=== PATIENT | female | born 1990 | race Two or more races ===

== ENCOUNTER 2024-06-27 06:50 | Emergency (ER) | payer MEDICAID, SELFPAY ==
[2024-06-27 06:52] VITALS: BMI 26.7
[2024-06-27 07:09] VITALS: BP 101/72; PULSE 99; RESP 16; TEMP 36.6; O2SAT 100
[2024-06-27] MEDS: ONDANSETRON INJ 2 MG/ML INJ 2 ML 4 MG IM (07:39)
[2024-06-27] MEDS: MORPHINE SULF INJ 10 MG/ML VIAL 5 MG IM (07:39)
--- NOTE | 2024-06-27 07:41 | EDNOTE_ITS ---
ED Dental RME/HPI General Chief complaint: Dental/Oral/Throat Stated complaint: MOUTH PAIN AFTER TOOTH EXTRACTION Time Seen by Provider: 06/27/24 07:07 Source: patient Arrival date/time: 06/27/24 06:50 33-year-old female who presented to the emergency department with complaints of dental pain after tooth extractions. Reports that 2 days ago she had 4 dental extractions done by her dentist and has been taking pain medication at home without relief. Patient reports taking her ibuprofen and [place] last night however pain is still there. There is no concerns of bleeding, no discharge at surgical site, and no fever or rigors. Mode of arrival: ambulatory Limitations: no limitations Related Data Previous Rx's ?Medication ?Instructions ?Recorded amoxicillin 875 mg-potassium 1 tab PO BID #14 tabs 06/27/24 clavulanate 125 mg tablet chlorhexidine gluconate 0.12 % 15 ml buccal BID 5 days #473 mL 06/27/24 mouthwash Allergies Allergy/AdvReac Type Severity Reaction Status Date / Time No Known Allergies Allergy Verified 05/28/23 15:25 Review of Systems Review of Systems Systems Reviewed: All systems reviewed, normal except as documented Narrative Review of Systems: Gen: No fever, no chills, no weight loss EYES: No discharge, no visual changes, no pain HEENT: No ear pain, no congestion, no sore throat, + dental pain PULM: No shortness of breath, no cough, no congestion CV: No chest pain, no dyspnea on exertion, no palpitations GI: No nausea, no vomiting, no diarrhea, no pain, no constipation : No frequency, no urgency, no dysuria Musc/skel: No joint pain, no back pain Skin: No rash Psyc: No hallucinations, no depression Heme/Lymph: No easy bleeding or bruising tendencies Neuro: No weakness, no headache Past Medical History Past Medical History NEUROLOGIC: Positive Migraine CARDIAC: Negative Cardiac Disorders or Congestive Heart Failure RESPIRATORY: Negative Chronic Obstructive Pulmonary Disease (COPD) or Asthma GASTROINTESTINAL: Positive Gastrointestinal Disorders GENITOURINARY: Positive Genitourinary Disorders (uti) and Kidney Stones; Negative Renal Disease MUSCULOSKELETAL: Positive Musculoskeletal Disorders ENDOCRINE: Negative Diabetes Mellitus Type 1 or Diabetes Mellitus Type 2 HEMATOLOGIC: Positive Anemia; Negative Sickle Cell Disease OTHER HISTORY: Negative Blood Transfusions or Cancer Family History FAMILY HISTORY: Negative Family Cancer Social History SMOKING STATUS: Never smoker SECOND HAND EXPOSURE: No ED Exam General Limitations: Present no limitations General appearance: Present alert and in no apparent distress Head Head exam: Present atraumatic Eye Eye exam: Present normal appearance, PERRL and EOMI ENT ENT exam: Present normal exam, normal oropharynx and mucous membranes moist Expanded ENT Exam External ear exam: Present normal external inspection Nose exam: Absent sinus tenderness Nasal speculum exam: Bilateral: normal Mouth exam: Present normal external inspection; Absent drooling, trismus or tongue swelling Teeth exam: Present dental caries, dental tenderness # (#4, 13, 17, 32 tooth extractions) and gingival swelling Neck Neck exam: Present normal inspection, full ROM and trachea midline Chest Chest inspection: Present normal inspection and symmetric chest wall rise Respiratory Respiratory exam: Present normal lung sounds bilaterally Cardiovascular Cardiovascular exam: Present regular rate, normal rhythm and normal heart sounds Abdominal Exam Abdominal exam: Present soft and normal bowel sounds Extremities Exam Extremities exam: Present normal inspection and full ROM Back Exam Back exam: Present normal inspection and full ROM Neurological Exam Neurological exam: Present alert, oriented X3 and CN II-XII intact Psychiatric Psychiatric exam: Present normal affect and normal mood Skin Skin exam: Present warm, dry, intact and normal color Course Quality Measures none Orders Category Date Time Status Morphine Inj Med 06/27/24 07:17 Discontinued 5 mg IM X1 ONE Ondansetron Inj [Zofran Inj] Med 06/27/24 07:17 Discontinued 4 mg IM X1 ONE Vital Signs Vital signs: Vital Signs Temperature 97.9 F 06/27/24 07:09 Pulse Rate 99 06/27/24 07:09 Respiratory Rate 16 06/27/24 07:09 Blood Pressure 101/72 06/27/24 07:09 Pulse Oximetry (%) 100 06/27/24 07:09 Oxygen Delivery Method Room Air 06/27/24 07:09 Dental / Oral 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 External records reviewed:: [facility] previous records Clinical information provided by:: patient Social determinants that could affect healthcare access:: none Patient has the following chronic illnesses:: None How is presenting disease/condition affected by chronic disease/condition?: no chronic disease Evaluation data The following diagnostics were reviewed and interpreted by me:: other (specify) Lab and/or radiology exams considered but not ordered:: None considered Interpretation Summary: Not applicable Medications / Prescriptions Medications or Prescriptions considered but not ordered:: Rx sent to pharmacy Medication administrations:: Medication Administration History Discontinued Medications Morphine Sulfate (Morphine Sulf Inj 10 Mg/Ml Vial) 5 mg IM X1 ONE Stop: 06/27/24 07:18 Last Admin: 06/27/24 07:39 Dose: 5 mg Documented By: [facility] Ondansetron HCl (Ondansetron Inj 2 Mg/Ml Inj 2 Ml) 4 mg IM X1 ONE; Protocol Stop: 06/27/24 07:18 Last Admin: 06/27/24 07:39 Dose: 4 mg Documented By: [facility] All medications administered and effective Consultations Consultation(s) initiated? (list below): No Diagnosis Dental Differential Diagnosis: gingival abscess, dental caries, toothache, dental abscess and fracture of tooth Most likely diagnosis given after review of the tests above:: Dental pain possible early infection Admission Indicated Admission indicated?: not indicated Admission Request Was there a request for admission?: No Disposition Plan Disposition Plan: Discharge Discharge Attestation Discharge Attestation: The patient and all family members were given an opportunity to ask questions and understood the discharge instructions. Discharge instructions specifically effects, indications for sooner follow up or return to the emergency department, and the expected course of current diagnosis. Patient condition: Stable Discharge Plan Plan Patient Disposition: HOME (Self Care) Patient condition on transfer: Stable Prescriptions/Referrals Prescriptions/Med Rec: New chlorhexidine gluconate 0.12 % mouthwash 15 ml buccal BID 5 Days Qty: 473 0RF Rx Instructions: 15ml swish/spit for 30 seconds and spit BID for 5 days amoxicillin-pot clavulanate 875-125 mg tablet 1 tab PO BID Qty: 14 0RF Referrals: Temporary Provider,ED [Physician] - In 1 week Problem List Clinical Impression: Pain, dental Patient/Caregiver Discharge Instructions Discharge Activity: as per physical therapy Education Materials: ED Dental Pain Additional Instructions: -Pain medication was given here in ER. -Start antibiotics and mouthwash as directed. Follow-up with your primary doctor or dentist as soon as possible. Return to the emergency department if there is any worsening symptoms or change in condition Print Language: Emirati Stand Alone Forms: Talisha Award Info., Work/School Release, Patient Portal Info Letter QUANG/MICHEL Supervising Physician QUANG/MICHEL Supervising Physician: Dr French
== END 2024-06-27 07:45 | disposition home or self-care (01) ==
LOC: SERX 07:36
PROVIDERS: Emergency Provider Emergency Medicine
DX: K08.89 Other specified disorders of teeth and supporting structures (principal)
CPT/HCPCS: 96372; 99284; J2270; J2405

== ENCOUNTER 2024-08-12 14:22 | Emergency (ER) | payer MEDICAID, SELFPAY ==
[2024-08-12 14:47] VITALS: BP 127/88; PULSE 81; RESP 16; TEMP 37.1; O2SAT 99; BMI 27.3
--- NOTE | 2024-08-12 14:59 | PD.EDDENTL ---
ED Dental RME/HPI General Chief complaint: Dental/Oral/Throat Stated complaint: left lower tooth pain Time Seen by Provider: 08/12/24 14:30 Source: patient Arrival date/time: 08/12/24 14:22 33-year-old female with no known medical history presents to the emergency room with a chief complaint of left lower molar tooth pain x 1 month. Patient states due to her health insurance issue she has been unable to take care of her dental pain. Patient states that the last 2 days she has been having an increased pain. Mode of arrival: ambulatory Limitations: no limitations Related Data Previous Rx's ?Medication ?Instructions ?Recorded amoxicillin 875 mg-potassium 1 tab PO BID #14 tabs 06/27/24 clavulanate 125 mg tablet clindamycin HCl 300 mg capsule 300 mg PO TID 7 days #21 caps 08/12/24 hydrocodone 5 mg-acetaminophen 325 1 tab PO BID PRN pain #10 tabs 08/12/24 mg tablet Allergies Allergy/AdvReac Type Severity Reaction Status Date / Time No Known Allergies Allergy Verified 08/12/24 14:25 Review of Systems Review of Systems Systems Reviewed: All systems reviewed, normal except as documented Constitutional Constitutional: Reports system reviewed and no additional complaints, except as documented, Denies fatigue, Denies fever(s), Denies headache(s) and Denies weakness Eyes Eyes: Reports system reviewed and no additional complaints, except as documented, Denies blurry vision and Denies change in vision ENT Ears, Nose, Mouth, and Throat: Reports system reviewed and no additional complaints, except as documented, Reports dental pain, Denies otalgia, Denies headache(s), Denies nasal congestion, Denies throat swelling and Denies vertigo Cardiovascular Cardiovascular: Reports system reviewed and no additional complaints, except as documented, Denies chest pain, Denies dyspnea and Denies dyspnea on exertion Respiratory Respiratory: Reports system reviewed and no additional complaints, except as documented, Denies chest congestion, Denies cough, Denies dyspnea, Denies dyspnea on exertion and Denies wheezing Gastrointestinal Gastrointestinal: Reports system reviewed and no additional complaints, except as documented, Denies abdominal pain, Denies cramping, Denies nausea and Denies vomiting Genitourinary Genitourinary: Reports system reviewed and no additional complaints, except as documented Musculoskeletal Musculoskeletal: Reports system reviewed and no additional complaints, except as documented and Denies back pain Integumentary/Breasts Skin/Breast: Reports system reviewed and no additional complaints, except as documented and Denies wounds Neurologic Neurologic: Reports system reviewed and no additional complaints, except as documented, Denies confusion, Denies headache(s), Denies lack of coordination, Denies vertigo and Denies weakness Psychiatric Psychiatric: Reports system reviewed and no additional complaints, except as documented, Denies anxiety, Denies confusion, Denies depression, Denies paranoia, Denies suicidal ideation and Denies tactile hallucinations Endocrine Endocrine: Reports system reviewed and no additional complaints, except as documented and Denies fatigue Hematologic/Lymphatic Hematologic/Lymphatic: Reports system reviewed and no additional complaints, except as documented and Denies lymphadenopathy Allergic/Immunologic Allergic/Immunologic: Reports system reviewed and no additional complaints, except as documented, Denies throat swelling, Denies urticaria and Denies wheezing Past Medical History Past Medical History NEUROLOGIC: Positive Migraine CARDIAC: Negative Cardiac Disorders or Congestive Heart Failure RESPIRATORY: Negative Chronic Obstructive Pulmonary Disease (COPD) or Asthma GASTROINTESTINAL: Positive Gastrointestinal Disorders GENITOURINARY: Positive Genitourinary Disorders (uti) and Kidney Stones; Negative Renal Disease MUSCULOSKELETAL: Positive Musculoskeletal Disorders ENDOCRINE: Negative Diabetes Mellitus Type 1 or Diabetes Mellitus Type 2 HEMATOLOGIC: Positive Anemia; Negative Sickle Cell Disease OTHER HISTORY: Negative Blood Transfusions or Cancer Family History FAMILY HISTORY: Negative Family Cancer Social History SMOKING STATUS: Never smoker SECOND HAND EXPOSURE: No ED Exam General Limitations: Present no limitations General appearance: Present alert and in no apparent distress Head Head exam: Present atraumatic Eye Eye exam: Present normal appearance, PERRL and EOMI ENT ENT exam: Present normal exam, normal oropharynx and mucous membranes moist Expanded ENT Exam Teeth exam: Present dental caries, fractured tooth #, dental tenderness # and gingival swelling Teeth numbered: 1. Fractured and Dental Tenderness Neck Neck exam: Present normal inspection, full ROM and trachea midline Chest Chest inspection: Present normal inspection and symmetric chest wall rise Respiratory Respiratory exam: Present normal lung sounds bilaterally Cardiovascular Cardiovascular exam: Present regular rate, normal rhythm and normal heart sounds Abdominal Exam Abdominal exam: Present soft and normal bowel sounds Extremities Exam Extremities exam: Present normal inspection and full ROM Back Exam Back exam: Present normal inspection and full ROM Neurological Exam Neurological exam: Present alert, oriented X3 and CN II-XII intact Psychiatric Psychiatric exam: Present normal affect and normal mood Skin Skin exam: Present warm, dry, intact and normal color Course Quality Measures none Orders Category Date Time Status Clindamycin Vial [Cleocin vial] Med 08/12/24 14:52 Discontinued 600 mg IM X1 ONE Ketorolac Inj [Toradol Inj] Med 08/12/24 14:52 Discontinued 30 mg IM X1 ONE Vital Signs Vital signs: Vital Signs Temperature 98.8 F 08/12/24 14:47 Pulse Rate 81 08/12/24 14:47 Respiratory Rate 16 08/12/24 14:47 Blood Pressure 127/88 H 08/12/24 14:47 Pulse Oximetry (%) 99 08/12/24 14:47 Oxygen Delivery Method Room Air 08/12/24 14:47 Dental / Oral MDM Narrative MDM Narrative:: 33-year-old female with no known medical history presents to the emergency room with a chief complaint of left lower molar tooth pain x 1 month. Patient states due to her health insurance issue she has been unable to take care of her dental pain. Patient states that the last 2 days she has been having an increased pain. Clinically the patient appears nontoxic and in no apparent distress. Physical examination shows tenderness to tooth #18 and 19 as well as dental caries and gingival swelling. There is fractured tooth #19. Antibiotics were given to the patient as well as pain medication. Patient was educated to follow-up with her dentist and return to the emergency room for any evidence of worsening signs or symptoms 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 External records reviewed:: [facility] previous records Clinical information provided by:: patient Social determinants that could affect healthcare access:: none Patient has the following chronic illnesses:: No chronic illness How is presenting disease/condition affected by chronic disease/condition?: no chronic disease Evaluation data The following diagnostics were reviewed and interpreted by me:: lab results and radiology exam(s) Lab and/or radiology exams considered but not ordered:: Labs and radiology exams considered and ordered Interpretation Summary: N/A Medications / Prescriptions Medications or Prescriptions considered but not ordered:: Medication given Medication administrations:: Medication Administration History Discontinued Medications Clindamycin Phosphate (Clindamycin Phos Inj 150 Mg/Ml Vial 6 Ml) 600 mg IM X1 ONE Stop: 08/12/24 14:53 Ketorolac Tromethamine (Ketorolac Inj 60 Mg/2 Ml Vial) 30 mg IM X1 ONE Stop: 08/12/24 14:53 Medication given Consultations Consultation(s) initiated? (list below): No Diagnosis Dental Differential Diagnosis: gingival abscess, dental caries, toothache and other (Dental pain) Most likely diagnosis given after review of the tests above:: Dental pain Admission Indicated Admission indicated?: not indicated Admission Request Was there a request for admission?: No Disposition Plan Disposition Plan: Discharge Discharge Attestation Discharge Attestation: The patient and all family members were given an opportunity to ask questions and understood the discharge instructions. Discharge instructions specifically effects, indications for sooner follow up or return to the emergency department, and the expected course of current diagnosis. Patient condition: Stable Discharge Plan Plan Patient Disposition: HOME (Self Care) Disposition Comment: Stable Prescriptions/Referrals Prescriptions/Med Rec: New clindamycin HCl 300 mg capsule 300 mg PO TID 7 Days Qty: 21 0RF hydrocodone-acetaminophen 5-325 mg tablet 1 tab PO BID MDD 10mg PRN (Reason: pain) Qty: 10 0RF No Action amoxicillin-pot clavulanate 875-125 mg tablet 1 tab PO BID Qty: 14 0RF Problem List Clinical Impression: Pain, dental Patient/Caregiver Discharge Instructions Education Materials: ED Dental Pain Additional Instructions: Please follow-up with your dentist in the next 24 to 48 hours. Medication was sent to your pharmacy to help you with any infection as well as with your pain. You will need to follow-up with your dentist as they are the ones that we will fix this issue. For any evidence of worsening signs or symptoms please return to the emergency room immediately Print Language: [place] Stand Alone Forms: Talisha Award Info., Patient Portal Info Letter QUANG/MICHEL Supervising Physician QUANG/MICHEL Supervising Physician: Dr. Richard
[2024-08-12] MEDS: KETOROLAC INJ 60 MG/2 ML VIAL 30 MG IM (15:08)
== END 2024-08-12 16:00 | disposition home or self-care (01) ==
LOC: SERX 15:07
PROVIDERS: Emergency Provider Emergency Medicine
DX: K08.89 Other specified disorders of teeth and supporting structures (principal)
CPT/HCPCS: 96372; 99283; J1885

== ENCOUNTER 2024-10-10 17:41 | Emergency (ER) | payer MEDICAID, SELFPAY ==
[2024-10-10 18:15] VITALS: BP 116/71; PULSE 88; RESP 18; TEMP 36.9; O2SAT 99; BMI 26.9
[2024-10-10] MEDS: HYDROcodone/APAP 5/325 TABLET 1 TAB PO (18:49)
[2024-10-10] MEDS: GABAPENTIN 300 MG CAPSULE PO (18:49)
--- NOTE | 2024-10-10 18:51 | PD.EDDENTL ---
ED Dental RME/HPI General Chief complaint: Dental/Oral/Throat Stated complaint: DENTAL PAIN, LEFT EARACHE Time Seen by Provider: 10/10/24 18:44 Arrival date/time: 10/10/24 17:41 33F with no significant PMH Presents to ED with L lower dental pain. Patient is waiting for insurance approval to get root canal. Limitations: no limitations Related Data Previous Rx's ?Medication ?Instructions ?Recorded amoxicillin 875 mg-potassium 1 tab PO BID #14 tabs 06/27/24 clavulanate 125 mg tablet hydrocodone 5 mg-acetaminophen 325 1 tab PO BID PRN pain #10 tabs 08/12/24 mg tablet Allergies Allergy/AdvReac Type Severity Reaction Status Date / Time No Known Allergies Allergy Verified 08/12/24 14:25 Review of Systems Review of Systems Systems Reviewed: All systems reviewed, normal except as documented Constitutional Constitutional: Reports system reviewed and no additional complaints, except as documented, Denies fever(s) and Denies headache(s) ENT Ears, Nose, Mouth, and Throat: Reports as per HPI, Reports dental pain, Denies disequilibrium and Denies headache(s) Cardiovascular Cardiovascular: Reports system reviewed and no additional complaints, except as documented, Denies chest pain and Denies dyspnea Respiratory Respiratory: Reports system reviewed and no additional complaints, except as documented, Denies cough and Denies dyspnea Gastrointestinal Gastrointestinal: Reports system reviewed and no additional complaints, except as documented, Denies abdominal pain, Denies nausea and Denies vomiting Neurologic Neurologic: Reports system reviewed and no additional complaints, except as documented, Denies confusion, Denies disequilibrium and Denies headache(s) Psychiatric Psychiatric: Denies confusion Past Medical History Past Medical History NEUROLOGIC: Positive Migraine CARDIAC: Negative Cardiac Disorders or Congestive Heart Failure RESPIRATORY: Negative Chronic Obstructive Pulmonary Disease (COPD) or Asthma GASTROINTESTINAL: Positive Gastrointestinal Disorders GENITOURINARY: Positive Genitourinary Disorders (uti) and Kidney Stones; Negative Renal Disease MUSCULOSKELETAL: Positive Musculoskeletal Disorders ENDOCRINE: Negative Diabetes Mellitus Type 1 or Diabetes Mellitus Type 2 HEMATOLOGIC: Positive Anemia; Negative Sickle Cell Disease OTHER HISTORY: Negative Blood Transfusions or Cancer Family History FAMILY HISTORY: Negative Family Cancer Social History SMOKING STATUS: Never smoker SECOND HAND EXPOSURE: No ED Exam General Limitations: Present no limitations General appearance: Present alert and in no apparent distress Head Head exam: Present atraumatic Eye Eye exam: Present normal appearance, PERRL and EOMI ENT ENT exam: Present normal exam, normal oropharynx and mucous membranes moist Neck Neck exam: Present normal inspection, full ROM and trachea midline Chest Chest inspection: Present normal inspection and symmetric chest wall rise Respiratory Respiratory exam: Present normal lung sounds bilaterally Cardiovascular Cardiovascular exam: Present regular rate, normal rhythm and normal heart sounds Abdominal Exam Abdominal exam: Present soft and normal bowel sounds Extremities Exam Extremities exam: Present normal inspection and full ROM Back Exam Back exam: Present normal inspection and full ROM Neurological Exam Neurological exam: Present alert, oriented X3 and CN II-XII intact Psychiatric Psychiatric exam: Present normal affect and normal mood Skin Skin exam: Present warm, dry, intact and normal color Course Quality Measures none Orders Category Date Time Status Gabapentin [Neurontin] Med 10/10/24 18:44 Discontinued 300 mg PO X1 ONE HYDROcodone*/APAP 5/325 [[place] 5/325] Med 10/10/24 18:44 Discontinued 1 tab PO X1 ONE Vital Signs Vital signs: Vital Signs Temperature 98.5 F 10/10/24 18:15 Pulse Rate 88 10/10/24 18:15 Respiratory Rate 18 10/10/24 18:15 Blood Pressure 116/71 10/10/24 18:15 Pulse Oximetry (%) 99 10/10/24 18:15 Oxygen Delivery Method Room Air 10/10/24 18:15 O2 at 99% on RA and WNLs Dental / Oral MDM Narrative MDM Narrative:: 33F with no significant PMH Presents to ED with L lower dental pain. Patient is waiting for insurance approval to get root canal. Physical exam reveals no obvious gingival/mouth tenderness. Patient is afebrile, calm, and alert. 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 External records reviewed:: [facility] previous records Clinical information provided by:: patient Social determinants that could affect healthcare access:: none Patient has the following chronic illnesses:: none How is presenting disease/condition affected by chronic disease/condition?: no chronic disease Evaluation data The following diagnostics were reviewed and interpreted by me:: other (specify) (none) Lab and/or radiology exams considered but not ordered:: not ordered Interpretation Summary: n/a Medications / Prescriptions Medications or Prescriptions considered but not ordered:: ordered Medication administrations:: Medication Administration History Discontinued Medications Hydrocodone Bitart/Acetaminophen (Hydrocodone/Apap 5/325 Tablet) 1 tab PO X1 ONE Stop: 10/10/24 18:45 Last Admin: 10/10/24 18:49 Dose: 1 tab Documented By: TISH Gabapentin (Gabapentin 300 Mg Capsule) 300 mg PO X1 ONE Stop: 10/10/24 18:45 Last Admin: 10/10/24 18:49 Dose: 300 mg Documented By: TISH above Consultations Consultation(s) initiated? (list below): No Diagnosis Dental Differential Diagnosis: gingival abscess, dental caries, toothache, dental abscess, fracture of tooth and aphthous ulcer Most likely diagnosis given after review of the tests above:: toothache Admission Indicated Admission indicated?: not indicated Admission Request Was there a request for admission?: No Disposition Plan Disposition Plan: Discharge Discharge Attestation Discharge Attestation: The patient and all family members were given an opportunity to ask questions and understood the discharge instructions. Discharge instructions specifically effects, indications for sooner follow up or return to the emergency department, and the expected course of current diagnosis. Patient condition: Stable Discharge Plan Plan Patient Disposition: HOME (Self Care) Disposition Comment: Stable Prescriptions/Referrals Prescriptions/Med Rec: No Action hydrocodone-acetaminophen 5-325 mg tablet 1 tab PO BID MDD 10mg PRN (Reason: pain) Qty: 10 0RF amoxicillin-pot clavulanate 875-125 mg tablet 1 tab PO BID Qty: 14 0RF Problem List Clinical Impression: Toothache Patient/Caregiver Discharge Instructions Education Materials: ED Dental Pain Additional Instructions: Please follow-up with PCP within 24-48 hours and return immediately if symptoms worsen. See dentist soon. Print Language: Frisian Stand Alone Forms: Patient Portal Info Letter QUANG/MICHEL Supervising Physician QUANG/MICHEL Supervising Physician: Dr. Richard
== END 2024-10-10 19:04 | disposition home or self-care (01) ==
LOC: SERX 19:00
PROVIDERS: Emergency Provider Emergency Medicine
DX: K08.89 Other specified disorders of teeth and supporting structures (principal)
CPT/HCPCS: 99283; A9270

== ENCOUNTER 2024-10-22 10:14 | Emergency (ER) | payer MEDICAID, SELFPAY ==
[2024-10-22 10:23] VITALS: BP 131/88; PULSE 90; RESP 18; TEMP 36.8; O2SAT 99; BMI 26.0
--- NOTE | 2024-10-22 10:30 | EDRME_ITS ---
Rapid Medical Screening Exam PENDING SALE TO [facility] Arrival date/time: 10/22/24 10:14 33-year-old female presents to the emergency department complaints of abdominal pain nausea vomiting. Patient reports history of kidney problems Chief Complaint: Back Pain/Injury Vital signs: Vital Signs Temperature 98.3 F 10/22/24 10:23 Pulse Rate 90 10/22/24 10:23 Respiratory Rate 18 10/22/24 10:23 Blood Pressure 131/88 H 10/22/24 10:23 Pulse Oximetry (%) 99 10/22/24 10:23 Oxygen Delivery Method Room Air 10/22/24 10:23
--- NOTE | 2024-10-22 10:30 | XR_ITS ---
Examination: CT abdomen with intravenous contrast CT pelvis with intravenous contrast 2-D coronal reconstructions 2-D sagittal reconstructions Date and time of exam:October 22, 2024 at 1223 hours Comparison November 18, 2023 INDICATIONS: Onset flank pain beginning 3 days ago. CTDI: vol (mGy) 8 DLP: (mGycm) 430 Technique: Multiple axial sections of the abdomen and pelvis have been obtained. 64 slice high-resolution scanner used. 3 mm axial sections have been obtained, post intravenous injection 60 cc [id number] 2-D sagittal, coronal reconstructions obtained. Low dose protocols were performed. One or more of the following dose reduction techniques were used; automated exposure control, adjustment of the mA and/or KV according to patient size, use of iterative reconstruction technique. Findings: No focal liver or splenic lesions Suspicious for tiny gallstones No pancreatic or adrenal mass No renal or ureteral calculi No hydronephrosis Aorta normal size No pericecal inflammatory change No bladder mass or bladder calculi Anteverted uterus with 12 mm probable cervical cyst Numerous bilateral ovarian follicular cysts including involuting 16mm left pelvic cyst with minimal surrounding free fluid Moderate disc narrowing posteriorly L5-S1 IMPRESSION: Recommend hepatobiliary sonography to exclude gallstones No renal or ureteral calculi No CT findings of appendicitis 16mm involuting left pelvic cyst with minimal surrounding free fluid, recommend pelvic sonography follow-up
[2024-10-22] MEDS: ONDANSETRON ODT 4 MG TABRAP PO (10:41)
[2024-10-22] MEDS: KETOROLAC INJ 30 MG/ML VIAL IM (10:42)
[2024-10-22] MEDS: HYDROcodone/APAP 5/325 TABLET 1 TAB PO (10:42)
[2024-10-22 10:47] LABS: Basophils # (Auto) 0.1 Thou/mm3 (0.0-0.2); Basophils % (Auto) 1 % (0-2.5); Eosinophils % (Auto) 0 % (0-10); Hematocrit 42.4 % (36.0-46.0); Hemoglobin 14.3 g/dL (12.0-16.0); Immature Granulocytes % (Auto) 0 % (0-0); Immature Granulocytes Auto 0.04 Thou/mm3 (0.00-0.00); Lymphocytes # (Auto) 2.1 Thou/mm3 (1.0-4.8); Lymphocytes % (Auto) 22 % (10-50); Mean Corpuscular HGB Conc 33.7 g/dl (31.0-37.0); Mean Corpuscular Hemoglobin 29.2 pg (25.0-35.0); Mean Corpuscular Volume 87 fL (80-100); Monocytes # (Auto) 0.3 Thou/mm3 (0.0-0.8); Monocytes % (Auto) 4 % (0-12); Neutrophils # (Auto) 7.1 Thou/mm3 (1.8-7.7); Neutrophils % (Auto) 74 % (37-80); Nucleated Red Blood Cell % 0 /100 WBC (0); Platelet Count 292 Thou/mm3 (140-440); RDW Standard Deviation 39.8 fL (36.4-46.3); White Blood Count 9.6 Thou/mm3 (3.6-11.0)
[2024-10-22 11:05] LABS: Alanine Aminotransferase 19 U/L (10-49); Albumin, Serum 4.4 gm/dL (3.5-5.0); Albumin/Globulin Ratio 1.5 (1.2-2.2); Alkaline Phosphatase 96 U/L (46-116); Anion Gap 8 (7-16); Aspartate Amino Transferase 18 U/L (0-34); BUN/Creatinine Ratio 9 Ratio (12-20); Bilirubin,Total 0.4 mg/dL (0.3-1.2); Blood Urea Nitrogen 6 mg/dL (9-23); Calcium 9.3 mg/dL (8.3-10.6); Calcium (Corrected) 9.3 mg/dL (8.5-10.1); Carbon Dioxide 22.4 mMol/L (20.0-31.0); Chloride 109 mMol/L (98-107); Creatinine (Component) 0.7 mg/dL (0.6-1.3); Estimated Creatinine Clearance 96.9 mL/min (>60); Globulin 2.9 gm/dL (2.3-3.5); Glucose 125 mg/dL (74-106); Lipase 40 U/L (12-53); Osmolality,Calculated 276 (275-295); Potassium 3.9 mMol/L (3.4-5.1); Sodium 139 mMol/L (136-145); Total Protein 7.3 gm/dL (5.7-8.2); eGFR > 60 See Note
--- NOTE | 2024-10-22 11:07 | PC.NURSE ---
PT HERE FOR BACK PAIN THAT RADIATES TO LEFT SIDE, FOR THE PAST 4 DAYS STATES PAIN COMES IN GOES, PT IS GUARDING ADB STATES PAIN IS 7/10, PAIN MEDS GIVEN IN LOBBY. PT HAS HX OF KIDNEY STONES.
--- NOTE | 2024-10-22 11:44 | EDNOTE_ITS ---
ED Back Injury Pain RME/HPI General Chief Complaint: Back Pain/Injury Stated Complaint: REALLY BAD BACK/KIDNEY PAIN X 4 DAYS, FEVER Arrival date/time: 10/22/24 10:14 Limitations: no limitations RME / HPI RME / HPI Narrative: 10/22/24 10:14 33-year-old female presents to the emergency department complaints of abdominal pain nausea vomiting. Patient reports history of kidney problems DR. SEXTON MAIN ED EVALUATION: 33 year old female with history of kidney stones, recurrent UTIs and previous hospitalization for pyelonephritis presents to the ED for evaluation of left flank pain today. The patient reports that the pain began approximately 4 days ago and has gradually worsened since its onset. The pain is described as similar to previous episodes of kidney stones and is located in the left flank, radiating to the lower abdomen. Rating as severe. The patient initially attempted to manage the pain at home, but the symptoms have not improved. Denies any fever, chills, chest pain, cough, shortness of breath, vomiting, or diarrhea. There is no history of recent trauma or injury to the area. Related Data Previous Rx's ?Medication ?Instructions ?Recorded amoxicillin 875 mg-potassium 1 tab PO BID #14 tabs clavulanate 125 mg tablet hydrocodone 5 mg-acetaminophen 325 1 tab PO BID PRN pa in #10 tabs 08/12/24 mg tablet Allergies Allergy/AdvReac Type Severity Reaction Status Date / Time No Known Allergies Allergy Verified 10/22/24 10:18 Review of Systems Review of Systems Narrative Review of Systems: GEN: No fever, no chills, no weight loss EYES: No discharge, no visual changes, no pain HEENT: No ear pain, no congestion, no sore throat PULM: No shortness of breath, no cough, no congestion CV: No chest pain, no dyspnea on exertion, no palpitations GI: + nausea, no vomiting, no diarrhea, + pain, no constipation : No frequency, no urgency, no dysuria MUSC/SKEL: No joint pain, +back pain SKIN: No rash NEURO: No weakness, no headache Past Medical History Past Medical History NEUROLOGIC: Positive Migraine GASTROINTESTINAL: Positive Gastrointestinal Disorders GENITOURINARY: Positive Genitourinary Disorders and Kidney Stones MUSCULOSKELETAL: Positive Musculoskeletal Disorders HEMATOLOGIC: Positive Anemia Family History FAMILY HISTORY: Positive Family Cardiac Disorders and Family Endocrine Disorders; Negative Family Cancer Social History SMOKING STATUS: Never smoker SECOND HAND EXPOSURE: No ED Exam General Limitations: Present no limitations General appearance: Present alert and other (appears to be in pain ) Head Head exam: Present atraumatic, normocephalic and normal inspection Eye Eye exam: Present normal appearance and EOMI ENT ENT exam: Present normal exam, normal oropharynx and mucous membranes moist Neck Neck exam: Present normal inspection, full ROM and trachea midline Chest Chest inspection: Present normal inspection and symmetric chest wall rise Respiratory Respiratory exam: Present normal lung sounds bilaterally Cardiovascular Cardiovascular exam: Present regular rate, normal rhythm and normal heart sounds Abdominal Exam Abdominal exam: Present soft, tenderness (2+ left abdominal tenderness to palpation ) and normal bowel sounds Extremities Exam Extremities exam: Present normal inspection and full ROM Back Exam Back exam: Present full ROM and other (2+ tenderness to left flank on palpation ) Neurological Exam Neurological exam: Present alert, oriented X3 and CN II-XII intact Psychiatric Psychiatric exam: Present normal affect and normal mood Skin Skin exam: Present warm, dry, intact and normal color Course Quality Measures none Orders Category Date Time Status CT Screening NOW Care 10/22/24 10:[address] abdomen pelvis w con Stat Exams 10/22/24 10:30 Completed CBC Stat Lab 10/22/24 10:39 Completed Comprehensive Metabolic Panel Stat Lab 10/22/24 10:39 Completed HCG Qualitative,Urine Stat Lab 10/22/24 11:14 Completed Lipase Stat Lab 10/22/24 10:39 Completed UA, C/S IF [Urinalysis, C/S if Indicated] Stat Lab 10/22/24 11:14 Completed Urine Culture Stat Lab 10/22/24 11:14 Received HYDROcodone*/APAP 5/325 [[place] 5/325] Med 10/22/24 10:29 Discontinued 1 tab PO X1 ONE HYDROmorphone INJ [Dilaudid Inj] Med 10/22/24 11:55 Discontinued 1 mg IVP X1 ONE Ketorolac Inj [Toradol Inj] Med 10/22/24 10:29 Discontinued 30 mg IM X1 ONE Ketorolac Inj [Toradol Inj] Med 10/22/24 11:55 Discontinued 30 mg IVP X1 ONE Ondansetron Inj [Zofran Inj] Med 10/22/24 11:55 Discontinued 4 mg IV X1 ONE Ondansetron Odt [Zofran Odt] Med 10/22/24 10:29 Discontinued 4 mg PO X1 ONE Vital Signs Vital signs: Vital Signs Temperature 98.3 F 10/22/24 10:23 Pulse Rate 90 10/22/24 10:23 Respiratory Rate 18 10/22/24 10:23 Blood Pressure 131/88 H 10/22/24 10:23 Pulse Oximetry (%) 99 10/22/24 10:23 Oxygen Delivery Method Room Air 10/22/24 10:23 Pulse ox is 99% on room air which is adequate. Back Pain / Injury MDM Narrative MDM Narrative:: Belle Munoz am scribing for and in the presence of Dr. Sexton. 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 External records reviewed:: [facility] previous records (I reviewed ED visit on 10/10/2024 for dental pain ) Clinical information provided by:: patient Social determinants that could affect healthcare access:: none Patient has the following chronic illnesses:: kidney stones, recurrent UTIs and previous hospitalization for pyelonephritis How is presenting disease/condition affected by chronic disease/condition?: exacerbated by Evaluation data The following diagnostics were reviewed and interpreted by me:: lab results and radiology exam(s) Lab and/or radiology exams considered but not ordered:: None Interpretation Summary: Ordering Physician: Lexx RAMIREZ)Ashwin NP Date of Service: 10/22/24 Procedure(s): CT abdomen pelvis w con Accession Number(s): [id number] cc: Lexx RAMIREZ)Ashwin NP; Dinesh Arevalo MD; NO PRIMARY/FAMILY,PHYSICIAN~ Examination: CT abdomen with intravenous contrast CT pelvis with intravenous contrast 2-D coronal reconstructions 2-D sagittal reconstructions Date and time of exam:October 22, 2024 at 1223 hours Comparison November 18, 2023 INDICATIONS: Onset flank pain beginning 3 days ago. CTDI: vol (mGy) 8 DLP: (mGycm) 430 Technique: Multiple axial sections of the abdomen and pelvis have been obtained. 64 slice high-resolution scanner used. 3 mm axial sections have been obtained, post intravenous injection 60 cc [id number] 2-D sagittal, coronal reconstructions obtained. Low dose protocols were performed. One or more of the following dose reduction techniques were used; automated exposure control, adjustment of the mA and/or KV according to patient size, use of iterative reconstruction technique. Findings: No focal liver or splenic lesions Suspicious for tiny gallstones No pancreatic or adrenal mass No renal or ureteral calculi No hydronephrosis Aorta normal size No pericecal inflammatory change No bladder mass or bladder calculi Anteverted uterus with 12 mm probable cervical cyst Numerous bilateral ovarian follicular cysts including involuting 16mm left pelvic cyst with minimal surrounding free fluid Moderate disc narrowing posteriorly L5-S1 IMPRESSION: Recommend hepatobiliary sonography to exclude gallstones No renal or ureteral calculi No CT findings of appendicitis 16mm involuting left pelvic cyst with minimal surrounding free fluid, recommend pelvic sonography follow-up Dictated By: Dinesh Arevalo MD Signed By: <Electronically signed by Dinesh Arevalo MD in [place]> 10/22/24 1255 Medications / Prescriptions Medications or Prescriptions considered but not ordered:: None Medication administrations:: Medication Administration History Discontinued Medications Hydrocodone Bitart/Acetaminophen (Hydrocodone/Apap 5/325 Tablet) 1 tab PO X1 ONE Stop: 10/22/24 10:30 Last Admin: 10/22/24 10:42 Dose: 1 tab Documented By: OA Hydromorphone HCl (Hydromorphone Inj 2 Mg/Ml Vial) 1 mg IVP X1 ONE Stop: 10/22/24 11:56 Last Admin: 10/22/24 12:03 Dose: 1 mg Documented By: BD Ketorolac Tromethamine (Ketorolac Inj 30 Mg/Ml Vial) 30 mg IM X1 ONE Stop: 10/22/24 10:30 Last Admin: 10/22/24 10:42 Dose: 30 mg Documented By: OA Ketorolac Tromethamine (Ketorolac Inj 30 Mg/Ml Vial) 30 mg IVP X1 ONE Stop: 10/22/24 11:56 Last Admin: 10/22/24 12:06 Dose: 30 mg Documented By: BD Ondansetron HCl (Ondansetron Odt 4 Mg Tabrap) 4 mg PO X1 ONE; Protocol Stop: 10/22/24 10:30 Last Admin: 10/22/24 10:41 Dose: 4 mg Documented By: OA Ondansetron HCl (Ondansetron Inj 2 Mg/Ml Inj 2 Ml) 4 mg IV X1 ONE; Protocol Stop: 10/22/24 11:56 Last Admin: 10/22/24 12:03 Dose: 4 mg Documented By: BD See above Consultations Consultation(s) initiated? (list below): No Diagnosis Differential diagnosis back pain/injury: strain of lumbar region, renal colic, pyelonephritis and other (ovarian cyst) Most likely diagnosis given after review of the tests above:: Ruptured ovarian cyst Admission Indicated Admission indicated?: not indicated Admission Request Was there a request for admission?: No Disposition Plan Disposition Plan: Discharge Discharge Attestation Discharge Attestation: The patient and all family members were given an opportunity to ask questions and understood the discharge instructions. Discharge instructions specifically effects, indications for sooner follow up or return to the emergency department, and the expected course of current diagnosis. Patient condition: Stable Discharge Plan Plan Patient Disposition: HOME (Self Care) Prescriptions/Referrals Prescriptions/Med Rec: No Action hydrocodone-acetaminophen 5-325 mg tablet 1 tab PO BID MDD 10mg PRN (Reason: pain) Qty: 10 0RF amoxicillin-pot clavulanate 875-125 mg tablet 1 tab PO BID Qty: 14 0RF Referrals: No Primary/Family,Physician [Primary Care Provider] - In 1 week Problem List Clinical Impression: Ruptured ovarian cyst Patient/Caregiver Discharge Instructions Education Materials: ED Ovarian Cyst Additional Instructions: Please follow up with your doctor or patient registration manager for further evaluation. You can take over the counter Tylenol or Ibuprofen for pain as needed. Print Language: Citizen Of [place] Stand Alone Forms: Talisha Award Info., Patient Portal Info Letter
[2024-10-22 11:49] LABS: Collection Type, Urine Clean Catch
[2024-10-22 11:55] LABS: Bacteria,Urine 1+; Bilirubin,Urine Negative (Negative); Blood,Urine Negative (Negative); Clarity,Urine Clear (Clear/Hazy); Color,Urine Lt-Yellow (Lt Yel-Yel); Glucose, Urine Negative (Negative); HCG Qualitative,Urine Negative; Ketones,Urine Negative (Negative); Leukocyte Esterase,Urine Negative (Negative); Nitrite,Urine Negative (Negative); PH,Urine 6.5 (5.0-7.0); Protein,Urine Negative (Neg - Trace); RBC,Urine 8 /hpf (0-3); Specific Gravity,Urine 1.014 (1.001-1.035); Squamous Epithelial Cell,Urine 6 /hpf (0-5); Urobilinogen,Urine Negative mg/dL (0.0-1.0); WBC,Urine 2 /hpf (0-5)
[2024-10-22 11:58] LABS: Culture Indicated,Urine Yes
[2024-10-22] MEDS: ONDANSETRON INJ 2 MG/ML INJ 2 ML 4 MG IV (12:03)
[2024-10-22] MEDS: HYDROmorphone INJ 2 MG/ML VIAL 1 MG IVP (12:03)
[2024-10-22] MEDS: KETOROLAC INJ 30 MG/ML VIAL IVP (12:06)
[2024-10-22 12:52] VITALS: BP 92/79; PULSE 80; RESP 18; TEMP 36.8; O2SAT 99
[2024-10-22 14:40] VITALS: BP 118/60; PULSE 95; RESP 19; TEMP 36.9; O2SAT 100
== END 2024-10-22 14:44 | disposition home or self-care (01) ==
PROVIDERS: Nurse Practitioner Primary Care; Emergency Provider Family Medicine
DX: N83.202 Unspecified ovarian cyst, left side (principal); Z87.442 Personal history of urinary calculi
CPT/HCPCS: 36415; 74177; 80053; 81001; 81025; 83690; 85025; 87077; 87086; 87186; 96372; 96374; 96375; 99285; A4649; J1885; J2405; J3490; Q0162; Q9967; A9270

== ENCOUNTER 2024-11-23 20:35 | Emergency (ER) | payer MEDICAID, SELFPAY ==
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
--- NOTE | 2024-11-23 21:22 | XR_ITS ---
Examination: Abdomen sonogram, Limited Date and time of exam: November 23, 2024 10:11 PM Indications: Right upper abdominal pain beginning this morning Technique: Grayscale sonographic images abdomen Findings: Normal gallbladder Common bile duct 0.6 cm Pancreatic head 1.7 cm Liver 16.4 cm no liver lesions Normal hepatopedal portal venous flow Patent IVC Impression: Normal gallbladder Abnormally enlarged common bile duct 0.6 cm, consider MRCP follow-up to exclude common bile duct stones
--- NOTE | 2024-11-23 21:22 | XR_ITS ---
Examination: CT abdomen and pelvis without contrast. Coronal 3-D reconstructions. Sagittal 2-D reconstructions. Date and time of exam:November 23, 2024 1034 hrs. Comparison October 22, 2024 Indications: Epigastric pain left flank pain today CTDI: vol (mGy): 7.08 DLP: (mGycm): 381 Technique: Axial images of the abdomen have been obtained, 3 mm slice thickness Intravenous contrast material has not been administered. Low dose protocols were performed. One or more of the following dose reduction techniques were used; automated exposure control, adjustment of the mA and/or KV according to patient size, use of iterative reconstruction technique. Findings: No focal liver or splenic lesions Contracted gallbladder No pancreatic or adrenal mass Small fat-containing inguinal hernia No pericecal inflammatory change, normal appendix Small lymph nodes in the right lower mesentery No bowel obstruction No diverticulitis Anteverted uterus Hypodense 5.5 cm left adnexal mass No bladder mass or bladder calculi Advanced disc narrowing L5-S1 Impression: No renal or ureteral calculi, no hydronephrosis No CT findings of appendicitis or bowel obstruction Recommend pelvic sonography to assess 5.5 cm left adnexal mass
[2024-11-23 21:27] VITALS: BP 130/76; PULSE 101; RESP 18; TEMP 36.8; O2SAT 100
[2024-11-23 21:39] VITALS: BMI 28.9
[2024-11-23] MEDS: SODIUM CHLORIDE 0.9% 1000 ML 1,000 ML 999 ML IV (21:51)
[2024-11-23] MEDS: MORPHINE SULF INJ 10 MG/ML VIAL 6 MG IVP (21:51)
[2024-11-23 21:55] LABS: Collection Type, Urine Clean Catch
[2024-11-23 21:56] LABS: WBC,Urine 0 /hpf (0-5)
[2024-11-23 22:00] LABS: Basophils # (Auto) 0.1 Thou/mm3 (0.0-0.2); Basophils % (Auto) 1 % (0-2.5); Eosinophils # (Auto) 0.1 Thou/mm3 (0.0-0.5); Eosinophils % (Auto) 1 % (0-10); Hematocrit 37.9 % (36.0-46.0); Hemoglobin 12.8 g/dL (12.0-16.0); Immature Granulocytes % (Auto) 0 % (0-0); Immature Granulocytes Auto 0.04 Thou/mm3 (0.00-0.00); Lymphocytes # (Auto) 2.3 Thou/mm3 (1.0-4.8); Lymphocytes % (Auto) 20 % (10-50); Mean Corpuscular HGB Conc 33.8 g/dl (31.0-37.0); Mean Corpuscular Hemoglobin 29.7 pg (25.0-35.0); Mean Corpuscular Volume 88 fL (80-100); Monocytes # (Auto) 0.5 Thou/mm3 (0.0-0.8); Monocytes % (Auto) 4 % (0-12); Neutrophils # (Auto) 8.6 Thou/mm3 (1.8-7.7); Neutrophils % (Auto) 74 % (37-80); Nucleated Red Blood Cell % 0 /100 WBC (0); Platelet Count 262 Thou/mm3 (140-440); RDW Standard Deviation 41.1 fL (36.4-46.3); Red Blood Count 4.31 Miln/mm3 (4.00-5.20); White Blood Count 11.6 Thou/mm3 (3.6-11.0)
[2024-11-23 22:03] LABS: Bacteria,Urine 2+; Bilirubin,Urine Negative (Negative); Blood,Urine Trace (Negative); Clarity,Urine Clear (Clear/Hazy); Color,Urine Lt-Yellow (Lt Yel-Yel); Glucose, Urine Negative (Negative); Ketones,Urine Negative (Negative); Leukocyte Esterase,Urine Negative (Negative); Nitrite,Urine Negative (Negative); PH,Urine 6.5 (5.0-7.0); Protein,Urine Trace (Neg - Trace); RBC,Urine 5 /hpf (0-3); Specific Gravity,Urine 1.027 (1.001-1.035); Squamous Epithelial Cell,Urine 3 /hpf (0-5); Urobilinogen,Urine Negative mg/dL (0.0-1.0)
[2024-11-23 22:05] LABS: HCG Qualitative,Urine Negative
[2024-11-23 22:06] LABS: Culture Indicated,Urine Yes
[2024-11-23 22:24] LABS: Alanine Aminotransferase 22 U/L (10-49); Albumin, Serum 4.2 gm/dL (3.5-5.0); Albumin/Globulin Ratio 1.4 (1.2-2.2); Alkaline Phosphatase 102 U/L (46-116); Amylase 31 U/L (30-118); Anion Gap 5 (7-16); Aspartate Amino Transferase 22 U/L (0-34); BUN/Creatinine Ratio 19 Ratio (12-20); Bilirubin,Direct < 0.1 mg/dL (0.0-0.3); Bilirubin,Total 0.3 mg/dL (0.3-1.2); Blood Urea Nitrogen 13 mg/dL (9-23); Calcium 9.2 mg/dL (8.3-10.6); Calcium (Corrected) 9.2 mg/dL (8.5-10.1); Chloride 107 mMol/L (98-107); Creatinine (Component) 0.7 mg/dL (0.6-1.3); Estimated Creatinine Clearance 96.8 mL/min (>60); Globulin 2.9 gm/dL (2.3-3.5); Glucose 109 mg/dL (74-106); Lipase 28 U/L (12-53); Magnesium 1.8 mg/dL (1.6-2.6); Osmolality,Calculated 278 (275-295); Potassium 4.1 mMol/L (3.4-5.1); Sodium 139 mMol/L (136-145); Total Protein 7.1 gm/dL (5.7-8.2); eGFR > 60 See Note
[2024-11-23] MEDS: cefTRIAXone 1,000 MG in SODIUM CHLORIDE 0.9% (Popper) 50 ML 100 MG IV (22:43)
[2024-11-23] MEDS: KETOROLAC INJ 30 MG/ML VIAL IVP (22:44)
--- NOTE | 2024-11-23 23:20 | XR_ITS ---
Examination: Transvaginal ultrasound of the pelvis, complete Technique: Transvaginal sonographic images pelvis performed using perkins scale imaging Exam date and time: November 23, 2024 11:40 PM INDICATIONS: Pelvic pain beginning 2 days ago, history gangrenous hernia FINDINGS: Uterus 9.2 cm endometrial stripe 0.8 cm No uterine mass or intrauterine gestation Right ovary 2.0 cm arterial flow Left ovary 5.7 cm arterial flow septated left ovarian cystic mass at least 5 cm IMPRESSION: Large ovarian septated cystic mass, differential would include complex cyst, cystadenoma Recommend MRI pelvis follow-up pre and postcontrast.
--- NOTE | 2024-11-24 00:57 | PRELIM_ITS ---
Pelvic ultrasound (transvaginal). November 23, 2024 at 2340 hours Clinical history: Pelvic pain. LMP 10/17/2024. HCG negative. Technique: Real-time, grayscale, transvaginal pelvic ultrasound was performed using Duplex scanning including arterial inflow, venous outflow, color and spectral Doppler. Comparison: Reference is made to the prior CT abdomen and pelvis report dated July 23, 2020. Findings: The uterus measures 9.2 x 4.2 x 5.4 cm. The endometrium measures 0.8 cm. The right ovary measures 2 x 1.4 x 1.4 cm and is unremarkable. There is a 5.7 x 5.3 x 6.1 cm complex, cystic left ovarian lesion with septations. Both ovaries demonstrate color flow and spectral waveforms on Doppler evaluation. There is no free fluid on the submitted images. Impression: Complex left ovarian lesion with septations. Suggest further evaluation with MRI, and gynecology consult. No sonographic evidence of ovarian torsion is demonstrated on the submitted images. Report Electronically Signed By: Wilmar Richter 11/24/2024 12:56:32 AM [EST]
[2024-11-24] MEDS: PANTOPRAZOLE 40 MG TABLET PO (01:39)
[2024-11-24] MEDS: FAMOTIDINE INJ 10 MG/ML VIAL 2 ML 20 MG IVP (01:39)
[2024-11-24 01:53] VITALS: BP 138/91; PULSE 81; RESP 20; TEMP 36.8; O2SAT 98
[2024-11-24 03:15] VITALS: BP 113/88; PULSE 84; RESP 20; O2SAT 100
== END 2024-11-24 03:16 | disposition home or self-care (01) ==
PROVIDERS: Emergency Provider Emergency Medicine; PCP Family Medicine
DX: N39.0 Urinary tract infection, site not specified (principal); N83.202 Unspecified ovarian cyst, left side; K25.9 Gastric ulcer, unspecified as acute or chronic, without hemorrhage or perforation
CPT/HCPCS: 36415; 74176; 76705; 76830; 80053; 81001; 81025; 82150; 82248; 83690; 83735; 85025; 87077; 87086; 87186; 96365; 96375; 99284; J0696; J1885; J2270; J3490; J7030; J7050; A9270

== ENCOUNTER 2025-02-08 21:23 | Emergency (ER) | payer SELFPAY ==
[2025-02-08 21:25] VITALS: BMI 27.7
[2025-02-08 21:45] VITALS: BP 131/70; PULSE 104; RESP 20; TEMP 36.7; O2SAT 100
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
[2025-02-08] MEDS: MethylPREDNISolone SOD SUCC 62.5 MG/ML 2ML VIAL 125 MG IVP (22:32)
[2025-02-08] MEDS: KETOROLAC INJ 30 MG/ML VIAL IVP (22:33)
[2025-02-08] MEDS: ONDANSETRON INJ 2 MG/ML INJ 2 ML 4 MG IVP (22:33)
[2025-02-08] MEDS: SODIUM CHLORIDE 0.9% 1000 ML 1,000 ML 999 ML IV (22:33)
[2025-02-08] MEDS: MORPHINE SULF INJ 10 MG/ML VIAL 6 MG IVP (22:33)
[2025-02-08 22:36] LABS: Basophils # (Auto) 0.1 Thou/mm3 (0.0-0.2); Basophils % (Auto) 1 % (0-2.5); Eosinophils # (Auto) 0.2 Thou/mm3 (0.0-0.5); Eosinophils % (Auto) 2 % (0-10); Hematocrit 37.9 % (36.0-46.0); Hemoglobin 13.1 g/dL (12.0-16.0); Immature Granulocytes Auto 0.06 Thou/mm3 (0.00-0.00); Lymphocytes # (Auto) 3.8 Thou/mm3 (1.0-4.8); Lymphocytes % (Auto) 36 % (10-50); Mean Corpuscular HGB Conc 34.6 g/dl (31.0-37.0); Mean Corpuscular Hemoglobin 29.6 pg (25.0-35.0); Mean Corpuscular Volume 86 fL (80-100); Monocytes # (Auto) 0.7 Thou/mm3 (0.0-0.8); Monocytes % (Auto) 7 % (0-12); Neutrophils # (Auto) 5.9 Thou/mm3 (1.8-7.7); Neutrophils % (Auto) 55 % (37-80); Nucleated Red Blood Cell # 0.00 Thou/mm3 (0.00-0.00); Nucleated Red Blood Cell % 0 /100 WBC (0); Platelet Count 293 Thou/mm3 (140-440); RDW Standard Deviation 38.6 fL (36.4-46.3); Red Blood Count 4.42 Miln/mm3 (4.00-5.20); White Blood Count 10.8 Thou/mm3 (3.6-11.0)
[2025-02-08 22:46] LABS: HCG,Qualitative Serum Negative
[2025-02-08 22:56] LABS: Anion Gap 9 (7-16); BUN/Creatinine Ratio 8 Ratio (12-20); Blood Urea Nitrogen 6 mg/dL (9-23); Carbon Dioxide 26.8 mMol/L (20.0-31.0); Chloride 104 mMol/L (98-107); Creatinine (Component) 0.8 mg/dL (0.6-1.3); Potassium 3.8 mMol/L (3.4-5.1); Sodium 140 mMol/L (136-145)
[2025-02-08 22:57] LABS: Alanine Aminotransferase 19 U/L (10-49); Albumin, Serum 4.3 gm/dL (3.5-5.0); Albumin/Globulin Ratio 1.5 (1.2-2.2); Alkaline Phosphatase 117 U/L (46-116); Aspartate Amino Transferase 24 U/L (0-34); Bilirubin,Total 0.2 mg/dL (0.3-1.2); Calcium 9.2 mg/dL (8.3-10.6); Calcium (Corrected) 9.2 mg/dL (8.5-10.1); Creatine Kinase 158 U/L (34-171); Estimated Creatinine Clearance 83.0 mL/min (>60); Globulin 2.9 gm/dL (2.3-3.5); Glucose 92 mg/dL (74-106); Magnesium 2.0 mg/dL (1.6-2.6); Osmolality,Calculated 277 (275-295); Total Protein 7.2 gm/dL (5.7-8.2); eGFR > 60 See Note
[2025-02-08 22:58] LABS: Alcohol, Blood Medical < 3.0 mg/dL (0-10.0); Bilirubin,Direct < 0.1 mg/dL (0.0-0.3)
[2025-02-08 23:00] LABS: INR 0.9 (0.9-1.3); Partial Thromboplastin Time 27.5 Seconds (22.0-36.0); Prothrombin Time 10.1 Seconds (9.0-12.2)
--- NOTE | 2025-02-08 23:08 | PC.NURSE ---
[facility] states will send an officer out
--- NOTE | 2025-02-08 23:35 | PC.NURSE ---
[facility] officer at bedside
[2025-02-09 00:20] VITALS: BP 120/95; PULSE 107; RESP 18; O2SAT 98
[2025-02-09] MEDS: HYDROmorphone INJ 2 MG/ML VIAL 1 MG IVP (00:22)
[2025-02-09] MEDS: SODIUM CHLORIDE 0.9% 1000 ML 1,000 ML 999 ML IV (00:56)
[2025-02-09 01:09] VITALS: BP 112/62; PULSE 105; RESP 17; TEMP 36.8; O2SAT 98
[2025-02-09 02:45] LABS: Amphetamine/Methamp Scrn,U Negative (Negative); Barbiturate Screen,Urine Negative (Negative); Benzodiazepines Screen,Urine Negative (Negative); Benzoylecgonine Screen, Ur Negative (Negative); Fentanyl Screen,Urine Negative (Negative); Opiate Screen,Urine Positive (Negative); THC Screen,Urine Negative (Negative)
--- NOTE | 2025-02-09 03:38 | PRELIM_ITS ---
CT scan of the lumbar spine without intravenous contrast (axial sections with sagittal and coronal reformats) February 09, 2025 0203 hours Clinical History: LBP radiating into right leg No prior study is available for comparison. Findings: There is no evidence of fracture or subluxation.There are chronic deformities of the bilateral transverse processes of the L1 vertebra .The vertebral body height and intervertebral disc spaces are normal. There are small disc bulges at the L3-L4, L4-L5 and L5-S1 levels causing mild spinal canal stenosis and mild bilateral neural foraminal stenosis.The soft tissues are unremarkable. Impression: No evidence of fracture or subluxation. Small disc bulges at the L3-L4 , L4-L5 and L5-S1 levels causing mild spinal canal stenosis and mild bilateral neural foraminal stenosis. Report Electronically Signed By: Marc Manriquez 02/09/2025 3:38:00 AM [EST]
[2025-02-09 04:47] VITALS: BP 121/68; PULSE 94; RESP 16; TEMP 36.8; O2SAT 97
[2025-02-09] MEDS: HYDROcodone/APAP 5/325 TABLET 2 TAB PO (05:17)
== END 2025-02-09 05:31 | disposition home or self-care (01) ==
PROVIDERS: Emergency Provider Emergency Medicine
DX: M48.061 Spinal stenosis, lumbar region without neurogenic claudication (principal); S89.91XA Unspecified injury of right lower leg, initial encounter; V29.99XA Rider (driver) (passenger) of other motorcycle injured in unspecified traffic accident, initial encounter; G95.29 Other cord compression
CPT/HCPCS: 36415; 72131; 73552; 73590; 80053; 80307; 80320; 81025; 82248; 82550; 83735; 84703; 85025; 85610; 85730; 96361; 96374; 96375; 99284; J1171; J1885; J2270; J2405; J2919; J7030; A9270; G0480

== ENCOUNTER 2025-05-07 05:37 | Emergency (ER) | payer MEDICAID, SELFPAY ==
[2025-05-07 05:37] VITALS: BMI 28.3
[2025-05-07 05:45] VITALS: BP 118/75; PULSE 120; RESP 18; TEMP 36.8; O2SAT 98
--- NOTE | 2025-05-07 05:48 | XR_ITS ---
Examination: CT abdomen and pelvis without contrast. Coronal 3-D reconstructions. Sagittal 2-D reconstructions. Date and time of exam:May 07, 2025, 0607 hrs. Indications: Left flank pain beginning 2 days ago, history kidney stones infections Comparison: November 23, 2024 CTDI: vol (mGy): 6.86 DLP: (mGycm): 364 Technique: Axial images of the abdomen have been obtained, 3 mm slice thickness Intravenous contrast material has not been administered. Low dose protocols were performed. One or more of the following dose reduction techniques were used; automated exposure control, adjustment of the mA and/or KV according to patient size, use of iterative reconstruction technique. Findings: No focal liver or splenic lesions Contracted gallbladder No pancreatic or adrenal mass. No renal or ureteral calculi, no hydronephrosis Aorta normal size. No bowel obstruction No bladder mass or bladder calculi No pelvic mass No pericecal inflammatory change Impression: No renal or ureteral calculi, no hydronephrosis No bladder mass or bladder calculi Given that this is a noncontrast study, consider renal sonography follow-up to assess for renal edema/pyelonephritis as clinically warranted
--- NOTE | 2025-05-07 05:49 | EDRME_ITS ---
Rapid Medical Screening Exam [facility] Arrival date/time: 05/07/25 05:37 34F with history of recurrent kidney infections/stones presents to ED with 2 days of L flank pain and dysuria. Chief Complaint: Abdominal Pain Vital signs: Vital Signs Temperature 98.3 F 05/07/25 05:45 Pulse Rate 120 H 05/07/25 05:45 Respiratory Rate 18 05/07/25 05:45 Blood Pressure 118/75 05/07/25 05:45 Pulse Oximetry (%) 98 05/07/25 05:45 Oxygen Delivery Method Room Air 05/07/25 05:45
[2025-05-07 06:10] LABS: Lactate (Lactic Acid) 0.8 mMol/L (0.4-2.0)
[2025-05-07 06:18] LABS: Basophils # (Auto) 0.1 Thou/mm3 (0.0-0.2); Basophils % (Auto) 1 % (0-2.5); Eosinophils # (Auto) 0.2 Thou/mm3 (0.0-0.5); Eosinophils % (Auto) 2 % (0-10); Hematocrit 23.8 % (36.0-46.0); Immature Granulocytes Auto 0.11 Thou/mm3 (0.00-0.00); Lymphocytes # (Auto) 3.3 Thou/mm3 (1.0-4.8); Lymphocytes % (Auto) 30 % (10-50); Mean Corpuscular HGB Conc 32.4 g/dl (31.0-37.0); Mean Corpuscular Hemoglobin 29.1 pg (25.0-35.0); Mean Corpuscular Volume 90 fL (80-100); Monocytes # (Auto) 0.6 Thou/mm3 (0.0-0.8); Monocytes % (Auto) 6 % (0-12); Neutrophils # (Auto) 6.9 Thou/mm3 (1.8-7.7); Neutrophils % (Auto) 61 % (37-80); Nucleated Red Blood Cell # 0.00 Thou/mm3 (0.00-0.00); Nucleated Red Blood Cell % 0 /100 WBC (0); Platelet Count 352 Thou/mm3 (140-440); RDW Standard Deviation 40.5 fL (36.4-46.3); Red Blood Count 2.65 Miln/mm3 (4.00-5.20); White Blood Count 11.2 Thou/mm3 (3.6-11.0)
[2025-05-07] MEDS: KETOROLAC INJ 30 MG/ML VIAL IVP (06:19)
[2025-05-07 06:20] LABS: Hemoglobin 7.7 g/dL (12.0-16.0)
[2025-05-07 06:30] VITALS: BP 126/72; PULSE 102; RESP 19; TEMP 36.8; O2SAT 100
[2025-05-07 06:46] LABS: Alanine Aminotransferase 57 U/L (10-49); Albumin, Serum 4.0 gm/dL (3.5-5.0); Albumin/Globulin Ratio 1.7 (1.2-2.2); Alkaline Phosphatase 121 U/L (46-116); Anion Gap 8 (7-16); Aspartate Amino Transferase 29 U/L (0-34); BUN/Creatinine Ratio 13 Ratio (12-20); Bilirubin,Total 0.2 mg/dL (0.3-1.2); Blood Urea Nitrogen 9 mg/dL (9-23); Calcium 8.9 mg/dL (8.3-10.6); Calcium (Corrected) 8.9 mg/dL (8.5-10.1); Carbon Dioxide 29.4 mMol/L (20.0-31.0); Chloride 104 mMol/L (98-107); Creatinine (Component) 0.7 mg/dL (0.6-1.3); Estimated Creatinine Clearance 95.8 mL/min (>60); Globulin 2.4 gm/dL (2.3-3.5); Glucose 89 mg/dL (74-106); Lipase 24 U/L (12-53); Osmolality,Calculated 278 (275-295); Potassium 3.9 mMol/L (3.4-5.1); Procalcitonin 0.04 ng/ml (0.0-0.49); Sodium 141 mMol/L (136-145); Total Protein 6.4 gm/dL (5.7-8.2); eGFR > 60 See Note
[2025-05-07] MEDS: FAMOTIDINE 20 MG TABLET 40 MG PO (07:08)
[2025-05-07] MEDS: ONDANSETRON INJ 2 MG/ML INJ 2 ML 4 MG IVP (07:08)
[2025-05-07] MEDS: SODIUM CHLORIDE 0.9% 1000 ML 1,000 ML 999 ML IV (07:09)
[2025-05-07] MEDS: MG HYD/AL HYD/SIME (Maalox Reg) SUSP 30 ML UDC PO (07:09)
[2025-05-07 07:16] VITALS: BP 102/59; RESP 18
[2025-05-07] MEDS: cefTRIAXone/D5w 1gm IV premix 1 GM/50 ML BAG IV (07:22)
[2025-05-07 07:36] LABS: Collection Type, Urine Clean Catch
[2025-05-07 07:56] LABS: Bacteria,Urine 4+; Bilirubin,Urine Negative (Negative); Blood,Urine Negative (Negative); Clarity,Urine Clear (Clear/Hazy); Color,Urine Lt-Yellow (Lt Yel-Yel); Glucose, Urine Negative (Negative); Ketones,Urine Negative (Negative); Leukocyte Esterase,Urine Positive (Negative); Nitrite,Urine Positive (Negative); PH,Urine 6.5 (5.0-7.0); Protein,Urine Negative (Neg - Trace); RBC,Urine 2 /hpf (0-3); Specific Gravity,Urine 1.013 (1.001-1.035); Squamous Epithelial Cell,Urine 8 /hpf (0-5); Urobilinogen,Urine Negative mg/dL (0.0-1.0); WBC,Urine 10 /hpf (0-5)
[2025-05-07] MEDS: ACETAMINOPHEN IVPB 1,000 MG/100 ML VIAL 250 MG IV (08:02)
[2025-05-07 08:03] LABS: HCG Qualitative,Urine Negative
[2025-05-07 08:11] LABS: Culture Indicated,Urine Yes
--- NOTE | 2025-05-07 08:28 | PC.NURSE ---
walked into room due to iv beeping and noticed ivl and blood on floor. pt is not in room. gown on bed and pt's belongings are not in room. ivl intact. primary nurse and md made aware
--- NOTE | 2025-05-07 08:58 | EDNOTE_ITS ---
ED Abdominal Pain RME/HPI General Chief Complaint: Abdominal Pain Stated complaint: LEFT FLANK PAIN Time seen by provider: 05/07/25 06:30 Arrival date/time: 05/07/25 05:37 RME / HPI RME / HPI narrative: 34-year-old female here for evaluation of left flank pain that onset in the past 3 days accompanied by nausea, vomiting, fever up to 101, burning epigastric pain, and burning with urination. Has been taking ibuprofen for symptoms. De nies any past medical history, medications, allergies. Notes that she has history of stones in the past. Related Data Previous Rx's ?Medication ?Instructions ?Recorded amoxicillin 875 mg-potassium 1 tab PO BID #14 tabs clavulanate 125 mg tablet hydrocodone 5 mg-acetaminophen 325 1 tab PO BID PRN pa in #10 tabs 08/12/24 mg tablet cefdinir 300 mg capsule 300 mg PO BID #14 caps 11/24 famotidine 40 mg tablet 40 mg PO .bedtime #30 tabs 0 11/24/24 hydrocodone 5 mg-acetaminophen 325 2 tab PO Q8H PRN pa in #20 tabs 11/24/24 mg tablet omeprazole 40 mg capsule,delayed 40 mg PO QDAY #30 cap s 11/24/24 release cyclobenzaprine 10 mg tablet 10 mg PO Q8H PRN muscle s pasm #30 02/09/25 tabs hydrocodone 5 mg-acetaminophen 325 2 tab PO Q8H PRN pa in #20 tabs 02/09/25 mg tablet ibuprofen 600 mg tablet 600 mg PO TID PRN fever or p ain 02/09/25 #30 tabs lidocaine 5 % topical patch 2 patch topical QDAY PRN p ain #30 02/09/25 (Lidoderm) ea levofloxacin 750 mg tablet 750 mg PO Q24H 5 days #5 ta bs 05/07/25 Allergies Allergy/AdvReac Type Severity Reaction Status Date / Time No Known Allergies Allergy Verified 02/08/25 21:29 Review of Systems Review of Systems Systems Reviewed: All systems reviewed, normal except as documented Past Medical History Past Medical History Comments PMH COMMENT: Negative ED Exam Narrative Physical exam: Constitutional: Awake, alert, uncomfortable. HEENT: Normocephalic, atraumatic, extraocular movements intact. Neck: Supple CV: Mild tachycardic rate and regular rhythm, no murmurs/rubs/gallops Lungs: Clear to auscultation BL, no respiratory distress. Abd: Soft, tender to palpation of left flank and epigastrium ND, no HSM noted to palpation no rebound or guarding noted., Skin: Warm, dry, intact Course Course Course Narrative: 34-year-old female who come in for left flank pain with dysuria, nausea, vomiting, fevers recently. Urinalysis concerning for likely UTI. Given initial dose of antibiotics here. Prior to being able to discharge patient, she eloped from the emergency department. Quality Measures none Orders Category Date Time Status Insert IV NOW Care 05/07/25 05:[address] abdomen pelvis wo con Stat Exams 05/07/25 05:48 Completed CBC Stat Lab 05/07/25 05:59 Completed CMP [Comprehensive Metabolic Panel] Stat Lab 05/07/25 05:59 Completed HCG Qualitative,Urine Stat Lab 05/07/25 07:25 Completed Lactate (Lactic Acid) Stat Lab 05/07/25 05:59 Completed Lipase Stat Lab 05/07/25 05:59 Completed Procalcitonin Stat Lab 05/07/25 05:59 Completed Urinalysis, C/S if Indicated Stat Lab 05/07/25 07:25 Completed Urine Culture Stat Lab 05/07/25 07:25 Received Acetaminophen Ivpb [Ofirmev Inj] Med 05/07/25 07:36 Discontinued 1,000 mg in 100 ml IV NOW Famotidine [Pepcid] Med 05/07/25 06:53 Discontinued 40 mg PO X1 ONE Ketorolac Inj [Toradol Inj] Med 05/07/25 05:49 Discontinued 30 mg IVP X1 ONE Ondansetron Inj [Zofran Inj] Med 05/07/25 06:53 Discontinued 4 mg IVP X1 ONE Sodium Chloride 0.9% 1000 ml [Ns] 1,000 ml Med 05/07/25 06:53 Discontinued IV 999 mls/hr cefTRIAXone/D5w 1gm IV premix [Rocephin/D5w 1gm IV Med 05/07/25 06:54 Discontinued premix] 1 gm in 50 ml IV X1 mg Hyd/Al Hyd/Chang Susp [Maalox Susp] Med 05/07/25 06:53 Discontinued 30 ml PO X1 ONE Vital Signs Vital signs: Vital Signs Temperature 98.3 F 05/07/25 05:45 Pulse Rate 120 H 05/07/25 05:45 Respiratory Rate 18 05/07/25 05:45 Blood Pressure 118/75 05/07/25 05:45 Pulse Oximetry (%) 98 05/07/25 05:45 Oxygen Delivery Method Room Air 05/07/25 05:45 Abdominal Pain MDM 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 External records reviewed:: [facility] previous records Clinical information provided by:: patient Social determinants that could affect healthcare access:: none Patient has the following chronic illnesses:: none How is presenting disease/condition affected by chronic disease/condition?: no chronic disease Evaluation data The following diagnostics were reviewed and interpreted by me:: lab results and radiology exam(s) Lab and/or radiology exams considered but not ordered:: none Interpretation Summary: Laboratory Results WBC 11.2 Thou/mm3 (3.6-11.0) H 05/07/25 05:59 RBC 2.65 Miln/mm3 (4.00-5.20) L 05/07/25 05:59 Hgb 7.7 g/dL (12.0-16.0) L 05/07/25 05:59 Hct 23.8 % (36.0-46.0) L 05/07/25 05:59 MCV 90 fL (80-100) 05/07/25 05:59 MCH 29.1 pg (25.0-35.0) 05/07/25 05:59 MCHC 32.4 g/dl (31.0-37.0) 05/07/25 05:59 RDW Std Deviation 40.5 fL (36.4-46.3) 05/07/25 05:59 Plt Count 352 Thou/mm3 (140-440) 05/07/25 05:59 Neut % (Auto) 61 % (37-80) 05/07/25 05:59 Lymph % (Auto) 30 % (10-50) 05/07/25 05:59 [place] % (Auto) 6 % (0-12) 05/07/25 05:59 Eos % (Auto) 2 % (0-10) 05/07/25 05:59 Baso % (Auto) 1 % (0-2.5) 05/07/25 05:59 Neut # (Auto) 6.9 Thou/mm3 (1.8-7.7) 05/07/25 05:59 Lymph # (Auto) 3.3 Thou/mm3 (1.0-4.8) 05/07/25 05:59 [place] # (Auto) 0.6 Thou/mm3 (0.0-0.8) 05/07/25 05:59 Eos # (Auto) 0.2 Thou/mm3 (0.0-0.5) 05/07/25 05:59 Baso # (Auto) 0.1 Thou/mm3 (0.0-0.2) 05/07/25 05:59 Immature Gran # (Auto) 0.11 Thou/mm3 (0.00-0.00) H 05/07/25 05:59 Absolute Nucleated RBC 0.00 Thou/mm3 (0.00-0.00) 05/07/25 05:59 Immature Gran % 1 % (0-0) H 05/07/25 05:59 Nucleated RBC % 0 /100 WBC (0) 05/07/25 05:59 Sodium 141 mMol/L (136-145) 05/07/25 05:59 Potassium 3.9 mMol/L (3.4-5.1) 05/07/25 05:59 Chloride 104 mMol/L (98-107) 05/07/25 05:59 Carbon Dioxide 29.4 mMol/L (20.0-31.0) 05/07/25 05:59 Anion Gap 8 (7-16) 05/07/25 05:59 BUN 9 mg/dL (9-23) 05/07/25 05:59 Creatinine 0.7 mg/dL (0.6-1.3) 05/07/25 05:59 Estim Creat Clear Calc 95.8 mL/min (>60) 05/07/25 05:59 eGFR > 60 See Note (60-) 05/07/25 05:59 BUN/Creatinine Ratio 13 Ratio (12-20) 05/07/25 05:59 Glucose 89 mg/dL (74-106) 05/07/25 05:59 Calculated Osmolality 278 (275-295) 05/07/25 05:59 Lactic Acid 0.8 mMol/L (0.4-2.0) 05/07/25 05:59 Calcium 8.9 mg/dL (8.3-10.6) 05/07/25 05:59 Corrected Calcium 8.9 mg/dL (8.5-10.1) 05/07/25 05:59 Total Bilirubin 0.2 mg/dL (0.3-1.2) L 05/07/25 05:59 AST 29 U/L (0-34) 05/07/25 05:59 ALT 57 U/L (10-49) H 05/07/25 05:59 Alkaline Phosphatase 121 U/L (46-116) H 05/07/25 05:59 Total Protein 6.4 gm/dL (5.7-8.2) 05/07/25 05:59 Albumin 4.0 gm/dL (3.5-5.0) 05/07/25 05:59 Globulin 2.4 gm/dL (2.3-3.5) 05/07/25 05:59 Albumin/Globulin Ratio 1.7 (1.2-2.2) 05/07/25 05:59 Lipase 24 U/L (12-53) 05/07/25 05:59 Procalcitonin 0.04 ng/ml (0.0-0.49) 05/07/25 05:59 Ur Collection Type Clean Catch 05/07/25 07:25 Urine Color Lt-Yellow (Lt Yel-Yel) 05/07/25 07:25 Urine Clarity Clear (Clear/Hazy) 05/07/25 07:25 Urine pH 6.5 (5.0-7.0) 05/07/25 07:25 Ur Specific [place] 1.013 (1.001-1.035) 05/07/25 07:25 Urine Protein Negative (Neg - Trace) 05/07/25 07:25 Urine Glucose (UA) Negative (Negative) 05/07/25 07:25 Urine Ketones Negative (Negative) 05/07/25 07:25 Urine Blood Negative (Negative) 05/07/25 07:25 Urine Nitrite Positive (Negative) 05/07/25 07:25 Urine Bilirubin Negative (Negative) 05/07/25 07:25 Urine Urobilinogen (Auto) Negative mg/dL (0.0-1.0) 05/07/25 07:25 Ur Leukocyte Esterase Positive (Negative) 05/07/25 07:25 Urine RBC 2 /hpf (0-3) 05/07/25 07:25 Urine WBC 10 /hpf (0-5) H 05/07/25 07:25 Ur Squamous Epith Cells 8 /hpf (0-5) H 05/07/25 07:25 Urine Bacteria 4+ (None) A 05/07/25 07:25 Ur Culture Indicated? Yes 05/07/25 07:25 Urine HCG, Qual Negative 05/07/25 07:25 CT abdomen pelvis negative for ureterolithiasis. Medications / Prescriptions Medications or Prescriptions considered but not ordered:: None Medication administrations:: Medication Administration History Discontinued Medications Al Hydrox/Mg Hydrox/Simethicone (Mg Hyd/Al Hyd/Chang (Maalox Reg) Susp 30 Ml Udc) 30 ml PO X1 ONE Stop: 05/07/25 06:54 Last Admin: 05/07/25 07:09 Dose: 30 ml Documented By: BY Famotidine (Famotidine 20 Mg Tablet) 40 mg PO X1 ONE Stop: 05/07/25 06:54 Last Admin: 05/07/25 07:08 Dose: 40 mg Documented By: BY Sodium Chloride (Ns) 1,000 mls @ 999 mls/hr IV .Q1H1M ONE Stop: 05/07/25 07:53 Last Admin: 05/07/25 07:09 Dose: 999 mls/hr Documented By: BY Ceftriaxone Sodium/Dextrose (Rocephin/D5w 1gm Iv Premix) 1 gm in 50 mls @ 100 mls/hr IV X1 ONE Stop: 05/07/25 07:23 Last Infusion: 05/07/25 08:01 Dose: Infused Documented By: Admin: 05/07/25 07:22 Dose: 100 mls/hr Documented By: BY Acetaminophen (Ofirmev Inj) 1,000 mg in 100 mls @ 250 mls/hr IV NOW ONE Stop: 05/07/25 07:59 Last Admin: 05/07/25 08:02 Dose: 250 mls/hr Documented By: BY Ketorolac Tromethamine (Ketorolac Inj 30 Mg/Ml Vial) 30 mg IVP X1 ONE Stop: 05/07/25 05:50 Last Admin: 05/07/25 06:19 Dose: 30 mg Documented By: JE Ondansetron HCl (Ondansetron Inj 2 Mg/Ml Inj 2 Ml) 4 mg IVP X1 ONE; Protocol Stop: 05/07/25 06:54 Last Admin: 05/07/25 07:08 Dose: 4 mg Documented By: BY As above Consultations Consultation(s) initiated? (list below): No Diagnosis Differential diagnosis abdominal pain: abdominal pain, calculus of kidney, diverticulitis, gastroenteritis, pancreatitis and other Most likely diagnosis given after review of the tests above:: Urinary tract infection Admission Indicated Admission indicated?: not indicated Admission Request Was there a request for admission?: No Disposition Plan Disposition Plan: other (specify) (Eloped from emergency department) Discharge Plan Plan Patient Disposition: Elopement Prescriptions/Referrals Prescriptions/Med Rec: New levofloxacin 750 mg tablet 750 mg PO Q24H 5 Days Qty: 5 0RF No Action hydrocodone-acetaminophen 5-325 mg tablet 1 tab PO BID MDD 10mg PRN (Reason: pain) Qty: 10 0RF famotidine 40 mg tablet 40 mg PO .bedtime Qty: 30 0RF omeprazole 40 mg capsule,delayed release(DR/EC) 40 mg PO QDAY Qty: 30 0RF cefdinir 300 mg capsule 300 mg PO BID Qty: 14 0RF hydrocodone-acetaminophen 5-325 mg tablet 2 tab PO Q8H MDD 6 PRN (Reason: pain) Qty: 20 0RF amoxicillin-pot clavulanate 875-125 mg tablet 1 tab PO BID Qty: 14 0RF cyclobenzaprine 10 mg tablet 10 mg PO Q8H PRN (Reason: muscle spasm) Qty: 30 0RF lidocaine [Lidoderm] 5 % adhesive patch,medicated 2 patch topical QDAY PRN (Reason: pain) Qty: 30 0RF Rx Instructions: leave on most painful area for up to 12 hrs ibuprofen 600 mg tablet 600 mg PO TID PRN (Reason: fever or pain) Qty: 30 0RF hydrocodone-acetaminophen 5-325 mg tablet 2 tab PO Q8H MDD 6 PRN (Reason: pain) Qty: 20 0RF Referrals: No Primary/Family,Physician [Primary Care Provider] - In 1 week Problem List Clinical Impression: UTI (urinary tract infection) Patient/Caregiver Discharge Instructions Print Language: Polish
--- NOTE | 2025-05-07 09:07 | PC.NURSE ---
ATTEMPTED TO CONTACT PT TO INFORM HER THAT THE ER DOCTOR PRESCRIBED ABX FOR UTI. NO ANSWER
--- NOTE | 2025-05-07 09:11 | PC.NURSE ---
called by lead nurse , patient was not in room , iv was on the floor, and there was blood on the bed, patient had walked out of room and removed iv,
== END 2025-05-07 08:40 | disposition left against medical advice (07) ==
PROVIDERS: Physician Assistant; Emergency Provider Family Medicine
DX: N39.0 Urinary tract infection, site not specified (principal)
CPT/HCPCS: 36415; 74176; 80053; 81001; 81025; 83605; 83690; 84145; 85025; 87077; 87086; 87186; 96365; 96375; 99284; J0131; J0696; J1885; J2405; J7030; A9270

== ENCOUNTER 2025-05-22 03:26 | Emergency (ER) | payer MEDICAID, SELFPAY ==
[2025-05-22 03:27] VITALS: BMI 27.5
[2025-05-22 03:33] VITALS: BP 122/65; PULSE 138; RESP 24; TEMP 36.9; O2SAT 100
--- NOTE | 2025-05-22 03:34 | EKG_ITS ---
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
--- NOTE | 2025-05-22 03:45 | PD.EDABDPN ---
ED Abdominal Pain RME/HPI General Chief Complaint: Abdominal Pain Stated complaint: upper abd pain and sob Time seen by provider: 05/22/25 03:45 Arrival date/time: 05/22/25 03:26 RME / HPI RME / HPI narrative: Dr. Lozada?s Main ED Evaluation: 34yo female with a history of kidney stones presents to the ED for complaints of epigastric pain and left-sided chest pain x 1 day. Patient states her pain has progressively gotten worse, reporting it significantly worsened just MANAGER QA. Pain does worsen when she takes a deep breath. Patient reports associated intermittent N/V. Denies any fever, chills, cough, or any other associated symptoms. Denies any alcohol or illicit drug use. NKA. Patient was seen and evaluated here in the emergency room 15 days ago but eloped before being officially discharged and treated. At that time it appears as if the patient had a possible urinary tract infection left untreated. Related Data Previous Rx's ?Medication ?Instructions ?Recorded amoxicillin 875 mg-potassium 1 tab PO BID #14 tabs 06/27/24 clavulanate 125 mg tablet hydrocodone 5 mg-acetaminophen 325 1 tab PO BID PRN pain #10 tabs 08/12/24 mg tablet cefdinir 300 mg capsule 300 mg PO BID #14 caps 11/24/24 famotidine 40 mg tablet 40 mg PO .bedtime #30 tabs 11/24/24 hydrocodone 5 mg-acetaminophen 325 2 tab PO Q8H PRN pain #20 tabs 11/24/24 mg tablet omeprazole 40 mg capsule,delayed 40 mg PO QDAY #30 caps 11/24/24 release cyclobenzaprine 10 mg tablet 10 mg PO Q8H PRN muscle spasm #30 02/09/25 tabs hydrocodone 5 mg-acetaminophen 325 2 tab PO Q8H PRN pain #20 tabs 02/09/25 mg tablet ibuprofen 600 mg tablet 600 mg PO TID PRN fever or pain 02/09/25 #30 tabs lidocaine 5 % topical patch 2 patch topical QDAY PRN pain #30 02/09/25 (Lidoderm) ea famotidine 40 mg tablet (Pepcid) 40 mg PO BID #10 tabs 05/07/25 Allergies Allergy/AdvReac Type Severity Reaction Status Date / Time No Known Allergies Allergy Verified 05/22/25 03:33 Review of Systems Review of Systems Systems Reviewed: All systems reviewed, normal except as documented Past Medical History Past Medical History NEUROLOGIC: Positive Migraine CARDIAC: Negative Cardiac Disorders or Congestive Heart Failure RESPIRATORY: Negative Chronic Obstructive Pulmonary Disease (COPD) or Asthma GASTROINTESTINAL: Positive Gastrointestinal Disorders GENITOURINARY: Positive Genitourinary Disorders and Kidney Stones; Negative Renal Disease MUSCULOSKELETAL: Positive Musculoskeletal Disorders ENDOCRINE: Negative Diabetes Mellitus Type 1 or Diabetes Mellitus Type 2 HEMATOLOGIC: Positive Anemia; Negative Sickle Cell Disease OTHER HISTORY: Negative Blood Transfusions or Cancer Family History FAMILY HISTORY: Positive Family Cardiac Disorders; Negative Family Cancer Social History SMOKING STATUS: Never smoker SECOND HAND EXPOSURE: No ED Exam Narrative Physical exam: Generally patient is alert in moderate distress secondary to pain heart tachycardic rate with regular rhythm lungs clear to auscultation equal bilaterally chest shows no wounds no crepitance no subcu air nontender to palpation no overlying rash abdomen soft bowel sounds present nondistended left upper quadrant and epigastric abdominal tenderness without rebound. Musculoskeletal exam shows mild left-sided costovertebral angle tenderness. Skin is warm and dry, neurologic exam shows [place] Coma Scale of 15 without focal motor deficit. Course Course Course Narrative: CXR is ordered for determining the etiology of chest pain. 0432: Sepsis alert initiated. Orders made at this time are congruent with ED Adult Sepsis Order List. Re-evaluation is to be completed. NS IVF was started at 0411. Quality Measures none Orders Category Date Time Status CT Screening NOW Care 05/22/25 03:[address] Screening NOW Care 05/22/25 05:28 Active EKG (ED ONLY) *Do not use* NOW Care 05/22/25 03:34 Completed Insert IV NOW Care 05/22/25 03:[address] chest abdomen pelvis w Stat Exams 05/22/25 05:28 Ordered EKG (ED Only) Stat Exams 05/22/25 03:34 Draft EKG (ED Only) Stat Exams 05/22/25 03:52 Stop Req XR chest 1V portable Stat Exams 05/22/25 03:52 Taken Beta HCG,Quantitative Stat Lab 05/22/25 03:55 Results Blood Culture (Lab) Stat Lab 05/22/25 04:50 Received CBC Stat Lab 05/22/25 03:55 Completed CMP [Comprehensive Metabolic Panel] Stat Lab 05/22/25 03:55 Results D-Dimer Stat Lab 05/22/25 03:55 Completed Drug Screen,Urine Stat Lab 05/22/25 03:52 Ordered Lactic Acid [Lactate (Lactic Acid)] Stat Lab 05/22/25 05:00 Completed Lipase Stat Lab 05/22/25 03:55 Results Troponin I Stat Lab 05/22/25 03:55 Results UA [Urinalysis] Stat Lab 05/22/25 03:52 Ordered Morphine* Inj Med 05/22/25 03:53 Discontinued 4 mg IVP X1 ONE Morphine* Inj Med 05/22/25 04:43 Discontinued 4 mg IVP X1 ONE Sodium Chloride 0.9% 1000 ml [Ns] 1,000 ml Med 05/22/25 03:53 Discontinued IV 999 mls/hr cefTRIAXone/D5w 1gm IV premix [Rocephin/D5w 1gm IV Med 05/22/25 04:26 Discontinued premix] 1 gm in 50 ml IV X1 Vital Signs Vital signs: Vital Signs Temperature 98.5 F 05/22/25 03:33 Pulse Rate 138 H 05/22/25 03:33 Respiratory Rate 24 H 05/22/25 03:33 Blood Pressure 122/65 05/22/25 03:33 Pulse Oximetry (%) 100 05/22/25 03:33 Oxygen Delivery Method Room Air 05/22/25 03:33 Abdominal Pain MDM MDM Narrative MDM Narrative:: Scribe Attestation: 05/22/25 Dasia Coleman am scribing for and in the presence of Dr. Lozada. Not all lab work is back at this time. D-dimer is elevated. Chest x-ray is negative. White blood cell count is 17,800. Urinalysis is pending. CT scan of the chest abdomen and pelvis with IV contrast is pending. Patient received morphine 4 mg IV x 2 and was hydrated with a liter normal saline with pain control. Case will be signed out to Dr. Morel awaiting workup and for further disposition. 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 External records reviewed:: [facility] previous records (Per chart review, patient was seen here on 05/07/25 for UTI.) Clinical information provided by:: patient Social determinants that could affect healthcare access:: none Patient has the following chronic illnesses:: none How is presenting disease/condition affected by chronic disease/condition?: no chronic disease Evaluation data The following diagnostics were reviewed and interpreted by me:: lab results, radiology exam(s) and EKG tracing(s) Lab and/or radiology exams considered but not ordered:: none Interpretation Summary: See MDM Medications / Prescriptions Medications or Prescriptions considered but not ordered:: none Medication administrations:: Medication Administration History Discontinued Medications Sodium Chloride (Ns) 1,000 mls @ 999 mls/hr IV .Q1H1M ONE Stop: 05/22/25 04:53 Last Admin: 05/22/25 04:11 Dose: 999 mls/hr Documented By: NOELLE Ceftriaxone Sodium/Dextrose (Rocephin/D5w 1gm Iv Premix) 1 gm in 50 mls @ 100 mls/hr IV X1 ONE Stop: 05/22/25 04:55 Last Admin: 05/22/25 04:59 Dose: 100 mls/hr Documented By: NOELLE Morphine Sulfate (Morphine Sulf Inj 4 Mg/Ml Vial) 4 mg IVP X1 ONE Stop: 05/22/25 03:54 Last Admin: 05/22/25 04:11 Dose: 4 mg Documented By: NOELLE Morphine Sulfate (Morphine Sulf Inj 4 Mg/Ml Vial) 4 mg IVP X1 ONE Stop: 05/22/25 04:44 Last Admin: 05/22/25 04:58 Dose: 4 mg Documented By: NOELLE see above Consultations Consultation(s) initiated? (list below): No Diagnosis Differential diagnosis abdominal pain: other (See MDM) Most likely diagnosis given after review of the tests above:: see clinical impression below Admission Indicated Admission indicated?: not indicated Admission Request Was there a request for admission?: No Disposition Plan Disposition Plan: other (specify) (Signed out to the next oncoming physician pending final disposition.) Discharge Plan Prescriptions/Referrals Prescriptions/Med Rec: No Action hydrocodone-acetaminophen 5-325 mg tablet 1 tab PO BID MDD 10mg PRN (Reason: pain) Qty: 10 0RF famotidine 40 mg tablet 40 mg PO .bedtime Qty: 30 0RF omeprazole 40 mg capsule,delayed release(DR/EC) 40 mg PO QDAY Qty: 30 0RF cefdinir 300 mg capsule 300 mg PO BID Qty: 14 0RF hydrocodone-acetaminophen 5-325 mg tablet 2 tab PO Q8H MDD 6 PRN (Reason: pain) Qty: 20 0RF famotidine [Pepcid] 40 mg tablet 40 mg PO BID Qty: 10 0RF amoxicillin-pot clavulanate 875-125 mg tablet 1 tab PO BID Qty: 14 0RF cyclobenzaprine 10 mg tablet 10 mg PO Q8H PRN (Reason: muscle spasm) Qty: 30 0RF lidocaine [Lidoderm] 5 % adhesive patch,medicated 2 patch topical QDAY PRN (Reason: pain) Qty: 30 0RF Rx Instructions: leave on most painful area for up to 12 hrs ibuprofen 600 mg tablet 600 mg PO TID PRN (Reason: fever or pain) Qty: 30 0RF hydrocodone-acetaminophen 5-325 mg tablet 2 tab PO Q8H MDD 6 PRN (Reason: pain) Qty: 20 0RF Referrals: No Primary/Family,Physician [Primary Care Provider] - In 1 week Problem List Clinical Impression: Abdominal pain, Chest pain Patient/Caregiver Discharge Instructions Print Language: Angolan
--- NOTE | 2025-05-22 03:52 | XR_ITS ---
EXAMINATION: AP chest single view TECHNIQUE: AP portable upright chest single view Date and time: May 22, 2025, 0402 hours INDICATIONS: Shortness of breath upper chest pain today. FINDINGS: Normal heart size. Lungs are clear. The osseous structures are intact. IMPRESSION: No active disease
[2025-05-22 04:02] VITALS: BP 113/77; PULSE 123; RESP 18; O2SAT 100
[2025-05-22 04:04] LABS: Basophils # (Auto) 0.1 Thou/mm3 (0.0-0.2); Basophils % (Auto) 0 % (0-2.5); Eosinophils # (Auto) 0.1 Thou/mm3 (0.0-0.5); Eosinophils % (Auto) 1 % (0-10); Hematocrit 29.4 % (36.0-46.0); Hemoglobin 9.0 g/dL (12.0-16.0); Immature Granulocytes Auto 0.13 Thou/mm3 (0.00-0.00); Lymphocytes # (Auto) 3.1 Thou/mm3 (1.0-4.8); Lymphocytes % (Auto) 17 % (10-50); Mean Corpuscular HGB Conc 30.6 g/dl (31.0-37.0); Mean Corpuscular Hemoglobin 26.3 pg (25.0-35.0); Mean Corpuscular Volume 86 fL (80-100); Monocytes # (Auto) 1.1 Thou/mm3 (0.0-0.8); Monocytes % (Auto) 6 % (0-12); Neutrophils # (Auto) 13.3 Thou/mm3 (1.8-7.7); Neutrophils % (Auto) 75 % (37-80); Nucleated Red Blood Cell # 0.00 Thou/mm3 (0.00-0.00); Nucleated Red Blood Cell % 0 /100 WBC (0); Platelet Count 634 Thou/mm3 (140-440); RDW Standard Deviation 42.8 fL (36.4-46.3); Red Blood Count 3.42 Miln/mm3 (4.00-5.20); White Blood Count 17.8 Thou/mm3 (3.6-11.0)
[2025-05-22] MEDS: SODIUM CHLORIDE 0.9% 1000 ML 1,000 ML 999 ML IV (04:11)
[2025-05-22] MEDS: MORPHINE SULF INJ 4 MG/ML VIAL IVP ×3 (04:11→06:51)
[2025-05-22] MEDS: cefTRIAXone/D5w 1gm IV premix 1 GM/50 ML BAG IV (04:59)
[2025-05-22 05:08] LABS: Lactate (Lactic Acid) 1.1 mMol/L (0.4-2.0)
[2025-05-22 05:11] LABS: D-Dimer 3150 ng/mL (<600)
--- NOTE | 2025-05-22 05:28 | XR_ITS ---
Examination: CT chest with intravenous contrast CT abdomen with intravenous contrast CT pelvis with intravenous contrast 2-D coronal and sagittal reconstructions Time of exam: May 22, 2025, 0554 hours INDICATIONS: Epigastric pain chest pain abdominal pain beginning 2 days ago CTDI: vol (mGy) : 12.33 DLP: (mGycm): 630 Technique: Multiple axial images of the chest, abdomen and pelvis with intravenous contrast, 3.0 mm slice thickness. Images obtained post intravenous injection Isovue 370 100 cc. 2-D sagittal and coronal reconstructions. Low dose protocols were performed. One or more of the following dose reduction techniques were used; automated exposure control, adjustment of the mA and/or KV according to patient size, use of iterative reconstruction technique. Findings: No thoracic aortic aneurysmal dilatation or dissection Pulmonary artery segments are not enlarged. No pulmonary artery filling defects. No paratracheal tracheobronchial or bronchopulmonary adenopathy 3 mm pulmonary nodule right upper lobe image 150 Minor atelectasis in the lingular segment No lobar pneumonia or pulmonary edema Mild pericardial effusion No liver or splenic lesion Prominent mucosal thickening, axial image 163, in the stomach pylorus and duodenal bulb No gallstones noted Common bile duct Common hepatic duct not enlarged No pancreatic mass No renal or ureteral calculi, no hydronephrosis Aorta normal size There is trace free fluid in the abdomen 9 mm fat-containing umbilical hernia The appendix is not diagnostically visualized Anteverted uterus with free fluid in the pelvis and prominent left adnexal region Moderate to advanced degenerative disc disease L5-S1 IMPRESSION: No thoracic aortic aneurysm dilatation, negative for pulmonary artery emboli 3 mm pulmonary nodule right upper lobe, recommend plain chest film follow-up No pneumonia or pulmonary edema. Prominent gastritis active peptic disease duodenal pattern No renal or ureteral calculi Minimal free fluid in the abdomen, clinical correlation advised No diagnostic visualization of the appendix, no definite pericecal inflammatory change Free fluid in the pelvis with prominent left adnexal region, recommend pelvic sonography follow-up
[2025-05-22 05:29] LABS: Alanine Aminotransferase 15 U/L (10-49); Albumin, Serum 4.1 gm/dL (3.5-5.0); Albumin/Globulin Ratio 1.6 (1.2-2.2); Alkaline Phosphatase 105 U/L (46-116); Anion Gap 12 (7-16); Aspartate Amino Transferase 18 U/L (0-34); BUN/Creatinine Ratio 14 Ratio (12-20); Beta HCG,Quantitative < 1 mIU/mL (<5.0); Bilirubin,Total 0.3 mg/dL (0.3-1.2); Blood Urea Nitrogen 11 mg/dL (9-23); Calcium 8.9 mg/dL (8.3-10.6); Calcium (Corrected) 8.9 mg/dL (8.5-10.1); Carbon Dioxide 24.4 mMol/L (20.0-31.0); Chloride 104 mMol/L (98-107); Creatinine (Component) 0.8 mg/dL (0.6-1.3); Estimated Creatinine Clearance 82.7 mL/min (>60); Globulin 2.6 gm/dL (2.3-3.5); Glucose 110 mg/dL (74-106); Lipase 25 U/L (12-53); Osmolality,Calculated 279 (275-295); Potassium 3.3 mMol/L (3.4-5.1); Sodium 140 mMol/L (136-145); Total Protein 6.7 gm/dL (5.7-8.2); eGFR > 60 See Note
[2025-05-22 05:42] LABS: Troponin I < 0.002 ng/mL (0.0-0.045)
[2025-05-22 06:20] LABS: Collection Type, Urine Voided
[2025-05-22 06:24] VITALS: BP 122/72; PULSE 105; RESP 16; TEMP 36.6; O2SAT 99
[2025-05-22 06:33] LABS: Amphetamine/Methamp Scrn,U Negative (Negative); Barbiturate Screen,Urine Negative (Negative); Benzodiazepines Screen,Urine Negative (Negative); Benzoylecgonine Screen, Ur Negative (Negative); Bilirubin,Urine Negative (Negative); Blood,Urine Trace (Negative); Clarity,Urine Clear (Clear/Hazy); Color,Urine Yellow (Lt Yel-Yel); Fentanyl Screen,Urine Negative (Negative); Glucose, Urine Negative (Negative); Ketones,Urine Negative (Negative); Leukocyte Esterase,Urine Negative (Negative); Nitrite,Urine Negative (Negative); Opiate Screen,Urine Positive (Negative); PH,Urine 6.0 (5.0-7.0); Protein,Urine 1+ (Neg - Trace); RBC,Urine 3 /hpf (0-3); Squamous Epithelial Cell,Urine 6 /hpf (0-5); THC Screen,Urine Negative (Negative); Urobilinogen,Urine Negative mg/dL (0.0-1.0); WBC,Urine 2 /hpf (0-5)
[2025-05-22 06:37] LABS: Specific Gravity,Urine > 1.030 (1.001-1.035)
[2025-05-22] MEDS: KETOROLAC INJ 30 MG/ML VIAL IVP (06:49)
[2025-05-22] MEDS: ONDANSETRON INJ 2 MG/ML INJ 2 ML 4 MG IVP ×2 (06:53→11:01)
--- NOTE | 2025-05-22 08:12 | XR_ITS ---
Examination: Pelvic ultrasound, transabdominal, complete Technique: Transabdominal ultrasound of the pelvis performed using grayscale imaging Date and time of exam: May 22, 2025, 0846 hours INDICATIONS: Free fluid in the pelvis with prominent left adnexal region on CT pelvis study this morning FINDINGS: Uterus 8.8 cm endometrial stripe 0.3 cm No uterine mass or intrauterine gestation Endometrial stripe 0.3 cm Right ovary obscured by bowel gas There is significant free fluid in the right adnexal region Left ovary 4.7 cm arterial flow, 26 x 20 x 22 mm cyst with irregular margins Significant free fluid in the left adnexal region Significant fluid in the cul-de-sac IMPRESSION: No uterine mass or intrauterine gestation Involuting appearing left adnexal cyst 26 x 20 x 22 mm Free fluid in both adnexal regions and in the cul-de-sac, differential would include partial rupture of the left ovarian cyst as well as pelvic inflammatory disease, clinical correlation advised
[2025-05-22 08:14] VITALS: BP 109/67; PULSE 104; RESP 17; TEMP 36.8; O2SAT 98
[2025-05-22 10:18] VITALS: BP 120/64; PULSE 98; RESP 18; TEMP 36.9; O2SAT 99
--- NOTE | 2025-05-22 10:54 | EDNOTE_ITS ---
Emergency Room Addendum Addendum Narrative: 0600: Care assumed from Dr. Lozada, the previous shift emergency physician. Past medical, surgical, social and family history reviewed. Vitals and home medications reviewed. I will assume the care of the patient at this time, pending imaging and final disposition. Please refer to the emergency department record for history and examination from initial visit.?The following addendum documentation note is intended to reflect any pending information, findings, or radiology results not included in the patient?s initial chart. We reviewed all the results, analysis, and treatment plans. Patient is amenable to discharge. Strict return precautions were outlined. RADIOLOGY Ordering Physician: Aldo Lozada DO Date of Service: 05/22/25 Procedure(s): XR chest 1V portable Accession Number(s): [id number] cc: Dinesh Arevalo MD; NO PRIMARY/FAMILY,PHYSICIAN; Aldo Lozada DO~ EXAMINATION: AP chest single view TECHNIQUE: AP portable upright chest single view Date and time: May 22, 2025, 0402 hours INDICATIONS: Shortness of breath upper chest pain today. FINDINGS: Normal heart size. Lungs are clear. The osseous structures are intact. IMPRESSION: No active disease Dictated By: Dinesh Arevalo MD Signed By: <Electronically signed by Dinesh Arevalo MD in [place]>05/22/25 0731 Ordering Physician: Aldo Lozada DO Date of Service: 05/22/25 Procedure(s): CT chest abdomen pelvis w Accession Number(s): [id number] cc: Dinesh Arevalo MD; NO PRIMARY/FAMILY,PHYSICIAN; Aldo Lozada DO~ Examination: CT chest with intravenous contrast CT abdomen with intravenous contrast CT pelvis with intravenous contrast 2-D coronal and sagittal reconstructions Time of exam: May 22, 2025, 0554 hours INDICATIONS: Epigastric pain chest pain abdominal pain beginning 2 days ago CTDI: vol (mGy) : 12.33 DLP: (mGycm): 630 Technique: Multiple axial images of the chest, abdomen and pelvis with intravenous contrast, 3.0 mm slice thickness. Images obtained post intravenous injection Isovue 370 100 cc. 2-D sagittal and coronal reconstructions. Low dose protocols were performed. One or more of the following dose reduction techniques were used; automated exposure control, adjustment of the mA and/or KV according to patient size, use of iterative reconstruction technique. Findings: No thoracic aortic aneurysmal dilatation or dissection Pulmonary artery segments are not enlarged. No pulmonary artery filling defects. No paratracheal tracheobronchial or bronchopulmonary adenopathy 3 mm pulmonary nodule right upper lobe image 150 Minor atelectasis in the lingular segment No lobar pneumonia or pulmonary edema Mild pericardial effusion No liver or splenic lesion Prominent mucosal thickening, axial image 163, in the stomach pylorus and duodenal bulb No gallstones noted Common bile duct Common hepatic duct not enlarged No pancreatic mass No renal or ureteral calculi, no hydronephrosis Aorta normal size There is trace free fluid in the abdomen 9 mm fat-containing umbilical hernia The appendix is not diagnostically visualized Anteverted uterus with free fluid in the pelvis and prominent left adnexal region Moderate to advanced degenerative disc disease L5-S1 IMPRESSION: No thoracic aortic aneurysm dilatation, negative for pulmonary artery emboli 3 mm pulmonary nodule right upper lobe, recommend plain chest film follow-up No pneumonia or pulmonary edema. Prominent gastritis active peptic disease duodenal pattern No renal or ureteral calculi Minimal free fluid in the abdomen, clinical correlation advised No diagnostic visualization of the appendix, no definite pericecal inflammatory change Free fluid in the pelvis with prominent left adnexal region, recommend pelvic sonography follow-up Dictated By: Dinesh Arevalo MD Signed By: <Electronically signed by Dinesh Arevalo MD in [place]>05/22/25 0728 = Ordering Physician: Mat Morel MD Date of Service: 05/22/25 Procedure(s): US pelvic complete Accession Number(s): [id number] cc: Mat Morel MD; Dinesh Arevalo MD; NO PRIMARY/FAMILY,PHYSICIAN~ Examination: Pelvic ultrasound, transabdominal, complete Technique: Transabdominal ultrasound of the pelvis performed using grayscale imaging Date and time of exam: May 22, 2025, 0846 hours INDICATIONS: Free fluid in the pelvis with prominent left adnexal region on CT pelvis study this morning FINDINGS: Uterus 8.8 cm endometrial stripe 0.3 cm No uterine mass or intrauterine gestation Endometrial stripe 0.3 cm Right ovary obscured by bowel gas There is significant free fluid in the right adnexal region Left ovary 4.7 cm arterial flow, 26 x 20 x 22 mm cyst with irregular margins Significant free fluid in the left adnexal region Significant fluid in the cul-de-sac IMPRESSION: No uterine mass or intrauterine gestation Involuting appearing left adnexal cyst 26 x 20 x 22 mm Free fluid in both adnexal regions and in the cul-de-sac, differential would include partial rupture of the left ovarian cyst as well as pelvic inflammatory disease, clinical correlation advised Dictated By: Dinesh Arevalo MD Signed By: <Electronically signed by Dinesh Arevalo MD in [place]>05/22/25 0921
[2025-05-22] MEDS: HYDROmorphone INJ 2 MG/ML VIAL 0.5 MG IVP (11:02)
== END 2025-05-22 11:47 | disposition home or self-care (01) ==
PROVIDERS: Emergency Medicine; Emergency Provider Family Medicine
DX: K29.70 Gastritis, unspecified, without bleeding (principal); N83.202 Unspecified ovarian cyst, left side; R18.8 Other ascites; Z87.442 Personal history of urinary calculi
CPT/HCPCS: 36415; 71045; 71260; 74177; 76856; 80053; 80307; 81001; 83605; 83690; 84484; 84702; 85025; 85379; 87040; 93005; 99285; A4649; J0696; J1171; J1885; J2270; J2405; J7030; Q9967

== ENCOUNTER 2025-05-28 16:29 | Inpatient (IN) | payer MEDICAID, SELFPAY ==
[2025-05-28 16:30] VITALS: BMI 27.9
[2025-05-28 17:07] VITALS: BP 115/73; BP 118/75; PULSE 117; RESP 16; TEMP 37.2; O2SAT 96
--- NOTE | 2025-05-28 17:10 | XR_ITS ---
Examination: Pelvic ultrasound, transabdominal, complete Technique: Transabdominal ultrasound of the pelvis performed using grayscale imaging Date and time of exam: May 28, 2025, 1902 hours INDICATIONS: Right lower pelvic pain onset today FINDINGS: Uterus 8.5 cm endometrial stripe 0.6 cm No uterine mass or intrauterine gestation Right ovary 4.3 cm arterial flow Left ovary 4.3 cm arterial flow 23 x 11 x 13 mm simple cyst IMPRESSION: No uterine mass or intrauterine gestation Mild fluid in the cul-de-sac Left ovarian simple cyst 23 x 11 x 13 mm
--- NOTE | 2025-05-28 17:10 | PD.EDRME ---
Rapid Medical Screening Exam RME Arrival date/time: 05/28/25 16:29 34-year-old female presents to the emergency department today stating that she was recently seen in the ER and diagnosed with ovarian cyst with rupture. Patient reports that she has persistent pain Chief Complaint: Abdominal Pain Vital signs: Vital Signs Temperature 98.9 F 05/28/25 17:07 Pulse Rate 117 H 05/28/25 17:07 Respiratory Rate 16 05/28/25 17:07 Blood Pressure 115/73 05/28/25 17:07 Pulse Oximetry (%) 96 05/28/25 17:07 Oxygen Delivery Method Room Air 05/28/25 17:07 Vital signs reviewed by provider: Yes Exam: On exam patient appears to be in pain Lungs are clear auscultation heart sounds are normal patient does have tenderness in the abdomen Clinical Impression: Initial lab work and imaging ordered
[2025-05-28] MEDS: KETOROLAC INJ 30 MG/ML VIAL IM (17:33)
[2025-05-28 19:53] LABS: Basophils # (Auto) 0.1 Thou/mm3 (0.0-0.2); Basophils % (Auto) 0 % (0-2.5); Eosinophils # (Auto) 0.0 Thou/mm3 (0.0-0.5); Eosinophils % (Auto) 0 % (0-10); Immature Granulocytes Auto 0.44 Thou/mm3 (0.00-0.00); Lymphocytes # (Auto) 1.8 Thou/mm3 (1.0-4.8); Lymphocytes % (Auto) 9 % (10-50); Mean Corpuscular HGB Conc 31.6 g/dl (31.0-37.0); Mean Corpuscular Hemoglobin 25.7 pg (25.0-35.0); Mean Corpuscular Volume 81 fL (80-100); Monocytes # (Auto) 1.0 Thou/mm3 (0.0-0.8); Monocytes % (Auto) 5 % (0-12); Neutrophils # (Auto) 18.0 Thou/mm3 (1.8-7.7); Neutrophils % (Auto) 84 % (37-80); Nucleated Red Blood Cell # 0.02 Thou/mm3 (0.00-0.00); Nucleated Red Blood Cell % 0 /100 WBC (0); Platelet Count 561 Thou/mm3 (140-440); RDW Standard Deviation 50.8 fL (36.4-46.3); Red Blood Count 2.53 Miln/mm3 (4.00-5.20); White Blood Count 21.3 Thou/mm3 (3.6-11.0)
[2025-05-28 20:08] LABS: Hematocrit 20.6 % (36.0-46.0); Hemoglobin 6.5 g/dL (12.0-16.0)
[2025-05-28 20:12] LABS: Alanine Aminotransferase 127 U/L (10-49); Albumin, Serum 3.5 gm/dL (3.5-5.0); Albumin/Globulin Ratio 1.3 (1.2-2.2); Alkaline Phosphatase 338 U/L (46-116); Anion Gap 12 (7-16); Aspartate Amino Transferase 61 U/L (0-34); BUN/Creatinine Ratio 18 Ratio (12-20); Bilirubin,Total 0.4 mg/dL (0.3-1.2); Blood Urea Nitrogen 11 mg/dL (9-23); Calcium 8.4 mg/dL (8.3-10.6); Calcium (Corrected) 8.8 mg/dL (8.5-10.1); Carbon Dioxide 26.4 mMol/L (20.0-31.0); Chloride 101 mMol/L (98-107); Creatinine (Component) 0.6 mg/dL (0.6-1.3); Estimated Creatinine Clearance 111.1 mL/min (>60); Globulin 2.6 gm/dL (2.3-3.5); Glucose 123 mg/dL (74-106); Lipase 29 U/L (12-53); Osmolality,Calculated 277 (275-295); Potassium 3.4 mMol/L (3.4-5.1); Sodium 139 mMol/L (136-145); Total Protein 6.1 gm/dL (5.7-8.2); eGFR > 60 See Note
[2025-05-28 20:19] LABS: Collection Type, Urine Clean Catch
[2025-05-28 20:27] LABS: HCG Qualitative,Urine Negative
[2025-05-28 20:30] LABS: Amorphous Crystals,Urine Present (Absent); Bacteria,Urine Rare; Bilirubin,Urine Negative (Negative); Blood,Urine 2+ (Negative); Clarity,Urine Turbid (Clear/Hazy); Color,Urine Yellow (Lt Yel-Yel); Culture Indicated,Urine Not Indicated; Glucose, Urine Negative (Negative); Ketones,Urine Negative (Negative); Leukocyte Esterase,Urine Negative (Negative); Nitrite,Urine Negative (Negative); PH,Urine 6.5 (5.0-7.0); Protein,Urine Negative (Neg - Trace); RBC,Urine 3 /hpf (0-3); Specific Gravity,Urine 1.009 (1.001-1.035); Squamous Epithelial Cell,Urine 10 /hpf (0-5); Urobilinogen,Urine Negative mg/dL (0.0-1.0); WBC,Urine 4 /hpf (0-5)
[2025-05-28 20:31] LABS: Lactate (Lactic Acid) 0.9 mMol/L (0.4-2.0)
[2025-05-28 20:45] LABS: Procalcitonin 1.92 ng/ml (0.0-0.49)
--- NOTE | 2025-05-28 21:16 | PD.EDABDPN ---
ED Abdominal Pain RME/HPI General Chief Complaint: Abdominal Pain Stated complaint: ruptured cyst was told return for worsening pain Time seen by provider: 05/28/25 17:59 Arrival date/time: 05/28/25 16:29 RME / HPI RME / HPI narrative: 05/28/25 16:29 34-year-old female presents to the emergency department today stating that she was recently seen in the ER and diagnosed with ovarian cyst with rupture. Patient reports that she has persistent pain Exam: On exam patient appears to be in pain Lungs are clear auscultation heart sounds are normal patient does have tenderness in the abdomen Related Data Previous Rx's ?Medication ?Instructions ?Recorded amoxicillin 875 mg-potassium 1 tab PO BID #14 tabs 06/27/24 clavulanate 125 mg tablet hydrocodone 5 mg-acetaminophen 325 1 tab PO BID PRN pain #10 tabs 08/12/24 mg tablet cefdinir 300 mg capsule 300 mg PO BID #14 caps 11/24/24 famotidine 40 mg tablet 40 mg PO .bedtime #30 tabs 11/24/24 hydrocodone 5 mg-acetaminophen 325 2 tab PO Q8H PRN pain #20 tabs 11/24/24 mg tablet omeprazole 40 mg capsule,delayed 40 mg PO QDAY #30 caps 11/24/24 release cyclobenzaprine 10 mg tablet 10 mg PO Q8H PRN muscle spasm #30 02/09/25 tabs hydrocodone 5 mg-acetaminophen 325 2 tab PO Q8H PRN pain #20 tabs 02/09/25 mg tablet ibuprofen 600 mg tablet 600 mg PO TID PRN fever or pain 02/09/25 #30 tabs lidocaine 5 % topical patch 2 patch topical QDAY PRN pain #30 02/09/25 (Lidoderm) ea famotidine 40 mg tablet (Pepcid) 40 mg PO BID #10 tabs 05/07/25 doxycycline monohydrate 100 mg 100 mg PO BID INFECTION #20 caps 05/22/25 capsule hydrocodone 5 mg-acetaminophen 325 1 tab PO Q6H PRN pain #20 tabs 05/22/25 mg tablet omeprazole 20 mg capsule,delayed 20 mg PO QDAY GASTRITIS #20 caps 05/22/25 release Allergies Allergy/AdvReac Type Severity Reaction Status Date / Time No Known Allergies Allergy Verified 05/22/25 03:33 Course Orders Category Date Time Status Insert IV NOW Care 05/28/25 20:12 Active US pelvic complete Stat Exams 05/28/25 17:10 Completed Blood Culture (Lab) Stat Lab 05/28/25 20:19 Received CBC Stat Lab 05/28/25 19:32 Completed Comprehensive Metabolic Panel Stat Lab 05/28/25 19:32 Completed HCG Qualitative,Urine Stat Lab 05/28/25 20:10 Completed Lactate (Lactic Acid) Stat Lab 05/28/25 20:19 Completed Lipase Stat Lab 05/28/25 19:32 Completed Procalcitonin Stat Lab 05/28/25 19:32 Completed Type and Screen Stat Lab 05/28/25 20:19 Results UA, C/S IF [Urinalysis, C/S if Indicated] Stat Lab 05/28/25 20:10 Completed prbc [Red Blood Cells] Stat Lab 05/28/25 20:19 Results Ketorolac Inj [Toradol Inj] Med 05/28/25 17:10 Discontinued 30 mg IM X1 ONE Vital Signs Vital signs: Vital Signs Temperature 98.9 F 05/28/25 17:07 Pulse Rate 117 H 05/28/25 17:07 Respiratory Rate 16 05/28/25 17:07 Blood Pressure 115/73 05/28/25 17:07 Pulse Oximetry (%) 96 05/28/25 17:07 Oxygen Delivery Method Room Air 05/28/25 17:07 Abdominal Pain MDM Medications / Prescriptions Medication administrations:: Medication Administration History Discontinued Medications Ketorolac Tromethamine (Ketorolac Inj 30 Mg/Ml Vial) 30 mg IM X1 ONE Stop: 05/28/25 17:11 Last Admin: 05/28/25 17:33 Dose: 30 mg Documented By: Discharge Plan Prescriptions/Referrals Prescriptions/Med Rec: No Action hydrocodone-acetaminophen 5-325 mg tablet 1 tab PO BID MDD 10mg PRN (Reason: pain) Qty: 10 0RF famotidine 40 mg tablet 40 mg PO .bedtime Qty: 30 0RF omeprazole 40 mg capsule,delayed release(DR/EC) 40 mg PO QDAY Qty: 30 0RF cefdinir 300 mg capsule 300 mg PO BID Qty: 14 0RF hydrocodone-acetaminophen 5-325 mg tablet 2 tab PO Q8H MDD 6 PRN (Reason: pain) Qty: 20 0RF famotidine [Pepcid] 40 mg tablet 40 mg PO BID Qty: 10 0RF omeprazole 20 mg capsule,delayed release(DR/EC) 20 mg PO QDAY MDD 1 Qty: 20 0RF hydrocodone-acetaminophen 5-325 mg tablet 1 tab PO Q6H MDD 4 PRN (Reason: pain) Qty: 20 0RF doxycycline monohydrate 100 mg capsule 100 mg PO BID MDD 2 Qty: 20 0RF amoxicillin-pot clavulanate 875-125 mg tablet 1 tab PO BID Qty: 14 0RF cyclobenzaprine 10 mg tablet 10 mg PO Q8H PRN (Reason: muscle spasm) Qty: 30 0RF lidocaine [Lidoderm] 5 % adhesive patch,medicated 2 patch topical QDAY PRN (Reason: pain) Qty: 30 0RF Rx Instructions: leave on most painful area for up to 12 hrs ibuprofen 600 mg tablet 600 mg PO TID PRN (Reason: fever or pain) Qty: 30 0RF hydrocodone-acetaminophen 5-325 mg tablet 2 tab PO Q8H MDD 6 PRN (Reason: pain) Qty: 20 0RF Referrals: No Primary/Family,Physician [Primary Care Provider] - In 1 week Patient/Caregiver Discharge Instructions Print Language: Macedonian
[2025-05-28] MEDS: HYDROcodone/APAP 5/325 TABLET 1 TAB PO (22:26)
[2025-05-28 23:18] LABS: Path Review Blood Smear Sent to Pathologist
--- NOTE | 2025-05-28 23:34 | EDNOTE_ITS ---
ED Abdominal Pain RME/HPI General Chief Complaint: Abdominal Pain Stated complaint: ruptured cyst was told return for worsening pain Time seen by provider: 05/28/25 17:59 Arrival date/time: 05/28/25 16:29 RME / HPI RME / HPI narrative: 05/28/25 16:29 34-year-old female presents to the emergency department today stating that she was recently seen in the ER and diagnosed with ovarian cyst with rupture. Patient reports that she has persistent pain Dr. Lozada?s Main ED Evaluation: 34yo female with a history of anemia (no previous blood transfusions) presents to the ED for a chief complaint of diffuse upper and lower abdominal pain that radiates to the left side of her back. Patient was seen here in the ED last week for similar pain, but reports it's progressively gotten worse. Patient reports associated constipation, reporting she is not passing gas and has not had a bowel movement in 8 days. Denies any vaginal bleeding, hematemesis, coffee-ground emesis, or any other associated symptoms. NKA. Related Data Previous Rx's ?Medication ?Instructions ?Recorded amoxicillin 875 mg-potassium 1 tab PO BID #14 tabs clavulanate 125 mg tablet hydrocodone 5 mg-acetaminophen 325 1 tab PO BID PRN pa in #10 tabs 08/12/24 mg tablet cefdinir 300 mg capsule 300 mg PO BID #14 caps 11/24 famotidine 40 mg tablet 40 mg PO .bedtime #30 tabs 0 11/24/24 hydrocodone 5 mg-acetaminophen 325 2 tab PO Q8H PRN pa in #20 tabs 11/24/24 mg tablet omeprazole 40 mg capsule,delayed 40 mg PO QDAY #30 cap s 11/24/24 release cyclobenzaprine 10 mg tablet 10 mg PO Q8H PRN muscle s pasm #30 02/09/25 tabs hydrocodone 5 mg-acetaminophen 325 2 tab PO Q8H PRN pa in #20 tabs 02/09/25 mg tablet ibuprofen 600 mg tablet 600 mg PO TID PRN fever or p ain 02/09/25 #30 tabs lidocaine 5 % topical patch 2 patch topical QDAY PRN p ain #30 02/09/25 (Lidoderm) ea famotidine 40 mg tablet (Pepcid) 40 mg PO BID #10 tabs 05/07/25 doxycycline monohydrate 100 mg 100 mg PO BID INFECTION #20 caps 05/22/25 capsule hydrocodone 5 mg-acetaminophen 325 1 tab PO Q6H PRN pa in #20 tabs 05/22/25 mg tablet omeprazole 20 mg capsule,delayed 20 mg PO QDAY GASTRIT IS #20 caps 05/22/25 release Allergies Allergy/AdvReac Type Severity Reaction Status Date / Time No Known Allergies Allergy Verified 05/22/25 03:33 Review of Systems Review of Systems Systems Reviewed: All systems reviewed, normal except as documented Past Medical History Past Medical History NEUROLOGIC: Positive Migraine CARDIAC: Negative Cardiac Disorders or Congestive Heart Failure RESPIRATORY: Negative Chronic Obstructive Pulmonary Disease (COPD) or Asthma GASTROINTESTINAL: Positive Gastrointestinal Disorders GENITOURINARY: Positive Genitourinary Disorders and Kidney Stones; Negative Renal Disease MUSCULOSKELETAL: Positive Musculoskeletal Disorders ENDOCRINE: Negative Diabetes Mellitus Type 1 or Diabetes Mellitus Type 2 HEMATOLOGIC: Positive Anemia; Negative Sickle Cell Disease OTHER HISTORY: Negative Blood Transfusions or Cancer Family History FAMILY HISTORY: Positive Family Cardiac Disorders; Negative Family Cancer Social History SMOKING STATUS: Never smoker SECOND HAND EXPOSURE: No ED Exam Narrative Physical exam: Generally patient is alert and ill-appearing, heart tachycardic rate with regular rhythm, lungs clear to auscultation equal laterally, abdomen is soft however diffusely tender with rebound to the epigastric region. Skin is cool pale and dry. Neurologic exam no focal motor or sensory deficits cranial nerves II through gross intact [place] Coma Scale 15 Course Quality Measures none Orders Category Date Time Status CT Screening NOW Care 05/28/25 23:48 Active Insert IV NOW Care 05/28/25 20:[address] abdomen pelvis w con Stat Exams 05/28/25 23:48 Taken US gall bladder Stat Exams 05/29/25 00:05 Taken US pelvic complete Stat Exams 05/28/25 17:10 Completed Blood Culture (Lab) Stat Lab 05/28/25 20:19 Received CBC Stat Lab 05/28/25 19:32 Completed Comprehensive Metabolic Panel Stat Lab 05/28/25 19:32 Completed HCG Qualitative,Urine Stat Lab 05/28/25 20:10 Completed Lactate (Lactic Acid) Stat Lab 05/28/25 20:19 Completed Lipase Stat Lab 05/28/25 19:32 Completed Path Review Blood Smear Stat Lab 05/28/25 19:32 Completed Procalcitonin Stat Lab 05/28/25 19:32 Completed Type and Screen Stat Lab 05/28/25 20:19 Results UA, C/S IF [Urinalysis, C/S if Indicated] Stat Lab 05/28/25 20:10 Completed prbc [Red Blood Cells] Stat Lab 05/28/25 20:19 Results HYDROcodone*/APAP 5/325 [[place] 5/325] Med 05/28/25 21:50 Discontinued 1 tab PO X1 ONE HYDROmorphone INJ [Dilaudid Inj] Med 05/29/25 01:18 Discontinued 1 mg IVP X1 ONE Ketorolac Inj [Toradol Inj] Med 05/28/25 17:10 Discontinued 30 mg IM X1 ONE Morphine* Inj Med 05/29/25 00:06 Discontinued 4 mg IVP X1 ONE Ondansetron Inj [Zofran Inj] Med 05/29/25 00:07 Discontinued 4 mg IVP X1 ONE Piper/Tazo 3.375 gm Premix [Zosyn] Med 05/29/25 01:31 Active 3.375 gm in 50 ml IV X1 Vital Signs Vital signs: Vital Signs Temperature 98.9 F 05/28/25 17:07 Pulse Rate 117 H 05/28/25 17:07 Respiratory Rate 16 05/28/25 17:07 Blood Pressure 115/73 05/28/25 17:07 Pulse Oximetry (%) 96 05/28/25 17:07 Oxygen Delivery Method Room Air 05/28/25 17:07 Abdominal Pain MDM MDM Narrative MDM Narrative:: Scribe Attestation: 05/28/25 - Dasia Munoz am scribing for and in the presence of Dr. Lozada. I interpreted all labs. There is leukocytosis. Hemoglobin is 6.5. 3 weeks ago hemoglobin was 7.7. Patient was typed and crossed and will be transfused with 2 units of packed RBCs. White count is 21,000 when 1 week ago was 17,000. CT scan done of the chest abdomen and pelvis was essentially unremarkable for acute disease process [address] scan of the abdomen and pelvis with IV contrast shows pneumoperitoneum most likely secondary to perforated gastric ulcer. Patient is receiving blood transfusion at this time. She will receive Zosyn 3.375 g IV. She has received Dilaudid 1 mg IV for pain. I did discuss this case with general surgeon on-call, Dr. Hargrove he will come in to evaluate the patient. I spoke with the hospitalist for the patient to be admitted to the hospital for further treatment and evaluation. The patient has not been hypotensive here in the emergency room but she has been tachycardic. Patient denies melena or hematochezia or hematemesis. Patient denies heavy vaginal bleeding. 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 External records reviewed:: [facility] previous records (Per chart review, patient was seen here on 05/22/25 for abdominal pain.) Clinical information provided by:: patient Social determinants that could affect healthcare access:: none Patient has the following chronic illnesses:: anemia How is presenting disease/condition affected by chronic disease/condition?: uneffected by Evaluation data The following diagnostics were reviewed and interpreted by me:: lab results and radiology exam(s) Lab and/or radiology exams considered but not ordered:: none Interpretation Summary: [facility] Report Signed Patient: JESSICA MONTES [facility]. Record#: [id number] Birthdate: 1990 Age/Sex: 34 / F Location: [facility] Attending Dr: Ordering Physician: Lexx (DEBORAH)Ashwin NP Date of Service: 05/28/25 Procedure(s): US pelvic complete Accession Number(s): [id number] cc: Lexx (DEBORAH),Ashwin CABRERA; Dinesh Arevalo MD; NO PRIMARY/FAMILY,PHYSICIAN~ Examination: Pelvic ultrasound, transabdominal, complete Technique: Transabdominal ultrasound of the pelvis performed using grayscale imaging Date and time of exam: May 28, 2025, 1902 hours INDICATIONS: Right lower pelvic pain onset today FINDINGS: Uterus 8.5 cm endometrial stripe 0.6 cm No uterine mass or intrauterine gestation Right ovary 4.3 cm arterial flow Left ovary 4.3 cm arterial flow 23 x 11 x 13 mm simple cyst IMPRESSION: No uterine mass or intrauterine gestation Mild fluid in the cul-de-sac Left ovarian simple cyst 23 x 11 x 13 mm Dictated By: Dinesh Arevalo MD Signed By: <Electronically signed by Dinesh Arevalo MD in OV> 05/28/[address] scan of the abdomen and pelvis with intravenous contrast (axial sections with sagittal and coronal reformats) May 29, 2025 0004 hours Clinical History: Abdominal pain Comparison: No prior study is available for comparison. Findings: Bibasilar streaky atelectasis is present. A calcified nodule is seen in the right middle lobe, suggestive of a granuloma. There is trace pericardiac effusion. The gallbladder is contracted with nonspecific pericholecystic fluid. The liver, pancreas, spleen, kidneys and adrenals are unremarkable. There is irregular wall thickening of the distal stomach / proximal duodenum with adjacent fat stranding small extraluminal air loculi, indicating peptic ulcer disease with perforation. A small amount of free air is noted adjacent to the falciform ligament of the liver and adjacent to the gallbladder fossa. There is a large subdiaphragmatic perigastric air fluid collection, measuring approximately 13 x 8.1 x 9.7 cm, abutting anterior and inferior aspects of the liver and lesser curvature of the stomach. A smaller loculated air-fluid collection is seen beneath the ventral abdominal wall. No evidence of bowel obstruction. The appendix is not definitively visualized; however, there is no evidence of inflammatory process in the right lower quadrant to suggest appendicitis. A moderate amount of fecal material is noted within the colon and rectum. The urinary bladder is incompletely distended and appears mildly thick walled. The uterus is unremarkable. There is mild bilateral adnexal enlargement with multiple small follicles. The osseous structures are unremarkable. Impression: 1. Peptic ulcer disease with gastric perforation at the level of the pylorus with pneumoperitoneum, regional peritonitis and a large loculated perigastric and perihepatic air fluid collection. 2. Constipation. No evidence of bowel obstruction. 3. Other findings as described above. This report has been electronically signed by: Lindsay Hernandez MD. Medications / Prescriptions Medications or Prescriptions considered but not ordered:: none Medication administrations:: Medication Administration History Piperacillin/Tazobactam/Dextrose (Zosyn) 3.375 gm in 50 mls @ 100 mls/hr IV X1 ONE; Protocol Stop: 05/29/25 02:00 Discontinued Medications Hydrocodone Bitart/Acetaminophen (Hydrocodone/Apap 5/325 Tablet) 1 tab PO X1 ONE Stop: 05/28/25 21:51 Last Admin: 05/28/25 22:26 Dose: 1 tab Documented By: CECILIO Hydromorphone HCl (Hydromorphone Inj 2 Mg/Ml Vial) 1 mg IVP X1 ONE Stop: 05/29/25 01:19 Last Admin: 05/29/25 01:25 Dose: 1 mg Documented By: DT Ketorolac Tromethamine (Ketorolac Inj 30 Mg/Ml Vial) 30 mg IM X1 ONE Stop: 05/28/25 17:11 Last Admin: 05/28/25 17:33 Dose: 30 mg Documented By: Morphine Sulfate (Morphine Sulf Inj 4 Mg/Ml Vial) 4 mg IVP X1 ONE Stop: 05/29/25 00:07 Last Admin: 05/29/25 00:18 Dose: 4 mg Documented By: DT Ondansetron HCl (Ondansetron Inj 2 Mg/Ml Inj 2 Ml) 4 mg IVP X1 ONE; Protocol Stop: 05/29/25 00:08 Last Admin: 05/29/25 00:22 Dose: 4 mg Documented By: DT see above Consultations Consultation(s) initiated? (list below): Yes Diagnosis Differential diagnosis abdominal pain: other (See MDM) Most likely diagnosis given after review of the tests above:: see clinical impression below Admission Indicated Admission indicated?: indicated Admission Request Was there a request for admission?: Yes Admission Attestation Admission request attestation: Discussed case with [] from Hospitalist service regarding admission. Discussed patients ED course, exam findings, labs, and radiology results. The Hospitalist [agrees,declines] to accept the patient for admission. Disposition Plan Disposition Plan: Admit Critical Care Time Critical Care Time Critical Care Time: Yes Total Critical Care Time (min.): 35 Attestation: None Discharge Plan Plan Patient Disposition: Admit Acute Care w/in Hospital Prescriptions/Referrals Prescriptions/Med Rec: No Action hydrocodone-acetaminophen 5-325 mg tablet 1 tab PO BID MDD 10mg PRN (Reason: pain) Qty: 10 0RF famotidine 40 mg tablet 40 mg PO .bedtime Qty: 30 0RF omeprazole 40 mg capsule,delayed release(DR/EC) 40 mg PO QDAY Qty: 30 0RF cefdinir 300 mg capsule 300 mg PO BID Qty: 14 0RF hydrocodone-acetaminophen 5-325 mg tablet 2 tab PO Q8H MDD 6 PRN (Reason: pain) Qty: 20 0RF famotidine [Pepcid] 40 mg tablet 40 mg PO BID Qty: 10 0RF omeprazole 20 mg capsule,delayed release(DR/EC) 20 mg PO QDAY MDD 1 Qty: 20 0RF hydrocodone-acetaminophen 5-325 mg tablet 1 tab PO Q6H MDD 4 PRN (Reason: pain) Qty: 20 0RF doxycycline monohydrate 100 mg capsule 100 mg PO BID MDD 2 Qty: 20 0RF amoxicillin-pot clavulanate 875-125 mg tablet 1 tab PO BID Qty: 14 0RF cyclobenzaprine 10 mg tablet 10 mg PO Q8H PRN (Reason: muscle spasm) Qty: 30 0RF lidocaine [Lidoderm] 5 % adhesive patch,medicated 2 patch topical QDAY PRN (Reason: pain) Qty: 30 0RF Rx Instructions: leave on most painful area for up to 12 hrs ibuprofen 600 mg tablet 600 mg PO TID PRN (Reason: fever or pain) Qty: 30 0RF hydrocodone-acetaminophen 5-325 mg tablet 2 tab PO Q8H MDD 6 PRN (Reason: pain) Qty: 20 0RF Referrals: No Primary/Family,Physician [Primary Care Provider] - In 1 week Problem List Clinical Impression: Pneumoperitoneum, Perforated gastric ulcer, Anemia, Leukocytosis Patient/Caregiver Discharge Instructions Print Language: Vietnamese Stand Alone Forms: Talisha Award Info., Patient Portal Info Letter
--- NOTE | 2025-05-28 23:48 | XR_ITS ---
Examination: CT abdomen with intravenous contrast CT pelvis with intravenous contrast 2-D coronal reconstructions 2-D sagittal reconstructions Date and time of exam: May 29, 2025, 0006 hours INDICATIONS: Lower abdominal pain beginning 1 week ago COMPARISON: May 22, 2025. CTDI: vol (mGy) 7.93 DLP: (mGycm) 458 Technique: Multiple axial sections of the abdomen and pelvis have been obtained. 64 slice high-resolution scanner used. 3 mm axial sections have been obtained, post intravenous injection 60 cc [id number] 2-D sagittal, coronal reconstructions obtained. Low dose protocols were performed. One or more of the following dose reduction techniques were used; automated exposure control, adjustment of the mA and/or KV according to patient size, use of iterative reconstruction technique. Findings: Atelectasis in the right lower lung zone Marked mucosal thickening in the body and gastric antrum extending into the duodenum There are tiny air droplets adjacent to the stomach and falciform ligament with air density in the antral pyloric region axial image 84 which may represent gastric perforation There is perigastric fluid, coronal image 49 adjacent to the stomach below the liver measuring up to 11 cm in length and 8 cm in thickness Contracted gallbladder No focal liver or splenic lesions No pancreatitis No hydronephrosis Fat-containing umbilical hernia No bowel obstruction Contracted urinary bladder Small ovarian follicles Abundant stool in the colon Moderate disc narrowing L5-S1 IMPRESSION: Findings most consistent with gastric ulcer perforation at the level of the antrum pylorus with perigastric fluid collection and pneumoperitoneum
[2025-05-29] VITALS (27 sets, daily range): BP systolic 110–139; BP diastolic 59–87; PULSE 81–115; RESP 12–20; TEMP 36.1–37.5; O2SAT 96–100; BMI 28.0
--- NOTE | 2025-05-29 00:05 | XR_ITS ---
Examination: Abdomen sonogram, Limited Date and time of exam: May 29, 2025, 0040 hours INDICATIONS: Onset right upper abdominal pain today Technique: Real-time perkins scale transabdominal sonographic images of the upper abdomen obtained. Findings: Negative for gallstones Gallbladder wall is thickened 0.58 cm with fluid Common bile duct 0.47 cm Pancreas obscured by bowel gas Liver 16.76 cm no liver lesions Normal hepatopetal portal venous flow Patent IVC IMPRESSION: Abnormal thickening of the gallbladder wall with fluid adjacent to the gallbladder wall, recommend HIDA scan or MRCP follow-up to exclude acute cholecystitis
[2025-05-29] MEDS: MORPHINE SULF INJ 4 MG/ML VIAL IVP ×2 (00:18→12:13)
[2025-05-29] MEDS: ONDANSETRON INJ 2 MG/ML INJ 2 ML 4 MG IVP (00:22)
[2025-05-29] MEDS: HYDROmorphone INJ 2 MG/ML VIAL 1 MG IVP ×4 (01:25→15:39)
--- NOTE | 2025-05-29 01:36 | PRELIM_ITS ---
CT scan of the abdomen and pelvis with intravenous contrast (axial sections with sagittal and coronal reformats) May 29, 2025 0004 hours Clinical History: Abdominal pain Comparison: No prior study is available for comparison. Findings: Bibasilar streaky atelectasis is present. A calcified nodule is seen in the right middle lobe, suggestive of a granuloma. There is trace pericardiac effusion. The gallbladder is contracted with nonspecific pericholecystic fluid. The liver, pancreas, spleen, kidneys and adrenals are unremarkable. There is irregular wall thickening of the distal stomach / proximal duodenum with adjacent fat stranding small extraluminal air loculi, indicating peptic ulcer disease with perforation. A small amount of free air is noted adjacent to the falciform ligament of the liver and adjacent to the gallbladder fossa. There is a large subdiaphragmatic perigastric air fluid collection, measuring approximately 13 x 8.1 x 9.7 cm, abutting anterior and inferior aspects of the liver and lesser curvature of the stomach. A smaller loculated air-fluid collection is seen beneath the ventral abdominal wall. No evidence of bowel obstruction. The appendix is not definitively visualized; however, there is no evidence of inflammatory process in the right lower quadrant to suggest appendicitis. A moderate amount of fecal material is noted within the colon and rectum. The urinary bladder is incompletely distended and appears mildly thick walled. The uterus is unremarkable. There is mild bilateral adnexal enlargement with multiple small follicles. The osseous structures are unremarkable. Impression: 1. Peptic ulcer disease with gastric perforation at the level of the pylorus with pneumoperitoneum, regional peritonitis and a large loculated perigastric and perihepatic air fluid collection. 2. Constipation. No evidence of bowel obstruction. 3. Other findings as described above. Discussion Details: Results Discussed With : Dr. Lozada at 01:26 AM 05/29/2025 Report Electronically Signed By: Lindsay Hernandez 05/29/2025 1:35:08 AM [EST]
--- NOTE | 2025-05-29 02:10 | PRELIM_ITS ---
Gallbladder ultrasound. May 29, 2025 at 0046 hours Clinical history: Right upper quadrant abdominal pain Correlated with the prior CT abdomen and pelvis study performed earlier today at 0004 hours. Findings: The visualized liver is normal in echogenicity. There is no intrahepatic biliary duct dilatation. The main portal vein is patent and demonstrates hepatopetal flow. The gallbladder wall is thickened, measuring 5.8 mm with pericholecystic fluid. No evidence of gallstones. Sonographic Michael sign is not reported by the technologist. The common duct is normal in caliber at 4.7 mm. The pancreas is obscured by bowel gas. The inferior vena cava is patent. Impression: Gallbladder wall thickening with pericholecystic fluid. No gallstones. Recommend clinical correlation and followup. Correlation with CT Abdomen and Pelvis performed earlier is recommended. Report Electronically Signed By: Florencio Gordillo 05/29/2025 2:09:54 AM [EST]
--- NOTE | 2025-05-29 02:57 | PD.EDADDENDU ---
Emergency Room Addendum Addendum Narrative: I did speak with Dr. Hargrove who stated that he will come in and evaluate the patient for surgery. He fully understands the need to take this patient to surgery and he requests admission at this time
--- NOTE | 2025-05-29 03:17 | EKG_ITS ---
[facility] Test Date: 2025-05-29 Pat Name: JESSICA MONTES Department: Room: - Gender: Female Rn Transplant: : 1990 Requested By: Mine Lewis Order Number: [id number] Reading MD: Mine Lewis Measurements Intervals [place] Rate: 106 P: 40 NM: 138 QRS: 72 QRSD: 82 T: 49 QT: 342 QTc: 456 Interpretive Statements SINUS TACHYCARDIA NONSPECIFIC T-WAVE ABNORMALITY ABNORMAL RHYTHM ECG Compared to ECG 05/22/2025 03:37:31 No significant changes /store/S0/[id number]/ecg/[id number].pdf
[2025-05-29] MEDS: PIPER/TAZO 3.375 GM PREMIX 3.375 GM/50 ML BAG IV ×3 (03:31→21:39)
[2025-05-29] MEDS: RINGERS LACTATED 1000 ML 1,000 ML 75 ML IV (03:34)
--- NOTE | 2025-05-29 03:47 | PD.EDADDENDU ---
Emergency Room Addendum Addendum Narrative: Dr Hargrove called at 3:45 AM to ask about the patient's stability. I stated that the patient is still somewhat tachycardic with heart rate of 110 but with a normal blood pressure. He stated that he will take the patient to surgery early today.
--- NOTE | 2025-05-29 04:33 | ESHP_ITS ---
Documentation for date of: 05/29/25 HPI History of Present Illness Chief complaint: Abdominal pain History of present illness: This is a 34-year-old female with past medical history of recurrent UTIs, kidney disease(stones) presented to the ED with complaints of worsening abdominal pain. She has been experiencing worsening epigastric and left upper quadrant abdominal pain since 1 week.She endorses epigastric abdominal pain is worsening throughout the week and associated with nausea. At first it was initially pain was initially epigastric region but got worsened and now she complains of severe abdominal pain throughout her abdomen which she had for last couple of days. she last had her bowel movement 5 days ago. She endorses black tarry stools couple of times before she had constipation and endorses 1 episode of vomiting. She denies chest pain, chest palpitations but endorses shortness of breath and heartburn. She came to the ED for the similar complaints but CT scan at that time shows prominent active gastritis which duodenal pattern and pelvic ultrasound shown partial left ovarian cyst rupture. So she was discharged back at that time. She admits she takes ibuprofen 600 mg 4 to 5 tablets for 5 days in a month to manage her menses pain. She drinks like 8 cans of soda every day Today's ED visit vitals BP 115/73, pulse 117, respiratory 16, temperature 98.9, saturating 96% on room air Pertinent lab findings are hemoglobin 6.5, hematocrit 20.6, WBC 21.3, platelets 561 with neutrophils 84%. AST/ALT/ALP?61/127/338, Pro-Ronald?1.92 Imaging findings shows gallbladder ultrasound showing gallbladder wall thickening with pericholecystic fluid. CT abdomen showing perforation in the distal pylorus most likely from peptic ulcer and pneumoperitoneum in perigastric and perihepatic region. Treatment given in ED 2 units of PRBC and given a dose of Zosyn. Past medical history: As stated above. Past surgical history: History of appendectomy and perforation . Allergic History:NKDA Family History: Non Contributory Review of Systems Review of Systems Systems Reviewed: All systems reviewed, normal except as documented Exam Vital Signs Temp Pulse Resp BP Pulse Ox O2 Del Method 98.6 F 110 H 14 115/85 H 99 Room Air 05/29/25 03:10 05/29/25 03:10 05/29/25 03:10 05/29/25 03:10 05/29/25 03:10 05/29/25 02:14 Narrative Exam GENERAL: NAD, AAOx3 HEENT: Moist mucosa. Eyes open, symmetrical, & clear CARDIO: Rapid regular rhythm Noted. No Murmurs. PULM: No noted coughing/dyspnea CTA B/L, no R/W/R GI: Abdomen hard,tender,rigid with gaurding all over the abdomen SKIN/MSK/EXT: No wounds/rashes/amputations, no pain on palpation.No Edema. Pedal pulses present B/L NEURO: AAOx3, no focal neuro deficits, able to move all 4 extremities Results: Labs 05/29/25 13:02 05/29/25 05:35 Labs: Short CBC 05/28/25 Range/Units 19:32 WBC 21.3 H (3.6-11.0) Thou/mm3 Hgb 6.5 L* D (12.0-16.0) g/dL Hct 20.6 L* (36.0-46.0) % Plt Count 561 H D (140-440) Thou/mm3 BMP 05/28/25 19:32 Sodium 139 Potassium 3.4 Chloride 101 Carbon Dioxide 26.4 BUN 11 Creatinine 0.6 Glucose 123 H Calcium 8.4 Liver Function 05/28/25 Range/Units 19:32 Total Bilirubin 0.4 (0.3-1.2) mg/dL AST 61 H (0-34) U/L ALT 127 H (10-49) U/L Alkaline Phosphatase 338 H (46-116) U/L Albumin 3.5 (3.5-5.0) gm/dL Urine 05/28/25 Range/Units 20:10 Urine Color Yellow (Lt Yel-Yel) Urine Clarity Turbid A (Clear/Hazy) Urine pH 6.5 (5.0-7.0) Ur Specific [place] 1.009 (1.001-1.035) Urine Protein Negative (Neg - Trace) Urine Glucose (UA) Negative (Negative) Quality Measures Quality Measures none Medications Home Medications and Allergies Allergies Allergy/AdvReac Type Severity Reaction Status Date / Time No Known Allergies Allergy Verified 05/22/25 03:33 Visit Medications Acetaminophen (Acetaminophen 325 Mg Tablet) 650 mg PO Q6H PRN PRN Reason: Fever >100.4 Stop: 06/28/25 02:40 Acetaminophen (Acetaminophen 325 Mg Tablet) 650 mg PO Q6H PRN PRN Reason: PAIN SCALE 1-3 (mild Stop: 06/28/25 03:11 Hydromorphone HCl (Hydromorphone Inj 2 Mg/Ml Vial) 1 mg IVP Q4H PRN PRN Reason: PAIN SCALE 4-10(Mod-Sev Stop: 06/03/25 03:11 Lactated Ringer's (Lactated Ringers) 1,000 mls @ 75 mls/hr IV .[id number] [facility] Stop: 06/28/25 03:14 Last Admin: 05/29/25 03:34 Dose: 75 mls/hr Piperacillin/Tazobactam/Dextrose (Zosyn) 50 mls @ 100 mls/hr IV Q6HR [facility]; Protocol Stop: 06/05/25 03:36 Morphine Sulfate (Morphine Sulf Inj 4 Mg/Ml Vial) 2 mg IVP Q4HR PRN PRN Reason: BREAKTHROUGH PAIN (MODERATE) Stop: 06/03/25 03:34 Ondansetron HCl (Ondansetron Inj 2 Mg/Ml Inj 2 Ml) 4 mg IVP Q6H PRN; Protocol PRN Reason: NAUSEA OR VOMITING Stop: 06/28/25 02:40 Pantoprazole Sodium (Pantoprazole Inj 40 Mg Vial) 40 mg IVP BID [facility] Stop: 06/28/25 03:29 Last Admin: 05/29/25 03:33 Dose: 40 mg Discontinued Medications Hydrocodone Bitart/Acetaminophen (Hydrocodone/Apap 5/325 Tablet) 1 tab PO X1 ONE Stop: 05/28/25 21:51 Last Admin: 05/28/25 22:26 Dose: 1 tab Hydromorphone HCl (Hydromorphone Inj 2 Mg/Ml Vial) 1 mg IVP X1 ONE Stop: 05/29/25 01:19 Last Admin: 05/29/25 01:25 Dose: 1 mg Hydromorphone HCl (Hydromorphone Inj 2 Mg/Ml Vial) 1 mg IVP X1 ONE Stop: 05/29/25 02:45 Last Admin: 05/29/25 02:49 Dose: 1 mg Hydromorphone HCl (Hydromorphone Inj 2 Mg/Ml Vial) 1 mg IVP Q2H PRN PRN Reason: PAIN SCALE 4-10(Mod-Sev Stop: 06/03/25 03:11 Piperacillin/Tazobactam/Dextrose (Zosyn) 3.375 gm in 50 mls @ 100 mls/hr IV X1 ONE; Protocol Stop: 05/29/25 02:00 Last Infusion: 05/29/25 04:01 Dose: Infused Ketorolac Tromethamine (Ketorolac Inj 30 Mg/Ml Vial) 30 mg IM X1 ONE Stop: 05/28/25 17:11 Last Admin: 05/28/25 17:33 Dose: 30 mg Morphine Sulfate (Morphine Sulf Inj 4 Mg/Ml Vial) 4 mg IVP X1 ONE Stop: 05/29/25 00:07 Last Admin: 05/29/25 00:18 Dose: 4 mg Ondansetron HCl (Ondansetron Inj 2 Mg/Ml Inj 2 Ml) 4 mg IVP X1 ONE; Protocol Stop: 05/29/25 00:08 Last Admin: 05/29/25 00:22 Dose: 4 mg Assessment & Plan Plan This is a 34-year-old female with past medical history of recurrent UTIs, kidney disease(stones) presented to the ED with complaints of worsening abdominal pain associated with nausea. She was admitted for Perforated Gastric Ulcer. # Perforated Gastric ulcer. # Pneumoperitoneoum. # Acute Symptomatic anemia. # Severe intractable epigastric pain Worsening abdominal pain throughout the abdomen, shortness of breath. History of ibuprofen usage. pulse rate 117, BP 115/75. Guarding, rigid tender abdomen on examination. CT abdomen scan showing perforated gastric ulcer with pneumoperitoneum. Hemoglobin 6.5, hematocrit 20.6. Transfusing 2 units of PRBC in ED. General surgery was consulted by ED Doctor And was told they are going to take her to the surgery. ?Starting on Zosyn to cover gram-negative and anaerobic infection ?Starting on IV pantoprazole to suppress acid secretion ?Follow-up on posttransfusion H&H. ?Ordered PT/INR, EKG,lactate and 2 units of PRBC in case she needs during surgery. ?Starting on n.p.o. right now. ?Starting on IV Dilaudid 1 mg every 4 hours for severe pain and IV morphine 2 mg for breakthrough pain # Transaminitis ?AST/ALT/ALP?61/127/338 Ultrasound gallbladder showing gallbladder wall thickening with pericholecystic fluid. ?Continue to monitor. # Leukocytosis. WBC 21.3, neutrophil 84% - Starting on IV Zosyn to protect from abdominal infection. ?Trend WBC and look for any signs of infection. Code status: Full DVT prophylaxis: SCD Diet: NPO Camarena: None Lines: PIV Supplemental O2: none Disposition: Tele I discussed this case with my senior Dr. Chamberlain and my attending Dr.Alhalaibeh Mine Lewis MD PGY1 Attending Provider Attestation/Addendum After examination of the patient and review of the clinical data I feel that this patient needs admission to the hospital for further treatment/evaluation. TOTAL CC TIME: 45 MIN TOTAL TIME: 45 Minutes of direct medical management and planning of care. I Viri Malik MD, attest that I was physically present for nassar portions of evaluation, and examined patient, labs and imagings and plan of care were discussed with IM residents team, and I agree with the findings and plans documented above.
[2025-05-29 04:51] LABS: INR 1.1 (0.9-1.3); Partial Thromboplastin Time 29.7 Seconds (22.0-36.0); Prothrombin Time 12.0 Seconds (9.0-12.2)
[2025-05-29 05:37] LABS: Lactate (Lactic Acid) 0.7 mMol/L (0.4-2.0)
[2025-05-29 05:43] LABS: Hematocrit 23.8 % (36.0-46.0)
[2025-05-29 05:44] LABS: Hemoglobin 7.8 g/dL (12.0-16.0)
--- NOTE | 2025-05-29 05:45 | ESCONSULT_ITS ---
HPI Consult details Consult date: 05/29/25 Reason for consultation narrative: The patient was seen in consultation because of free air and free fluid under the diaphragm with the possible diagnosis of perforated peptic ulcer History of present illness: History of present was revealed that the patient has been having pain for a couple of weeks and she came to the emergency room 1 week ago and was worked up and discharged she was told that she had a cyst in the ovary. But the pain persisted the past week. Patient was not eating and is not having a bowel movement. She denies any history of fever or chills. The pain became worse yes terday and she came to the emergency room and was found to have a perforated viscus on the CT scan. Patient's past medical history revealed that she had a history of ovarian cyst and endometriosis. She also was found to be anemic with a hemoglobin around 6 g. She does not know that she is anemic. She is not complaining of any rectal bleeding or increased vaginal bleeding. The past medical history revealed that she had ruptured appendicitis for which she was treated here about 20 years ago and then discharged to [facility] where she stayed for 9 months the details of which are not available Past Medical History Past Medical History NEUROLOGIC: Positive Migraine; Negative Seizures CARDIAC: Negative Cardiac Disorders or Congestive Heart Failure RESPIRATORY: Negative Chronic Obstructive Pulmonary Disease (COPD) or Asthma GASTROINTESTINAL: Positive Gastrointestinal Disorders GENITOURINARY: Positive Genitourinary Disorders and Kidney Stones; Negative Renal Disease MUSCULOSKELETAL: Positive Musculoskeletal Disorders ENDOCRINE: Negative Diabetes Mellitus Type 1 or Diabetes Mellitus Type 2 HEMATOLOGIC: Positive Anemia; Negative Sickle Cell Disease OTHER HISTORY: Positive Blood Transfusions (today); Negative Blood Transfusion Reaction, Anesthesia Reactions or Cancer Family History FAMILY HISTORY: Positive Family Cardiac Disorders; Negative Family Cancer Social History SMOKING STATUS: Never smoker SECOND HAND EXPOSURE: No Meds Home Medications and Allergies Allergies Allergy/AdvReac Type Severity Reaction Status Date / Time No Known Allergies Allergy Verified 05/22/25 03:33 Exam Vital Signs Temp Pulse Resp BP Pulse Ox O2 Del Method 98.9 F 107 H 14 115/75 99 Room Air 05/29/25 04:55 05/29/25 04:55 05/29/25 04:55 05/29/25 04:55 05/29/25 04:55 05/29/25 04:55 Narrative Exam Physical examination revealed a 34-year-old female who appeared to be in her stated age. She is 5 feet tall weighing 143 pounds with BMI of 27.9 vital signs are normal other than the tachycardia of 107 Constitutional Constitutional: severe distress Routine Cardiovascular Exam Comments: Sinus tachycardia Routine Abdominal Exam Comments: Examination of the abdomen showed diffuse tenderness in the patient would not let me palpate her abdomen. There is midline surgical scar from the previous multiple surgeries in the [facility] as well as here Routine Rectal Exam Comments: Deferred due to pain Routine Exam Comments: Not done Routine Extremities Exam Comments: Within normal limits Results Results: Laboratory Laboratory Narrative: Laboratory results show WBC around 21,000 Results: Imaging Imaging narrative: CT scan of the abdomen showed free air under the diaphragm with localized effusions in the upper abdomen. This was suggestive of perforated peptic ulcer Assessment & Plan Additional Assessment Additional comments: Impression: Perforated viscus possibly due to peptic ulcer Peritonitis Severe anemia Plan Plan: Patient will require surgery for closure of the perforation. It seems to be that this perforation is occurred couple of days ago because the fluid collections suggest there is a delayed perforation. But whenever it occurred patient required surgery. Because of the anemia we will transfuse 2 units of blood and then proceed with surgery. I told her that the patient will undergo a exploration and indicated surgery. Most probably closure of perforation will be done if something else is perforated like a small bowel that she may require resection. Her past medical history of saying 9 months in [facility] raises concern about intra-abdominal organs. She said there was extensive gangrene and underwent multiple surgery. Will proceed with surgery tonight
[2025-05-29 06:07] LABS: Alanine Aminotransferase 94 U/L (10-49); Albumin, Serum 3.2 gm/dL (3.5-5.0); Albumin/Globulin Ratio 1.5 (1.2-2.2); Alkaline Phosphatase 278 U/L (46-116); Anion Gap 11 (7-16); Aspartate Amino Transferase 37 U/L (0-34); BUN/Creatinine Ratio 22 Ratio (12-20); Bilirubin,Total 1.0 mg/dL (0.3-1.2); Blood Urea Nitrogen 11 mg/dL (9-23); Calcium 8.0 mg/dL (8.3-10.6); Calcium (Corrected) 8.6 mg/dL (8.5-10.1); Carbon Dioxide 26.6 mMol/L (20.0-31.0); Cardiac Risk Estimate 9.0 RATIO (3.7-5.6); Chloride 104 mMol/L (98-107); Cholesterol 98 mg/dL (132-200); Creatinine (Component) 0.5 mg/dL (0.6-1.3); Estimated Creatinine Clearance 133.3 mL/min (>60); Globulin 2.2 gm/dL (2.3-3.5); Glucose 98 mg/dL (74-106); HDL Cholesterol < 10 mg/dL (40-60); LDL Cholesterol,Calculated 63 mg/dL (0-130); Magnesium 2.3 mg/dL (1.6-2.6); Osmolality,Calculated 282 (275-295); Potassium 3.2 mMol/L (3.4-5.1); Sodium 142 mMol/L (136-145); Thyroid Stimulating Hormone 0.83 uIU/mL (0.55-4.78); Total Protein 5.4 gm/dL (5.7-8.2); Triglycerides 125 mg/dL (30-150); eGFR > 60 See Note
--- NOTE | 2025-05-29 07:20 | CHAP ---
Prayed with the mother of patient during the patient's procedure. I then returned and said a prayer with the patient. when she was in an assigned room, (#542).
--- NOTE | 2025-05-29 08:24 | SUR.PHASEI ---
0824: Pt. AAOx4, vitals stable, breathing unlabored, complaint of pain, no complaint of nausea, NG tube in right nare placed on LIS, dressing to ABD CDI, RICK drain in place draining serosanguinous fluid, 16F christina catheter in place draining clear yellow urine, report received from MD Cueto and Patty LOPEZ.
[2025-05-29] MEDS: HYDROmorphone INJ 2 MG/ML VIAL 0.4 MG IVP ×5 (08:36→09:45)
[2025-05-29] MEDS: MIDAZOLAM INJ 1 MG/ML VIAL 2 ML IVP ×2 (08:57→09:17)
--- NOTE | 2025-05-29 08:58 | PD.SUROPNT ---
Date of Procedure 05/29/25 Pre Op Diagnosis Perforated peptic ulcer with collection of fluid Post Op Diagnosis Perforated pyloric ulcer with an abscess intra-abdominal he anterior to the stomach Procedure Exploratory laparotomy and drainage of the abscess from the abdominal cavity and Mcgrady Eliecer patch of the ulcer Findings Patient was found to have an ulcer which was so firmly indurated that no suture approximation was possible. Therefore nearby omentum was used to attach it over the ulcer bed to prevent any leakage Procedure Description The patient was brought to the operating room and general anesthesia was given. Abdomen was prepped and draped after Camarena catheter was inserted. Timeout was performed. Upper midline incision was made and I found it difficult to enter the abdomen because of the previous adhesions and extensive surgery done while she was in. With the difficulty entering to the abdominal cavity and immediately ran into collection of purulent material which was aspirated. This is fairly large amount into at least 4 to 500 cc. Then I irrigated the wound and looked for perforation of the stomach. The stomach was firmly adherent to the liver and it was difficult to . Because of the extensive adhesions I could not explore the stomach freely nor I could from the undersurface of the liver. Patient also had a fair amount of bleeding from these adhesions while dissection. Patient was given 2 units of packed cells during the surgery because her hemoglobin was low to start with. I tried to suture the ulcer with 2-0 silk but kept tearing through. There was a considerable induration around the ulcer margin and it was extremely difficult to close. The opening was no more than 1 to 1.5 cm in diameter. The surrounding area on the stomach also was so friable that I could not place any sutures. I mobilized the omentum nearby and attached it with 2-0 silk and 3-0 silk to the area of the stomach where the perforation was. I used a methylene blue stained saline which leaked at the site of perforation. Therefore I placed some more omental patch into the surrounding tissues of the pyloric region. I was still not very sure this would heal but I had no other choice because any further surgery like resection of the stomach would result in extensive blood loss and it was not possible especially in the presence of large abscess I drained. This was almost like a damage control surgery to treat her peritonitis. I felt that she if she had a leak at the site of perforation she could electively undergo resection at a later date when the local inflammatory process would have improved. NG tube was left in place and I inserted a #15 round Emanuel-Lovell in the right gutter and brought it out through the flank and anchored to the skin with 2-0 silk. Then the wound was extensively irrigated and checked for the bleeding points and closed the wound with 3-0 PDS in 1 layer. Subcutaneous tissue was not closed because of the massive contamination and the skin was closed with patricia after injecting half percent Marcaine for analgesia. Patient tolerated the procedure well and left operating room in stable condition. Anesthesia GETA Drains 15 round Emanuel-Lovell Pathology / specimen None IVF Infused 1,500 Estimated Blood Loss 300 Condition Stable Disposition PACU Surgeon Edson Hargrove MD Surgical Staff Operation Date: 05/29/25 05:45 Case Staff Anesthesiologist: Markie Cueto RN First Assistant: Mary Abreu RNhatchery employee: Huyen Rees
[2025-05-29] MEDS: MORPHINE SULF INJ 4 MG/ML VIAL 3 MG IV ×2 (09:05→10:01)
--- NOTE | 2025-05-29 10:30 | SUR.PHASEI ---
1030: Pt. AAOx4, vitals stable, breathing unlabored, complaint of pain, no complaint of nausea, dressing to midline ABD CDI, no active bleed noted, RICK drain in place, christina catheter in place, NG tube in place right nare, gave report to Maye LOPEZ prior to transfer to room 277. Family made aware of transfer.
--- NOTE | 2025-05-29 10:32 | SUR.PHASEI ---
Pt. family has belongings.
[2025-05-29] MEDS: POTASSIUM CHL 10 mEq IVPB 10 MEQ/100 ML BAG 100 MEQ IV (11:20)
[2025-05-29] MEDS: SODIUM CHLORIDE 0.9% 1000 ML 1,000 ML 100 ML IV ×2 (12:13→21:47)
--- NOTE | 2025-05-29 12:40 | PD.RESPRO ---
Documentation for date of: 05/29/25 Senior resident attestation: Patient evaluated and examined at the bedside, plan of care discussed with rest of the team including my attending physician, except as noted. The patient is a 34-year-old female past medical history pertinent for ruptured appendicitis during her childhood requiring prolonged hospital stay and abdominal surgery at [facility] for over 6 months as reported by mother, past medical history of kidney stones and recurrent UTIs, medical history also pertinent for daily ibuprofen use for kidney stones. For the past 1 week patient has been feeling sick to her stomach, complaining of severe abdominal pain, fever and chills. Presented to the ER 05/22/2025, CT scan at that time showed free fluid in pelvis, possibility of adnexal cyst rupture, versus pelvic inflammatory disease, CT scan also showed prominent active peptic ulcer disease. The patient was discharged from emergency room with diagnosis of ruptured adnexal cyst, now presented to the ER on 05/28 with severe abdominal pain, findings concerning for surgical abdomen, CT abdomen showed perforation in distal pylorus more likely from peptic ulcer pneumoperitoneum with perigastric and perihepatic region, general surgeon Dr. Pond was consulted who took the patient to the OR, and for exploratory laparotomy, postop diagnosis perforated pyloric ulcer with an abscess intra-abdominal anterior to the stomach, Eliecer patch of the ulcer with omentum was done and the RICK drain was left in the abscess cavity. Postop patient is seen in telemetry, complaining of severe abdominal pain, is uncomfortable via NG tube, patient has a high opiate tolerance, receiving IV Dilaudid 1 mg every 4 hours, and requiring IV morphine for breakthrough pain, decision was made to transition the patient to [employer] hydromorphone pump. Patient is visibly anxious, patient's mother also stated that patient is very anxious given the diagnosis and surgery which is understandable, the patient is very uncomfortable due to the NG tube, stated that it needs to be replaced, spoke to general surgeon Dr. Pond evaluated who said he would recommend keeping the NG tube in place for suction. Continue [employer], will consider medication for anxiety on as-needed basis. #Sepsis secondary to peritonitis?IV Zosyn Initiated 05/29/2025, IV Protonix 40 mg twice daily, pending blood culture and peritoneal fluid culture results. Keep patient n.p.o. for now, NG tube attached to suction. #Peritonitis secondary to perforated gastric ulcer status post ex lap and repair #Multimodal analgesia?on [employer] pain pump #Anxiety Quresh PGY3 Subjective Subjective Interval history: Patient was seen and examined at bedside today after surgery. Patient was taken by Dr. Hargrove to or this a.m. with preoperative diagnosis of potential perforated peptic ulcer; he found 400 to 500 cc purulent fluid, and used an omental patch to cover the ulcer. Patient was seen postoperatively, and appeared to be in significant pain; she wanted to remove her NG tube, we were able to explain that the NG tube is necessary secondary to her surgery and she agreed to keep it and then gave her more pain medication. Exam Vital Signs Temp Pulse Resp BP Pulse Ox O2 Del Method O2 Flow Rate 98.0 F 107 H 20 139/85 H 99 Room Air 2 05/29/25 10:20 05/29/25 10:20 05/29/25 10:20 05/29/25 10:20 05/29/25 10:20 05/29/25 04:55 05/29/25 10:20 Narrative Exam General: A/O x3, no acute distress, well-nourished, well-developed, surgical incision and NG tube are present Eyes: PERRL, EOMI. Anicteric, vision grossly intact. Ears: No ear pain, no ear discharge, Hearing grossly intact. Nose: No nasal discharge. Mouth/Throat: Moist mucous membranes, no redness, no lesions. Neck: Neck supple, non-tender, no cervical lymphadenopathy. Lungs: Clear OLESYA to auscultation and percussion, No accessory muscle use. Cardio: Normal S1/S2, regular rhythm, no murmurs, no JVD or carotid bruits. Abdomen: unable to assess as patient refused abdominal exam Extremities: Symmetrical, no significant deformities, no peripheral edema , non-tender, peripheral pulses present. Skin: No rashes, no lesions, warm to touch. Neuro: No focal neurological deficits. Significant post-operative pain Psych: Cooperative, appropriate mood and effect. Objective Labs 05/30/25 05:27 05/30/25 05:27 Labs: Laboratory Results - last 24 hr 05/28/25 05/28/25 05/28/25 19:32 20:10 20:19 WBC 21.3 H RBC 2.53 L Hgb 6.5 L* D Hct 20.6 L* MCV 81 MCH 25.7 MCHC 31.6 RDW Std Deviation 50.8 H Plt Count 561 H D Neut % (Auto) 84 H Lymph % (Auto) 9 L [place] % (Auto) 5 Eos % (Auto) 0 Baso % (Auto) 0 Neut # (Auto) 18.0 H Lymph # (Auto) 1.8 [place] # (Auto) 1.0 H Eos # (Auto) 0.0 Baso # (Auto) 0.1 Immature Gran # (Auto) 0.44 H Absolute Nucleated RBC 0.02 H Immature Gran % 2 H Nucleated RBC % 0 Smear Path Review Sent to Pathologist PT INR APTT Sodium 139 Potassium 3.4 Chloride 101 Carbon Dioxide 26.4 Anion Gap 12 BUN 11 Creatinine 0.6 Estim Creat Clear Calc 111.1 eGFR > 60 BUN/Creatinine Ratio 18 Glucose 123 H Calculated Osmolality 277 Lactic Acid 0.9 Calcium 8.4 Corrected Calcium 8.8 Magnesium Total Bilirubin 0.4 AST 61 H ALT 127 H Alkaline Phosphatase 338 H Total Protein 6.1 Albumin 3.5 Globulin 2.6 Albumin/Globulin Ratio 1.3 Triglycerides Cholesterol LDL Cholesterol, Calc HDL Cholesterol Cholesterol/HDL Ratio Lipase 29 Procalcitonin 1.92 H TSH Ur Collection Type Clean Catch Urine Color Yellow Urine Clarity Turbid A Urine pH 6.5 Ur Specific [place] 1.009 Urine Protein Negative Urine Glucose (UA) Negative Urine Ketones Negative Urine Blood 2+ A Urine Nitrite Negative Urine Bilirubin Negative Urine Urobilinogen (Auto) Negative Ur Leukocyte Esterase Negative Urine RBC 3 Urine WBC 4 Ur Squamous Epith Cells 10 H Amorphous Crystals Present A Urine Bacteria Rare Ur Culture Indicated? Not Indicated Urine HCG, Qual Negative Blood Type O Positive Antibody Screen NEGATIVE Crossmatch See Detail Blood Bank Wristband ID Yes 05/29/25 05/29/25 05/29/25 04:20 05:07 05:35 WBC RBC Hgb 7.8 L Hct 23.8 L MCV MCH MCHC RDW Std Deviation Plt Count Neut % (Auto) Lymph % (Auto) [place] % (Auto) Eos % (Auto) Baso % (Auto) Neut # (Auto) Lymph # (Auto) [place] # (Auto) Eos # (Auto) Baso # (Auto) Immature Gran # (Auto) Absolute Nucleated RBC Immature Gran % Nucleated RBC % Smear Path Review PT 12.0 INR 1.1 APTT 29.7 Sodium 142 Potassium 3.2 L Chloride 104 Carbon Dioxide 26.6 Anion Gap 11 BUN 11 Creatinine 0.5 L Estim Creat Clear Calc 133.3 eGFR > 60 BUN/Creatinine Ratio 22 H Glucose 98 Calculated Osmolality 282 Lactic Acid 0.7 Calcium 8.0 L Corrected Calcium 8.6 Magnesium 2.3 Total Bilirubin 1.0 D AST 37 H ALT 94 H Alkaline Phosphatase 278 H D Total Protein 5.4 L Albumin 3.2 L Globulin 2.2 L Albumin/Globulin Ratio 1.5 Triglycerides 125 Cholesterol 98 L LDL Cholesterol, Calc 63 HDL Cholesterol < 10 L Cholesterol/HDL Ratio 9.0 H Lipase Procalcitonin TSH 0.83 Ur Collection Type Urine Color Urine Clarity Urine pH Ur Specific [place] Urine Protein Urine Glucose (UA) Urine Ketones Urine Blood Urine Nitrite Urine Bilirubin Urine Urobilinogen (Auto) Ur Leukocyte Esterase Urine RBC Urine WBC Ur Squamous Epith Cells Amorphous Crystals Urine Bacteria Ur Culture Indicated? Urine HCG, Qual Blood Type Antibody Screen Crossmatch Blood Bank Wristband ID Quality Measures Quality Measures none Assessment & Plan Assessment Current Active Medications: Generic Name Dose Route Start Last Admin Trade Name Freq PRN Reason Stop Dose Admin Acetaminophen 650 mg 05/29/25 02:41 Acetaminophen 325 Mg Tablet PO 06/28/25 02:40 Q6H PRN Fever >100.4 Acetaminophen 650 mg 05/29/25 03:12 Acetaminophen 325 Mg Tablet PO 06/28/25 03:11 Q6H PRN PAIN SCALE 1-3 (mild Hydromorphone HCl 1 mg 05/29/25 03:38 05/29/25 11:14 Hydromorphone Inj 2 Mg/Ml Vial IVP 06/03/25 03:11 1 mg Q4H PRN Administration PAIN SCALE 4-10(Mod-Sev Piperacillin/Tazobactam/Dextrose 3.375 gm in 50 mls @ 12.5 mls/hr 05/29/25 07:00 05/29/25 11:17 Zosyn IV 06/05/25 06:59 Not Given Q8HR SALUD Protocol Sodium Chloride 1,000 mls @ 100 mls/hr 05/29/25 11:34 05/29/25 12:13 Ns IV 06/28/25 11:33 100 mls/hr .Q10H SALUD Administration Morphine Sulfate 4 mg 05/29/25 11:34 05/29/25 12:13 Morphine Sulf Inj 4 Mg/Ml Vial IVP 06/03/25 11:33 4 mg Q4HR PRN Administration BREAKTHROUGH PAIN Ondansetron HCl 4 mg 05/29/25 02:41 Ondansetron Inj 2 Mg/Ml Inj 2 Ml IVP 06/28/25 02:40 Q6H PRN NAUSEA OR VOMITING Protocol Pantoprazole Sodium 40 mg 05/29/25 03:30 05/29/25 03:33 Pantoprazole Inj 40 Mg Vial IVP 06/28/25 03:29 40 mg BID SALUD Administration Plan Patient is a 34-year-old f with PMH of recurrent UTIs, kidney stones presented to the ED with complaints of worsening abdominal pain associated with nausea. She was admitted for Perforated Gastric Ulcer. # Surgical abdomen secondary to # Perforated Gastric ulcer. # Symptomatic anemia. # Transaminitis # Leukocytosis. On admission- worsening abdominal pain throughout the abdomen, shortness of breath. Tachycardia to 117. Guarding, rigid tender abdomen on examination. CT abdomen showing perforated gastric ulcer with pneumoperitoneum. Hemoglobin 6.5, hematocrit 20.6 on admission; 2 units transfused, post transfusion hgb 7.8 . AST/ALT/ALP?61/127/338, WBC 21.3. General surgery was consulted by ED Doctor And was told they are going to take her to the surgery. INR 1.1, lactate 0.7, EKG shows sinus tachycardia. Ultrasound gallbladder showing gallbladder wall thickening with pericholecystic fluid. Patient had ulcer repair performed 05/29/25. Plan: ?Zosyn to cover gram-negative and anaerobic infection ?IV pantoprazole to suppress acid secretion ?Patient on [employer] pump for pain ?Trend WBC and wait for cultures of peritoneal fluid - General surgery following the case - NG tube with suction Disposition: med-Tele DVT prophylaxis: SCDs GI prophylaxis: Pantoprazole Diet: NPO Lines: PIV CODE STATUS: Full This case was discussed with my attending physician, Dr. Rios, and senior resident, Dr. Wylie. Reji Taylor MD-PhD, PGY1 Attending Provider Attestation/Addendum I, Ana Laura Rios, DO, attest that I was physically present for the nassar portions of the service and evaluated the patient with the resident and I reviewed and discussed the case with the resident and agree with the resident's findings and plans of care as documented above Patient is a 34-year-old female past medical history of gastritis, CKD stage 1 (per family at bedside), recurrent UTI and nephrolithiasis who presented to the ED with worsening abdominal pain that began about 1 week ago. Patient was recently seen in the ED CT abdomen and pelvis had shown prominent gastritis active peptic disease, duodenal pattern, and free fluid in the pelvis with prominent left adnexal region. Patient returns during which abdominal pelvis CT shows gastric ulcer perforation at the level of antrum pylorus with perigastric fluid collection and pneumoperitoneum. Patient was emergently taken to the OR during which patient was found to have an abscess at anterior to the stomach and a perforated pyloric ulcer. Patient underwent ex lap and drainage of the abscess and placement of a Eliecer patch over the ulcer. Case was discussed with surgeon who states that case was quite complicated due to scar tissue. Patient has a RICK drain currently draining serosanguineous fluid. Sister at bedside states that the patient often takes ibuprofen 800mg at home. Patient transferred from PACU recently to room at time of evaluation. She received 1mg of dialudid, but continues to complain of pain and would like NG tube to be removed. Dressing over midline incision is clean, dry and intact. Case was discussed over the phone with surgeon. Will continue with post op care at this time. Will order [employer] pump due to uncontrolled pain. Advised patient not to remove NG tube at this time and she is to be strict NPO, until further recommendations given by surgeon.
[2025-05-29 13:40] LABS: Hematocrit 32.5 % (36.0-46.0); Hemoglobin 10.7 g/dL (12.0-16.0)
[2025-05-29] MEDS: HYDROmorphone INJ 2 MG/ML VIAL 0.5 MG IVP (14:12)
[2025-05-29] MEDS: HYDROmorphone 1 MG/ML PCA SYRINGE 30ML PCA (17:26)
[2025-05-29] MEDS: hydrOXYzine INJ 25 MG/ML VIAL 50 MG IM (18:38)
[2025-05-30] VITALS (8 sets, daily range): BP systolic 108–125; BP diastolic 64–74; PULSE 95–113; RESP 17–94; TEMP 36.2–37.8; O2SAT 94–99; BMI 28.0
[2025-05-30] MEDS: PIPER/TAZO 3.375 GM PREMIX 3.375 GM/50 ML BAG IV ×3 (06:00→21:05)
[2025-05-30 06:02] LABS: Basophils # (Auto) 0.1 Thou/mm3 (0.0-0.2); Basophils % (Auto) 0 % (0-2.5); Eosinophils # (Auto) 0.0 Thou/mm3 (0.0-0.5); Eosinophils % (Auto) 0 % (0-10); Hematocrit 31.4 % (36.0-46.0); Hemoglobin 10.2 g/dL (12.0-16.0); Immature Granulocytes Auto 0.57 Thou/mm3 (0.00-0.00); Lymphocytes # (Auto) 2.6 Thou/mm3 (1.0-4.8); Lymphocytes % (Auto) 11 % (10-50); Mean Corpuscular HGB Conc 32.5 g/dl (31.0-37.0); Mean Corpuscular Hemoglobin 27.3 pg (25.0-35.0); Mean Corpuscular Volume 84 fL (80-100); Monocytes # (Auto) 1.3 Thou/mm3 (0.0-0.8); Monocytes % (Auto) 6 % (0-12); Neutrophils # (Auto) 18.1 Thou/mm3 (1.8-7.7); Neutrophils % (Auto) 80 % (37-80); Nucleated Red Blood Cell # 0.00 Thou/mm3 (0.00-0.00); Nucleated Red Blood Cell % 0 /100 WBC (0); Platelet Count 568 Thou/mm3 (140-440); RDW Standard Deviation 49.1 fL (36.4-46.3); Red Blood Count 3.73 Miln/mm3 (4.00-5.20); White Blood Count 22.5 Thou/mm3 (3.6-11.0)
[2025-05-30 06:11] LABS: INR 1.1 (0.9-1.3); Prothrombin Time 11.6 Seconds (9.0-12.2)
[2025-05-30 06:29] LABS: Alanine Aminotransferase 68 U/L (10-49); Albumin, Serum 2.9 gm/dL (3.5-5.0); Albumin/Globulin Ratio 1.3 (1.2-2.2); Alkaline Phosphatase 209 U/L (46-116); Anion Gap 13 (7-16); Aspartate Amino Transferase 35 U/L (0-34); BUN/Creatinine Ratio 36 Ratio (12-20); Bilirubin,Total 0.7 mg/dL (0.3-1.2); Blood Urea Nitrogen 18 mg/dL (9-23); Calcium 8.1 mg/dL (8.3-10.6); Calcium (Corrected) 9.0 mg/dL (8.5-10.1); Carbon Dioxide 23.0 mMol/L (20.0-31.0); Chloride 109 mMol/L (98-107); Creatinine (Component) 0.5 mg/dL (0.6-1.3); Estimated Creatinine Clearance 129.8 mL/min (>60); Globulin 2.2 gm/dL (2.3-3.5); Glucose 102 mg/dL (74-106); Magnesium 2.2 mg/dL (1.6-2.6); Osmolality,Calculated 290 (275-295); Phosphorous 4.3 mg/dL (2.4-5.1); Potassium 3.4 mMol/L (3.4-5.1); Sodium 145 mMol/L (136-145); Total Protein 5.1 gm/dL (5.7-8.2); eGFR > 60 See Note
[2025-05-30] MEDS: SODIUM CHLORIDE 0.9% 1000 ML 1,000 ML 100 ML IV ×2 (08:09→18:28)
--- NOTE | 2025-05-30 09:27 | PD.RESPRO ---
Documentation for date of: 05/30/25 Subjective Subjective Interval history: Patient seen and examined at bedside; no acute events overnight. Per family, patient slept reasonably well overnight. NG tube output is approximately 100 mL of greenish material. Patient states that her abdominal pain is relatively well-controlled, especially compared to yesterday. Patient advised to use incentive spirometer to prevent pneumonia and improve breathing. Exam Vital Signs Temp Pulse Resp BP Pulse Ox O2 Del Method O2 Flow Rate 99.1 F 111 H 22 H 110/65 94 L Room Air 1 05/30/25 08:00 05/30/25 08:00 05/30/25 08:00 05/30/25 08:00 05/30/25 08:00 05/30/25 08:00 05/30/25 07:12 Narrative Exam General: A/O x3, no acute distress, well-nourished, well-developed, covered surgical incision and NG tube are present Eyes: PERRL, EOMI. Anicteric, vision grossly intact. Ears: No ear pain, no ear discharge, Hearing grossly intact. Nose: No nasal discharge. Mouth/Throat: Moist mucous membranes, no redness, no lesions. Neck: Neck supple, non-tender, no cervical lymphadenopathy. Lungs: Clear OLESYA to auscultation and percussion, No accessory muscle use. Cardio: Normal S1/S2, regular rhythm, no murmurs, no JVD or carotid bruits. Abdomen: No pain to light palpation; dressings covering surgical incision. Extremities: Symmetrical, no significant deformities, no peripheral edema , non-tender, peripheral pulses present. Skin: No rashes, no lesions, warm to touch. Neuro: No focal neurological deficits. post-operative pain improved. Psych: Cooperative, appropriate mood and effect. Objective Labs 05/31/25 05:17 05/31/25 05:17 Labs: Laboratory Results - last 24 hr 05/29/25 05/30/25 13:02 05:27 WBC 22.5 H RBC 3.73 L Hgb 10.7 L D 10.2 L Hct 32.5 L 31.4 L MCV 84 MCH 27.3 MCHC 32.5 RDW Std Deviation 49.1 H Plt Count 568 H Neut % (Auto) 80 Lymph % (Auto) 11 [place] % (Auto) 6 Eos % (Auto) 0 Baso % (Auto) 0 Neut # (Auto) 18.1 H Lymph # (Auto) 2.6 [place] # (Auto) 1.3 H Eos # (Auto) 0.0 Baso # (Auto) 0.1 Immature Gran # (Auto) 0.57 H Absolute Nucleated RBC 0.00 Immature Gran % 3 H Nucleated RBC % 0 PT 11.6 INR 1.1 Sodium 145 Potassium 3.4 Chloride 109 H Carbon Dioxide 23.0 Anion Gap 13 BUN 18 Creatinine 0.5 L Estim Creat Clear Calc 129.8 eGFR > 60 BUN/Creatinine Ratio 36 H Glucose 102 Calculated Osmolality 290 Calcium 8.1 L Corrected Calcium 9.0 Phosphorus 4.3 Magnesium 2.2 Total Bilirubin 0.7 AST 35 H ALT 68 H Alkaline Phosphatase 209 H D Total Protein 5.1 L Albumin 2.9 L Globulin 2.2 L Albumin/Globulin Ratio 1.3 Quality Measures Quality Measures none Assessment & Plan Assessment Current Active Medications: Generic Name Dose Route Start Last Admin Trade Name Freq PRN Reason Stop Dose Admin Acetaminophen 650 mg 05/29/25 02:41 Acetaminophen 325 Mg Tablet PO 06/28/25 02:40 Q6H PRN Fever >100.4 Acetaminophen 650 mg 05/29/25 03:12 Acetaminophen 325 Mg Tablet PO 06/28/25 03:11 Q6H PRN PAIN SCALE 1-3 (mild Hydromorphone HCl 1 mg 05/29/25 16:03 Hydromorphone Inj 2 Mg/Ml Vial IVP 06/03/25 03:37 On Hold: 05/29/25 16:14 Q2H PRN Comment: DILAUDID [employer]LO[employer] CONSUMER SECTOR VICE PRESIDENT STARTED PAIN SCALE 4-10(Mod-Sev Hydromorphone HCl 0 mg 05/29/25 16:15 05/29/25 17:26 Hydromorphone 1 Mg/Ml Director Of Student Financial Aid Syringe 30ml [employer]LO[employer] CON[employer]ER SE[employer] VICE PRESIDENT 06/03/25 16:14 30 mg UD SALUD Administration Protocol Piperacillin/Tazobactam/Dextrose 3.375 gm in 50 mls @ 12.5 mls/hr 05/29/25 07:00 05/30/25 06:00 Zosyn IV 06/05/25 06:59 12.5 mls/hr Q8HR SALUD Administration Protocol Sodium Chloride 1,000 mls @ 100 mls/hr 05/29/25 11:34 05/30/25 08:09 Ns IV 06/28/25 11:33 100 mls/hr .Q10H SALUD Administration Morphine Sulfate 4 mg 05/29/25 11:34 05/29/25 12:13 Morphine Sulf Inj 4 Mg/Ml Vial IVP 06/03/25 11:33 4 mg On Hold: 05/29/25 16:14 Q4HR PRN Administration Comment: DILAUDID [employer] CONSUMER SECTOR VICE PRESIDENT STARTED BREAKTHROUGH PAIN Ondansetron HCl 4 mg 05/29/25 02:41 Ondansetron Inj 2 Mg/Ml Inj 2 Ml IVP 06/28/25 02:40 Q6H PRN NAUSEA OR VOMITING Protocol Pantoprazole Sodium 40 mg 05/29/25 03:30 05/30/25 08:10 Pantoprazole Inj 40 Mg Vial IVP 06/28/25 03:29 40 mg BID SALUD Administration Plan Patient is a 34-year-old f with PMH of recurrent UTIs, kidney stones presented to the ED with complaints of worsening abdominal pain associated with nausea. She was admitted for Perforated Gastric Ulcer. # Peritonitis treated with repair of # Perforated Gastric ulcer # Symptomatic anemia. # Transaminitis # Leukocytosis. On admission- worsening abdominal pain throughout the abdomen, shortness of breath. Tachycardia to 117. Guarding, rigid tender abdomen on examination. CT abdomen showing perforated gastric ulcer with pneumoperitoneum. Hemoglobin 6.5, hematocrit 20.6 on admission; 2 units transfused, post transfusion hgb 7.8 . AST/ALT/ALP?61/127/338, WBC 21.3. General surgery was consulted by ED Doctor And was told they are going to take her to the surgery. INR 1.1, lactate 0.7, EKG shows sinus tachycardia. Ultrasound gallbladder showing gallbladder wall thickening with pericholecystic fluid. Patient had ulcer repair performed 05/29/25. Peritoneal Gram stain negative Plan: ?Zosyn to cover gram-negative and anaerobic infection ?IV pantoprazole to suppress acid secretion ?Patient on [employer]LO[employer]ER [employer] VICE PRESIDENT pump for pain ?Trend WBC and wait for cultures of peritoneal fluid - General surgery following the case - NG tube with suction ? Hydroxyzine given for anxiety postsurgery ? Acetaminophen 1 g IV Disposition: med-Tele DVT prophylaxis: SCDs GI prophylaxis: Pantoprazole Diet: NPO Lines: PIV CODE STATUS: Full This case was discussed with my attending physician, Dr. Rios, and senior resident, Dr. Wylie. Reji Taylor MD-PhD, PGY1 Attending Provider Attestation/Addendum I, Ana Laura Rios, DO, attest that I was physically present for the nassar portions of the service and evaluated the patient with the resident and I reviewed and discussed the case with the resident and agree with the resident's findings and plans of care as documented above Patient seen and evaluated this AM. Girlfriend at bedside. Patient states she is very anxious, but pain appears to be controlled. She is much more alert today and states she would take ibuprofen 800mg PO 4-5 times a day, mainly due to teeth pain. Patient has significant decay noted in her bottom teeth. She states she has been unable to see a dentist due to lack of insurance. mild tenderness to palpation in her left lower jaw. Dressing over abdomen is clean, dry and intact. Abdomen is soft, nondistended. Mild tenderness to palpation. NG tube remains in place. 15mL serosanguinous fluid removed from RICK drain this AM. She remains on dilaudid GLO[employer] CONSUMER SECTOR VICE PRESIDENT. Will place hydroxyzine as needed for PM. Patient requesting for NG tube to be removed. However, explained the need and use of both NG and RICK drains/ tubes. Continue with postop care. F/u with surgeon's recommendations.
--- NOTE | 2025-05-30 10:51 | PC.SS ---
Dross Skimmer (KRISTINA) Beatriz met with the patient at the bedside to complete the initial assessment and discuss the discharge plan. Per chart review, the patient presented to the emergency department stating that she was recently seen in the ER and diagnosed with an ovarian cyst with rupture. Patient reports that she has persistent pain. KRISTINA introduced self, role, and reason for the consult. Patient asked KRISTINA to call her surrogate medical decision maker, her mother, Radha Kwan, , to complete the initial assessment. KRISTINA called Radha and completed the initial assessment. Per Radha, the patient is 34 y/o Sydnie Kwan, who resides with her minor son, but is not sure of her physical address, other than it is on [facility] here in [place]. The patient's minor son is under the care of the family right now while the patient is hospitalized. Per Radha, the patient's baseline is independent with no DME. Radha was unaware of the patient's PCP. Patient is not medically clear yet, but family is able to provide 24/7 care at home, and is also open to PT recommendations. Surrogate medical decision maker: Mother, Radha Kwan, D/C plan: Open to PT recs vs. Home with 24/7 care Patient not medically cleared; currently has a surgical drain, NG tube/with the possibility of PPN, and on IV abx.
--- NOTE | 2025-05-30 12:35 | PD.SURPROG ---
Documentation for date of: 05/30/25 Subjective Subjective Narrative: Pt reporting upper abdominal pain is intermittent, improved with STREET PHOTOGRAPHER, no nausea, not yet passing gas or having BM, RICK had 25cc serosanguinous emptied this am. TMax 99.1 Exam Vital Signs Temp Pulse Resp BP Pulse Ox O2 Del Method O2 Flow Rate 99.1 F 111 H 22 H 110/65 94 L Room Air 1 05/30/25 08:00 05/30/25 08:00 05/30/25 08:00 05/30/25 08:00 05/30/25 08:00 05/30/25 08:00 05/30/25 07:12 Constitutional Constitutional: no acute distress Routine Respiratory Exam Respiratory: Present no resp distress Routine Abdominal Exam Abdominal: Present soft, wound (dressing c/d/i) and drain (RICK with serosanguinous output); Absent distended Results Results: Laboratory Laboratory results: results reviewed Assessment & Plan Plan 34F s/p emergent ex lap for perforated gastric ulcer with benigno patch and drainage of abscess 05/29, gradually recovering IV tylenol, lidocaine patch added for pain control Abd binder PRN Continue NG to LIS and monitor RICK output PROCEDURES: Procedures Exploratory laparotomy and drainage of the abscess from the abdominal cavity and [place] Benigno patch of the ulcer
[2025-05-30] MEDS: ACETAMINOPHEN IVPB 1,000 MG/100 ML VIAL 250 MG IV ×3 (13:29→23:22)
[2025-05-30] MEDS: LORazepam 2 MG/ML VIAL 1 MG IVP (17:26)
--- NOTE | 2025-05-30 18:35 | PC.NURSE ---
AIR BAG CURER Documentation at 18:31 is from the hours of [id number].
[2025-05-31] VITALS (12 sets, daily range): BP systolic 113–123; BP diastolic 64–75; PULSE 76–106; RESP 16–27; TEMP 36.2–37.1; O2SAT 94–99; BMI 27.9
[2025-05-31] MEDS: SODIUM CHLORIDE 0.9% 1000 ML 1,000 ML 100 ML IV ×2 (05:09→23:00)
[2025-05-31] MEDS: ACETAMINOPHEN IVPB 1,000 MG/100 ML VIAL 250 MG IV ×3 (05:11→22:32)
[2025-05-31] MEDS: PIPER/TAZO 3.375 GM PREMIX 3.375 GM/50 ML BAG IV ×3 (05:11→22:32)
[2025-05-31] MEDS: HYDROmorphone 1 MG/ML PCA SYRINGE 30ML PCA (05:16)
[2025-05-31 06:30] LABS: Basophils # (Auto) 0.1 Thou/mm3 (0.0-0.2); Basophils % (Auto) 0 % (0-2.5); Eosinophils # (Auto) 0.0 Thou/mm3 (0.0-0.5); Eosinophils % (Auto) 0 % (0-10); Hematocrit 29.1 % (36.0-46.0); Hemoglobin 9.4 g/dL (12.0-16.0); Immature Granulocytes Auto 0.51 Thou/mm3 (0.00-0.00); Lymphocytes # (Auto) 2.5 Thou/mm3 (1.0-4.8); Lymphocytes % (Auto) 13 % (10-50); Mean Corpuscular HGB Conc 32.3 g/dl (31.0-37.0); Mean Corpuscular Hemoglobin 27.7 pg (25.0-35.0); Mean Corpuscular Volume 86 fL (80-100); Monocytes # (Auto) 1.0 Thou/mm3 (0.0-0.8); Monocytes % (Auto) 5 % (0-12); Neutrophils # (Auto) 15.6 Thou/mm3 (1.8-7.7); Neutrophils % (Auto) 79 % (37-80); Nucleated Red Blood Cell # 0.00 Thou/mm3 (0.00-0.00); Nucleated Red Blood Cell % 0 /100 WBC (0); Platelet Count 542 Thou/mm3 (140-440); RDW Standard Deviation 50.2 fL (36.4-46.3); Red Blood Count 3.39 Miln/mm3 (4.00-5.20); White Blood Count 19.7 Thou/mm3 (3.6-11.0)
[2025-05-31 06:57] LABS: Alanine Aminotransferase 45 U/L (10-49); Albumin, Serum 2.8 gm/dL (3.5-5.0); Albumin/Globulin Ratio 1.3 (1.2-2.2); Alkaline Phosphatase 190 U/L (46-116); Anion Gap 14 (7-16); Aspartate Amino Transferase 28 U/L (0-34); BUN/Creatinine Ratio 32 Ratio (12-20); Bilirubin,Total 0.7 mg/dL (0.3-1.2); Blood Urea Nitrogen 16 mg/dL (9-23); Calcium 8.1 mg/dL (8.3-10.6); Calcium (Corrected) 9.1 mg/dL (8.5-10.1); Carbon Dioxide 21.0 mMol/L (20.0-31.0); Chloride 110 mMol/L (98-107); Creatinine (Component) 0.5 mg/dL (0.6-1.3); Estimated Creatinine Clearance 133.3 mL/min (>60); Globulin 2.1 gm/dL (2.3-3.5); Glucose 75 mg/dL (74-106); Magnesium 2.2 mg/dL (1.6-2.6); Osmolality,Calculated 288 (275-295); Phosphorous 4.6 mg/dL (2.4-5.1); Potassium 3.4 mMol/L (3.4-5.1); Sodium 145 mMol/L (136-145); Total Protein 4.9 gm/dL (5.7-8.2); eGFR > 60 See Note
[2025-05-31] MEDS: hydrOXYzine INJ 25 MG/ML VIAL 50 MG IM ×3 (08:36→22:33)
--- NOTE | 2025-05-31 10:48 | ESPR_ITS ---
Documentation for date of: 05/31/25 Subjective Subjective Narrative: Pt reporting ongoing pain today but prefers not to make any changes to her medications. Denies nausea, had 180cc from NG in past 24 hours and reports that she passed gas. Tmax 100 yesterday at noon, she was able to get out of bed with assistance yesterday and has urinated after christina removal. RICK 40cc serosanguinous since yesterday, WBC 19.7 from 22 Exam Vital Signs Temp Pulse Resp BP Pulse Ox O2 Del Method O2 Flow Rate 98.5 F 88 16 115/71 96 Room Air 1 05/31/25 04:00 05/31/25 09:29 05/31/25 09:29 05/31/25 04:00 05/31/25 09:29 05/31/25 04:00 05/31/25 09:29 Constitutional Constitutional: no acute distress Routine Respiratory Exam Respiratory: Present no resp distress Routine Abdominal Exam Abdominal: Present soft and wound (dressing c/d/i); Absent tenderness or distended Results Results: Laboratory Laboratory results: results reviewed Assessment & Plan Plan 34F s/p emergent ex lap for perforated gastric ulcer with benigno patch and drainage of abscess 05/29, gradually recovering Continue NG to LIS and monitor RICK output Encourage OOB/ambulation PROCEDURES: Procedures Exploratory laparotomy and drainage of the abscess from the abdominal cavity and [place] Benigno patch of the ulcer
--- NOTE | 2025-05-31 14:24 | ESPR_ITS ---
<Statement entered by Luis Ladd MD - 05/31/25 14:39> I have reviewed the note and agree with the resident's assessment & plan with exceptions as below. I have personally reviewed labs, imaging, home meds/prior records, examined the patient, formulated and discussed management plan with my attending Patient was seen and examined at bedside this morning. No acute overnight events. Abdomen soft and bowel sounds present. Patient had a bowel movement yesterday. Complaining of swollen hands and feet, likely 2/2 IVF. No other complaints at this time, pain being managed by MICROWAVE REMOTE SENSING SCIENTIST pump. Luis Ladd PGY2 Disclaimer: Even though this this note was dictated by speech recognition and even though it was carefully revised there may still be minor errors in squaring machine operator due to voice recognition software. Documentation for date of: 05/31/25 Subjective Subjective Interval history: Patient seen and examined at bedside; no acute events overnight. Patient was anxious this a.m., received one-time dose of a.m. hydroxyzine. Around 15 and came out of Emanuel-Lovell drain, and around 100 cc came out of NG. Patient complained of swollen upper extremities, this is most likely due to IV nutrition; patient also had a bowel movement yesterday. Exam Vital Signs Temp Pulse Resp BP Pulse Ox O2 Del Method O2 Flow Rate 97.2 F 88 16 123/75 96 Room Air 1 05/31/25 08:00 05/31/25 09:29 05/31/25 09:29 05/31/25 08:00 05/31/25 09:29 05/31/25 08:00 05/31/25 09:29 Narrative Exam General: A/O x3, no acute distress, well-nourished, well-developed, covered surgical incision, Emanuel-Lovell drain, and NG tube are present Eyes: PERRL, EOMI. Anicteric, vision grossly intact. Ears: No ear pain, no ear discharge, Hearing grossly intact. Nose: No nasal discharge. Mouth/Throat: Moist mucous membranes, no redness, no lesions. Neck: Neck supple, non-tender, no cervical lymphadenopathy. Lungs: Clear OLESYA to auscultation and percussion, No accessory muscle use. Cardio: Normal S1/S2, regular rhythm, no murmurs, no JVD or carotid bruits. Abdomen: No pain to light palpation; dressings covering surgical incision. Extremities: Symmetrical, no significant deformities, significant upper extremity edema , non-tender, peripheral pulses present. Skin: No rashes, no lesions, warm to touch. Neuro: No focal neurological deficits. post-operative pain improved. Psych: Cooperative, appropriate mood and effect. Objective Labs 06/01/25 05:50 06/01/25 05:50 Labs: Laboratory Results - last 24 hr 05/31/25 05:17 WBC 19.7 H RBC 3.39 L Hgb 9.4 L Hct 29.1 L MCV 86 MCH 27.7 MCHC 32.3 RDW Std Deviation 50.2 H Plt Count 542 H Neut % (Auto) 79 Lymph % (Auto) 13 [place] % (Auto) 5 Eos % (Auto) 0 Baso % (Auto) 0 Neut # (Auto) 15.6 H Lymph # (Auto) 2.5 [place] # (Auto) 1.0 H Eos # (Auto) 0.0 Baso # (Auto) 0.1 Immature Gran # (Auto) 0.51 H Absolute Nucleated RBC 0.00 Immature Gran % 3 H Nucleated RBC % 0 Sodium 145 Potassium 3.4 Chloride 110 H Carbon Dioxide 21.0 Anion Gap 14 BUN 16 Creatinine 0.5 L Estim Creat Clear Calc 133.3 eGFR > 60 BUN/Creatinine Ratio 32 H Glucose 75 Calculated Osmolality 288 Calcium 8.1 L Corrected Calcium 9.1 Phosphorus 4.6 Magnesium 2.2 Total Bilirubin 0.7 AST 28 ALT 45 Alkaline Phosphatase 190 H Total Protein 4.9 L Albumin 2.8 L Globulin 2.1 L Albumin/Globulin Ratio 1.3 Quality Measures Quality Measures none Assessment & Plan Assessment Current Active Medications: Generic Name Dose Route Start Last Admin Trade Name Freq PRN Reason Stop Dose Admin Hydromorphone HCl 1 mg 05/29/25 16:03 Hydromorphone Inj 2 Mg/Ml Vial IVP 06/03/25 03:37 On Hold: 05/29/25 16:14 Q2H PRN Comment: DILAUDID MICROWAVE REMOTE SENSING SCIENTIST STARTED PAIN SCALE 4-10(Mod-Sev Hydromorphone HCl 0 mg 05/29/25 16:15 05/31/25 05:16 Hydromorphone 1 Mg/Ml Paid Search Marketing Analyst Syringe 30ml MICROWAVE REMOTE SENSING SCIENTIST 06/03/25 16:14 30 mg UD SALUD Administration Protocol Hydroxyzine HCl 50 mg 05/30/25 21:00 05/31/25 00:00 Hydroxyzine Inj 25 Mg/Ml Vial IM 06/29/25 20:59 50 mg HS SALUD Administration Piperacillin/Tazobactam/Dextrose 3.375 gm in 50 mls @ 12.5 mls/hr 05/29/25 07:00 05/31/25 13:27 Zosyn IV 06/05/25 06:59 12.5 mls/hr Q8HR SALUD Administration Protocol Sodium Chloride 1,000 mls @ 100 mls/hr 05/29/25 11:34 05/31/25 05:09 Ns IV 06/28/25 11:33 100 mls/hr .Q10H SALUD Administration Acetaminophen 1,000 mg in 100 mls @ 250 mls/hr 05/30/25 12:34 05/31/25 05:11 Ofirmev Inj IV 06/02/25 06:23 250 mls/hr Q6HR SALUD Administration Lidocaine 1 patch 05/30/25 12:34 Lidocaine 5% 1 Patch TOP 06/29/25 12:33 UD PRN TOPICAL PAIN Morphine Sulfate 4 mg 05/29/25 11:34 05/29/25 12:13 Morphine Sulf Inj 4 Mg/Ml Vial IVP 06/03/25 11:33 4 mg On Hold: 05/29/25 16:14 Q4HR PRN Administration Comment: DILAUDID MICROWAVE REMOTE SENSING SCIENTIST STARTED BREAKTHROUGH PAIN Ondansetron HCl 4 mg 05/29/25 02:41 Ondansetron Inj 2 Mg/Ml Inj 2 Ml IVP 06/28/25 02:40 Q6H PRN NAUSEA OR VOMITING Protocol Pantoprazole Sodium 40 mg 05/29/25 03:30 05/31/25 08:37 Pantoprazole Inj 40 Mg Vial IVP 06/28/25 03:29 40 mg BID SALUD Administration Plan Patient is a 34-year-old F with PMH of recurrent UTIs, kidney stones presented to the ED with complaints of worsening abdominal pain associated with nausea. She was admitted for Perforated Gastric Ulcer. # Peritonitis 2/2 # Perforated Gastric ulcer s/p exlap and abscess drainage and ulcer repair with Eliecer patch # Symptomatic anemia. # Transaminitis # Leukocytosis. On admission- worsening abdominal pain throughout the abdomen, shortness of breath. Tachycardia to 117. Guarding, rigid tender abdomen on examination. CT abdomen showing perforated gastric ulcer with pneumoperitoneum. Hemoglobin 6.5, hematocrit 20.6 on admission; 2 units transfused, post transfusion hgb 7.8 . AST/ALT/ALP?61/127/338, WBC 21.3. General surgery was consulted by ED Doctor And was told they are going to take her to the surgery. INR 1.1, lactate 0.7, EKG shows sinus tachycardia. Ultrasound gallbladder showing gallbladder wall thickening with pericholecystic fluid. Patient had ulcer repair performed 05/29/25. Peritoneal Gram stain negative Plan: ?Zosyn to cover gram-negative and anaerobic infection ?IV pantoprazole to suppress acid secretion ?Patient on MICROWAVE REMOTE SENSING SCIENTIST pump for pain ?Trend WBC and wait for cultures of peritoneal fluid - General surgery following the case - NG tube with suction ? Hydroxyzine given for anxiety postsurgery ? Acetaminophen 1 g IV ? Lidocaine 5% patch as needed Disposition: med-Tele DVT prophylaxis: SCDs GI prophylaxis: Pantoprazole Diet: NPO Lines: PIV CODE STATUS: Full This case was discussed with my attending physician, Dr. Rios, and senior resident, Dr. Wylie. Reji Taylor MD-PhD, PGY1 Attending Provider Attestation/Addendum I, Ana Laura Rios, DO, attest that I was physically present for the nassar portions of the service and evaluated the patient with the resident and I reviewed and discussed the case with the resident and agree with the resident's findings and plans of care as documented above Patient seen and evaluated this AM. She remains on MICROWAVE REMOTE SENSING SCIENTIST pump, using about 9.6mg IV dilaudid in the past 24hrs. Patient remains very anxious. She reports having a bm yesterday and states she is hungry, hoping for NG tube to be removed. She continues to have about 300mL of biliary fluid output from NG. Continue with IV abx at this time. Dressing appear clean, dry and intact. RICK drain with minimal serosanguinous fluid. Abdomen is soft and nondistended. Reassurance provided to patient and mother at bedside. Encouraged use of incentive spirometer and D5 recommended by surgeon. Will f/u with surgical recs and diet to be advanced by surgeon.
[2025-05-31] MEDS: DEXTROSE 5%-NS 1,000 ML 75 ML IV (14:57)
[2025-06-01] VITALS (14 sets, daily range): BP systolic 113–122; BP diastolic 65–72; PULSE 78–106; RESP 17–25; TEMP 36.2–37.3; O2SAT 95–97; BMI 30.2
[2025-06-01] MEDS: PIPER/TAZO 3.375 GM PREMIX 3.375 GM/50 ML BAG IV ×3 (05:59→20:55)
[2025-06-01] MEDS: ACETAMINOPHEN IVPB 1,000 MG/100 ML VIAL 250 MG IV ×2 (05:59→13:48)
[2025-06-01 07:04] LABS: Phosphorous 3.7 mg/dL (2.4-5.1)
[2025-06-01 07:51] LABS: Basophils # (Auto) 0.1 Thou/mm3 (0.0-0.2); Basophils % (Auto) 0 % (0-2.5); Eosinophils # (Auto) 0.0 Thou/mm3 (0.0-0.5); Eosinophils % (Auto) 0 % (0-10); Hematocrit 30.0 % (36.0-46.0); Hemoglobin 9.4 g/dL (12.0-16.0); Immature Granulocytes Auto 0.44 Thou/mm3 (0.00-0.00); Lymphocytes # (Auto) 2.2 Thou/mm3 (1.0-4.8); Lymphocytes % (Auto) 13 % (10-50); Mean Corpuscular HGB Conc 31.3 g/dl (31.0-37.0); Mean Corpuscular Hemoglobin 26.7 pg (25.0-35.0); Mean Corpuscular Volume 85 fL (80-100); Monocytes # (Auto) 0.9 Thou/mm3 (0.0-0.8); Monocytes % (Auto) 5 % (0-12); Neutrophils # (Auto) 13.6 Thou/mm3 (1.8-7.7); Neutrophils % (Auto) 79 % (37-80); Nucleated Red Blood Cell # 0.00 Thou/mm3 (0.00-0.00); Nucleated Red Blood Cell % 0 /100 WBC (0); Platelet Count 617 Thou/mm3 (140-440); RDW Standard Deviation 50.5 fL (36.4-46.3); Red Blood Count 3.52 Miln/mm3 (4.00-5.20); White Blood Count 17.3 Thou/mm3 (3.6-11.0)
[2025-06-01 08:00] LABS: Alanine Aminotransferase 32 U/L (10-49); Albumin, Serum 2.9 gm/dL (3.5-5.0); Albumin/Globulin Ratio 1.3 (1.2-2.2); Alkaline Phosphatase 179 U/L (46-116); Anion Gap 16 (7-16); Aspartate Amino Transferase 29 U/L (0-34); BUN/Creatinine Ratio 20 Ratio (12-20); Bilirubin,Total 0.5 mg/dL (0.3-1.2); Blood Urea Nitrogen 10 mg/dL (9-23); Calcium 7.8 mg/dL (8.3-10.6); Calcium (Corrected) 8.7 mg/dL (8.5-10.1); Carbon Dioxide 17.4 mMol/L (20.0-31.0); Chloride 113 mMol/L (98-107); Creatinine (Component) 0.5 mg/dL (0.6-1.3); Estimated Creatinine Clearance 138.7 mL/min (>60); Globulin 2.3 gm/dL (2.3-3.5); Glucose 95 mg/dL (74-106); Osmolality,Calculated 289 (275-295); Potassium 3.3 mMol/L (3.4-5.1); Sodium 146 mMol/L (136-145); Total Protein 5.2 gm/dL (5.7-8.2); eGFR > 60 See Note
[2025-06-01] MEDS: KCL 20 mEq/L in D5-1/2NS 20 MEQ/1,000 ML BAG 80 MEQ IV (11:12)
[2025-06-01] MEDS: ALBUMIN HUMAN-KJDA 25% IVPB 25 GM/100 ML BTL IV ×2 (11:12→12:26)
--- NOTE | 2025-06-01 11:32 | ESPR_ITS ---
<Statement entered by Luis Ladd MD - 06/01/25 18:07> I have reviewed the note and agree with the resident's assessment & plan with exceptions as below. I have personally reviewed labs, imaging, home meds/prior records, examined the patient, formulated and discussed management plan with my attending Patient was seen and at bedside this morning. No acute overnight events. No acute overnight events. Today patient was more comfortable pain tomas, but still having multiple questions concerning when she was to be able to start diet. Was stated to the patient that she was not able to start diet as at this time plan was to have bowel rest given the complexity of her surgery. She was understanding. Otherwise no other complaints at this time. Start PPN given that patient is not getting be able to be on p.o. diet. Luis Ladd PGY2 Disclaimer: Even though this this note was dictated by speech recognition and even though it was carefully revised there may still be minor errors in lang path therapist due to voice recognition software. Documentation for date of: 06/01/25 Subjective Subjective Interval history: Patient was seen and examined at bedside today; no acute events overnight. Patient reports pain is much better than Sunday, but still in significant pain. Drain put out less than 15 mL, while NG tube output over 24 hours is 100mL, with material appearing much blankmaker in color. Dr. Pond was in the room as well, he uncovered the dressing over the wound, which showed no signs of infection. Anaerobic gram stain of peritoneal fluid negative. Will start PPN due to npo status for extended period. Exam Vital Signs Temp Pulse Resp BP Pulse Ox O2 Del Method O2 Flow Rate 98 F 94 24 H 113/65 96 Nasal Cannula 1 06/01/25 08:00 06/01/25 08:00 06/01/25 08:00 06/01/25 08:00 06/01/25 08:00 06/01/25 08:00 06/01/25 08:00 Narrative Exam General: A/O x3, no acute distress, well-nourished, well-developed, covered surgical incision, Emanuel-Lovell drain, and NG tube are present Eyes: PERRL, EOMI. Anicteric, vision grossly intact. Ears: No ear pain, no ear discharge, Hearing grossly intact. Nose: No nasal discharge. Mouth/Throat: Moist mucous membranes, no redness, no lesions. Neck: Neck supple, non-tender, no cervical lymphadenopathy. Lungs: Clear OLESYA to auscultation and percussion, No accessory muscle use. Cardio: Normal S1/S2, regular rhythm, no murmurs, no JVD or carotid bruits. Abdomen: No pain to light palpation; dressings covering surgical incision; surgical incision shows no signs of infection Extremities: Symmetrical, no significant deformities, significant upper extremity edema , non-tender, peripheral pulses present. Skin: No rashes, no lesions, warm to touch. Neuro: No focal neurological deficits. post-operative pain improved but still significant Psych: Cooperative, appropriate mood and effect. Objective Labs 06/02/25 04:40 06/02/25 04:40 Labs: Laboratory Results - last 24 hr 05/28/25 06/01/25 20:19 05:50 WBC 17.3 H RBC 3.52 L Hgb 9.4 L Hct 30.0 L MCV 85 MCH 26.7 MCHC 31.3 RDW Std Deviation 50.5 H Plt Count 617 H D Neut % (Auto) 79 Lymph % (Auto) 13 [place] % (Auto) 5 Eos % (Auto) 0 Baso % (Auto) 0 Neut # (Auto) 13.6 H Lymph # (Auto) 2.2 [place] # (Auto) 0.9 H Eos # (Auto) 0.0 Baso # (Auto) 0.1 Immature Gran # (Auto) 0.44 H Absolute Nucleated RBC 0.00 Immature Gran % 3 H Nucleated RBC % 0 Sodium 146 H Potassium 3.3 L Chloride 113 H Carbon Dioxide 17.4 L Anion Gap 16 BUN 10 Creatinine 0.5 L Estim Creat Clear Calc 138.7 eGFR > 60 BUN/Creatinine Ratio 20 Glucose 95 Calculated Osmolality 289 Calcium 7.8 L Corrected Calcium 8.7 Phosphorus 3.7 Total Bilirubin 0.5 AST 29 ALT 32 Alkaline Phosphatase 179 H Total Protein 5.2 L Albumin 2.9 L Globulin 2.3 Albumin/Globulin Ratio 1.3 Blood Type O Positive Antibody Screen NEGATIVE Crossmatch See Detail Blood Bank Wristband ID Yes Quality Measures Quality Measures none Assessment & Plan Assessment Current Active Medications: Generic Name Dose Route Start Last Admin Trade Name Freq PRN Reason Stop Dose Admin Hydromorphone HCl 0 mg 05/29/25 16:15 05/31/25 05:16 Hydromorphone 1 Mg/Ml Ecdis N Navigation Operator Syringe 30ml BILLBOARD ERECTOR HELPER 06/03/25 16:14 30 mg UD SALUD Administration Protocol Hydroxyzine HCl 50 mg 05/30/25 21:00 05/31/25 22:33 Hydroxyzine Inj 25 Mg/Ml Vial IM 06/29/25 20:59 50 mg HS SALUD Administration Piperacillin/Tazobactam/Dextrose 3.375 gm in 50 mls @ 12.5 mls/hr 05/29/25 07:00 06/01/25 05:59 Zosyn IV 06/05/25 06:59 12.5 mls/hr Q8HR SALUD Administration Protocol Acetaminophen 1,000 mg in 100 mls @ 250 mls/hr 05/30/25 12:34 06/01/25 05:59 Ofirmev Inj IV 06/02/25 06:23 250 mls/hr Q6HR SALUD Administration Potassium Chloride/Dextrose/Sod Cl 20 meq in 1,000 mls @ 80 mls/hr 06/01/25 10:30 06/01/25 11:12 Kcl 20 Meq/L In D5-1/2ns IV 06/01/25 22:59 80 mls/hr .[id number] SALUD Administration Lidocaine 1 patch 05/30/25 12:34 Lidocaine 5% 1 Patch TOP 06/29/25 12:33 UD PRN TOPICAL PAIN Protocol Ondansetron HCl 4 mg 05/29/25 02:41 Ondansetron Inj 2 Mg/Ml Inj 2 Ml IVP 06/28/25 02:40 Q6H PRN NAUSEA OR VOMITING Protocol Pantoprazole Sodium 40 mg 05/29/25 03:30 06/01/25 09:22 Pantoprazole Inj 40 Mg Vial IVP 06/28/25 03:29 40 mg BID SALUD Administration Pharmacy Consult 1 each 06/01/25 10:34 Pha To Consult Parenteral Nutr 1 Each Each XX 07/01/25 10:33 PRN PRN CONSULT Plan Patient is a 34-year-old F with PMH of recurrent UTIs, kidney stones presented to the ED with complaints of worsening abdominal pain associated with nausea. She was admitted for Perforated Gastric Ulcer. # Peritonitis 2/2 # Perforated Gastric ulcer s/p exlap and abscess drainage and ulcer repair with Elieecr patch # Symptomatic anemia. # Transaminitis # Leukocytosis. On admission- worsening abdominal pain throughout the abdomen, shortness of breath. Tachycardia to 117. Guarding, rigid tender abdomen on examination. CT abdomen showing perforated gastric ulcer with pneumoperitoneum. Hemoglobin 6.5, hematocrit 20.6 on admission; 2 units transfused, post transfusion hgb 7.8 . AST/ALT/ALP?61/127/338, WBC 21.3. General surgery was consulted by ED Doctor And was told they are going to take her to the surgery. INR 1.1, lactate 0.7, EKG shows sinus tachycardia. Ultrasound gallbladder showing gallbladder wall thickening with pericholecystic fluid. Patient had ulcer repair performed 05/29/25. Peritoneal Gram stain and anaerobic culture negative Plan: ?Zosyn to cover gram-negative and anaerobic infection ?IV pantoprazole to suppress acid secretion ?Patient on BILLBOARD ERECTOR HELPER pump for pain ?Trend WBC and wait for cultures of peritoneal fluid - General surgery following the case - NG tube with suction ? Hydroxyzine given for anxiety postsurgery ? Acetaminophen 1 g IV ? Lidocaine 5% patch as needed Disposition: med-Tele DVT prophylaxis: SCDs GI prophylaxis: Pantoprazole Diet: NPO with PPN Lines: PIV CODE STATUS: Full This case was discussed with my attending physician, Dr. Rios, and senior resident, Dr. Wylie. Reji Taylor MD-PhD, PGY1 Attending Provider Attestation/Addendum I, Ana Laura Rios, , attest that I was physically present for the nassar portions of the service and evaluated the patient with the resident and I reviewed and discussed the case with the resident and agree with the resident's findings and plans of care as documented above Patient seen and evaluated this AM. She remains very anxious and complains of pain. She states that she is very bloated, but able to have bowel movements. Explained that the discomfort is likely due to bowels moving. Abdomen does not appear distended and is soft. Abdominal binder has also been helping with her pain. Incision was evaluated by surgeon this morning and dressing was removed. NG tube remains in place. Provided reassurance to patient that she is improving with increased bowel movements and improvement of leukocytosis. Patient has been getting up to the commode, but otherwise does not move much. Encouraged use of incentive spirometer at least 10x hourly. Will start on PPN as patient remains NPO with NG tube in place.
[2025-06-01 12:15] LABS: Magnesium 2.0 mg/dL (1.6-2.6); Triglycerides 167 mg/dL (30-150)
[2025-06-01] MEDS: THIAMINE INJ 100 MG/ML VIAL 2 ML IV (13:48)
--- NOTE | 2025-06-01 15:54 | ESPR_ITS ---
Documentation for date of: 06/01/25 Subjective Subjective Brief History: History of present was revealed that the patient has been having pain for a couple of weeks and she came to the emergency room 1 week ago and was worked up and discharged she was told that she had a cyst in the ovary. But the pain persisted the past week. Patient was not eating and is not having a bowel movement. She denies any history of fever or chills. The pain became worse yesterday and she came to the emergency room and was found to have a perforated viscus on the CT scan. Patient's past medical history revealed that she had a history of ovarian cyst and endometriosis. She also was found to be anemic with a hemoglobin around 6 g. She does not know that she is anemic. She is not complaining of any rectal bleeding or increased vaginal bleeding. The past medical history revealed that she had ruptured appendicitis for which she was treated here about 20 years ago and then discharged to [facility] where she stayed for 9 months the details of which are not available Narrative: The patient is still complaining of significant pain over the abdomen and is using WELDING PRODUCTION SUPERVISOR Exam Vital Signs Temp Pulse Resp BP Pulse Ox O2 Del Method O2 Flow Rate 98 F 94 24 H 113/65 96 Nasal Cannula 1 06/01/25 08:00 06/01/25 08:00 06/01/25 08:00 06/01/25 08:00 06/01/25 08:00 06/01/25 08:00 06/01/25 08:00 Her vital signs are normal other than tachycardia Routine Abdominal Exam Comments: Abdominal examination is unremarkable. Patient has very minimal drainage in the Emanuel-Lovell. NG tube still draining greenish fluid Results Results: Laboratory Laboratory Narrative: Laboratory results that show WBC trending down Assessment & Plan Assessment Additional comments: Impression: Perforated stomach treated with [place] Eliecer patch Plan Plan: Because the closure is nebulous we will be careful about feeding her at the present time. We will go slow in removing the NG tube PROCEDURES: Procedures Exploratory laparotomy and drainage of the abscess from the abdominal cavity and [place] Eliecer patch of the ulcer
[2025-06-01] MEDS: FAT EMULSIONS 20% IV 500 ML 32 ML IV (18:00)
[2025-06-01] MEDS: hydrOXYzine INJ 25 MG/ML VIAL 50 MG IM (20:54)
[2025-06-02] VITALS (12 sets, daily range): BP systolic 116–148; BP diastolic 68–93; PULSE 84–105; RESP 16–28; TEMP 36.4–37.8; O2SAT 91–104; BMI 30.2
[2025-06-02] MEDS: ACETAMINOPHEN IVPB 1,000 MG/100 ML VIAL 250 MG IV ×3 (00:54→19:53)
[2025-06-02] MEDS: HYDROmorphone 1 MG/ML PCA SYRINGE 30ML PCA (04:50)
[2025-06-02] MEDS: PIPER/TAZO 3.375 GM PREMIX 3.375 GM/50 ML BAG IV ×3 (05:21→21:17)
[2025-06-02 05:49] LABS: Basophils # (Auto) 0.1 Thou/mm3 (0.0-0.2); Basophils % (Auto) 1 % (0-2.5); Eosinophils # (Auto) 0.1 Thou/mm3 (0.0-0.5); Eosinophils % (Auto) 0 % (0-10); Hematocrit 27.4 % (36.0-46.0); Hemoglobin 8.9 g/dL (12.0-16.0); Immature Granulocytes Auto 0.47 Thou/mm3 (0.00-0.00); Lymphocytes # (Auto) 2.6 Thou/mm3 (1.0-4.8); Lymphocytes % (Auto) 17 % (10-50); Mean Corpuscular HGB Conc 32.5 g/dl (31.0-37.0); Mean Corpuscular Hemoglobin 27.5 pg (25.0-35.0); Mean Corpuscular Volume 85 fL (80-100); Monocytes # (Auto) 0.7 Thou/mm3 (0.0-0.8); Monocytes % (Auto) 5 % (0-12); Neutrophils # (Auto) 11.4 Thou/mm3 (1.8-7.7); Neutrophils % (Auto) 75 % (37-80); Nucleated Red Blood Cell # 0.00 Thou/mm3 (0.00-0.00); Nucleated Red Blood Cell % 0 /100 WBC (0); Platelet Count 530 Thou/mm3 (140-440); RDW Standard Deviation 49.2 fL (36.4-46.3); Red Blood Count 3.24 Miln/mm3 (4.00-5.20); White Blood Count 15.2 Thou/mm3 (3.6-11.0)
[2025-06-02 06:17] LABS: Alanine Aminotransferase 26 U/L (10-49); Albumin, Serum 3.4 gm/dL (3.5-5.0); Albumin/Globulin Ratio 1.6 (1.2-2.2); Alkaline Phosphatase 169 U/L (46-116); Anion Gap 13 (7-16); Aspartate Amino Transferase 26 U/L (0-34); BUN/Creatinine Ratio 16 Ratio (12-20); Bilirubin,Total 0.4 mg/dL (0.3-1.2); Blood Urea Nitrogen 8 mg/dL (9-23); Calcium 8.2 mg/dL (8.3-10.6); Calcium (Corrected) 8.7 mg/dL (8.5-10.1); Carbon Dioxide 21.8 mMol/L (20.0-31.0); Chloride 109 mMol/L (98-107); Creatinine (Component) 0.5 mg/dL (0.6-1.3); Estimated Creatinine Clearance 138.7 mL/min (>60); Globulin 2.1 gm/dL (2.3-3.5); Glucose 130 mg/dL (74-106); Magnesium 2.0 mg/dL (1.6-2.6); Osmolality,Calculated 287 (275-295); Phosphorous 2.7 mg/dL (2.4-5.1); Potassium 3.3 mMol/L (3.4-5.1); Sodium 144 mMol/L (136-145); Total Protein 5.5 gm/dL (5.7-8.2); eGFR > 60 See Note
[2025-06-02] MEDS: POTASSIUM CHL 10 mEq IVPB 10 MEQ/100 ML BAG 100 MEQ IV ×2 (09:45→12:13)
--- NOTE | 2025-06-02 12:16 | ESPR_ITS ---
Documentation for date of: 06/02/25 Subjective Subjective Brief History: History of present was revealed that the patient has been having pain for a couple of weeks and she came to the emergency room 1 week ago and was worked up and discharged she was told that she had a cyst in the ovary. But the pain persisted the past week. Patient was not eating and is not having a bowel movement. She denies any history of fever or chills. The pain became worse yesterday and she came to the emergency room and was found to have a perforated viscus on the CT scan. Patient's past medical history revealed that she had a history of ovarian cyst and endometriosis. She also was found to be anemic with a hemoglobin around 6 g. She does not know that she is anemic. She is not complaining of any rectal bleeding or increased vaginal bleeding. The past medical history revealed that she had ruptured appendicitis for which she was treated here about 20 years ago and then discharged to [facility] where she stayed for 9 months the details of which are not available Narrative: The patient is still complaining of significant amount of pain even though it is 5 days after surgery. This may be because of the large abscess she had as well as a big midline incision. Exam Vital Signs Temp Pulse Resp BP Pulse Ox O2 Del Method O2 Flow Rate 97.6 F 91 28 H 116/69 91 L Nasal Cannula 0.5 06/02/25 08:00 06/02/25 08:00 06/02/25 11:42 06/02/25 08:00 06/02/25 08:00 06/02/25 08:00 06/02/25 08:00 Vital signs are normal Routine Abdominal Exam Comments: Abdominal examination shows good bowel sounds. Patient has had bowel movements. NG tube drainage is minimal Results Results: Laboratory Laboratory Narrative: Laboratory results show decreasing WBC Assessment & Plan Assessment Additional comments: Impression: Stable postoperative course following Gastrografin Plan Plan: Patient continue NG tube suction because of the ulcer that had [place] Eliecer patch done might not have healed. We should get a Gastrografin upper GI tomorrow before feeding her PROCEDURES: Procedures Exploratory laparotomy and drainage of the abscess from the abdominal cavity and [place] Eliecer patch of the ulcer
[2025-06-02] MEDS: LORazepam 2 MG/ML VIAL 1 MG IVP ×2 (12:31→23:31)
[2025-06-02] MEDS: HYDROmorphone INJ 2 MG/ML VIAL 1 MG IVP ×4 (12:32→23:14)
--- NOTE | 2025-06-02 13:36 | ESPR_ITS ---
Documentation for date of: 06/02/25 Subjective Subjective Interval history: Patient was seen and examined at bedside's morning. No acute overnight events. Patient states that she is very anxious overnight and throughout the whole day and that hydroxyzine has not been working for her. Will switch hydroxyzine to Ativan 1 mg twice daily as needed for anxiety. WBCs are downtrending. Patient's hemoglobin is 8.9 from 9.4 yesterday, this could be likely secondary to patient getting a lot of IV fluids with PPN on board. Otherwise gave potassium as patient potassium was 3.3. Patient's peritoneal fluid grew Klebsiella pneumonia which was sensitive to Zosyn. It was calculated that patient received 8 via [employer]IST pump, therefore we will transition to IV Dilaudid 1 mg mg Dilaudid every 3 hours as needed for pain. Patient will get Gastrografin tomorrow. Exam Vital Signs Temp Pulse Resp BP Pulse Ox O2 Del Method O2 Flow Rate 99.0 F 93 21 H 129/79 94 L Nasal Cannula 0.5 06/02/25 12:00 06/02/25 12:00 06/02/25 12:00 06/02/25 12:00 06/02/25 12:00 06/02/25 12:00 06/02/25 12:00 Narrative Exam General: A/O x3, no acute distress, well-nourished, well-developed, clean surgical incision, Emanuel-Lovell drain, and NG tube are present Eyes: PERRL, EOMI. Anicteric, vision grossly intact. Ears: No ear pain, no ear discharge, Hearing grossly intact. Nose: No nasal discharge. Mouth/Throat: Moist mucous membranes, no redness, no lesions. Neck: Neck supple, non-tender, no cervical lymphadenopathy. Lungs: Clear OLESYA to auscultation and percussion, No accessory muscle use. Cardio: Normal S1/S2, regular rhythm, no murmurs, no JVD or carotid bruits. Abdomen: No pain to light palpation, but tender with deeper palpation; clean surgical incision; surgical incision shows no signs of infection, drain in place. Extremities: Symmetrical, no significant deformities, significant upper extremity edema , non-tender, peripheral pulses present. Skin: No rashes, no lesions, warm to touch. Neuro: No focal neurological deficits. post-operative pain improved but still significant Psych: Cooperative, appropriate mood and effect, Anxious . Objective Labs 06/02/25 04:40 06/02/25 04:40 Labs: Laboratory Results - last 24 hr 06/02/25 04:40 WBC 15.2 H RBC 3.24 L Hgb 8.9 L Hct 27.4 L MCV 85 MCH 27.5 MCHC 32.5 RDW Std Deviation 49.2 H Plt Count 530 H D Neut % (Auto) 75 Lymph % (Auto) 17 [place] % (Auto) 5 Eos % (Auto) 0 Baso % (Auto) 1 Neut # (Auto) 11.4 H Lymph # (Auto) 2.6 [place] # (Auto) 0.7 Eos # (Auto) 0.1 Baso # (Auto) 0.1 Immature Gran # (Auto) 0.47 H Absolute Nucleated RBC 0.00 Immature Gran % 3 H Nucleated RBC % 0 Sodium 144 Potassium 3.3 L Chloride 109 H Carbon Dioxide 21.8 Anion Gap 13 BUN 8 L Creatinine 0.5 L Estim Creat Clear Calc 138.7 eGFR > 60 BUN/Creatinine Ratio 16 Glucose 130 H Calculated Osmolality 287 Calcium 8.2 L Corrected Calcium 8.7 Phosphorus 2.7 Magnesium 2.0 Total Bilirubin 0.4 AST 26 ALT 26 Alkaline Phosphatase 169 H Total Protein 5.5 L Albumin 3.4 L D Globulin 2.1 L Albumin/Globulin Ratio 1.6 Quality Measures Quality Measures none Assessment & Plan Assessment Current Active Medications: Generic Name Dose Route Start Last Admin Trade Name Freq PRN Reason Stop Dose Admin Hydromorphone HCl 1 mg 06/02/25 10:02 06/02/25 12:32 Hydromorphone Inj 2 Mg/Ml Vial IVP 06/07/25 10:01 1 mg Q3HR PRN Administration PAIN Piperacillin/Tazobactam/Dextrose 3.375 gm in 50 mls @ 12.5 mls/hr 05/29/25 07:00 06/02/25 05:21 Zosyn IV 06/05/25 06:59 12.5 mls/hr Q8HR SALUD Administration Protocol Fat Emulsion Intravenous 500 mls @ 32 mls/hr 06/01/25 18:00 06/01/25 18:00 Intralipid 20% Iv IV 07/01/25 17:59 32 mls/hr [email or web address] SALUD Administration Potassium Acetate 80 meq/ 2,060 mls @ 80 mls/hr 06/01/25 18:00 06/01/25 17:59 Calcium Gluconate 2 gm/ Amino IV 06/02/25 17:59 80 mls/hr Acids [id number]@1800 SALUD Administration Potassium Acetate 90 meq/ 2,079 mls @ 80 mls/hr 06/02/25 18:00 Calcium Gluconate 2 gm/ IV 06/03/25 17:59 Potassium Phosphate 30 mmol/ QDAY@1800 SALUD Magnesium Sulfate 2 gm/ Amino Acids Lidocaine 1 patch 05/30/25 12:34 Lidocaine 5% 1 Patch TOP 06/29/25 12:33 UD PRN TOPICAL PAIN Protocol Lorazepam 1 mg 06/02/25 11:40 06/02/25 12:31 Lorazepam 2 Mg/Ml Vial IVP 06/07/25 11:44 1 mg BID PRN Administration ANXIETY Ondansetron HCl 4 mg 05/29/25 02:41 Ondansetron Inj 2 Mg/Ml Inj 2 Ml IVP 06/28/25 02:40 Q6H PRN NAUSEA OR VOMITING Protocol Pantoprazole Sodium 40 mg 05/29/25 03:30 06/02/25 09:45 Pantoprazole Inj 40 Mg Vial IVP 06/28/25 03:29 40 mg BID SALUD Administration Pharmacy Consult 1 each 06/01/25 10:34 Pha To Consult Parenteral Nutr 1 Each Each XX 07/01/25 10:33 PRN PRN CONSULT Phenol/Menthol 0 ml 06/02/25 13:31 Phenol/Na Phenolate (Chloraseptic) [place] 180 Ml Btl PO 07/02/25 13:30 Q6HR PRN SORE THROAT Plan 34-year-old F with PMH of recurrent UTIs, kidney stones presented to the ED with complaints of worsening abdominal pain associated with nausea. She was admitted for Perforated Gastric Ulcer. # klebsiella Peritonitis 2/2 # Perforated Gastric ulcer s/p exlap and abscess drainage and ulcer repair with Eliecer patch # Symptomatic anemia. # Transaminitis # Leukocytosis. On admission- worsening abdominal pain throughout the abdomen, shortness of breath. Tachycardia to 117. Guarding, rigid tender abdomen on examination. CT abdomen showing perforated gastric ulcer with pneumoperitoneum. Hemoglobin 6.5, hematocrit 20.6 on admission; 2 units transfused, post transfusion hgb 7.8 . AST/ALT/ALP?61/127/338, WBC 21.3. General surgery was consulted by ED Doctor And was told they are going to take her to the surgery. INR 1.1, lactate 0.7, EKG shows sinus tachycardia. Ultrasound gallbladder showing gallbladder wall thickening with pericholecystic fluid. Patient had ulcer repair performed 05/29/25. Peritoneal culture grew Klebsiella, sensitive to Zosyn and anaerobic culture negative Plan: ?Zosyn to cover gram-negative and anaerobic infection ?IV pantoprazole to suppress acid secretion ?Switched [employer] pump to Iv dilaudid 1mg q3hrs ?Trend WBC and wait for cultures of peritoneal fluid - General surgery following the case - NG tube with suction ? Ativan 1mg BID prn for anxiety ? Acetaminophen 1 g IV ? Lidocaine 5% patch as needed Disposition: med-Tele DVT prophylaxis: SCDs GI prophylaxis: Pantoprazole Diet: NPO with PPN Lines: PIV CODE STATUS: Full Case disclosed with Attending Dr. Blanca Ladd PGY2 Disclaimer: Even though this this note was dictated by speech recognition and even though it was carefully revised there may still be minor errors in solar consultant due to voice recognition software. Attending Provider Attestation/Addendum I, Ana Laura Rios, DO, attest that I was physically present for the nassar portions of the service and evaluated the patient with the resident and I reviewed and discussed the case with the resident and agree with the resident's findings and plans of care as documented above Patient seen and evaluated this AM. Patient is in much better spirits today. She states she has been having some hot flashes, Tmax 100.1. She remains on IV zosyn. Peritoneal fluid cultures positive for klebsiella pneumoniae. Patient has used about 8mg of dilaudid in the past 24h. Will switch from [employer] to 1mg q3h IV push. Patient states that hydroxyzine has not been helping with her anxiety. Will order IV ativan as needed. She also reports pain in her throat. Will order chloraseptic spray. Case discussed with surgeon, plan for gastrograffin in AM to assess for possible leak. If no leak is noted, NG tube can be removed and diet can be advanced. Rolf remains on PPN at this time. Swelling in b/l extremities appears improved.
[2025-06-02] MEDS: PHENOL/NA PHENOLATE (Chloraseptic) SPRY 180 ML BTL PO ×2 (16:04→23:39)
[2025-06-02] MEDS: MORPHINE SULF INJ 4 MG/ML VIAL 1 MG IVP (18:31)
[2025-06-02] MEDS: LIDOCAINE 5% 1 PATCH TOP (21:17)
[2025-06-02] MEDS: MORPHINE SULF INJ 4 MG/ML VIAL 2 MG IVP (21:46)
[2025-06-03] VITALS (7 sets, daily range): BP systolic 108–127; BP diastolic 62–77; PULSE 75–104; RESP 16–94; TEMP 36.2–36.6; O2SAT 93–94; BMI 30.2
[2025-06-03] MEDS: HYDROmorphone INJ 2 MG/ML VIAL 1 MG IVP ×5 (03:42→21:13)
[2025-06-03] MEDS: MORPHINE SULF INJ 4 MG/ML VIAL 1 MG IVP ×4 (05:04→23:09)
[2025-06-03] MEDS: PIPER/TAZO 3.375 GM PREMIX 3.375 GM/50 ML BAG IV ×3 (05:04→21:36)
[2025-06-03 08:39] LABS: Basophils # (Auto) 0.1 Thou/mm3 (0.0-0.2); Basophils % (Auto) 0 % (0-2.5); Eosinophils # (Auto) 0.1 Thou/mm3 (0.0-0.5); Eosinophils % (Auto) 1 % (0-10); Hematocrit 29.6 % (36.0-46.0); Hemoglobin 9.5 g/dL (12.0-16.0); Immature Granulocytes Auto 0.43 Thou/mm3 (0.00-0.00); Lymphocytes # (Auto) 2.3 Thou/mm3 (1.0-4.8); Lymphocytes % (Auto) 20 % (10-50); Mean Corpuscular HGB Conc 32.1 g/dl (31.0-37.0); Mean Corpuscular Hemoglobin 27.0 pg (25.0-35.0); Mean Corpuscular Volume 84 fL (80-100); Monocytes # (Auto) 0.6 Thou/mm3 (0.0-0.8); Monocytes % (Auto) 5 % (0-12); Neutrophils # (Auto) 8.2 Thou/mm3 (1.8-7.7); Neutrophils % (Auto) 70 % (37-80); Nucleated Red Blood Cell # 0.00 Thou/mm3 (0.00-0.00); Nucleated Red Blood Cell % 0 /100 WBC (0); Platelet Count 664 Thou/mm3 (140-440); RDW Standard Deviation 48.6 fL (36.4-46.3); Red Blood Count 3.52 Miln/mm3 (4.00-5.20); White Blood Count 11.8 Thou/mm3 (3.6-11.0)
[2025-06-03 09:04] LABS: Alanine Aminotransferase 47 U/L (10-49); Albumin, Serum 3.6 gm/dL (3.5-5.0); Albumin/Globulin Ratio 1.2 (1.2-2.2); Alkaline Phosphatase 211 U/L (46-116); Anion Gap 19 (7-16); Aspartate Amino Transferase 51 U/L (0-34); BUN/Creatinine Ratio 18 Ratio (12-20); Bilirubin,Total 0.6 mg/dL (0.3-1.2); Blood Urea Nitrogen 9 mg/dL (9-23); Calcium 8.0 mg/dL (8.3-10.6); Calcium (Corrected) 8.3 mg/dL (8.5-10.1); Carbon Dioxide 21.2 mMol/L (20.0-31.0); Chloride 104 mMol/L (98-107); Creatinine (Component) 0.5 mg/dL (0.6-1.3); Estimated Creatinine Clearance 138.7 mL/min (>60); Globulin 2.9 gm/dL (2.3-3.5); Glucose 134 mg/dL (74-106); Magnesium 2.2 mg/dL (1.6-2.6); Osmolality,Calculated 287 (275-295); Phosphorous 3.3 mg/dL (2.4-5.1); Potassium 3.9 mMol/L (3.4-5.1); Sodium 144 mMol/L (136-145); Total Protein 6.5 gm/dL (5.7-8.2); eGFR > 60 See Note
[2025-06-03] MEDS: PHENOL/NA PHENOLATE (Chloraseptic) SPRY 180 ML BTL PO ×2 (09:07→16:23)
--- NOTE | 2025-06-03 09:43 | ESPR_ITS ---
<Statement entered by Luis Ladd MD - 06/03/25 13:52> I have reviewed the note and agree with the resident's assessment & plan with exceptions as below. I have personally reviewed labs, imaging, home meds/prior records, examined the patient, formulated and discussed management plan with my attending Patient was seen and examined at bedside this morning. No acute overnight events. Patient only required an extra dose of morphine 2 mg overnight, but states that her pain is well-controlled and her anxiety is a lot better. This morning patient with little bit more concern because she had some discharge from the incision. Took a look at the incision with JOHN Sheehan at bedside and looks her was, pain is not out of proportion patient is still passing gas. Upper GI series that shows some extravasation from the ulcer site. Will make general surgery aware to see if patient will need to be transition to TPN. Luis Ladd PGY2 Disclaimer: Even though this this note was dictated by speech recognition and even though it was carefully revised there may still be minor errors in improvement nurse due to voice recognition software. Documentation for date of: 06/03/25 Subjective Subjective Interval history: Patient was seen and examined at bedside today; no acute events overnight. Serous fluid leaking from incision site. Getting gastrografin today. Emanuel- Lovell drainage less than 10 cc; no NG tube drainage. Exam Vital Signs Temp Pulse Resp BP Pulse Ox O2 Del Method O2 Flow Rate 97.3 F 90 17 127/76 94 L Nasal Cannula 0.5 06/03/25 08:00 06/03/25 08:00 06/03/25 08:00 06/03/25 08:00 06/03/25 08:00 06/03/25 08:00 06/03/25 04:00 Narrative Exam General: A/O x3, no acute distress, well-nourished, well-developed, clean surgical incision, Emanuel-Lovell drain, and NG tube are present Eyes: PERRL, EOMI. Anicteric, vision grossly intact. Ears: No ear pain, no ear discharge, Hearing grossly intact. Nose: No nasal discharge. Mouth/Throat: Moist mucous membranes, no redness, no lesions. Neck: Neck supple, non-tender, no cervical lymphadenopathy. Lungs: Clear OLESYA to auscultation and percussion, No accessory muscle use. Cardio: Normal S1/S2, regular rhythm, no murmurs, no JVD or carotid bruits. Abdomen: No pain to light palpation, but tender with deeper palpation; clean surgical incision; surgical incision shows no signs of infection, drain in place. Extremities: Symmetrical, no significant deformities, significant upper extremity edema , non-tender, peripheral pulses present. Skin: No rashes, no lesions, warm to touch. Neuro: No focal neurological deficits. post-operative pain improved but still significant Psych: Cooperative, appropriate mood and effect, anxious. Objective Labs 06/03/25 08:10 06/03/25 08:10 Labs: Laboratory Results - last 24 hr 06/03/25 08:10 WBC 11.8 H RBC 3.52 L Hgb 9.5 L Hct 29.6 L MCV 84 MCH 27.0 MCHC 32.1 RDW Std Deviation 48.6 H Plt Count 664 H D Neut % (Auto) 70 Lymph % (Auto) 20 [place] % (Auto) 5 Eos % (Auto) 1 Baso % (Auto) 0 Neut # (Auto) 8.2 H Lymph # (Auto) 2.3 [place] # (Auto) 0.6 Eos # (Auto) 0.1 Baso # (Auto) 0.1 Immature Gran # (Auto) 0.43 H Absolute Nucleated RBC 0.00 Immature Gran % 4 H Nucleated RBC % 0 Sodium 144 Potassium 3.9 D Chloride 104 Carbon Dioxide 21.2 Anion Gap 19 H BUN 9 Creatinine 0.5 L Estim Creat Clear Calc 138.7 eGFR > 60 BUN/Creatinine Ratio 18 Glucose 134 H Calculated Osmolality 287 Calcium 8.0 L Corrected Calcium 8.3 L Phosphorus 3.3 Magnesium 2.2 Total Bilirubin 0.6 AST 51 H ALT 47 Alkaline Phosphatase 211 H D Total Protein 6.5 Albumin 3.6 Globulin 2.9 Albumin/Globulin Ratio 1.2 Quality Measures Quality Measures none Assessment & Plan Assessment Current Active Medications: Generic Name Dose Route Start Last Admin Trade Name Freq PRN Reason Stop Dose Admin Hydromorphone HCl 1 mg 06/02/25 10:02 06/03/25 08:23 Hydromorphone Inj 2 Mg/Ml Vial IVP 06/07/25 10:01 1 mg Q3HR PRN Administration PAIN Piperacillin/Tazobactam/Dextrose 3.375 gm in 50 mls @ 12.5 mls/hr 05/29/25 07:00 06/03/25 05:04 Zosyn IV 06/05/25 06:59 12.5 mls/hr Q8HR SALUD Administration Protocol Fat Emulsion Intravenous 500 mls @ 32 mls/hr 06/01/25 18:00 06/01/25 18:00 Intralipid 20% Iv IV 07/01/25 17:59 32 mls/hr [email or web address] SALUD Administration Potassium Acetate 90 meq/ 2,079 mls @ 80 mls/hr 06/02/25 18:00 06/02/25 18:18 Calcium Gluconate 2 gm/ IV 06/03/25 17:59 80 mls/hr Potassium Phosphate 30 mmol/ QDAY@1800 SALUD Administration Magnesium Sulfate 2 gm/ Amino Acids Calcium Chloride 10 ml/ 110 mls @ 110 mls/hr 06/03/25 09:39 Dextrose IV 06/03/25 10:38 X1 ONE Lidocaine 1 patch 05/30/25 12:34 06/02/25 21:17 Lidocaine 5% 1 Patch TOP 06/29/25 12:33 1 patch UD PRN Administration TOPICAL PAIN Protocol Lorazepam 1 mg 06/02/25 11:40 06/02/25 23:31 Lorazepam 2 Mg/Ml Vial IVP 06/07/25 11:44 1 mg BID PRN Administration ANXIETY Morphine Sulfate 1 mg 06/02/25 17:43 06/03/25 05:04 Morphine Sulf Inj 4 Mg/Ml Vial IVP 06/07/25 17:42 1 mg Q4HR PRN Administration BREAKTHROUGH PAIN Ondansetron HCl 4 mg 05/29/25 02:41 Ondansetron Inj 2 Mg/Ml Inj 2 Ml IVP 06/28/25 02:40 Q6H PRN NAUSEA OR VOMITING Protocol Pantoprazole Sodium 40 mg 05/29/25 03:30 06/03/25 08:24 Pantoprazole Inj 40 Mg Vial IVP 06/28/25 03:29 40 mg BID SALUD Administration Pharmacy Consult 1 each 06/01/25 10:34 Pha To Consult Parenteral Nutr 1 Each Each XX 07/01/25 10:33 PRN PRN CONSULT Phenol/Menthol 0 ml 06/02/25 13:31 06/03/25 09:07 Phenol/Na Phenolate (Chloraseptic) [place] 180 Ml Btl PO 07/02/25 13:30 1 spray Q6HR PRN Administration SORE THROAT Plan 34-year-old F with PMH of recurrent UTIs, kidney stones presented to the ED with complaints of worsening abdominal pain associated with nausea. She was admitted for Perforated Gastric Ulcer. # klebsiella Peritonitis 2/ # Perforated Gastric ulcer s/p exlap and abscess drainage and ulcer repair with Eliecer patch POD 4 # Symptomatic anemia. # Transaminitis # Leukocytosis. On admission- worsening abdominal pain throughout the abdomen, shortness of breath. Tachycardia to 117. Guarding, rigid tender abdomen on examination. CT abdomen showing perforated gastric ulcer with pneumoperitoneum. Hemoglobin 6.5, hematocrit 20.6 on admission; 2 units transfused, post transfusion hgb 7.8 . AST/ALT/ALP?61/127/338, WBC 21.3. General surgery was consulted by ED Doctor And was told they are going to take her to the surgery. INR 1.1, lactate 0.7, EKG shows sinus tachycardia. Ultrasound gallbladder showing gallbladder wall thickening with pericholecystic fluid. Patient had ulcer repair performed 05/29/25. Peritoneal culture grew Klebsiella, sensitive to Zosyn and anaerobic culture negative Plan: ?Zosyn to cover gram-negative and anaerobic yeah infection ?IV pantoprazole to suppress acid secretion ?Switched [facility] pump to Iv dilaudid 1mg q3hrs ?Trend WBC - General surgery following the case - NG tube with suction ? Ativan 1mg BID prn for anxiety ? Acetaminophen 1 g IV ? Lidocaine 5% patch as needed Disposition: med-Tele DVT prophylaxis: SCDs GI prophylaxis: Pantoprazole Diet: NPO with PPN Lines: PIV CODE STATUS: Full This case was discussed with my attending physician, Dr. Rios, and senior resident, Dr. Rodriguez. Reji Taylor MD-PhD, PGY1 Attending Provider Attestation/Addendum I, Ana Laura Rios, DO, attest that I was physically present for the nassar portions of the service and evaluated the patient with the resident and I reviewed and discussed the case with the resident and agree with the resident's findings and plans of care as documented above Patient seen and eval this afternoon as patient underwent Gastrografin study this morning. It is noted that patient has a delayed extravasation of contrast from penetrating ulcer in the. She is also noted to have severe mucosal edema involving the entire stomach. Patient states that the pain has been somewhat controlled with Dilaudid and morphine pushes. She continues to have bowel movements. Leukocytosis has been downtrending no acute events overnight. Case discussed with surgeon who has reviewed upper GI series with radiologist and has since discontinued NG tube. Will slowly advance diet in a.m. as tolerated. Will order clear liquid diet. Continue with pain control at this time. Patient remains on PPN at this time.No fevers overnight. Mild serous output noted from wound.
[2025-06-03] MEDS: CALCIUM GLUC/NS 1000MG IVPB 1,000 MG/50 ML BAG 50 MG IV (11:07)
--- NOTE | 2025-06-03 15:20 | PD.SURPROG ---
Documentation for date of: 06/03/25 Subjective Subjective Brief History: History of present was revealed that the patient has been having pain for a couple of weeks and she came to the emergency room 1 week ago and was worked up and discharged she was told that she had a cyst in the ovary. But the pain persisted the past week. Patient was not eating and is not having a bowel movement. She denies any history of fever or chills. The pain became worse yesterday and she came to the emergency room and was found to have a perforated viscus on the CT scan. Patient's past medical history revealed that she had a history of ovarian cyst and endometriosis. She also was found to be anemic with a hemoglobin around 6 g. She does not know that she is anemic. She is not complaining of any rectal bleeding or increased vaginal bleeding. The past medical history revealed that she had ruptured appendicitis for which she was treated here about 20 years ago and then discharged to [facility] where she stayed for 9 months the details of which are not available Narrative: Patient had an upper GI with Gastrografin today and this showed no major leak. However there is a streak of extraluminal contrast with a large ulcer in the pyloric region. Patient continues to have severe pain requiring [id number] narcotics Exam Vital Signs Temp Pulse Resp BP Pulse Ox O2 Del Method O2 Flow Rate 97.3 F 90 17 127/76 94 L Nasal Cannula 0.5 06/03/25 08:00 06/03/25 08:00 06/03/25 08:00 06/03/25 08:00 06/03/25 08:00 06/03/25 08:00 06/03/25 04:00 Her vital signs are normal Routine Abdominal Exam Comments: Abdominal exam shows satisfactory healing but I expect wound infection because of the purulent material we saw in the abdomen Results Results: Laboratory Laboratory Narrative: Patient's laboratory workup is improving Assessment & Plan Assessment Additional comments: Impression: Small extraluminal contrast in the upper GI study. No major leak. Plan Plan: We shall keep the patient on PPN and DC the NG tube today and maybe feed her tomorrow. Continue aggressive treatment of the ulcer PROCEDURES: Procedures Exploratory laparotomy and drainage of the abscess from the abdominal cavity and [place] Eliecer patch of the ulcer
[2025-06-03] MEDS: FAT EMULSIONS 20% IV 500 ML 32 ML IV (17:27)
[2025-06-03] MEDS: LORazepam 2 MG/ML VIAL 1 MG IVP (21:13)
--- NOTE | 2025-06-03 22:42 | XR_ITS ---
EXAMINATION: Upper GI series with KUB Fluoroscopy 16 spot fluoroscopic films of the stomach duodenum and bowel small bowel Date and time: June 03, 2025, 1146 hours INDICATIONS: History surgery for gastric ulcer disease, clinical diagnosis possible leak TECHNIQUE AND FINDINGS: Patient received 120 cc Gastrografin through the orogastric tube 16 spot fluoroscopic films of the stomach radiation dose 73.90 mGy Primary peristaltic esophageal waves noted Severe mucosal edema involving the entire stomach especially gastric antrum Penetrating ulcer in the pyloric channel image 6 with delayed extravasation of contrast from this ulcer niche Duodenal bulb expands symmetrically IMPRESSION: Severe mucosal edema involving the entire stomach Penetrating ulcer in the pyloric channel region with delayed mild extravasation of contrast from this also niche
[2025-06-03] MEDS: LORazepam 2 MG/ML VIAL 1 MG IV (23:20)
[2025-06-04] VITALS (8 sets, daily range): BP systolic 101–116; BP diastolic 64–77; PULSE 88–112; RESP 18–29; TEMP 36.1–36.9; O2SAT 90–96; BMI 30.4
[2025-06-04] MEDS: HYDROmorphone INJ 2 MG/ML VIAL 1 MG IVP ×8 (00:10→23:42)
[2025-06-04] MEDS: MORPHINE SULF INJ 4 MG/ML VIAL 1 MG IVP ×3 (06:12→18:52)
[2025-06-04] MEDS: PIPER/TAZO 3.375 GM PREMIX 3.375 GM/50 ML BAG IV ×3 (06:14→21:55)
[2025-06-04] MEDS: LORazepam 2 MG/ML VIAL 1 MG IVP ×2 (09:32→23:54)
[2025-06-04 09:44] LABS: Basophils # (Auto) 0.1 Thou/mm3 (0.0-0.2); Basophils % (Auto) 1 % (0-2.5); Eosinophils # (Auto) 0.1 Thou/mm3 (0.0-0.5); Eosinophils % (Auto) 1 % (0-10); Hematocrit 31.8 % (36.0-46.0); Hemoglobin 10.3 g/dL (12.0-16.0); Immature Granulocytes Auto 0.61 Thou/mm3 (0.00-0.00); Lymphocytes # (Auto) 2.0 Thou/mm3 (1.0-4.8); Lymphocytes % (Auto) 15 % (10-50); Mean Corpuscular HGB Conc 32.4 g/dl (31.0-37.0); Mean Corpuscular Hemoglobin 27.5 pg (25.0-35.0); Mean Corpuscular Volume 85 fL (80-100); Monocytes # (Auto) 0.6 Thou/mm3 (0.0-0.8); Monocytes % (Auto) 5 % (0-12); Neutrophils # (Auto) 10.5 Thou/mm3 (1.8-7.7); Neutrophils % (Auto) 75 % (37-80); Nucleated Red Blood Cell # 0.02 Thou/mm3 (0.00-0.00); Nucleated Red Blood Cell % 0 /100 WBC (0); Platelet Count 758 Thou/mm3 (140-440); RDW Standard Deviation 48.9 fL (36.4-46.3); Red Blood Count 3.75 Miln/mm3 (4.00-5.20); White Blood Count 14.0 Thou/mm3 (3.6-11.0)
[2025-06-04 10:18] LABS: Alanine Aminotransferase 63 U/L (10-49); Albumin, Serum 3.7 gm/dL (3.5-5.0); Albumin/Globulin Ratio 1.2 (1.2-2.2); Alkaline Phosphatase 240 U/L (46-116); Anion Gap 12 (7-16); Aspartate Amino Transferase 44 U/L (0-34); BUN/Creatinine Ratio 16 Ratio (12-20); Bilirubin,Total 0.4 mg/dL (0.3-1.2); Blood Urea Nitrogen 8 mg/dL (9-23); Calcium 9.0 mg/dL (8.3-10.6); Calcium (Corrected) 9.2 mg/dL (8.5-10.1); Carbon Dioxide 21.2 mMol/L (20.0-31.0); Chloride 107 mMol/L (98-107); Creatinine (Component) 0.5 mg/dL (0.6-1.3); Estimated Creatinine Clearance 176.0 mL/min (>60); Globulin 3.0 gm/dL (2.3-3.5); Glucose 126 mg/dL (74-106); Magnesium 2.1 mg/dL (1.6-2.6); Osmolality,Calculated 279 (275-295); Phosphorous 4.1 mg/dL (2.4-5.1); Potassium 4.4 mMol/L (3.4-5.1); Sodium 140 mMol/L (136-145); Total Protein 6.7 gm/dL (5.7-8.2); eGFR > 60 See Note
--- NOTE | 2025-06-04 12:40 | PC.NURSE ---
Dr Pond at bedside assessing pt
--- NOTE | 2025-06-04 12:57 | ESPR_ITS ---
Documentation for date of: 06/04/25 Subjective Subjective Brief History: History of present was revealed that the patient has been having pain for a couple of weeks and she came to the emergency room 1 week ago and was worked up and discharged she was told that she had a cyst in the ovary. But the pain persisted the past week. Patient was not eating and is not having a bowel movement. She denies any history of fever or chills. The pain became worse yesterday and she came to the emergency room and was found to have a perforated viscus on the CT scan. Patient's past medical history revealed that she had a history of ovarian cyst and endometriosis. She also was found to be anemic with a hemoglobin around 6 g. She does not know that she is anemic. She is not complaining of any rectal bleeding or increased vaginal bleeding. The past medical history revealed that she had ruptured appendicitis for which she was treated here about 20 years ago and then discharged to [facility] where she stayed for 9 months the details of which are not available Narrative: Patient is still complaining of significant incisional pain. She is very depressed due to this ongoing abdominal pain and problem Exam Vital Signs Temp Pulse Resp BP Pulse Ox O2 Del Method O2 Flow Rate 98.2 F 112 H 19 116/74 90 L Nasal Cannula 0.5 06/04/25 08:00 06/04/25 11:57 06/04/25 08:00 06/04/25 08:00 06/04/25 08:00 06/04/25 08:00 06/04/25 08:00 Her vital signs are normal but she is tachycardic. Routine Abdominal Exam Comments: I explored the wound and she does seem to have some drainage but no purulent material from the incision. She may require drainage of the incision if there is signs of inflammation Results Results: Laboratory Laboratory Narrative: Patient's WBC is going up Assessment & Plan Assessment Additional comments: Slow recovery following perforation of the gastric ulcer Plan Plan: We shall start her on clear liquids to see if she could tolerate that since there is no major leak on the Gastrografin upper GI PROCEDURES: Procedures Exploratory laparotomy and drainage of the abscess from the abdominal cavity and [place] Eliecer patch of the ulcer
--- NOTE | 2025-06-04 15:20 | ESPR_ITS ---
<Statement entered by Luis Ladd MD - 06/04/25 15:38> I have reviewed the note and agree with the resident's assessment & plan with exceptions as below. I have personally reviewed labs, imaging, home meds/prior records, examined the patient, formulated and discussed management plan with my attending Patient was seen and examined at bedside morning. No acute overnight events. Patient states she does not feel ready to start eating as she is having a little bit more pain today after the Gastrografin yesterday and she has been having more diarrhea. Otherwise abdomen does not look distended and on palpation is distillation operator helper on the left lower quadrant. Patient is moving around more and wound looks clean. Will continue to monitor patient's WBC and slightly up trended to 14 from 11.8. Luis Ladd PGY2 Disclaimer: Even though this this note was dictated by speech recognition and even though it was carefully revised there may still be minor errors in msws due to voice recognition software. Documentation for date of: 06/04/25 Subjective Subjective Interval history: Patient seen and examined at bedside today; no acute events overnight. NG tube has been removed, patient has begun taking small sips of water. Patient has some increased pain compared to yesterday; patient was also ambulating in the afternoon. Gastrografin showed mild extravasation of contrast. Exam Vital Signs Temp Pulse Resp BP Pulse Ox O2 Del Method O2 Flow Rate 97.0 F 93 18 115/77 96 Room Air 0.5 06/04/25 12:00 06/04/25 12:00 06/04/25 12:00 06/04/25 12:00 06/04/25 12:00 06/04/25 12:00 06/04/25 08:00 Narrative Exam General: A/O x3, no acute distress, well-nourished, well-developed, clean surgical incision, Emanuel-Lovell drain present Eyes: PERRL, EOMI. Anicteric, vision grossly intact. Ears: No ear pain, no ear discharge, Hearing grossly intact. Nose: No nasal discharge. Mouth/Throat: Moist mucous membranes, no redness, no lesions. Neck: Neck supple, non-tender, no cervical lymphadenopathy. Lungs: Clear OLESYA to auscultation and percussion, No accessory muscle use. Cardio: Normal S1/S2, regular rhythm, no murmurs, no JVD or carotid bruits. Abdomen: No pain to light palpation, but tender with deeper palpation; clean surgical incision; surgical incision shows no signs of infection, drain in place. Extremities: Symmetrical, no significant deformities, some upper extremity edema , non-tender, peripheral pulses present. Skin: No rashes, no lesions, warm to touch. Neuro: No focal neurological deficits. post-operative pain improved but still significant Psych: Cooperative, appropriate mood and effect, anxious. Objective Labs 06/05/25 10:39 06/05/25 10:39 Labs: Laboratory Results - last 24 hr 06/04/25 09:27 WBC 14.0 H RBC 3.75 L Hgb 10.3 L Hct 31.8 L MCV 85 MCH 27.5 MCHC 32.4 RDW Std Deviation 48.9 H Plt Count 758 H D Neut % (Auto) 75 Lymph % (Auto) 15 [place] % (Auto) 5 Eos % (Auto) 1 Baso % (Auto) 1 Neut # (Auto) 10.5 H Lymph # (Auto) 2.0 [place] # (Auto) 0.6 Eos # (Auto) 0.1 Baso # (Auto) 0.1 Immature Gran # (Auto) 0.61 H Absolute Nucleated RBC 0.02 H Immature Gran % 4 H Nucleated RBC % 0 Sodium 140 Potassium 4.4 D Chloride 107 Carbon Dioxide 21.2 Anion Gap 12 BUN 8 L Creatinine 0.5 L Estim Creat Clear Calc 176.0 eGFR > 60 BUN/Creatinine Ratio 16 Glucose 126 H Calculated Osmolality 279 Calcium 9.0 Corrected Calcium 9.2 Phosphorus 4.1 Magnesium 2.1 Total Bilirubin 0.4 AST 44 H ALT 63 H Alkaline Phosphatase 240 H D Total Protein 6.7 Albumin 3.7 Globulin 3.0 Albumin/Globulin Ratio 1.2 Quality Measures Quality Measures none Assessment & Plan Assessment Current Active Medications: Generic Name Dose Route Start Last Admin Trade Name Freq PRN Reason Stop Dose Admin Heparin Sodium (Porcine) 5,000 unit 06/03/25 21:00 06/04/25 09:24 Heparin Sod Inj 5000 Unit/Ml Vial SC 06/17/25 20:59 Not Given BID SALUD Hydromorphone HCl 1 mg 06/02/25 10:02 06/04/25 13:34 Hydromorphone Inj 2 Mg/Ml Vial IVP 06/07/25 10:01 1 mg Q3HR PRN Administration PAIN Piperacillin/Tazobactam/Dextrose 3.375 gm in 50 mls @ 12.5 mls/hr 05/29/25 07:00 06/04/25 13:35 Zosyn IV 06/12/25 06:59 12.5 mls/hr Q8HR SALUD Administration Protocol Fat Emulsion Intravenous 500 mls @ 32 mls/hr 06/01/25 18:00 06/03/25 17:27 Intralipid 20% Iv IV 07/01/25 17:59 32 mls/hr [id number] SALUD Administration Potassium Acetate 60 meq/ 2,057 mls @ 80 mls/hr 06/03/25 18:00 06/03/25 17:27 Calcium Gluconate 2 gm/ IV 06/04/25 17:59 80 mls/hr Potassium Phosphate 21 mmol/ QDAY@1800 SALUD Administration Amino Acids Potassium Acetate 40 meq/ 2,032 mls @ 80 mls/hr 06/04/25 18:00 Calcium Gluconate 1 gm/ IV 06/05/25 17:59 Magnesium Sulfate 1 gm/ Amino [id number]@1800 SALUD Acids Lidocaine 1 patch 05/30/25 12:34 06/02/25 21:17 Lidocaine 5% 1 Patch TOP 06/29/25 12:33 1 patch UD PRN Administration TOPICAL PAIN Protocol Lorazepam 1 mg 06/02/25 11:40 06/04/25 09:32 Lorazepam 2 Mg/Ml Vial IVP 06/07/25 11:44 1 mg BID PRN Administration ANXIETY Morphine Sulfate 1 mg 06/03/25 15:32 06/04/25 12:33 Morphine Sulf Inj 4 Mg/Ml Vial IVP 06/08/25 15:31 1 mg Q4HR PRN Administration BREAKTHROUGH PAIN Ondansetron HCl 4 mg 05/29/25 02:41 Ondansetron Inj 2 Mg/Ml Inj 2 Ml IVP 06/28/25 02:40 Q6H PRN NAUSEA OR VOMITING Protocol Pantoprazole Sodium 40 mg 05/29/25 03:30 06/04/25 09:24 Pantoprazole Inj 40 Mg Vial IVP 06/28/25 03:29 40 mg BID SALUD Administration Pharmacy Consult 1 each 06/01/25 10:34 Pha To Consult Parenteral Nutr 1 Each Each XX 07/01/25 10:33 PRN PRN CONSULT Phenol/Menthol 0 ml 06/02/25 13:31 06/03/25 16:23 Phenol/Na Phenolate (Chloraseptic) [place] 180 Ml Btl PO 07/02/25 13:30 1 spray Q6HR PRN Administration SORE THROAT Plan 34-year-old F with PMH of recurrent UTIs, kidney stones presented to the ED with complaints of worsening abdominal pain associated with nausea. She was admitted for Perforated Gastric Ulcer. # klebsiella Peritonitis 2/ # Perforated Gastric ulcer s/p exlap and abscess drainage and ulcer repair with Eliecer patch POD 4 # Symptomatic anemia. # Transaminitis # Leukocytosis. On admission- worsening abdominal pain throughout the abdomen, shortness of breath. Tachycardia to 117. Guarding, rigid tender abdomen on examination. CT abdomen showing perforated gastric ulcer with pneumoperitoneum. Hemoglobin 6.5, hematocrit 20.6 on admission; 2 units transfused, post transfusion hgb 7.8 . AST/ALT/ALP?61/127/338, WBC 21.3. General surgery was consulted by ED Doctor And was told they are going to take her to the surgery. INR 1.1, lactate 0.7, EKG shows sinus tachycardia. Ultrasound gallbladder showing gallbladder wall thickening with pericholecystic fluid. Patient had ulcer repair performed 05/29/25. Peritoneal culture grew Klebsiella, sensitive to Zosyn and anaerobic culture negative Plan: ?Zosyn to cover gram-negative and anaerobic infection ?IV pantoprazole 40 to suppress acid secretion ?IV dilaudid 1mg q3hrs with IV morphine 1 mg every 4 hours for breakthrough pain ?Trend WBCs (14.0 today from 11.8 yesterday) - General surgery following the case - Patient has been advanced to clear liquid diet; NG tube has been removed ? Ativan 1mg BID prn for anxiety ? Lidocaine 5% patch as needed Disposition: med-Tele DVT prophylaxis: SCDs GI prophylaxis: Pantoprazole Diet: Clear liquid with ice chips Lines: PIV CODE STATUS: Full This case was discussed with my attending physician, Dr. Rios, and senior resident, Dr. Rodriguez. Reji Taylor MD-PhD, PGY1 Attending Provider Attestation/Addendum Ana Laura Munoz, DO, attest that I was physically present for the nassar portions of the service and evaluated the patient with the resident and I reviewed and discussed the case with the resident and agree with the resident's findings and plans of care as documented above Patient seen and eval this a.m. NG tube was removed yesterday night and patient has been very anxious. She states that she feels more fullness and pain in her epigastric region. She is afraid to try clear liquid diet, but lips are stained with the blue lollipop that she ate this morning. Encourage patient to start clear liquid diet and try some juice. Patient is agreeable to slowly advance diet. Encouraged her to ambulate in the hallway she remains on PPN at this time and can be weaned off if patient advances her diet. Case was discussed with surgeon as well.
[2025-06-05] VITALS (9 sets, daily range): BP systolic 100–126; BP diastolic 51–82; PULSE 91–111; RESP 16–96; TEMP 35.8–36.8; O2SAT 94–98
[2025-06-05] MEDS: HYDROmorphone INJ 2 MG/ML VIAL 1 MG IVP ×6 (04:00→20:15)
[2025-06-05] MEDS: MORPHINE SULF INJ 4 MG/ML VIAL 1 MG IVP ×2 (05:14→09:24)
[2025-06-05] MEDS: PIPER/TAZO 3.375 GM PREMIX 3.375 GM/50 ML BAG IV ×3 (05:16→21:42)
[2025-06-05] MEDS: HEPARIN SOD INJ 5000 UNIT/ML VIAL SC (09:01)
--- NOTE | 2025-06-05 09:31 | PD.RESPRO ---
Documentation for date of: 06/05/25 Senior resident attestation: Patient evaluated and examined at the bedside, plan of care discussed with rest of the team including my attending physician, except as noted. The patient is a 34-year-old female past medical history pertinent for ruptured appendicitis during her childhood requiring prolonged hospital stay and abdominal surgery at [facility] for over 6 months as reported by mother, past medical history of kidney stones and recurrent UTIs, medical history also pertinent for daily ibuprofen use for kidney stones. Presented to the ER 05/22/2025, CT scan at that time showed free fluid in pelvis, possibility of adnexal cyst rupture, versus pelvic inflammatory disease, CT scan also showed prominent active peptic ulcer disease. The patient was discharged from emergency room with diagnosis of ruptured adnexal cyst, now presented to the ER on 05/28 with severe abdominal pain, findings concerning for surgical abdomen, CT abdomen showed perforation in distal pylorus more likely from peptic ulcer pneumoperitoneum with perigastric and perihepatic region, general surgeon Dr. Pond was consulted who took the patient to the OR, and for exploratory laparotomy, postop diagnosis perforated pyloric ulcer with an abscess intra-abdominal anterior to the stomach, Eliecer patch of the ulcer with omentum was done . #Sepsis secondary to peritonitis?IV Zosyn Initiated 05/29/2025, IV Protonix 40 mg twice daily, wound culture grew Klebsiella, sensitive to Zosyn, Gastrografin upper GI series was done prior to initiating enteral feeds, which showed small leak per general surgery it is reasonable to start clear liquid diet if patient tolerates, per general surgery patient is at risk of developing complications including abscesses at a later date due to complicated anatomy given extensive surgical history in childhood. #Peritonitis secondary to perforated gastric ulcer status post ex lap and repair. #Multimodal analgesia?was previously on LEAD SOFTWARE ARCHITECT pain pump, later transition to IV and oral pain meds. #Anxiety?IM hydroxyzine worked initially, later on lorazepam for anxiety related symptoms. Quresh PGY3 Subjective Subjective Interval history: Patient was seen and examined at bedside; no acute overnight events. Dr. Pond came and removed some of the tia, leaving some of the wound open to relieve any potential pressure. Patient's pain occurs less often, but is same intensity when it occurs. Exam Vital Signs Temp Pulse Resp BP Pulse Ox O2 Del Method O2 Flow Rate 97.0 F 104 H 16 126/51 L 95 Room Air 0.5 06/05/25 08:00 06/05/25 08:00 06/05/25 08:00 06/05/25 08:00 06/05/25 08:00 06/05/25 08:00 06/04/25 20:00 Narrative Exam General: A/O x3, no acute distress, well-nourished, well-developed, clean surgical incision with some tia removed, Emanuel-Lovell drain present Eyes: PERRL, EOMI. Anicteric, vision grossly intact. Ears: No ear pain, no ear discharge, Hearing grossly intact. Nose: No nasal discharge. Mouth/Throat: Moist mucous membranes, no redness, no lesions. Neck: Neck supple, non-tender, no cervical lymphadenopathy. Lungs: Clear OLESYA to auscultation and percussion, No accessory muscle use. Cardio: Normal S1/S2, regular rhythm, no murmurs, no JVD or carotid bruits. Abdomen: No pain to light palpation, but tender with deeper palpation; surgical incision shows no signs of infection, drain in place. Extremities: Symmetrical, no significant deformities, non-tender, peripheral pulses present. Skin: No rashes, no lesions, warm to touch. Neuro: No focal neurological deficits. post-operative pain occuring less often but same intensity. Psych: Cooperative, appropriate mood and effect, anxious. Objective Labs 06/06/25 11:28 06/06/25 11:28 Labs: Laboratory Results - last 24 hr 06/04/25 09:27 WBC 14.0 H RBC 3.75 L Hgb 10.3 L Hct 31.8 L MCV 85 MCH 27.5 MCHC 32.4 RDW Std Deviation 48.9 H Plt Count 758 H D Neut % (Auto) 75 Lymph % (Auto) 15 [place] % (Auto) 5 Eos % (Auto) 1 Baso % (Auto) 1 Neut # (Auto) 10.5 H Lymph # (Auto) 2.0 [place] # (Auto) 0.6 Eos # (Auto) 0.1 Baso # (Auto) 0.1 Immature Gran # (Auto) 0.61 H Absolute Nucleated RBC 0.02 H Immature Gran % 4 H Nucleated RBC % 0 Sodium 140 Potassium 4.4 D Chloride 107 Carbon Dioxide 21.2 Anion Gap 12 BUN 8 L Creatinine 0.5 L Estim Creat Clear Calc 176.0 eGFR > 60 BUN/Creatinine Ratio 16 Glucose 126 H Calculated Osmolality 279 Calcium 9.0 Corrected Calcium 9.2 Phosphorus 4.1 Magnesium 2.1 Total Bilirubin 0.4 AST 44 H ALT 63 H Alkaline Phosphatase 240 H D Total Protein 6.7 Albumin 3.7 Globulin 3.0 Albumin/Globulin Ratio 1.2 Quality Measures Quality Measures none Assessment & Plan Assessment Current Active Medications: Generic Name Dose Route Start Last Admin Trade Name Freq PRN Reason Stop Dose Admin Heparin Sodium (Porcine) 5,000 unit 06/03/25 21:00 06/05/25 09:01 Heparin Sod Inj 5000 Unit/Ml Vial SC 06/17/25 20:59 5,000 unit BID SALUD Administration Hydromorphone HCl 1 mg 06/02/25 10:02 06/05/25 07:28 Hydromorphone Inj 2 Mg/Ml Vial IVP 06/07/25 10:01 1 mg Q3HR PRN Administration PAIN Piperacillin/Tazobactam/Dextrose 3.375 gm in 50 mls @ 12.5 mls/hr 05/29/25 07:00 06/05/25 05:16 Zosyn IV 06/12/25 06:59 12.5 mls/hr Q8HR SALUD Administration Protocol Fat Emulsion Intravenous 500 mls @ 32 mls/hr 06/01/25 18:00 06/03/25 17:27 Intralipid 20% Iv IV 07/01/25 17:59 32 mls/hr [id number] SALUD Administration Potassium Acetate 40 meq/ 2,032 mls @ 80 mls/hr 06/04/25 18:00 06/04/25 18:29 Calcium Gluconate 1 gm/ IV 06/05/25 17:59 80 mls/hr Magnesium Sulfate 1 gm/ Amino [id number]@1800 SALUD Administration Acids Lidocaine 1 patch 05/30/25 12:34 06/02/25 21:17 Lidocaine 5% 1 Patch TOP 06/29/25 12:33 1 patch UD PRN Administration TOPICAL PAIN Protocol Lorazepam 1 mg 06/02/25 11:40 06/04/25 23:54 Lorazepam 2 Mg/Ml Vial IVP 06/07/25 11:44 1 mg BID PRN Administration ANXIETY Morphine Sulfate 1 mg 06/03/25 15:32 06/05/25 09:24 Morphine Sulf Inj 4 Mg/Ml Vial IVP 06/08/25 15:31 1 mg Q4HR PRN Administration BREAKTHROUGH PAIN Ondansetron HCl 4 mg 05/29/25 02:41 Ondansetron Inj 2 Mg/Ml Inj 2 Ml IVP 06/28/25 02:40 Q6H PRN NAUSEA OR VOMITING Protocol Pantoprazole Sodium 40 mg 05/29/25 03:30 06/05/25 09:01 Pantoprazole Inj 40 Mg Vial IVP 06/28/25 03:29 40 mg BID SALUD Administration Pharmacy Consult 1 each 06/01/25 10:34 Pha To Consult Parenteral Nutr 1 Each Each XX 07/01/25 10:33 PRN PRN CONSULT Phenol/Menthol 0 ml 06/02/25 13:31 06/03/25 16:23 Phenol/Na Phenolate (Chloraseptic) [place] 180 Ml Btl PO 07/02/25 13:30 1 spray Q6HR PRN Administration SORE THROAT Plan 34-year-old F with PMH of recurrent UTIs, kidney stones presented to the ED with complaints of worsening abdominal pain associated with nausea. She was admitted for Perforated Gastric Ulcer. # klebsiella Peritonitis 2/2 # Perforated Gastric ulcer s/p exlap and abscess drainage and ulcer repair with Eliecer patch # Symptomatic anemia. # Transaminitis # Leukocytosis. On admission- worsening abdominal pain throughout the abdomen, shortness of breath. Tachycardia to 117. Guarding, rigid tender abdomen on examination. CT abdomen showing perforated gastric ulcer with pneumoperitoneum. Hemoglobin 6.5, hematocrit 20.6 on admission; 2 units transfused, post transfusion hgb 7.8 . AST/ALT/ALP?61/127/338, WBC 21.3. General surgery was consulted by ED Doctor And was told they are going to take her to the surgery. INR 1.1, lactate 0.7, EKG shows sinus tachycardia. Ultrasound gallbladder showing gallbladder wall thickening with pericholecystic fluid. Patient had ulcer repair performed 05/29/25. Peritoneal culture grew Klebsiella, sensitive to Zosyn and anaerobic culture negative Plan: ?Zosyn to cover gram-negative and anaerobic infection ?IV pantoprazole 40 to suppress acid secretion ?IV dilaudid 1mg q3hrs with IV morphine 1 mg every 4 hours for breakthrough pain ?Trend WBCs (14.6 today from 14.0yesterday) - General surgery following the case - Patient has been advanced to clear liquid diet; NG tube has been removed ? Ativan 1mg BID prn for anxiety ? Lidocaine 5% patch as needed Disposition: med-Tele DVT prophylaxis: SCDs GI prophylaxis: Pantoprazole Diet: Clear liquid with ice chips Lines: PIV CODE STATUS: Full This case was discussed with my attending physician, Dr. Rios, and senior resident, Dr. Wylie. Reji Taylor MD-PhD, PGY1 Attending Provider Attestation/Addendum I, Ana Laura Rios, DO, attest that I was physically present for the nassar portions of the service and evaluated the patient with the resident and I reviewed and discussed the case with the resident and agree with the resident's findings and plans of care as documented above Patient seen and eval this a.m. She states that she is doing slightly better. She continues to have a lot of pain in her epigastric region and reports some fullness in the right lower quadrant. Patient has tenderness to palpation. Tia were removed from distal aspect of the incisions by surgeon due to mild drainage. Patient still hesitant with clear liquid diet. Patient states that she would develop hallway, but limited due to pain. She states IV hours pain does not last long. Case was discussed with surgeon.Okay to start oral [place] per surgery. continue to encourage patient to ambulate and use incentive spirometer. Leukocytosis remains unchanged. Wound care consulted.
--- NOTE | 2025-06-05 10:20 | ESPR_ITS ---
Documentation for date of: 06/05/25 Subjective Subjective Brief History: History of present was revealed that the patient has been having pain for a couple of weeks and she came to the emergency room 1 week ago and was worked up and discharged she was told that she had a cyst in the ovary. But the pain persisted the past week. Patient was not eating and is not having a bowel movement. She denies any history of fever or chills. The pain became worse yesterday and she came to the emergency room and was found to have a perforated viscus on the CT scan. Patient's past medical history revealed that she had a history of ovarian cyst and endometriosis. She also was found to be anemic with a hemoglobin around 6 g. She does not know that she is anemic. She is not complaining of any rectal bleeding or increased vaginal bleeding. The past medical history revealed that she had ruptured appendicitis for which she was treated here about 20 years ago and then discharged to [facility] where she stayed for 9 months the details of which are not available Narrative: The patient developed some drainage in the lower portion of the incision and I removed a few patricia and drained some serous fluid. There is no ron pus but it could be infected because of abscess that was drained in the abdomen. Patient has a very poor pain tolerance and is on [id number] morphine. She is not taking enough p.o. fluids. Exam Vital Signs Temp Pulse Resp BP Pulse Ox O2 Del Method O2 Flow Rate 97.0 F 100 18 126/51 L 95 Room Air 0.5 06/05/25 08:00 06/05/25 09:42 06/05/25 09:42 06/05/25 08:00 06/05/25 08:00 06/05/25 08:00 06/04/25 20:00 Vital signs are normal other than tachycardia Routine Abdominal Exam Comments: Abdominal examination showed the lower portion of the incision is being packed with gauze after draining the collection. Results Results: Laboratory Laboratory Narrative: Laboratory results show persistent leukocytosis Assessment & Plan Assessment Additional comments: Impression: Slow recovery following perforated peptic ulcer Plan Plan: Possible superficial wound infection which was drained at the bedside and packed. We shall wait for the patient to tolerate diet and then DC the PPN. I will be out of town till Sunday and Dr Campuzano will cover me PROCEDURES: Procedures Exploratory laparotomy and drainage of the abscess from the abdominal cavity and [place] Eliecer patch of the ulcer
[2025-06-05 10:50] LABS: Basophils # (Auto) 0.1 Thou/mm3 (0.0-0.2); Basophils % (Auto) 1 % (0-2.5); Eosinophils # (Auto) 0.2 Thou/mm3 (0.0-0.5); Eosinophils % (Auto) 1 % (0-10); Hematocrit 34.3 % (36.0-46.0); Hemoglobin 10.7 g/dL (12.0-16.0); Immature Granulocytes Auto 0.48 Thou/mm3 (0.00-0.00); Lymphocytes # (Auto) 2.4 Thou/mm3 (1.0-4.8); Lymphocytes % (Auto) 17 % (10-50); Mean Corpuscular HGB Conc 31.2 g/dl (31.0-37.0); Mean Corpuscular Hemoglobin 26.8 pg (25.0-35.0); Mean Corpuscular Volume 86 fL (80-100); Monocytes # (Auto) 0.9 Thou/mm3 (0.0-0.8); Monocytes % (Auto) 6 % (0-12); Neutrophils # (Auto) 10.5 Thou/mm3 (1.8-7.7); Neutrophils % (Auto) 72 % (37-80); Nucleated Red Blood Cell # 0.00 Thou/mm3 (0.00-0.00); Nucleated Red Blood Cell % 0 /100 WBC (0); Platelet Count 930 Thou/mm3 (140-440); RDW Standard Deviation 49.8 fL (36.4-46.3); Red Blood Count 3.99 Miln/mm3 (4.00-5.20); White Blood Count 14.6 Thou/mm3 (3.6-11.0)
[2025-06-05 11:18] LABS: Alanine Aminotransferase 79 U/L (10-49); Albumin, Serum 4.5 gm/dL (3.5-5.0); Albumin/Globulin Ratio 1.5 (1.2-2.2); Alkaline Phosphatase 269 U/L (46-116); Anion Gap 12 (7-16); Aspartate Amino Transferase 46 U/L (0-34); BUN/Creatinine Ratio 19 Ratio (12-20); Bilirubin,Total 0.5 mg/dL (0.3-1.2); Blood Urea Nitrogen 13 mg/dL (9-23); Calcium 9.9 mg/dL (8.3-10.6); Calcium (Corrected) 9.9 mg/dL (8.5-10.1); Carbon Dioxide 23.5 mMol/L (20.0-31.0); Chloride 104 mMol/L (98-107); Creatinine (Component) 0.7 mg/dL (0.6-1.3); Estimated Creatinine Clearance 96.6 mL/min (>60); Globulin 3.1 gm/dL (2.3-3.5); Glucose 99 mg/dL (74-106); Magnesium 2.4 mg/dL (1.6-2.6); Osmolality,Calculated 277 (275-295); Phosphorous 4.3 mg/dL (2.4-5.1); Potassium 4.5 mMol/L (3.4-5.1); Sodium 139 mMol/L (136-145); Total Protein 7.6 gm/dL (5.7-8.2); eGFR > 60 See Note
[2025-06-05] MEDS: MULTIVITAMIN INJ 10 ML in AMINO ACID 4.25%/D5W E 2,000 ML 80 ML IV (17:37)
[2025-06-05] MEDS: FAT EMULSIONS 20% IV 500 ML 32 ML IV (17:37)
[2025-06-05] MEDS: LORazepam 2 MG/ML VIAL 1 MG IVP (20:41)
[2025-06-06] VITALS (12 sets, daily range): BP systolic 98–113; BP diastolic 62–81; PULSE 93–106; RESP 16–98; TEMP 36.2–36.7; O2SAT 95–98; BMI 30.4
[2025-06-06] MEDS: HYDROmorphone INJ 2 MG/ML VIAL 1 MG IVP ×4 (00:03→11:50)
[2025-06-06] MEDS: PIPER/TAZO 3.375 GM PREMIX 3.375 GM/50 ML BAG IV ×3 (06:18→22:49)
[2025-06-06] MEDS: HYDROcodone/APAP 5/325 TABLET 1 TAB PO (07:09)
--- NOTE | 2025-06-06 07:57 | PD.RESPRO ---
Documentation for date of: 06/06/25 Subjective Subjective Interval history: Patient seen and examined at bedside. She is tachycardic, but afebrile. wbc is downtrending. Abdominal pain is poorly controlled on current pain reg, on inspection of abdominal wound, packing noted to be saturated with pus. will discuss patient case with Dr. Campuzano tomorrow, to decide if repeat imaging is warrented. Changed pain reg today to be more multimodal with apap scheduled and tramadol scheduled and dilaudid for break through pain. will continue to monitor lfts with slight elevation of ast and alt given scheduled apap. Exam Vital Signs Temp Pulse Resp BP Pulse Ox O2 Del Method O2 Flow Rate 97.3 F 106 H 18 102/62 96 Room Air 0.5 06/06/25 04:00 06/06/25 04:48 06/06/25 04:00 06/06/25 04:00 06/06/25 04:00 06/06/25 04:00 06/04/25 20:00 Narrative Exam General: A/O x3, no acute distress, however tachycardic and c/o severe pain , well-nourished, well-developed, clean surgical incision with some patricia removed and packing in wound Eyes: PERRL, EOMI. Anicteric, vision grossly intact. Ears: No ear pain, no ear discharge, Hearing grossly intact. Nose: No nasal discharge. Mouth/Throat: Moist mucous membranes, no redness, no lesions. Neck: Neck supple, non-tender, no cervical lymphadenopathy. Lungs: Clear OLESYA to auscultation and percussion, No accessory muscle use. Cardio: Normal S1/S2, regular rhythm, tachycardic to 100s no murmurs, no JVD or carotid bruits. Abdomen: pain to light palpation, and tender with deeper palpation; surgical incision shows significant pus drainage. Extremities: Symmetrical, no significant deformities, non-tender, peripheral pulses present. Skin: No rashes, no lesions, warm to touch. Neuro: No focal neurological deficits. post-operative pain is severe Psych: Cooperative, appropriate mood and effect, anxious. Objective Labs 06/06/25 11:28 06/06/25 11:28 Labs: Laboratory Results - last 24 hr 06/05/25 10:39 WBC 14.6 H RBC 3.99 L Hgb 10.7 L Hct 34.3 L MCV 86 MCH 26.8 MCHC 31.2 RDW Std Deviation 49.8 H Plt Count 930 H D Neut % (Auto) 72 Lymph % (Auto) 17 [place] % (Auto) 6 Eos % (Auto) 1 Baso % (Auto) 1 Neut # (Auto) 10.5 H Lymph # (Auto) 2.4 [place] # (Auto) 0.9 H Eos # (Auto) 0.2 Baso # (Auto) 0.1 Immature Gran # (Auto) 0.48 H Absolute Nucleated RBC 0.00 Immature Gran % 3 H Nucleated RBC % 0 Sodium 139 Potassium 4.5 Chloride 104 Carbon Dioxide 23.5 Anion Gap 12 BUN 13 Creatinine 0.7 Estim Creat Clear Calc 96.6 eGFR > 60 BUN/Creatinine Ratio 19 Glucose 99 Calculated Osmolality 277 Calcium 9.9 Corrected Calcium 9.9 Phosphorus 4.3 Magnesium 2.4 Total Bilirubin 0.5 AST 46 H ALT 79 H Alkaline Phosphatase 269 H D Total Protein 7.6 Albumin 4.5 D Globulin 3.1 Albumin/Globulin Ratio 1.5 Quality Measures Quality Measures VTE prophylaxis Assessment & Plan Assessment Current Active Medications: Generic Name Dose Route Start Last Admin Trade Name Freq PRN Reason Stop Dose Admin Hydrocodone Bitart/Acetaminophen 1 tab 06/05/25 17:34 06/06/25 07:09 Hydrocodone/Apap 5/325 Tablet PO 06/10/25 17:33 1 tab Q6HR PRN Administration PAIN Heparin Sodium (Porcine) 5,000 unit 06/03/25 21:00 06/05/25 20:30 Heparin Sod Inj 5000 Unit/Ml Vial SC 06/17/25 20:59 Not Given BID SALUD Hydromorphone HCl 1 mg 06/05/25 17:36 06/06/25 04:30 Hydromorphone Inj 2 Mg/Ml Vial IVP 06/07/25 10:01 1 mg Q3HR PRN Administration PAIN Piperacillin/Tazobactam/Dextrose 3.375 gm in 50 mls @ 12.5 mls/hr 05/29/25 07:00 06/06/25 06:18 Zosyn IV 06/12/25 06:59 12.5 mls/hr Q8HR SALUD Administration Protocol Fat Emulsion Intravenous 500 mls @ 32 mls/hr 06/01/25 18:00 06/05/25 17:37 Intralipid 20% Iv IV 07/01/25 17:59 32 mls/hr [id number] SALUD Administration Multivitamins/Minerals 10 ml/ 2,010 mls @ 80 mls/hr 06/05/25 18:00 06/05/25 17:37 Amino Acids/Electrolytes/ IV 06/06/25 17:59 80 mls/hr Dextrose .Q24H SALUD Administration Lidocaine 1 patch 05/30/25 12:34 06/02/25 21:17 Lidocaine 5% 1 Patch TOP 06/29/25 12:33 1 patch UD PRN Administration TOPICAL PAIN Protocol Lorazepam 1 mg 06/02/25 11:40 06/05/25 20:41 Lorazepam 2 Mg/Ml Vial IVP 06/07/25 11:44 1 mg BID PRN Administration ANXIETY Ondansetron HCl 4 mg 05/29/25 02:41 Ondansetron Inj 2 Mg/Ml Inj 2 Ml IVP 06/28/25 02:40 Q6H PRN NAUSEA OR VOMITING Protocol Pantoprazole Sodium 40 mg 05/29/25 03:30 06/05/25 21:39 Pantoprazole Inj 40 Mg Vial IVP 06/28/25 03:29 40 mg BID SALUD Administration Pharmacy Consult 1 each 06/01/25 10:34 Pha To Consult Parenteral Nutr 1 Each Each XX 07/01/25 10:33 PRN PRN CONSULT Phenol/Menthol 0 ml 06/02/25 13:31 06/03/25 16:23 Phenol/Na Phenolate (Chloraseptic) [place] 180 Ml Btl PO 07/02/25 13:30 1 spray Q6HR PRN Administration SORE THROAT Plan Ms. Kwan is a 34-year-old F with PMH of recurrent UTIs, kidney stones presented to the ED with complaints of worsening abdominal pain associated with nausea. She was admitted for Perforated Gastric Ulcer, s/p repair of perforation and drainage of intraabdominal abscess. # klebsiella Peritonitis / # Perforated Gastric ulcer s/p exlap and abscess drainage and ulcer repair with Eliecer patch 05/29 # Symptomatic anemia Stable # Transaminitis # Leukocytosis (downtrending) On admission- worsening abdominal pain throughout the abdomen, shortness of breath. Tachycardia to 117. Guarding, rigid tender abdomen on examination. CT abdomen showing perforated gastric ulcer with pneumoperitoneum. Hemoglobin 6.5, hematocrit 20.6 on admission; 2 units transfused, post transfusion hgb 7.8 . AST/ALT/ALP?61/127/338, WBC 21.3. General surgery was consulted by ED Doctor And was told they are going to take her to the surgery. INR 1.1, lactate 0.7, EKG shows sinus tachycardia. Ultrasound gallbladder showing gallbladder wall thickening with pericholecystic fluid. Patient had ulcer repair performed 05/29/25. Peritoneal culture grew Klebsiella, sensitive to Zosyn and anaerobic culture negative continues to be tachycardic, likely 2/2 poor pain control and c/f wound infection given increased pus drainage Plan: - consider repeat imaging, given increased pus drainage from wound noted on 06/06, Discussed with Dr. Pond who will evaluate, continue BID dressing changes. ?Zosyn to cover gram-negative and anaerobic infection - Flagyl 500 mg q8hr for c/f h pylori given gastric ulceration - Sucralafate 1 gm tid ?IV pantoprazole 40 to suppress acid secretion ?IV dilaudid 1.5mg q3hrs PRN with PO apap 650 q6hr scheduled, Tramadol 50 mg q4hr scheduled. (ADJUSTED PAIN reg) avoid NSAIDS ?Trend WBCs, downtrending - General surgery following the case - Patient tolerating clears with supplementation with ensure clears (nursing to ensure that patient does not have outside food or drink), continues on PPN 1082 total calories - check triglycerides weekly 11/3 AM draw ? Ativan 1mg BID prn for anxiety ? Lidocaine 5% patch as needed - incentive spiromitor. - monitor LFTs Disposition: med-Tele, IV abx, and bid dressing changes. and pain management DVT prophylaxis: SCDs GI prophylaxis: Pantoprazole, and sucralofate Diet: Clear liquid with ice chips, and ensure clear suplements, and PPN Lines: PIV CODE STATUS: Full Plan discussed with my attending Dr. Cash and my senior resident Dr. Martínez Holloway MD PGY1 Attending Provider Attestation/Addendum I Austin Cash MD reviewed the note and agree with the resident's assessment & plan with modifications/additions/exceptions as below. I have personally reviewed labs, imaging, home meds/prior records, examined the patient, formulated and discussed management plan with the IM team. 34-year-old female admitted for gastric perforation s/p exploratory laparotomy with partial primary intention closure with open wound inferiorly packed with dressing noted to have purulent discharge, general surgery is on board, patient has mild leukocytosis however has significant abdominal pain and discomfort, wound cultures growing Klebsiella continue Zosyn, agree with adding Flagyl, continue TPN, continue clear liquid diet as per general surgery recommendations. Will optimize pain control with Tylenol and opioids, do not use NSAIDs.
--- NOTE | 2025-06-06 08:33 | ESPR_ITS ---
Documentation for date of: 06/06/25 Subjective Subjective Narrative: Patient is seen and examined. She is complaining of some incisional pain. She is tolerating liquid without nausea or vomiting and is having bowel movements. Exam Vital Signs Temp Pulse Resp BP Pulse Ox O2 Del Method O2 Flow Rate 97.8 F 101 H 17 112/72 96 Room Air 0.5 06/06/25 07:59 06/06/25 07:59 06/06/25 07:59 06/06/25 07:59 06/06/25 07:59 06/06/25 07:59 06/04/25 20:00 Constitutional Constitutional: no acute distress Comments: Patient has some anxiety Routine Abdominal Exam Comments: Abdomen is soft and mildly distended. The upper part of the incision is clean, dry and intact, lower quadrant has some opening with packings in place and clear drainage, no evidence of infection Assessment & Plan Assessment Additional comments: Status post repair of perforated gastric ulcer with Eliecer's patch Plan Keep patient on clear liquids and continue PPN. Continue Protonix and antibiotics, will add Flagyl for possible H. pylori. Also started patient on Carafate PROCEDURES: Procedures Exploratory laparotomy and drainage of the abscess from the abdominal cavity and [place] Eliecer patch of the ulcer
[2025-06-06] MEDS: SUCRALFATE SUSP 1 GM/10 ML UDC PO ×3 (10:18→21:31)
[2025-06-06] MEDS: metroNIDAZOLE/NS 500 MG IVPB 500 MG/100 ML BAG 200 MG IV ×3 (10:19→21:30)
[2025-06-06 11:52] LABS: Basophils # (Auto) 0.1 Thou/mm3 (0.0-0.2); Basophils % (Auto) 1 % (0-2.5); Eosinophils # (Auto) 0.2 Thou/mm3 (0.0-0.5); Eosinophils % (Auto) 1 % (0-10); Hematocrit 35.4 % (36.0-46.0); Hemoglobin 11.0 g/dL (12.0-16.0); Immature Granulocytes Auto 0.35 Thou/mm3 (0.00-0.00); Lymphocytes # (Auto) 1.8 Thou/mm3 (1.0-4.8); Lymphocytes % (Auto) 14 % (10-50); Mean Corpuscular HGB Conc 31.1 g/dl (31.0-37.0); Mean Corpuscular Hemoglobin 26.8 pg (25.0-35.0); Mean Corpuscular Volume 86 fL (80-100); Monocytes # (Auto) 0.7 Thou/mm3 (0.0-0.8); Monocytes % (Auto) 5 % (0-12); Neutrophils # (Auto) 10.3 Thou/mm3 (1.8-7.7); Neutrophils % (Auto) 77 % (37-80); Nucleated Red Blood Cell # 0.00 Thou/mm3 (0.00-0.00); Nucleated Red Blood Cell % 0 /100 WBC (0); Platelet Count 926 Thou/mm3 (140-440); RDW Standard Deviation 49.1 fL (36.4-46.3); Red Blood Count 4.11 Miln/mm3 (4.00-5.20); White Blood Count 13.5 Thou/mm3 (3.6-11.0)
[2025-06-06 12:09] LABS: Alanine Aminotransferase 86 U/L (10-49); Albumin, Serum 4.7 gm/dL (3.5-5.0); Albumin/Globulin Ratio 1.4 (1.2-2.2); Alkaline Phosphatase 274 U/L (46-116); Anion Gap 12 (7-16); Aspartate Amino Transferase 46 U/L (0-34); BUN/Creatinine Ratio 14 Ratio (12-20); Bilirubin,Total 0.4 mg/dL (0.3-1.2); Blood Urea Nitrogen 10 mg/dL (9-23); Calcium 9.8 mg/dL (8.3-10.6); Calcium (Corrected) 9.8 mg/dL (8.5-10.1); Carbon Dioxide 24.1 mMol/L (20.0-31.0); Chloride 102 mMol/L (98-107); Creatinine (Component) 0.7 mg/dL (0.6-1.3); Estimated Creatinine Clearance 96.6 mL/min (>60); Globulin 3.3 gm/dL (2.3-3.5); Glucose 106 mg/dL (74-106); Magnesium 2.5 mg/dL (1.6-2.6); Osmolality,Calculated 274 (275-295); Phosphorous 5.1 mg/dL (2.4-5.1); Potassium 4.5 mMol/L (3.4-5.1); Sodium 138 mMol/L (136-145); Total Protein 8.0 gm/dL (5.7-8.2); eGFR > 60 See Note
[2025-06-06] MEDS: ACETAMINOPHEN 325 MG TABLET 650 MG PO ×2 (14:03→18:00)
[2025-06-06] MEDS: HYDROmorphone INJ 2 MG/ML VIAL 1.5 MG IVP ×2 (15:51→19:50)
[2025-06-06] MEDS: MULTIVITAMIN INJ 10 ML in AMINO ACIDS 4.25 %/D5W 2,000 ML 80 ML IV (18:00)
[2025-06-06] MEDS: LORazepam 2 MG/ML VIAL 1 MG IVP (22:58)
[2025-06-07] VITALS: BP 101/60; PULSE 88; PULSE 90; RESP 16; TEMP 35.6; O2SAT 96
[2025-06-07] MEDS: HYDROmorphone INJ 2 MG/ML VIAL 1.5 MG IVP ×7 (00:06→22:58)
[2025-06-07] MEDS: HYDROmorphone INJ 2 MG/ML VIAL IVP (01:21)
[2025-06-07 04:00] VITALS: BP 119/72; PULSE 92; RESP 12; TEMP 36; O2SAT 96
[2025-06-07] MEDS: SUCRALFATE SUSP 1 GM/10 ML UDC PO ×3 (05:20→21:12)
[2025-06-07] MEDS: metroNIDAZOLE/NS 500 MG IVPB 500 MG/100 ML BAG 200 MG IV ×3 (05:21→21:14)
[2025-06-07] MEDS: ACETAMINOPHEN 325 MG TABLET 650 MG PO (05:21)
[2025-06-07] MEDS: PIPER/TAZO 3.375 GM PREMIX 3.375 GM/50 ML BAG IV ×3 (05:59→22:13)
--- NOTE | 2025-06-07 07:18 | ESPR_ITS ---
<Statement entered by Katherine Cash MD - 06/08/25 16:54> Patient was seen and examined by me personally. I have directly supervised and reviewed documentation by the team resident and agree with its findings. ------- Plan of care was discussed with the attending, Dr. Shailesh Cash, PGY-2 Documentation for date of: 06/07/25 Subjective Subjective Interval history: Ms vázquez is a 34 year old woman s/p gastric ulcer perforation repair with Dr. Pond. Patients pain has been poorly controlled overnight, with additional 2mg diludid ivp given. Modified pain reg: [place] 10/325 scheduled, dilaudid 1.5 mg q3hr prn, pt reports intense itching and strong desire to take shower. given hydroxazine. NPO per surgery recs, will discuss next steps with Dr. Pond tomorrow. Exam Vital Signs Temp Pulse Resp BP Pulse Ox O2 Del Method O2 Flow Rate 96.8 F 92 12 119/72 96 Room Air 0.5 06/07/25 04:00 06/07/25 04:00 06/07/25 04:00 06/07/25 04:00 06/07/25 04:00 06/07/25 04:00 06/04/25 20:00 Narrative Exam General: A/O x3, no acute distress, however tachycardic and c/o severe pain , well-nourished, well-developed, clean surgical incision with some patricia removed and packing in wound Eyes: PERRL, EOMI. Anicteric, vision grossly intact. Ears: No ear pain, no ear discharge, Hearing grossly intact. Nose: No nasal discharge. Mouth/Throat: Moist mucous membranes, no redness, no lesions. Neck: Neck supple, non-tender, no cervical lymphadenopathy. Lungs: Clear OLESYA to auscultation and percussion, No accessory muscle use. Cardio: Normal S1/S2, regular rhythm, tachycardic to 100s no murmurs, no JVD or carotid bruits. Abdomen: pain to light palpation, and tender with deeper palpation; surgical incision with middle aspect with packing in place with some pus draining, RICK drain with wilder colored drainage, no pus, and scant output. abd pad in place over incision with paper tape. Extremities: Symmetrical, no significant deformities, non-tender, peripheral pulses present. Skin: No rashes, no lesions, warm to touch. Neuro: No focal neurological deficits. post-operative pain is severe Psych: Cooperative, appropriate mood and effect, anxious. Objective Labs 06/07/25 11:08 06/07/25 11:08 Labs: Laboratory Results - last 24 hr 06/06/25 11:28 WBC 13.5 H RBC 4.11 Hgb 11.0 L Hct 35.4 L MCV 86 MCH 26.8 MCHC 31.1 RDW Std Deviation 49.1 H Plt Count 926 H Neut % (Auto) 77 Lymph % (Auto) 14 [place] % (Auto) 5 Eos % (Auto) 1 Baso % (Auto) 1 Neut # (Auto) 10.3 H Lymph # (Auto) 1.8 [place] # (Auto) 0.7 Eos # (Auto) 0.2 Baso # (Auto) 0.1 Immature Gran # (Auto) 0.35 H Absolute Nucleated RBC 0.00 Immature Gran % 3 H Nucleated RBC % 0 Sodium 138 Potassium 4.5 Chloride 102 Carbon Dioxide 24.1 Anion Gap 12 BUN 10 Creatinine 0.7 Estim Creat Clear Calc 96.6 eGFR > 60 BUN/Creatinine Ratio 14 Glucose 106 Calculated Osmolality 274 L Calcium 9.8 Corrected Calcium 9.8 Phosphorus 5.1 Magnesium 2.5 Total Bilirubin 0.4 AST 46 H ALT 86 H Alkaline Phosphatase 274 H Total Protein 8.0 Albumin 4.7 Globulin 3.3 Albumin/Globulin Ratio 1.4 Quality Measures Quality Measures VTE prophylaxis Assessment & Plan Assessment Current Active Medications: Generic Name Dose Route Start Last Admin Trade Name Freq PRN Reason Stop Dose Admin Acetaminophen 650 mg 06/06/25 12:45 06/07/25 05:21 Acetaminophen 325 Mg Tablet PO 07/06/25 12:44 650 mg Q6HR SALUD Administration Heparin Sodium (Porcine) 5,000 unit 06/03/25 21:00 06/06/25 21:30 Heparin Sod Inj 5000 Unit/Ml Vial SC 06/17/25 20:59 Not Given BID SALUD Hydromorphone HCl 1.5 mg 06/06/25 12:45 06/07/25 04:30 Hydromorphone Inj 2 Mg/Ml Vial IVP 06/07/25 10:01 1.5 mg Q3HR PRN Administration for severe pain 7-10. Piperacillin/Tazobactam/Dextrose 3.375 gm in 50 mls @ 12.5 mls/hr 05/29/25 07:00 06/07/25 05:59 Zosyn IV 06/12/25 06:59 12.5 mls/hr Q8HR SALUD Administration Protocol Fat Emulsion Intravenous 500 mls @ 32 mls/hr 06/01/25 18:00 06/05/25 17:37 Intralipid 20% Iv IV 07/01/25 17:59 32 mls/hr [id number] SALUD Administration Metronidazole 500 mg in 100 mls @ 200 mls/hr 06/06/25 08:36 06/07/25 05:21 Flagyl 500 Mg Iv IV 06/13/25 08:35 200 mls/hr Q8HR SALUD Administration Multivitamins/Minerals 10 ml/ 2,010 mls @ 80 mls/hr 06/06/25 18:00 06/06/25 18:00 Amino Acids IV 06/07/25 17:59 80 mls/hr .Q24H SALUD Administration Lidocaine 1 patch 05/30/25 12:34 06/02/25 21:17 Lidocaine 5% 1 Patch TOP 06/29/25 12:33 1 patch UD PRN Administration TOPICAL PAIN Protocol Lorazepam 1 mg 06/02/25 11:40 06/06/25 22:58 Lorazepam 2 Mg/Ml Vial IVP 06/07/25 11:44 1 mg BID PRN Administration ANXIETY Ondansetron HCl 4 mg 05/29/25 02:41 Ondansetron Inj 2 Mg/Ml Inj 2 Ml IVP 06/28/25 02:40 Q6H PRN NAUSEA OR VOMITING Protocol Pantoprazole Sodium 40 mg 05/29/25 03:30 06/06/25 21:31 Pantoprazole Inj 40 Mg Vial IVP 06/28/25 03:29 40 mg BID SALUD Administration Pharmacy Consult 1 each 06/01/25 10:34 Pha To Consult Parenteral Nutr 1 Each Each XX 07/01/25 10:33 PRN PRN CONSULT Phenol/Menthol 0 ml 06/02/25 13:31 06/03/25 16:23 Phenol/Na Phenolate (Chloraseptic) [place] 180 Ml Btl PO 07/02/25 13:30 1 spray Q6HR PRN Administration SORE THROAT Sucralfate 1 gm 06/06/25 08:30 06/07/25 05:20 Sucralfate Susp 1 Gm/10 Ml Udc PO 07/06/25 08:29 1 gm TID SALUD Administration Tramadol HCl 50 mg 06/06/25 12:45 06/07/25 05:21 Tramadol Hcl 50 Mg Tablet PO 06/11/25 12:44 50 mg Q4HR SALUD Administration Plan Ms. Vázquez is a 34-year-old F with PMH of recurrent UTIs, kidney stones presented to the ED with complaints of worsening abdominal pain associated with nausea. She was admitted for Perforated Gastric Ulcer, s/p repair of perforation and drainage of intraabdominal abscess. # klebsiella Peritonitis 09/07 # Perforated Gastric ulcer s/p exlap and abscess drainage and ulcer repair with Eliecer patch 05/29 # Symptomatic anemia Stable # Transaminitis # Leukocytosis (downtrending) On admission- worsening abdominal pain throughout the abdomen, shortness of breath. Tachycardia to 117. Guarding, rigid tender abdomen on examination. CT abdomen showing perforated gastric ulcer with pneumoperitoneum. Hemoglobin 6.5, hematocrit 20.6 on admission; 2 units transfused, post transfusion hgb 7.8 . AST/ALT/ALP?61/127/338, WBC 21.3. General surgery was consulted by ED Doctor And was told they are going to take her to the surgery. INR 1.1, lactate 0.7, EKG shows sinus tachycardia. Ultrasound gallbladder showing gallbladder wall thickening with pericholecystic fluid. Patient had ulcer repair performed 05/29/25. Peritoneal culture grew Klebsiella, sensitive to Zosyn and anaerobic culture negative continues to be tachycardic, likely 2/2 poor pain control, NPO for additional bowel rest. Wound cx with klebsiella Plan: ?Zosyn to cover gram-negative and anaerobic infection - Flagyl 500 mg q8hr for c/f h pylori given gastric ulceration - Sucralafate 1 gm tid ?IV pantoprazole 40 to suppress acid secretion ?IV dilaudid 1.5mg q3hrs PRN with PO [place] 10/325 scheduled, (ADJUSTED PAIN reg) avoid NSAIDS ?Trend WBCs, downtrending - General surgery following the case - NPO, ok for sips of water, continues on PPN 1082 total calories - check triglycerides weekly 06/08 AM draw ? Ativan 1mg BID prn for anxiety ? Lidocaine 5% patch as needed - incentive spiromitor. - monitor LFTs Disposition: med-Tele, IV abx, and bid dressing changes. and pain management DVT prophylaxis: SCDs GI prophylaxis: Pantoprazole, and sucralofate Diet: NPO , and PPN Lines: PIV CODE STATUS: Full Plan discussed with my attending Dr. Cash and my senior resident Dr. Martínez Holloway MD PGY1 Attending Provider Attestation/Addendum I Austin Cash MD reviewed the note and agree with the resident's assessment & plan with modifications/additions/exceptions as below. I have personally reviewed labs, imaging, home meds/prior records, examined the patient, formulated and discussed management plan with the IM team. 34-year-old female admitted for gastric perforation s/p exploratory laparotomy with partial primary intention closure with open wound inferiorly packed with dressing noted to have purulent discharge, general surgery is on board, leukocytosis has improved however has significant abdominal pain and discomfort, wound cultures growing Klebsiella continue Zosyn, continue Flagyl, continue TPN, keep n.p.o. as per general surgery recommendations. Will optimize pain control with Tylenol and opioids, do not use NSAIDs.
[2025-06-07 07:56] VITALS: BP 104/70; PULSE 72; RESP 12; TEMP 36.2; O2SAT 96
--- NOTE | 2025-06-07 09:44 | ESPR_ITS ---
Documentation for date of: 06/07/25 Subjective Subjective Narrative: Patient is seen and examined. She is still complaining of incisional pain. She is tolerating liquid diet without nausea or vomiting and continues to have bowel movement. She was reported to have increased drainage from her incision Exam Vital Signs Temp Pulse Resp BP Pulse Ox O2 Del Method O2 Flow Rate 97.2 F 72 12 104/70 96 Room Air 0.5 06/07/25 07:56 06/07/25 07:56 06/07/25 07:56 06/07/25 07:56 06/07/25 07:56 06/07/25 07:56 06/04/25 20:00 Constitutional Constitutional: no acute distress Routine Abdominal Exam Comments: Abdomen is soft and mildly distended. There is small opening at the inferior aspect of the incision with granulation tissue and drainage, remainder of the incision appears intact without drainage or erythema. There is no evidence of infection at this time Assessment & Plan Assessment Additional comments: Status post exploratory laparotomy and repair of perforated gastric ulcer Plan Continue IV antibiotics. Recommended keeping patient n.p.o., and continue TPN. May consider repeating the upper GI series tomorrow. PROCEDURES: Procedures Exploratory laparotomy and drainage of the abscess from the abdominal cavity and [place] Eliecer patch of the ulcer
[2025-06-07] MEDS: HYDROCORTISONE 0.5% TOP ×2 (11:06→22:59)
[2025-06-07 11:19] LABS: Basophils # (Auto) 0.1 Thou/mm3 (0.0-0.2); Basophils % (Auto) 1 % (0-2.5); Eosinophils # (Auto) 0.2 Thou/mm3 (0.0-0.5); Eosinophils % (Auto) 2 % (0-10); Hematocrit 32.2 % (36.0-46.0); Hemoglobin 10.0 g/dL (12.0-16.0); Immature Granulocytes Auto 0.21 Thou/mm3 (0.00-0.00); Lymphocytes # (Auto) 1.8 Thou/mm3 (1.0-4.8); Lymphocytes % (Auto) 18 % (10-50); Mean Corpuscular HGB Conc 31.1 g/dl (31.0-37.0); Mean Corpuscular Hemoglobin 27.0 pg (25.0-35.0); Mean Corpuscular Volume 87 fL (80-100); Monocytes # (Auto) 0.8 Thou/mm3 (0.0-0.8); Monocytes % (Auto) 8 % (0-12); Neutrophils # (Auto) 7.0 Thou/mm3 (1.8-7.7); Neutrophils % (Auto) 69 % (37-80); Nucleated Red Blood Cell # 0.00 Thou/mm3 (0.00-0.00); Nucleated Red Blood Cell % 0 /100 WBC (0); Platelet Count 757 Thou/mm3 (140-440); RDW Standard Deviation 49.1 fL (36.4-46.3); Red Blood Count 3.70 Miln/mm3 (4.00-5.20); White Blood Count 10.1 Thou/mm3 (3.6-11.0)
[2025-06-07 11:43] LABS: Alanine Aminotransferase 57 U/L (10-49); Albumin, Serum 4.2 gm/dL (3.5-5.0); Albumin/Globulin Ratio 1.2 (1.2-2.2); Alkaline Phosphatase 213 U/L (46-116); Anion Gap 9 (7-16); Aspartate Amino Transferase 22 U/L (0-34); BUN/Creatinine Ratio 16 Ratio (12-20); Bilirubin,Total 0.3 mg/dL (0.3-1.2); Blood Urea Nitrogen 13 mg/dL (9-23); Calcium 9.6 mg/dL (8.3-10.6); Calcium (Corrected) 9.6 mg/dL (8.5-10.1); Carbon Dioxide 25.5 mMol/L (20.0-31.0); Chloride 102 mMol/L (98-107); Creatinine (Component) 0.8 mg/dL (0.6-1.3); Estimated Creatinine Clearance 84.5 mL/min (>60); Globulin 3.4 gm/dL (2.3-3.5); Glucose 89 mg/dL (74-106); Magnesium 2.3 mg/dL (1.6-2.6); Osmolality,Calculated 271 (275-295); Phosphorous 5.1 mg/dL (2.4-5.1); Potassium 4.7 mMol/L (3.4-5.1); Sodium 136 mMol/L (136-145); Total Protein 7.6 gm/dL (5.7-8.2); eGFR > 60 See Note
[2025-06-07 11:47] VITALS: BP 108/68; PULSE 76; RESP 12; TEMP 36.2; O2SAT 96
--- NOTE | 2025-06-07 11:54 | PC.NURSE ---
spoke with Dr. Holloway re: order to remove Tele box, does pt need to be med/surg status, she said she will look at whether to downgrade pt
[2025-06-07 16:00] VITALS: BP 114/63; PULSE 80; RESP 12; TEMP 36.2; O2SAT 96
[2025-06-07] MEDS: MULTIVITAMIN INJ 10 ML in AMINO ACIDS 4.25 %/D5W 2,000 ML 80 ML IV (17:58)
[2025-06-07 20:00] VITALS: BP 98/62; PULSE 101; RESP 16; TEMP 36.7; O2SAT 96
[2025-06-08] VITALS: BP 106/68; PULSE 94; RESP 16; TEMP 36.2; O2SAT 96
[2025-06-08 04:00] VITALS: BP 94/52; PULSE 81; RESP 16; TEMP 37.3; O2SAT 97
[2025-06-08] MEDS: SUCRALFATE SUSP 1 GM/10 ML UDC PO ×3 (05:49→21:21)
[2025-06-08] MEDS: metroNIDAZOLE/NS 500 MG IVPB 500 MG/100 ML BAG 200 MG IV ×3 (05:49→21:22)
[2025-06-08 06:00] VITALS: BMI 28.7
[2025-06-08] MEDS: HYDROmorphone INJ 2 MG/ML VIAL 1.5 MG IVP ×4 (06:03→22:48)
[2025-06-08] MEDS: PIPER/TAZO 3.375 GM PREMIX 3.375 GM/50 ML BAG IV ×3 (06:30→21:21)
[2025-06-08 08:00] VITALS: BP 103/65; PULSE 88; RESP 17; TEMP 36.2; O2SAT 98
--- NOTE | 2025-06-08 08:13 | ESPR_ITS ---
<Statement entered by Katherine Cash MD - 06/09/25 16:39> Patient is seen at bedside currently appears to feel much better. Pain and well-controlled with current regimen. Patient continues to have significant anxiety around her hospitalization. Patient is reassured that her wound is looking better and is healing and she is on the right path. Patient had broth which she ate too fast causing her to vomit however later in the afternoon patient reattempted and was able to tolerate full liquid diet without difficulty. Patient is moving around, having regular bowel movements no new complaints. The wound has minimal drainage and no erythema is noted on surrounding tissue. Patient was seen and examined by me personally. I have directly supervised and reviewed documentation by the team resident and agree with its findings. ------- Plan of care was discussed with the attending, Dr. Blanca Cash, PGY-2 Documentation for date of: 06/08/25 Subjective Subjective Interval history: NAEON pt refusing norco because diludid helps to relieve her pain faster, patient counseled on howlong acting pain meds will help manage her pain in addition to the break through meds. visualized abdominal wound during dressing change with wound care, looks good, granulation tissue, minimal drainage. leukocytosis resolved. tolerated clears, and will advance to full for dinner. Exam Vital Signs Temp Pulse Resp BP Pulse Ox O2 Del Method O2 Flow Rate 99.1 F 81 16 94/52 L 97 Room Air 0.5 06/08/25 04:00 06/08/25 04:00 06/08/25 04:00 06/08/25 04:00 06/08/25 04:00 06/08/25 04:00 06/04/25 20:00 Narrative Exam General: A/O x3, moderate distress,c/o severe pain , well-nourished, well- developed, clean surgical incision with some patricia removed and packing in wound Eyes: PERRL, EOMI. Anicteric, vision grossly intact. Ears: No ear pain, no ear discharge, Hearing grossly intact. Nose: No nasal discharge. Mouth/Throat: Moist mucous membranes, no redness, no lesions. Neck: Neck supple, non-tender, no cervical lymphadenopathy. Lungs: Clear OLESYA to auscultation and percussion, No accessory muscle use. Cardio: Normal S1/S2, regular rhythm, tachycardic to 100s no murmurs, no JVD or carotid bruits. Abdomen: pain to light palpation, and tender with deeper palpation; surgical incision with patricia, middle portion without patricia, with red granulation tissue in place, wound visualized during dressing change. RICK drain with wilder colored drainage, no pus, and scant output. abd pad in place over incision with paper tape. Extremities: Symmetrical, no significant deformities, non-tender, peripheral pulses present. Skin: No rashes, no lesions, warm to touch. Neuro: No focal neurological deficits. post-operative pain is severe Psych: Cooperative, appropriate mood and effect, anxious. Objective Labs 06/09/25 05:23 06/09/25 05:23 Labs: Laboratory Results - last 24 hr 06/07/25 11:08 WBC 10.1 RBC 3.70 L Hgb 10.0 L Hct 32.2 L MCV 87 MCH 27.0 MCHC 31.1 RDW Std Deviation 49.1 H Plt Count 757 H D Neut % (Auto) 69 Lymph % (Auto) 18 [place] % (Auto) 8 Eos % (Auto) 2 Baso % (Auto) 1 Neut # (Auto) 7.0 Lymph # (Auto) 1.8 [place] # (Auto) 0.8 Eos # (Auto) 0.2 Baso # (Auto) 0.1 Immature Gran # (Auto) 0.21 H Absolute Nucleated RBC 0.00 Immature Gran % 2 H Nucleated RBC % 0 Sodium 136 Potassium 4.7 Chloride 102 Carbon Dioxide 25.5 Anion Gap 9 BUN 13 Creatinine 0.8 Estim Creat Clear Calc 84.5 eGFR > 60 BUN/Creatinine Ratio 16 Glucose 89 Calculated Osmolality 271 L Calcium 9.6 Corrected Calcium 9.6 Phosphorus 5.1 Magnesium 2.3 Total Bilirubin 0.3 AST 22 ALT 57 H Alkaline Phosphatase 213 H D Total Protein 7.6 Albumin 4.2 D Globulin 3.4 Albumin/Globulin Ratio 1.2 Quality Measures Quality Measures VTE prophylaxis Assessment & Plan Assessment Current Active Medications: Generic Name Dose Route Start Last Admin Trade Name Freq PRN Reason Stop Dose Admin Hydrocodone Bitart/Acetaminophen 1 tab 06/07/25 12:00 06/08/25 06:21 Hydrocodone/Apap 10/325 Tab PO 06/12/25 11:59 Not Given Q6HR SALUD Diphenhydramine HCl 25 mg 06/07/25 21:00 06/07/25 21:12 Diphenhydramine 25 Mg Capsule PO 07/07/25 20:59 25 mg HS SALUD Administration Heparin Sodium (Porcine) 5,000 unit 06/03/25 21:00 06/07/25 21:15 Heparin Sod Inj 5000 Unit/Ml Vial SC 06/17/25 20:59 Not Given BID SALUD Hydrocortisone 0 gm 06/07/25 09:45 06/07/25 22:59 Hydrocortisone Cr 0.5% 30 Gm Tube TOP 07/07/25 09:44 1 applicatio BID SALDU Administration Hydromorphone HCl 1.5 mg 06/07/25 10:51 06/08/25 06:03 Hydromorphone Inj 2 Mg/Ml Vial IVP 06/12/25 10:50 1.5 mg Q3HR PRN Administration Pain 7-10 Piperacillin/Tazobactam/Dextrose 3.375 gm in 50 mls @ 12.5 mls/hr 05/29/25 07:00 06/08/25 06:30 Zosyn IV 06/12/25 06:59 12.5 mls/hr Q8HR SALUD Administration Protocol Fat Emulsion Intravenous 500 mls @ 32 mls/hr 06/01/25 18:00 06/05/25 17:37 Intralipid 20% Iv IV 07/01/25 17:59 32 mls/hr [id number] SALUD Administration Metronidazole 500 mg in 100 mls @ 200 mls/hr 06/06/25 08:36 06/08/25 05:49 Flagyl 500 Mg Iv IV 06/13/25 08:35 200 mls/hr Q8HR SALUD Administration Multivitamins/Minerals 10 ml/ 2,010 mls @ 80 mls/hr 06/07/25 18:00 06/07/25 17:58 Amino Acids IV 06/08/25 17:59 80 mls/hr .Q24H SALUD Administration Lidocaine 1 patch 05/30/25 12:34 06/02/25 21:17 Lidocaine 5% 1 Patch TOP 06/29/25 12:33 1 patch UD PRN Administration TOPICAL PAIN Protocol Ondansetron HCl 4 mg 05/29/25 02:41 Ondansetron Inj 2 Mg/Ml Inj 2 Ml IVP 06/28/25 02:40 Q6H PRN NAUSEA OR VOMITING Protocol Pantoprazole Sodium 40 mg 05/29/25 03:30 06/07/25 21:12 Pantoprazole Inj 40 Mg Vial IVP 06/28/25 03:29 40 mg BID SALUD Administration Pharmacy Consult 1 each 06/01/25 10:34 Pha To Consult Parenteral Nutr 1 Each Each XX 07/01/25 10:33 PRN PRN CONSULT Phenol/Menthol 0 ml 06/02/25 13:31 06/03/25 16:23 Phenol/Na Phenolate (Chloraseptic) [place] 180 Ml Btl PO 07/02/25 13:30 1 spray Q6HR PRN Administration SORE THROAT Sucralfate 1 gm 06/06/25 08:30 06/08/25 05:49 Sucralfate Susp 1 Gm/10 Ml Udc PO 07/06/25 08:29 1 gm TID SALUD Administration Plan Ms. Kwan is a 34-year-old F with PMH of recurrent UTIs, kidney stones presented to the ED with complaints of worsening abdominal pain associated with nausea. She was admitted for Perforated Gastric Ulcer, s/p repair of perforation and drainage of intraabdominal abscess. # klebsiella Peritonitis / # Perforated Gastric ulcer s/p exlap and abscess drainage and ulcer repair with Eliecer patch 05/29 # Symptomatic anemia Stable # Transaminitis # Leukocytosis (downtrending) On admission- worsening abdominal pain throughout the abdomen, shortness of breath. Tachycardia to 117. Guarding, rigid tender abdomen on examination. CT abdomen showing perforated gastric ulcer with pneumoperitoneum. Hemoglobin 6.5, hematocrit 20.6 on admission; 2 units transfused, post transfusion hgb 7.8 . AST/ALT/ALP?61/127/338, WBC 21.3. General surgery was consulted by ED Doctor And was told they are going to take her to the surgery. INR 1.1, lactate 0.7, EKG shows sinus tachycardia. Ultrasound gallbladder showing gallbladder wall thickening with pericholecystic fluid. Patient had ulcer repair performed 05/29/25. Peritoneal culture grew Klebsiella, sensitive to Zosyn and anaerobic culture negative poor pain control 2/2 pt refusing long acting meds, counseled on how to manage pain better and importance of taking scheduled meds, leukocytosis resolved Plan: ?Zosyn to cover gram-negative and anaerobic infection - Flagyl 500 mg q8hr for c/f h pylori given gastric ulceration - Sucralafate 1 gm tid ?IV pantoprazole 40 to suppress acid secretion ?IV dilaudid 1.5mg q3hrs PRN with PO NOROC 10/325 scheduled, (ADJUSTED PAIN reg) avoid NSAIDS - General surgery following the case - will discuss advancing diet with surgery, continues on PPN 1082 total calories - check triglycerides weekly 11/3 AM draw , elevated 193 ? Ativan 1mg BID prn for anxiety ? Lidocaine 5% patch as needed - incentive spiromitor. - monitor LFTs Disposition: med-Tele, IV abx, and bid dressing changes. and pain management DVT prophylaxis: SCDs GI prophylaxis: Pantoprazole, and sucralofate Diet: NPO , and PPN Lines: PIV CODE STATUS: Full Plan discussed with my attending Dr. Rios and my senior resident Dr. Martínez Holloway MD PGY1 Attending Provider Attestation/Addendum I, Ana Laura Rios, DO, attest that I was physically present for the nassar portions of the service and evaluated the patient with the resident and I reviewed and discussed the case with the resident and agree with the resident's findings and plans of care as documented above Patient seen and evaluated this AM. Patient and mother state that she has been very stressed out and in a lot of pain at night. She is upset since she did not receive her pain medication prior to dressing change today. Discussed with bedside nurse. She continues to have a lot of anxiety, particularly at night. Will add xanax 0.25mg PO BID PRN. [place] has been scheduled since patient is afraid to ask for pain medication and to have better pain control. IV dilaudid will be placed for breakthrough pain. She remains on PPN. She is tolerating CLD.
[2025-06-08 09:31] LABS: Basophils # (Auto) 0.1 Thou/mm3 (0.0-0.2); Basophils % (Auto) 1 % (0-2.5); Eosinophils # (Auto) 0.2 Thou/mm3 (0.0-0.5); Eosinophils % (Auto) 2 % (0-10); Hematocrit 32.9 % (36.0-46.0); Hemoglobin 10.3 g/dL (12.0-16.0); Immature Granulocytes Auto 0.16 Thou/mm3 (0.00-0.00); Lymphocytes # (Auto) 1.4 Thou/mm3 (1.0-4.8); Lymphocytes % (Auto) 14 % (10-50); Mean Corpuscular HGB Conc 31.3 g/dl (31.0-37.0); Mean Corpuscular Hemoglobin 27.1 pg (25.0-35.0); Mean Corpuscular Volume 87 fL (80-100); Monocytes # (Auto) 0.5 Thou/mm3 (0.0-0.8); Monocytes % (Auto) 5 % (0-12); Neutrophils # (Auto) 8.2 Thou/mm3 (1.8-7.7); Neutrophils % (Auto) 77 % (37-80); Nucleated Red Blood Cell # 0.00 Thou/mm3 (0.00-0.00); Nucleated Red Blood Cell % 0 /100 WBC (0); Platelet Count 783 Thou/mm3 (140-440); RDW Standard Deviation 49.8 fL (36.4-46.3); Red Blood Count 3.80 Miln/mm3 (4.00-5.20); White Blood Count 10.6 Thou/mm3 (3.6-11.0)
[2025-06-08] MEDS: HYDROCORTISONE 0.5% TOP ×2 (09:51→21:23)
[2025-06-08 09:52] LABS: Alanine Aminotransferase 40 U/L (10-49); Albumin, Serum 4.2 gm/dL (3.5-5.0); Albumin/Globulin Ratio 1.4 (1.2-2.2); Alkaline Phosphatase 195 U/L (46-116); Anion Gap 8 (7-16); Aspartate Amino Transferase 17 U/L (0-34); BUN/Creatinine Ratio 19 Ratio (12-20); Bilirubin,Total 0.3 mg/dL (0.3-1.2); Blood Urea Nitrogen 15 mg/dL (9-23); Calcium 9.5 mg/dL (8.3-10.6); Calcium (Corrected) 9.5 mg/dL (8.5-10.1); Carbon Dioxide 24.9 mMol/L (20.0-31.0); Chloride 103 mMol/L (98-107); Creatinine (Component) 0.8 mg/dL (0.6-1.3); Estimated Creatinine Clearance 82.1 mL/min (>60); Globulin 3.1 gm/dL (2.3-3.5); Glucose 113 mg/dL (74-106); Magnesium 2.1 mg/dL (1.6-2.6); Osmolality,Calculated 273 (275-295); Phosphorous 4.1 mg/dL (2.4-5.1); Potassium 4.2 mMol/L (3.4-5.1); Sodium 136 mMol/L (136-145); Total Protein 7.3 gm/dL (5.7-8.2); Triglycerides 193 mg/dL (30-150); eGFR > 60 See Note
[2025-06-08 12:00] VITALS: BP 113/67; PULSE 108; RESP 17; TEMP 36.3; O2SAT 97
[2025-06-08 12:25] VITALS: BMI 28.7
--- NOTE | 2025-06-08 14:12 | ESPR_ITS ---
Documentation for date of: 06/08/25 Subjective Subjective Brief History: History of present was revealed that the patient has been having pain for a couple of weeks and she came to the emergency room 1 week ago and was worked up and discharged she was told that she had a cyst in the ovary. But the pain persisted the past week. Patient was not eating and is not having a bowel movement. She denies any history of fever or chills. The pain became worse yesterday and she came to the emergency room and was found to have a perforated viscus on the CT scan. Patient's past medical history revealed that she had a history of ovarian cyst and endometriosis. She also was found to be anemic with a hemoglobin around 6 g. She does not know that she is anemic. She is not complaining of any rectal bleeding or increased vaginal bleeding. The past medical history revealed that she had ruptured appendicitis for which she was treated here about 20 years ago and then discharged to [facility] where she stayed for 9 months the details of which are not available Exam Vital Signs Temp Pulse Resp BP Pulse Ox O2 Del Method O2 Flow Rate 97.4 F 108 H 17 113/67 97 Room Air 0.5 06/08/25 12:00 06/08/25 12:00 06/08/25 12:00 06/08/25 12:00 06/08/25 12:00 06/08/25 12:00 06/04/25 20:00 Assessment & Plan Assessment Additional comments: Patient's wound was explored and it was found to contain some purulent material with exudate. The lateral portion of the incision has opened up but there is not much drainage. So there is basically a wound dehiscence. Her oral intake is better. Plan Plan: We shall continue oral feedings in addition to TPN. Patient has a long wait to recover PROCEDURES: Procedures Exploratory laparotomy and drainage of the abscess from the abdominal cavity and [place] Eliecer patch of the ulcer
--- NOTE | 2025-06-08 14:48 | PC.SS ---
Rounding: IV ABX, following, wound open and oozing. DC plan pending more stabilization
[2025-06-08 16:00] VITALS: BP 102/69; PULSE 99; RESP 18; TEMP 36.5; O2SAT 98
[2025-06-08] MEDS: FAT EMULSIONS 20% IV 500 ML 32 ML IV (18:05)
[2025-06-08 20:00] VITALS: BP 106/65; PULSE 90; RESP 17; TEMP 36.1; O2SAT 98
[2025-06-09] VITALS: BP 99/64; PULSE 83; RESP 18; TEMP 36.2; O2SAT 98
[2025-06-09] MEDS: HYDROmorphone INJ 2 MG/ML VIAL 1.5 MG IVP ×6 (01:57→22:53)
[2025-06-09 04:00] VITALS: BP 99/62; PULSE 89; RESP 20; TEMP 36.6; O2SAT 95
[2025-06-09] MEDS: metroNIDAZOLE/NS 500 MG IVPB 500 MG/100 ML BAG 200 MG IV ×3 (05:36→21:10)
[2025-06-09] MEDS: PIPER/TAZO 3.375 GM PREMIX 3.375 GM/50 ML BAG IV (05:36)
[2025-06-09] MEDS: SUCRALFATE SUSP 1 GM/10 ML UDC PO ×3 (05:37→21:09)
[2025-06-09 05:43] LABS: Basophils # (Auto) 0.1 Thou/mm3 (0.0-0.2); Basophils % (Auto) 1 % (0-2.5); Eosinophils # (Auto) 0.2 Thou/mm3 (0.0-0.5); Eosinophils % (Auto) 2 % (0-10); Hematocrit 32.5 % (36.0-46.0); Hemoglobin 10.1 g/dL (12.0-16.0); Immature Granulocytes Auto 0.09 Thou/mm3 (0.00-0.00); Lymphocytes # (Auto) 2.2 Thou/mm3 (1.0-4.8); Lymphocytes % (Auto) 22 % (10-50); Mean Corpuscular HGB Conc 31.1 g/dl (31.0-37.0); Mean Corpuscular Hemoglobin 26.7 pg (25.0-35.0); Mean Corpuscular Volume 86 fL (80-100); Monocytes # (Auto) 0.7 Thou/mm3 (0.0-0.8); Monocytes % (Auto) 7 % (0-12); Neutrophils # (Auto) 6.7 Thou/mm3 (1.8-7.7); Neutrophils % (Auto) 67 % (37-80); Nucleated Red Blood Cell # 0.00 Thou/mm3 (0.00-0.00); Nucleated Red Blood Cell % 0 /100 WBC (0); Platelet Count 748 Thou/mm3 (140-440); RDW Standard Deviation 48.1 fL (36.4-46.3); Red Blood Count 3.78 Miln/mm3 (4.00-5.20); White Blood Count 10.0 Thou/mm3 (3.6-11.0)
[2025-06-09 06:05] LABS: Alanine Aminotransferase 31 U/L (10-49); Albumin, Serum 4.0 gm/dL (3.5-5.0); Albumin/Globulin Ratio 1.3 (1.2-2.2); Alkaline Phosphatase 175 U/L (46-116); Anion Gap 12 (7-16); Aspartate Amino Transferase 15 U/L (0-34); BUN/Creatinine Ratio 19 Ratio (12-20); Bilirubin,Total 0.2 mg/dL (0.3-1.2); Blood Urea Nitrogen 13 mg/dL (9-23); Calcium 9.2 mg/dL (8.3-10.6); Calcium (Corrected) 9.2 mg/dL (8.5-10.1); Carbon Dioxide 22.4 mMol/L (20.0-31.0); Chloride 104 mMol/L (98-107); Creatinine (Component) 0.7 mg/dL (0.6-1.3); Estimated Creatinine Clearance 93.8 mL/min (>60); Globulin 3.0 gm/dL (2.3-3.5); Glucose 126 mg/dL (74-106); Magnesium 1.9 mg/dL (1.6-2.6); Osmolality,Calculated 277 (275-295); Phosphorous 3.4 mg/dL (2.4-5.1); Potassium 3.8 mMol/L (3.4-5.1); Sodium 138 mMol/L (136-145); Total Protein 7.0 gm/dL (5.7-8.2); eGFR > 60 See Note
[2025-06-09 08:00] VITALS: BP 109/67; PULSE 84; PULSE 89; RESP 16; TEMP 36.3; O2SAT 96
--- NOTE | 2025-06-09 08:16 | ESPR_ITS ---
<Statement entered by Katherine Cash MD - 06/09/25 16:42> Patient is seen at bedside currently appears to feel much better. Pain and well-controlled with current regimen. Patient did not tolerate Xanax therefore we will discontinue Xanax and switch patient to oral Ativan. Patient has received Zosyn from May 29 to jun 09 therefore will DC the Zosyn and will continue metronidazole. Patient is tolerating advance diet currently eating mashed potatoes and mac & cheese. Surgical wound appears to be healing well no drainage or erythema is noted. Patient is mobilizing and is able to walk down the hallway and is having regular bowel movements no new complaints. Patient was seen and examined by me personally. I have directly supervised and reviewed documentation by the team resident and agree with its findings. ------- Plan of care was discussed with the attending, Dr. Blanca Cash, PGY-2 Documentation for date of: 06/09/25 Subjective Subjective Interval history: pt reports having a difficult night. and that she did not like the feeling she had after taking the xanex will give low dose ativan instead for anxiety pt will stay on norco and dilaudid for breakthrough pain. pt counseled on plan to wean of iv pain medications. pt refusing heparin but ambulating multiple laps around the floor. Activity as tolerated. pt tolerating diet with soft foods. remains on ppn, will consider d/c tomorrow. Exam Vital Signs Temp Pulse Resp BP Pulse Ox O2 Del Method O2 Flow Rate 98 F 89 20 99/62 95 Room Air 0.5 06/09/25 04:00 06/09/25 04:00 06/09/25 04:00 06/09/25 04:00 06/09/25 04:00 06/09/25 04:00 06/04/25 20:00 Narrative Exam General: A/O x3, appears more comfortable , well-nourished, well-developed, clean surgical incision with some patricia removed and packing in wound Eyes: PERRL, EOMI. Anicteric, vision grossly intact. Ears: No ear pain, no ear discharge, Hearing grossly intact. Nose: No nasal discharge. Mouth/Throat: Moist mucous membranes, no redness, no lesions. Neck: Neck supple, non-tender, no cervical lymphadenopathy. Lungs: Clear OLESYA to auscultation and percussion, No accessory muscle use. Cardio: Normal S1/S2, regular rhythm, tachycardic to 100s no murmurs, no JVD or carotid bruits. Abdomen: tender with deeper palpation; surgical incision with patricia (clean), middle portion without patricia, RICK drain with wilder colored drainage, no pus, and scant output. abd pad in place over incision with paper tape. Extremities: Symmetrical, no significant deformities, non-tender, peripheral pulses present. Skin: No rashes, no lesions, warm to touch. Neuro: No focal neurological deficits. post-operative pain is severe Psych: Cooperative, appropriate mood and effect, anxious. Objective Labs 06/09/25 05:23 06/09/25 05:23 Labs: Laboratory Results - last 24 hr 06/08/25 06/09/25 09:07 05:23 WBC 10.6 10.0 RBC 3.80 L 3.78 L Hgb 10.3 L 10.1 L Hct 32.9 L 32.5 L MCV 87 86 MCH 27.1 26.7 MCHC 31.3 31.1 RDW Std Deviation 49.8 H 48.1 H Plt Count 783 H 748 H D Neut % (Auto) 77 67 Lymph % (Auto) 14 22 [place] % (Auto) 5 7 Eos % (Auto) 2 2 Baso % (Auto) 1 1 Neut # (Auto) 8.2 H 6.7 Lymph # (Auto) 1.4 2.2 [place] # (Auto) 0.5 0.7 Eos # (Auto) 0.2 0.2 Baso # (Auto) 0.1 0.1 Immature Gran # (Auto) 0.16 H 0.09 H Absolute Nucleated RBC 0.00 0.00 Immature Gran % 2 H 1 H Nucleated RBC % 0 0 Sodium 136 138 Potassium 4.2 D 3.8 Chloride 103 104 Carbon Dioxide 24.9 22.4 Anion Gap 8 12 BUN 15 13 Creatinine 0.8 0.7 Estim Creat Clear Calc 82.1 93.8 eGFR > 60 > 60 BUN/Creatinine Ratio 19 19 Glucose 113 H 126 H Calculated Osmolality 273 L 277 Calcium 9.5 9.2 Corrected Calcium 9.5 9.2 Phosphorus 4.1 3.4 Magnesium 2.1 1.9 Total Bilirubin 0.3 0.2 L AST 17 15 ALT 40 31 Alkaline Phosphatase 195 H 175 H D Total Protein 7.3 7.0 Albumin 4.2 4.0 Globulin 3.1 3.0 Albumin/Globulin Ratio 1.4 1.3 Triglycerides 193 H Quality Measures Quality Measures VTE prophylaxis Assessment & Plan Assessment Current Active Medications: Generic Name Dose Route Start Last Admin Trade Name Freq PRN Reason Stop Dose Admin Hydrocodone Bitart/Acetaminophen 1 tab 06/08/25 16:00 06/09/25 03:11 Hydrocodone/Apap 10/325 Tab PO 06/13/25 15:59 1 tab Q6H SALUD Administration Alprazolam 0.25 mg 06/08/25 14:04 06/09/25 03:11 Alprazolam 0.25 Mg Tablet PO 06/13/25 14:03 0.25 mg BID PRN Administration ANXIETY Diphenhydramine HCl 25 mg 06/08/25 16:21 Diphenhydramine 25 Mg Capsule PO 07/08/25 16:19 Q12HR PRN itching Heparin Sodium (Porcine) 5,000 unit 06/03/25 21:00 06/08/25 21:23 Heparin Sod Inj 5000 Unit/Ml Vial SC 06/17/25 20:59 Not Given BID SALUD Hydrocortisone 0 gm 06/07/25 09:45 06/08/25 21:23 Hydrocortisone Cr 0.5% 30 Gm Tube TOP 07/07/25 09:44 1 applicatio BID SALUD Administration Hydromorphone HCl 1.5 mg 06/07/25 10:51 06/09/25 05:44 Hydromorphone Inj 2 Mg/Ml Vial IVP 06/12/25 10:50 1.5 mg Q3HR PRN Administration Pain 7-10 Piperacillin/Tazobactam/Dextrose 3.375 gm in 50 mls @ 12.5 mls/hr 05/29/25 07:00 06/09/25 05:36 Zosyn IV 06/12/25 06:59 12.5 mls/hr Q8HR SALUD Administration Protocol Fat Emulsion Intravenous 500 mls @ 32 mls/hr 06/01/25 18:00 06/08/25 18:05 Intralipid 20% Iv IV 07/01/25 17:59 32 mls/hr [id number] SALUD Administration Metronidazole 500 mg in 100 mls @ 200 mls/hr 06/06/25 08:36 06/09/25 05:36 Flagyl 500 Mg Iv IV 06/13/25 08:35 200 mls/hr Q8HR SALUD Administration Potassium Chloride 40 meq/ 2,020 mls @ 80 mls/hr 06/08/25 18:00 06/08/25 18:05 Amino Acids IV 06/09/25 17:59 80 mls/hr QDAY@1800 SALUD Administration Magnesium Sulfate 2 gm in 50 mls @ 25 mls/hr 06/09/25 07:50 Magnesium Sulfate Ivpb IV 06/09/25 09:49 X1 ONE Lidocaine 1 patch 05/30/25 12:34 06/02/25 21:17 Lidocaine 5% 1 Patch TOP 06/29/25 12:33 1 patch UD PRN Administration TOPICAL PAIN Protocol Ondansetron HCl 4 mg 05/29/25 02:41 Ondansetron Inj 2 Mg/Ml Inj 2 Ml IVP 06/28/25 02:40 Q6H PRN NAUSEA OR VOMITING Protocol Pantoprazole Sodium 40 mg 05/29/25 03:30 06/08/25 21:21 Pantoprazole Inj 40 Mg Vial IVP 06/28/25 03:29 40 mg BID SALUD Administration Pharmacy Consult 1 each 06/01/25 10:34 Pha To Consult Parenteral Nutr 1 Each Each XX 07/01/25 10:33 PRN PRN CONSULT Phenol/Menthol 0 ml 06/02/25 13:31 06/03/25 16:23 Phenol/Na Phenolate (Chloraseptic) [place] 180 Ml Btl PO 07/02/25 13:30 1 spray Q6HR PRN Administration SORE THROAT Sucralfate 1 gm 06/06/25 08:30 06/09/25 05:37 Sucralfate Susp 1 Gm/10 Ml Udc PO 07/06/25 08:29 1 gm TID SALUD Administration Plan Ms. Kwan is a 34-year-old F with PMH of recurrent UTIs, kidney stones presented to the ED with complaints of worsening abdominal pain associated with nausea. She was admitted for Perforated Gastric Ulcer, s/p repair of perforation and drainage of intraabdominal abscess. # klebsiella Peritonitis 2/ # Perforated Gastric ulcer s/p exlap and abscess drainage and ulcer repair with Eliecer patch 05/29 # Symptomatic anemia Stable # Transaminitis # Leukocytosis (downtrending) On admission- worsening abdominal pain throughout the abdomen, shortness of breath. Tachycardia to 117. Guarding, rigid tender abdomen on examination. CT abdomen showing perforated gastric ulcer with pneumoperitoneum. Hemoglobin 6.5, hematocrit 20.6 on admission; 2 units transfused, post transfusion hgb 7.8 . AST/ALT/ALP?61/127/338, WBC 21.3. General surgery was consulted by ED Doctor And was told they are going to take her to the surgery. INR 1.1, lactate 0.7, EKG shows sinus tachycardia. Ultrasound gallbladder showing gallbladder wall thickening with pericholecystic fluid. Patient had ulcer repair performed 05/29/25. Peritoneal culture grew Klebsiella, sensitive to Zosyn and anaerobic culture negative Leukocytosis resolved Pain has been difficult to manage but pt amenable to stay on norco and dilaudid for breakthrough , but will attemt to wean tomorrow. Plan: ?Zosyn to cover gram-negative and anaerobic infection - Flagyl 500 mg q8hr for c/f h pylori given gastric ulceration - Sucralafate 1 gm tid ?IV pantoprazole 40 to suppress acid secretion ?IV dilaudid 1.5mg q3hrs PRN with PO NOROC 10/325 scheduled avoid NSAIDS - General surgery following the case - On full liquid and soft foods, will continue to advance as tolerated - continues on PPN 1082 total calories, plan to d/c tomorrow if pt able to eat. - check triglycerides weekly 11/3 AM draw , elevated 193 ? Ativan 1mg BID prn for anxiety ? Lidocaine 5% patch as needed - incentive spiromitor. - monitor LFTs Disposition: med-Tele, IV abx, and bid dressing changes. and pain management DVT prophylaxis: SCDs GI prophylaxis: Pantoprazole, and sucralofate Diet: tolerating clears and soft diet, advance as tolerated , and PPN, will discuss with nutrition about d.c ppn Lines: PIV CODE STATUS: Full Plan discussed with my attending Dr. Rios and my senior resident Dr. Martínez Holloway MD PGY1 Attending Provider Attestation/Addendum Ana Laura Munoz, DO, attest that I was physically present for the nassar portions of the service and evaluated the patient with the resident and I reviewed and discussed the case with the resident and agree with the resident's findings and plans of care as documented above Patient seen and evaluated this AM. Patient states she is doing better at this time with better pain control. Will continue with norco as scheduled and dilaudid prn. Wound is healing well, patricia are intact. Packing in place, no drainage noted. Patient was eating mashed potatoes and mac and cheese from [facility]. Discussed with dietitian and recommends DCing PPN tomorrow as she will likely be able to meet her nutritional needs. Encouraged patient to ambulate. Patient stated she threw up yesterday with advancement of diet, but likely due to eating too quick since she was hungry
[2025-06-09] MEDS: Magnesium Sulfate 2 GM Ivpb 2 GM/50 ML BAG IV (10:00)
[2025-06-09] MEDS: HYDROCORTISONE 0.5% TOP (10:01)
--- NOTE | 2025-06-09 10:38 | PC.NURSE ---
Dr Pond in to assess patient. Regular diet ordered. Instructions to take solids slow given. All questions answered by patient. Family at bedside. Informed there are no dietary restrictions, so outside foods can be brought in. All needs met at this time. Chen LOPEZ updated.
[2025-06-09 12:00] VITALS: BP 108/59; PULSE 102; RESP 18; TEMP 36.1; O2SAT 97
--- NOTE | 2025-06-09 14:50 | PC.SS ---
rounding note: Patient on tpn. Pain control. Adv. diet Discharge plan remains to return home
[2025-06-09 16:00] VITALS: BP 95/56; PULSE 97; RESP 17; TEMP 36.1; O2SAT 98
[2025-06-09 20:00] VITALS: BP 96/54; PULSE 81; RESP 18; TEMP 36.8; O2SAT 97
[2025-06-10] VITALS: BP 105/76; PULSE 83; RESP 18; TEMP 35.7; O2SAT 92
[2025-06-10] MEDS: HYDROmorphone INJ 2 MG/ML VIAL 1.5 MG IVP ×2 (03:30→06:33)
[2025-06-10] MEDS: SUCRALFATE SUSP 1 GM/10 ML UDC PO ×3 (06:33→22:21)
[2025-06-10] MEDS: metroNIDAZOLE/NS 500 MG IVPB 500 MG/100 ML BAG 200 MG IV ×3 (06:34→22:21)
[2025-06-10 08:00] VITALS: BP 88/47; PULSE 80; RESP 16; TEMP 36.2; O2SAT 96
--- NOTE | 2025-06-10 08:16 | ESPR_ITS ---
<Statement entered by Katherine Cash MD - 06/11/25 15:57> Patient is seen at bedside. Pain is well-controlled will continue to wean IV pain meds. Patient has been eating solid diet feels like she is bloated likely due to the [employer] and sandwich she had. Patient states she has not had a bowel movement. Abdomen is soft. Wound is appear to be well-healing without any erythema or discharge noted. Patient is mobilizing and is able to walk down the hallway. Patient feels ready to go home and continue her healing. Will anticipate discharge tomorrow. Patient was seen and examined by me personally. I have directly supervised and reviewed documentation by the team resident and agree with its findings. ------- Plan of care was discussed with the attending, Dr. Blanca Cash, PGY-2 Documentation for date of: 06/10/25 Subjective Subjective Interval history: no acute events overnight patient states that pain was better controlled overnight with norco and dilaudid plan to wean iv pain meds today as tolerated. plan to remove brian drain per surgery, will give pain meds prior to removal glycerin suppository for constipation patient had emesis of sandwhich, Exam Vital Signs Temp Pulse Resp BP Pulse Ox O2 Del Method O2 Flow Rate 97.1 F 80 16 88/47 L 96 Room Air 0.5 06/10/25 08:00 06/10/25 08:00 06/10/25 08:00 06/10/25 08:00 06/10/25 08:00 06/10/25 08:00 06/09/25 12:00 Narrative Exam General: A/O x3, appears more comfortable , well-nourished, well-developed, Eyes: PERRL, EOMI. Anicteric, vision grossly intact. Ears: No ear pain, no ear discharge, Hearing grossly intact. Nose: No nasal discharge. Mouth/Throat: Moist mucous membranes, no redness, no lesions. Neck: Neck supple, non-tender, no cervical lymphadenopathy. Lungs: Clear OLESYA to auscultation and percussion, No accessory muscle use. Cardio: Normal S1/S2, regular rhythm, tachycardic to 100s no murmurs, no JVD or carotid bruits. Abdomen: tender with deep palpation; wound not visualized on exam today, abdominal binder in place, abdomen is less tender than prior Extremities: Symmetrical, no significant deformities, non-tender, peripheral pulses present. Skin: No rashes, no lesions, warm to touch. Neuro: No focal neurological deficits. Psych: Cooperative, appropriate mood and effect, anxious. Objective Labs 06/11/25 05:46 06/11/25 05:46 Quality Measures Quality Measures VTE prophylaxis Assessment & Plan Assessment Current Active Medications: Generic Name Dose Route Start Last Admin Trade Name Freq PRN Reason Stop Dose Admin Hydrocodone Bitart/Acetaminophen 1 tab 06/08/25 16:00 06/10/25 04:00 Hydrocodone/Apap 10/325 Tab PO 06/13/25 15:59 Not Given Q6H SALUD Diphenhydramine HCl 25 mg 06/08/25 16:21 Diphenhydramine 25 Mg Capsule PO 07/08/25 16:19 Q12HR PRN itching Heparin Sodium (Porcine) 5,000 unit 06/03/25 21:00 06/09/25 21:28 Heparin Sod Inj 5000 Unit/Ml Vial SC 06/17/25 20:59 Not Given BID SALUD Hydrocortisone 0 gm 06/07/25 09:45 06/09/25 21:00 Hydrocortisone Cr 0.5% 30 Gm Tube TOP 07/07/25 09:44 Not Given BID SALUD Hydromorphone HCl 1.5 mg 06/10/25 07:58 Hydromorphone Inj 2 Mg/Ml Vial IVP 06/12/25 10:50 Q5H PRN Pain 7-10 Fat Emulsion Intravenous 500 mls @ 32 mls/hr 06/01/25 18:00 06/08/25 18:05 Intralipid 20% Iv IV 07/01/25 17:59 32 mls/hr [id number] SALUD Administration Metronidazole 500 mg in 100 mls @ 200 mls/hr 06/06/25 08:36 06/10/25 06:34 Flagyl 500 Mg Iv IV 06/13/25 08:35 200 mls/hr Q8HR SALUD Administration Potassium Acetate 40 meq/ 2,032 mls @ 80 mls/hr 06/09/25 18:00 06/09/25 18:41 Magnesium Sulfate 1 gm/ IV 06/10/25 17:59 80 mls/hr Multivitamins/Minerals 10 ml/ .Q24H SALUD Administration Amino Acids/Electrolytes/ Dextrose Lidocaine 1 patch 05/30/25 12:34 06/02/25 21:17 Lidocaine 5% 1 Patch TOP 06/29/25 12:33 1 patch UD PRN Administration TOPICAL PAIN Protocol Lorazepam 0.5 mg 06/09/25 10:34 Lorazepam 0.5 Mg Tablet PO 06/14/25 10:33 Q8HR PRN ANXIETY Ondansetron HCl 4 mg 05/29/25 02:41 Ondansetron Inj 2 Mg/Ml Inj 2 Ml IVP 06/28/25 02:40 Q6H PRN NAUSEA OR VOMITING Protocol Pantoprazole Sodium 40 mg 05/29/25 03:30 06/09/25 21:22 Pantoprazole Inj 40 Mg Vial IVP 06/28/25 03:29 40 mg BID SALUD Administration Pharmacy Consult 1 each 06/01/25 10:34 Pha To Consult Parenteral Nutr 1 Each Each XX 07/01/25 10:33 PRN PRN CONSULT Phenol/Menthol 0 ml 06/02/25 13:31 06/03/25 16:23 Phenol/Na Phenolate (Chloraseptic) [place] 180 Ml Btl PO 07/02/25 13:30 1 spray Q6HR PRN Administration SORE THROAT Sucralfate 1 gm 06/06/25 08:30 06/10/25 06:33 Sucralfate Susp 1 Gm/10 Ml Udc PO 07/06/25 08:29 1 gm TID SALUD Administration Plan Ms. Kwan is a 34-year-old F with PMH of recurrent UTIs, kidney stones presented to the ED with complaints of worsening abdominal pain associated with nausea. She was admitted for Perforated Gastric Ulcer, s/p repair of perforation and drainage of intraabdominal abscess. s/p brian drain removal with some constipation likely 2/2 opioid use for pain control. # klebsiella Peritonitis 2/2 # Perforated Gastric ulcer s/p exlap and abscess drainage and ulcer repair with Eliecer patch 05/29 # Symptomatic anemia Stable # Transaminitis # Leukocytosis (downtrending) On admission- worsening abdominal pain throughout the abdomen, shortness of breath. Tachycardia to 117. Guarding, rigid tender abdomen on examination. CT abdomen showing perforated gastric ulcer with pneumoperitoneum. Hemoglobin 6.5, hematocrit 20.6 on admission; 2 units transfused, post transfusion hgb 7.8 . AST/ALT/ALP?61/127/338, WBC 21.3. General surgery was consulted by ED Doctor And was told they are going to take her to the surgery. INR 1.1, lactate 0.7, EKG shows sinus tachycardia. Ultrasound gallbladder showing gallbladder wall thickening with pericholecystic fluid. Patient had ulcer repair performed 05/29/25. Peritoneal culture grew Klebsiella, sensitive to Zosyn and anaerobic culture negative Leukocytosis resolved weaning IV pain meds, d/c brian drain today Plan: ?Zosyn to cover gram-negative and anaerobic infection - Flagyl 500 mg q8hr for c/f h pylori given gastric ulceration - Sucralafate 1 gm tid ?IV pantoprazole 40 to suppress acid secretion ?IV dilaudid 1.5mg q3hrs PRN with PO NOROC 10/325 scheduled avoid NSAIDS - General surgery following the case - Full diet, but advise to eat slowly. - d/c ppn as pt able to tolerate diet for caloric needs ? Ativan 1mg BID prn for anxiety ? Lidocaine 5% patch as needed - incentive spiromitor. - monitor LFTs #Constipation likely 2/2 opioid use while in the hospital for pain control post op - colace qd scheduled - glycerin suppository x1 Disposition: med-Tele, IV abx, and bid dressing changes. and pain management DVT prophylaxis: SCDs GI prophylaxis: Pantoprazole, and sucralofate Diet: tolerating clears and soft diet, advance as tolerated , and PPN, will discuss with nutrition about d.c ppn Lines: PIV CODE STATUS: Full Plan discussed with my attending Dr. Rios and my senior resident Dr. Martínez Holloway MD PGY1 Attending Provider Attestation/Addendum Ana Laura Munoz, DO, attest that I was physically present for the nassar portions of the service and evaluated the patient with the resident and I reviewed and discussed the case with the resident and agree with the resident's findings and plans of care as documented above Patient was seen and evaluated this afternoon. Patient is tearful, stating that she is anxious to go home. Patient ate half a sandwich and some Doritos this morning, but stated that she just had 1 episode of emesis. She reports bloating and has not had a bowel movement for 2 days. Wound appears to be well-healed with patricia intact, packing in place, no drainage noted. Patient still requiring pain medication. Will discontinue PPN at this time. Reordered due to constipation. Suspect that she may have opioid-induced constipation. Case was discussed with surgeon, will pull BRIAN drain out this afternoon. Patient can otherwise likely be discharged in a.m. Patient does not appear to have any obstructive symptoms.
--- NOTE | 2025-06-10 10:19 | CHAP ---
Patient was visited by a Spiritual Care Volunteer on 06/09/2025 between 0900 and 1140 and received comfort, encouragement and/or prayer.
--- NOTE | 2025-06-10 11:06 | CHAP ---
Visited with patient giving encouragement and prayer.
[2025-06-10 11:09] LABS: Basophils # (Auto) 0.1 Thou/mm3 (0.0-0.2); Basophils % (Auto) 1 % (0-2.5); Eosinophils # (Auto) 0.2 Thou/mm3 (0.0-0.5); Eosinophils % (Auto) 2 % (0-10); Hematocrit 33.3 % (36.0-46.0); Hemoglobin 10.3 g/dL (12.0-16.0); Immature Granulocytes Auto 0.09 Thou/mm3 (0.00-0.00); Lymphocytes # (Auto) 2.0 Thou/mm3 (1.0-4.8); Lymphocytes % (Auto) 20 % (10-50); Mean Corpuscular HGB Conc 30.9 g/dl (31.0-37.0); Mean Corpuscular Hemoglobin 26.5 pg (25.0-35.0); Mean Corpuscular Volume 86 fL (80-100); Monocytes # (Auto) 0.4 Thou/mm3 (0.0-0.8); Monocytes % (Auto) 5 % (0-12); Neutrophils # (Auto) 6.9 Thou/mm3 (1.8-7.7); Neutrophils % (Auto) 71 % (37-80); Nucleated Red Blood Cell # 0.00 Thou/mm3 (0.00-0.00); Nucleated Red Blood Cell % 0 /100 WBC (0); Platelet Count 778 Thou/mm3 (140-440); RDW Standard Deviation 47.7 fL (36.4-46.3); Red Blood Count 3.88 Miln/mm3 (4.00-5.20); White Blood Count 9.7 Thou/mm3 (3.6-11.0)
[2025-06-10 11:44] LABS: Alanine Aminotransferase 23 U/L (10-49); Albumin, Serum 4.0 gm/dL (3.5-5.0); Albumin/Globulin Ratio 1.3 (1.2-2.2); Alkaline Phosphatase 159 U/L (46-116); Anion Gap 11 (7-16); Aspartate Amino Transferase 19 U/L (0-34); BUN/Creatinine Ratio 20 Ratio (12-20); Bilirubin,Total < 0.2 mg/dL (0.3-1.2); Blood Urea Nitrogen 12 mg/dL (9-23); Calcium 8.8 mg/dL (8.3-10.6); Calcium (Corrected) 8.8 mg/dL (8.5-10.1); Carbon Dioxide 22.9 mMol/L (20.0-31.0); Chloride 105 mMol/L (98-107); Creatinine (Component) 0.6 mg/dL (0.6-1.3); Estimated Creatinine Clearance 109.0 mL/min (>60); Globulin 3.0 gm/dL (2.3-3.5); Glucose 97 mg/dL (74-106); Magnesium 2.1 mg/dL (1.6-2.6); Osmolality,Calculated 277 (275-295); Phosphorous 2.8 mg/dL (2.4-5.1); Potassium 4.1 mMol/L (3.4-5.1); Sodium 139 mMol/L (136-145); Total Protein 7.0 gm/dL (5.7-8.2); eGFR > 60 See Note
[2025-06-10] MEDS: HYDROmorphone INJ 2 MG/ML VIAL 1 MG IVP ×2 (14:10→19:15)
[2025-06-10] MEDS: HYDROCORTISONE 0.5% TOP ×2 (14:14→20:34)
[2025-06-10 16:00] VITALS: BP 99/77; PULSE 93; RESP 18; TEMP 36.4; O2SAT 99
--- NOTE | 2025-06-10 18:09 | ESPR_ITS ---
Documentation for date of: 06/10/25 Subjective Subjective Brief History: History of present was revealed that the patient has been having pain for a couple of weeks and she came to the emergency room 1 week ago and was worked up and discharged she was told that she had a cyst in the ovary. But the pain persisted the past week. Patient was not eating and is not having a bowel movement. She denies any history of fever or chills. The pain became worse yesterday and she came to the emergency room and was found to have a perforated viscus on the CT scan. Patient's past medical history revealed that she had a history of ovarian cyst and endometriosis. She also was found to be anemic with a hemoglobin around 6 g. She does not know that she is anemic. She is not complaining of any rectal bleeding or increased vaginal bleeding. The past medical history revealed that she had ruptured appendicitis for which she was treated here about 20 years ago and then discharged to [facility] where she stayed for 9 months the details of which are not available Narrative: The patient is tolerating diet even though she was nauseated once. She is on solid diet. Exam Vital Signs Temp Pulse Resp BP Pulse Ox O2 Del Method O2 Flow Rate 97.5 F 93 18 99/77 99 Room Air 0.5 06/10/25 16:00 06/10/25 16:00 06/10/25 16:00 06/10/25 16:00 06/10/25 16:00 06/10/25 16:00 06/09/25 12:00 Her vital signs are normal Routine Abdominal Exam Comments: Abdominal examination shows small open wound which is clean and dressed every day. The sump drain on the right side is not draining much. Assessment & Plan Assessment Additional comments: Impression: Patient has made a slow but steady recovery and is beginning to eat Plan Plan: Patient could be discharged and followed up as outpatient in the clinic for wound care as well as for ulcer treatment. PROCEDURES: Procedures Exploratory laparotomy and drainage of the abscess from the abdominal cavity and [place] Eliecer patch of the ulcer
[2025-06-10 20:00] VITALS: BP 112/87; PULSE 85; RESP 17; TEMP 36.6; O2SAT 98
--- NOTE | 2025-06-10 21:39 | PC.NURSE ---
Patient ambulating in hallways with family member.
[2025-06-11] VITALS: BP 105/72; PULSE 87; RESP 17; TEMP 36.1; O2SAT 100
[2025-06-11] MEDS: HYDROmorphone INJ 2 MG/ML VIAL 1 MG IVP ×3 (00:43→09:43)
[2025-06-11 04:00] VITALS: BP 107/72; PULSE 74; RESP 16; TEMP 36.5; O2SAT 99
[2025-06-11] MEDS: SUCRALFATE SUSP 1 GM/10 ML UDC PO ×2 (05:25→14:02)
[2025-06-11] MEDS: metroNIDAZOLE/NS 500 MG IVPB 500 MG/100 ML BAG 200 MG IV (05:26)
[2025-06-11 06:00] VITALS: BMI 28.5
[2025-06-11 06:30] LABS: Basophils # (Auto) 0.1 Thou/mm3 (0.0-0.2); Basophils % (Auto) 1 % (0-2.5); Eosinophils # (Auto) 0.2 Thou/mm3 (0.0-0.5); Eosinophils % (Auto) 2 % (0-10); Hematocrit 30.6 % (36.0-46.0); Hemoglobin 9.5 g/dL (12.0-16.0); Immature Granulocytes Auto 0.06 Thou/mm3 (0.00-0.00); Lymphocytes # (Auto) 2.8 Thou/mm3 (1.0-4.8); Lymphocytes % (Auto) 34 % (10-50); Mean Corpuscular HGB Conc 31.0 g/dl (31.0-37.0); Mean Corpuscular Hemoglobin 26.8 pg (25.0-35.0); Mean Corpuscular Volume 86 fL (80-100); Monocytes # (Auto) 0.6 Thou/mm3 (0.0-0.8); Monocytes % (Auto) 8 % (0-12); Neutrophils # (Auto) 4.5 Thou/mm3 (1.8-7.7); Neutrophils % (Auto) 55 % (37-80); Nucleated Red Blood Cell # 0.00 Thou/mm3 (0.00-0.00); Nucleated Red Blood Cell % 0 /100 WBC (0); Platelet Count 642 Thou/mm3 (140-440); RDW Standard Deviation 47.5 fL (36.4-46.3); Red Blood Count 3.55 Miln/mm3 (4.00-5.20); White Blood Count 8.2 Thou/mm3 (3.6-11.0)
[2025-06-11 06:54] LABS: Alanine Aminotransferase 19 U/L (10-49); Albumin, Serum 3.6 gm/dL (3.5-5.0); Albumin/Globulin Ratio 1.2 (1.2-2.2); Alkaline Phosphatase 140 U/L (46-116); Anion Gap 9 (7-16); Aspartate Amino Transferase 15 U/L (0-34); BUN/Creatinine Ratio 17 Ratio (12-20); Bilirubin,Total 0.2 mg/dL (0.3-1.2); Blood Urea Nitrogen 10 mg/dL (9-23); Calcium 9.1 mg/dL (8.3-10.6); Calcium (Corrected) 9.4 mg/dL (8.5-10.1); Carbon Dioxide 25.1 mMol/L (20.0-31.0); Chloride 107 mMol/L (98-107); Creatinine (Component) 0.6 mg/dL (0.6-1.3); Estimated Creatinine Clearance 109.0 mL/min (>60); Globulin 3.1 gm/dL (2.3-3.5); Glucose 94 mg/dL (74-106); Magnesium 1.9 mg/dL (1.6-2.6); Osmolality,Calculated 280 (275-295); Phosphorous 4.8 mg/dL (2.4-5.1); Potassium 3.5 mMol/L (3.4-5.1); Sodium 141 mMol/L (136-145); Total Protein 6.7 gm/dL (5.7-8.2); eGFR > 60 See Note
[2025-06-11 07:33] VITALS: BP 96/73; PULSE 88; RESP 16; TEMP 36.8; O2SAT 99
--- NOTE | 2025-06-11 08:20 | PD.RESPRO ---
Documentation for date of: 06/11/25 Exam Vital Signs Temp Pulse Resp BP Pulse Ox O2 Del Method O2 Flow Rate 98.2 F 88 16 96/73 99 Room Air 0.5 06/11/25 07:33 06/11/25 07:33 06/11/25 07:33 06/11/25 07:33 06/11/25 07:33 06/11/25 07:33 06/09/25 12:00 Objective Labs 06/11/25 05:46 06/11/25 05:46 Labs: Laboratory Results - last 24 hr 06/10/25 06/11/25 10:37 05:46 WBC 9.7 8.2 RBC 3.88 L 3.55 L Hgb 10.3 L 9.5 L Hct 33.3 L 30.6 L MCV 86 86 MCH 26.5 26.8 MCHC 30.9 L 31.0 RDW Std Deviation 47.7 H 47.5 H Plt Count 778 H D 642 H D Neut % (Auto) 71 55 Lymph % (Auto) [address] [place] % (Auto) 5 8 Eos % (Auto) 2 2 Baso % (Auto) 1 1 Neut # (Auto) 6.9 4.5 Lymph # (Auto) 2.[address] [place] # (Auto) 0.4 0.6 Eos # (Auto) 0.2 0.2 Baso # (Auto) 0.1 0.1 Immature Gran # (Auto) 0.09 H 0.06 H Absolute Nucleated RBC 0.00 0.00 Immature Gran % 1 H 1 H Nucleated RBC % 0 0 Sodium 139 141 Potassium 4.1 3.5 D Chloride 105 107 Carbon Dioxide 22.9 25.1 Anion Gap 11 9 BUN 12 10 Creatinine 0.6 0.6 Estim Creat Clear Calc 109.0 109.0 eGFR > 60 > 60 BUN/Creatinine Ratio 20 17 Glucose 97 94 Calculated Osmolality 277 280 Calcium 8.8 9.1 Corrected Calcium 8.8 9.4 Phosphorus 2.8 4.8 Magnesium 2.1 1.9 Total Bilirubin < 0.2 L 0.2 L AST 19 15 ALT 23 19 Alkaline Phosphatase 159 H 140 H Total Protein 7.0 6.7 Albumin 4.0 3.6 Globulin 3.0 3.1 Albumin/Globulin Ratio 1.3 1.2 Quality Measures Quality Measures VTE prophylaxis Assessment & Plan Assessment Current Active Medications: Generic Name Dose Route Start Last Admin Trade Name Freq PRN Reason Stop Dose Admin Hydrocodone Bitart/Acetaminophen 1 tab 06/08/25 16:00 06/11/25 04:09 Hydrocodone/Apap 10/325 Tab PO 06/13/25 15:59 1 tab Q6H SALUD Administration Diphenhydramine HCl 25 mg 06/08/25 16:21 Diphenhydramine 25 Mg Capsule PO 07/08/25 16:19 Q12HR PRN itching Docusate Sodium 100 mg 06/11/25 09:00 Docusate Sod 100 Mg Capsule PO 07/11/25 08:59 QDAY SALUD Protocol Heparin Sodium (Porcine) 5,000 unit 06/03/25 21:00 06/10/25 20:38 Heparin Sod Inj 5000 Unit/Ml Vial SC 06/17/25 20:59 Not Given BID SALUD Hydrocortisone 0 gm 06/07/25 09:45 06/10/25 20:34 Hydrocortisone Cr 0.5% 30 Gm Tube TOP 07/07/25 09:44 1 applicatio BID SALUD Administration Hydromorphone HCl 1 mg 06/10/25 13:41 Hydromorphone Inj 2 Mg/Ml Vial IVP X1 PRN before brian drain removal Hydromorphone HCl 0.5 mg 06/11/25 08:13 Hydromorphone Inj 2 Mg/Ml Vial IVP 06/15/25 08:32 Q6HR PRN Pain 7-10 Metronidazole 500 mg in 100 mls @ 200 mls/hr 06/06/25 08:36 06/11/25 05:26 Flagyl 500 Mg Iv IV 06/13/25 08:35 200 mls/hr Q8HR SALUD Administration Lidocaine 1 patch 05/30/25 12:34 06/02/25 21:17 Lidocaine 5% 1 Patch TOP 06/29/25 12:33 1 patch UD PRN Administration TOPICAL PAIN Protocol Lorazepam 0.5 mg 06/09/25 10:34 06/11/25 00:47 Lorazepam 0.5 Mg Tablet PO 06/14/25 10:33 0.5 mg Q8HR PRN Administration ANXIETY Ondansetron HCl 4 mg 05/29/25 02:41 Ondansetron Inj 2 Mg/Ml Inj 2 Ml IVP 06/28/25 02:40 Q6H PRN NAUSEA OR VOMITING Protocol Pantoprazole Sodium 40 mg 05/29/25 03:30 06/10/25 20:34 Pantoprazole Inj 40 Mg Vial IVP 06/28/25 03:29 40 mg BID SALUD Administration Pharmacy Consult 1 each 06/01/25 10:34 Pha To Consult Parenteral Nutr 1 Each Each XX 07/01/25 10:33 PRN PRN CONSULT Phenol/Menthol 0 ml 06/02/25 13:31 06/03/25 16:23 Phenol/Na Phenolate (Chloraseptic) [place] 180 Ml Btl PO 07/02/25 13:30 1 spray Q6HR PRN Administration SORE THROAT Sucralfate 1 gm 06/06/25 08:30 06/11/25 05:25 Sucralfate Susp 1 Gm/10 Ml Udc PO 07/06/25 08:29 1 gm TID SALUD Administration
[2025-06-11] MEDS: DOCUSATE SOD 100 MG CAPSULE PO (08:43)
--- NOTE | 2025-06-11 09:39 | ESDS_ITS ---
<Statement entered by Ana Laura Rios DO - 06/11/25 15:47> I, Ana Laura Rios DO, attest that I was physically present for the nassar portions of the service and evaluated the patient with the resident and I reviewed and discussed the case with the resident and agree with the resident's findings and plans of care as documented above Planned Discharge Date 06/11/25 DS: Providers Provider Date of admission: 05/29/25 02:41 Primary care physician: Physician No Primary/Family Admitting Provider: Viri Malik MD Attending Provider on Admission: Ana Laura Rios DO Consults: 05/29/25 02:34 Consult to General Surgery Stat Comment: Consulting Provider: Edson Hargrove 05/29/25 12:23 Referral [facility] [place] Routine Comment: Referral Registered Dietitian Routine Comment: 06/01/25 11:28 Referral Registered Dietitian Routine Comment: evalute patient for ppn 06/05/25 17:38 Referral Wound Care Routine Comment: 06/10/25 09:02 Referral OP Wound Healing Dept Routine Comment: Midline surgical incision, distal end open packing Attending Provider on DC: Ana Laura Rios DO Discharging Provider: Ana Laura Rios DO DS: Diagnosis Problem List Completed Was Problem List Reviewed/Reconciled?: Yes Hospital Course Hospital Course Hospital course: Hospital Course Ms. Kwan is a 34-year-old woman with PMH of recurrent UTIs, kidney stones presented to the ED with complaints of worsening abdominal pain associated with nausea who was found to have Findings most consistent with gastric ulcer perforation at the level of the antrum pylorus with perigastric fluid collection and pneumoperitoneum on CTAP. she underwent ex lap with general surgery for repair of the perforation and drainage of an intrabdominal abscess on 05/29. RICK drain was removed on 06/10. Her incision was closed primarily with patricia in place, however the a couple of patricia near the umbilius were removed and dressed with packing that was changed bid. Her systemic signs of infection resolved with IV abx (zosyn) and metronidozole given surgeon concerns for possible h pylori. Patient was also placed on PPN, but has since been able to tolerate PO intake. Patient currently tolerating regular diet and has been weaned off of IV pain medications. Patient stable and medically cleared for discharge. Diagnoses # klebsiella Peritonitis 09/07 # Perforated Gastric ulcer s/p exlap and abscess drainage and ulcer repair with Eliecer patch 05/29 # Symptomatic anemia Stable # Transaminitis # Leukocytosis (downtrending) # Constipation Discharge instructions -Follow up with PCP within 1 week of discharge, if you do not have a primary care physician you can come see us at the [facility] by calling [phone] - Follow up with Dr. Pond (surgeon) on Tuesday 06/12. - continue ambulating to promote bowel movements - continue abdominal wound care twice a day as previously instructed - Please avoid all NSAIDS (such as ibuprofen, aspirin, Motrin, advil ) - OK to take Tylenol 500 mg every 6 hours for mild pain - You will be sent home with NORCO 5-325, ok to take 1 tab for moderate pain, and ok to take 2 tabs for severe pain - Your diet should avoid trigger foods like spicy, fatty, or acidic foods, as well as alcohol and caffeine, while focusing on a balanced diet of lean proteins, whole grains, and plenty of fruits and vegetables - Continue rest of medications as previously prescribed - Return to the ED or call EMS if symptoms return and/or worsen Plan discussed with my attending Dr. Rios and my senior resident Dr. Martínez Holloway MD PGY1 Time Spent with Patient Time attestation: Total time spent providing and/or coordinating discharge services: Time spent: Greater than 30 minutes Exam Vital Signs Temp Pulse Resp BP Pulse Ox O2 Del Method O2 Flow Rate 98.2 F 88 16 96/73 99 Room Air 0.5 06/11/25 07:33 06/11/25 07:33 06/11/25 07:33 06/11/25 07:33 06/11/25 07:33 06/11/25 07:06/09/25 12:00 Narrative Exam General: A/O x3, appears more comfortable , well-nourished, well-developed, depressed affect. Eyes: PERRL, EOMI. Anicteric, vision grossly intact. Ears: No ear pain, no ear discharge, Hearing grossly intact. Nose: No nasal discharge. Mouth/Throat: Moist mucous membranes, no redness, no lesions. Neck: Neck supple, non-tender, no cervical lymphadenopathy. Lungs: Clear OLESYA to auscultation and percussion, No accessory muscle use. Cardio: Normal S1/S2, regular rhythm, tachycardic to 100s no murmurs, no JVD or carotid bruits. Abdomen: tender with deep palpation; wound not visualized on exam today, abdominal binder in place, abdomen is less tender than prior, and less distended. Extremities: Symmetrical, no significant deformities, non-tender, peripheral pulses present. Skin: No rashes, no lesions, warm to touch. Neuro: No focal neurological deficits. Psych: Cooperative, appropriate mood and effect, anxious., depressed and withdrawn affect. Discharge Plan Plan Patient Disposition: HOME (Self Care) Patient condition on transfer: Stable Care Plan Goals: -Follow up with PCP within 1 week of discharge, if you do not have a primary care physician you can come see us at the [facility] by calling [phone] - Follow up with Dr. Pond (surgeon) on Tuesday 06/12. Call [phone] for appointment time[address] [place], [place] [id number]. - continue ambulating to promote bowel movements - continue abdominal wound care once a day as previously instructed - Please avoid all NSAIDS (such as ibuprofen, aspirin, Motrin, advil ) - OK to take Tylenol 500 mg every 6 hours for mild pain - You will be sent home with NORCO 5-325, ok to take 1 tab for moderate pain, and ok to take 2 tabs for severe pain - Your diet should avoid trigger foods like spicy, fatty, or acidic foods, as well as alcohol and caffeine,limit carbination while focusing on a balanced diet of lean proteins, whole grains, and plenty of fruits and vegetables - Continue rest of medications as previously prescribed - Return to the ED or call EMS if symptoms return and/or worsen -Follow up at [facility], [address] [place] [address]. Call [phone] for appointment. -May shower with water directed towards your back, not directly on your wound site. Change dressing after showering. -Wound care directions to abdomen: Wash hands with soap and water, apply gloves, remove old dressing. Saturate packing strip with normal saline to help loosen before removal. Once all packing is removed, irrigate well with normal saline and pat dry with gauze. Wash hands again or change gloves. Pack wound with 1/2 inch strip packing until resistance is felt and cavity is filled. Cover with dry gauze and secure with tape. Change dressing once a day and as needed for saturating or falling off - We will follow up with the result Urine analysis and send antibiotics if indicated. If active bleeding occurs, apply tight dressing and return to MD or ER. ? Notify primary doctor or return to Emergency Room if any of the following: ? Fever above 100.6? F. ? Increased pain ? Increase swelling ? Red streaks around your wound ? Drainage becomes foul smelling or changes color ? The wound is larger or deeper ? The wound looks dried out or dark ? Bleeding that does not stop with holding pressure Prescriptions/Referrals Prescriptions/Med Rec: New hydrocodone-acetaminophen 5-325 mg tablet 1 tab PO Q6H MDD 4 PRN (Reason: pain) 7 Days Qty: 30 0RF sennosides-docusate sodium [Senna with Docusate Sodium] 8.6-50 mg tablet 1 tab-cap PO QDAY PRN (Reason: constipation) Qty: 30 0RF sucralfate [Carafate] 1 gram tablet 1 g PO TID 30 Days Qty: 90 0RF pantoprazole [Protonix] 40 mg tablet,delayed release (DR/EC) 40 mg PO QDAY Qty: 30 0RF Discontinued hydrocodone-acetaminophen 5-325 mg tablet 1 tab PO BID MDD 10mg PRN (Reason: pain) Qty: 10 0RF famotidine 40 mg tablet 40 mg PO .bedtime Qty: 30 0RF omeprazole 40 mg capsule,delayed release(DR/EC) 40 mg PO QDAY Qty: 30 0RF hydrocodone-acetaminophen 5-325 mg tablet 2 tab PO Q8H MDD 6 PRN (Reason: pain) Qty: 20 0RF omeprazole 20 mg capsule,delayed release(DR/EC) 20 mg PO QDAY MDD 1 Qty: 20 0RF hydrocodone-acetaminophen 5-325 mg tablet 1 tab PO Q6H MDD 4 PRN (Reason: pain) Qty: 20 0RF doxycycline monohydrate 100 mg capsule 100 mg PO BID MDD 2 Qty: 20 0RF hydrocodone-acetaminophen 5-325 mg tablet 2 tab PO Q8H MDD 6 PRN (Reason: pain) Qty: 20 0RF Referrals: No Primary/Family,Physician [Primary Care Provider] Patient/Caregiver Discharge Instructions Education Materials: Nutrition for Wound Healing, Incision Care Abdomen Dc, Wound Care Dc, Discharge Instructions Wound ..., Preventing Surgical Site Infections, Understanding Gastric Ulcers, Understanding Perforated Ulcers, Taking Opioid Medicines Print Language: [place] Stand Alone Forms: Talisha Award Info., Patient Portal Info Letter Discharge Order Discharge Orders: Discharge (Routine); Ordered 06/11/25 Ordered By: Selin Holloway Quality Discharge Quality Measures VTE prophylaxis
[2025-06-11] MEDS: GLYCERIN, ADULT 1 EA SUPP 1 EACH PR (10:49)
[2025-06-11 11:16] VITALS: BP 119/75; PULSE 87; RESP 16; TEMP 36.5; O2SAT 98
[2025-06-11 14:46] LABS: Collection Type, Urine Clean Catch
[2025-06-11 14:52] LABS: Bilirubin,Urine Negative (Negative); Blood,Urine Negative (Negative); Color,Urine Yellow (Lt Yel-Yel); Culture Indicated,Urine Not Indicated; Glucose, Urine Negative (Negative); Ketones,Urine Negative (Negative); Leukocyte Esterase,Urine Positive (Negative); Nitrite,Urine Negative (Negative); PH,Urine 6.0 (5.0-7.0); Protein,Urine Negative (Neg - Trace); RBC,Urine 4 /hpf (0-3); Specific Gravity,Urine 1.019 (1.001-1.035); Squamous Epithelial Cell,Urine 33 /hpf (0-5); Urobilinogen,Urine Negative mg/dL (0.0-1.0); WBC,Urine 4 /hpf (0-5)
[2025-06-11 14:55] LABS: Clarity,Urine Hazy (Clear/Hazy)
== END 2025-06-11 14:45 | disposition home or self-care (01) | DRG 222 ==
LOC: SERX 05-29 01:59 → SERHOLD 05-29 04:28 → S2NX 05-29 10:31 → S3SX 06-02 18:13 → S3NX 06-09 17:34
PROVIDERS: Nurse Practitioner Primary Care; Physician Assistant; Surgery; Admitting Provider Student in an Organized Health Care Education/Training Program; Emergency Provider Emergency Medicine; Visit Provider Internal Medicine
PROC: (CPT 49000; principal; 2025-05-29 05:30)
DX: K25.5 Chronic or unspecified gastric ulcer with perforation (principal); K65.1 Peritoneal abscess; K59.00 Constipation, unspecified; D64.9 Anemia, unspecified; F41.9 Anxiety disorder, unspecified; T81.30XA Disruption of wound, unspecified, initial encounter; K66.0 Peritoneal adhesions (postprocedural) (postinfection); F32.A Depression, unspecified; Z87.442 Personal history of urinary calculi; Z87.440 Personal history of urinary (tract) infections; Z59.71 Insufficient health insurance coverage; Z90.49 Acquired absence of other specified parts of digestive tract; B96.1 Klebsiella pneumoniae [K. pneumoniae] as the cause of diseases classified elsewhere
CPT/HCPCS: 36415; 74177; 74240; 76705; 76856; 80053; 80061; 81001; 81025; 83605; 83690; 83735; 84100; 84145; 84443; 84478; 85014; 85018; 85025; 85610; 85730; 86850; 86900; 86901; 86923; 87040; 87070; 87075; 87186; 87205; 93005; 93225; 96365; 96375; 96376; 99283; A4649; J0131; J0612; J0613; J1100; J1171; J1200; J1644; J1885; J2060; J2250; J2270; J2405; J2470; J2543; J2704; J3010; J3410; J3411; J3475; J3480; J3490; J7030; J7042; J7120; P9016; P9047; Q9963; Q9967; Q9968; A9270; J1805; J1836; P0947

== ENCOUNTER 2025-06-15 04:28 | Emergency (ER) | payer MEDICAID, SELFPAY ==
[2025-06-15 04:31] VITALS: BMI 27.5
[2025-06-15 04:46] VITALS: BP 115/77; PULSE 91; RESP 18; TEMP 36.3; O2SAT 98
[2025-06-15 05:08] VITALS: BP 115/68; PULSE 86; RESP 14; O2SAT 99
--- NOTE | 2025-06-15 05:22 | EDRME_ITS ---
Rapid Medical Screening Exam RME Arrival date/time: 06/15/25 04:28 Chief Complaint: Abdominal Pain Time Seen by Provider: 06/15/25 05:01 Vital signs: Vital Signs Temperature 97.4 F 06/15/25 04:46 Pulse Rate 91 06/15/25 04:46 Respiratory Rate 18 06/15/25 04:46 Blood Pressure 115/77 06/15/25 04:46 Pulse Oximetry (%) 98 06/15/25 04:46 Oxygen Delivery Method Room Air 06/15/25 04:46 RME Narrative: 34yo female who was recently admitted after having epigastric abdominal pain in 05/2025 and found to have a perforated peptic ulcer and drainage of intraabdominal abscess, was admitted for over 2 weeks and ultimately improved on antibiotic therapy, discharged home 4 days [employer] now presenting with predominantly upper abdominal/epigastric pain in the same location as that experienced prior to surgery. Reports pleuritic chest pain and mild shortness of breath. No reported fever. Also notes no bowel movement for ~1 week. Exam: Appears apprehensive, mildly distended abdomen with [id number] tenderness at the epigastric region, no peritoneal findings Clinical Impression: postoperative abdominal pain, r/o ileus versus obstruction
[2025-06-15] MEDS: ONDANSETRON INJ 2 MG/ML INJ 2 ML 4 MG IVP ×2 (05:23→07:52)
[2025-06-15] MEDS: HYDROmorphone INJ 2 MG/ML VIAL 0.5 MG IVP ×2 (05:23→06:14)
[2025-06-15] MEDS: SODIUM CHLORIDE 0.9% 1000 ML 1,000 ML 999 ML IV (05:24)
--- NOTE | 2025-06-15 05:34 | XR_ITS ---
EXAMINATION: Abdominal series 3 views including upright PA chest TECHNIQUE: Upright PA chest AP upright AP supine abdomen 3 views Date and time: June 15, 2025, 0842 hours INDICATIONS: Postop May 28, 2025 with severe abdominal pain. FINDINGS: Atelectasis versus pneumonia left base Opacification of the renal calyces Mid abdomen patricia Moderate stool throughout the colon No obstruction No free air IMPRESSION: Nonobstructive bowel gas pattern
[2025-06-15 05:55] LABS: Lactate (Lactic Acid) 1.3 mMol/L (0.4-2.0)
[2025-06-15 05:57] LABS: Basophils # (Auto) 0.1 Thou/mm3 (0.0-0.2); Basophils % (Auto) 1 % (0-2.5); Eosinophils # (Auto) 0.2 Thou/mm3 (0.0-0.5); Eosinophils % (Auto) 3 % (0-10); Hematocrit 32.0 % (36.0-46.0); Hemoglobin 9.8 g/dL (12.0-16.0); Immature Granulocytes Auto 0.02 Thou/mm3 (0.00-0.00); Lymphocytes # (Auto) 3.1 Thou/mm3 (1.0-4.8); Lymphocytes % (Auto) 46 % (10-50); Mean Corpuscular HGB Conc 30.6 g/dl (31.0-37.0); Mean Corpuscular Hemoglobin 26.6 pg (25.0-35.0); Mean Corpuscular Volume 87 fL (80-100); Monocytes # (Auto) 0.4 Thou/mm3 (0.0-0.8); Monocytes % (Auto) 5 % (0-12); Neutrophils # (Auto) 3.1 Thou/mm3 (1.8-7.7); Neutrophils % (Auto) 45 % (37-80); Nucleated Red Blood Cell # 0.00 Thou/mm3 (0.00-0.00); Nucleated Red Blood Cell % 0 /100 WBC (0); Platelet Count 556 Thou/mm3 (140-440); RDW Standard Deviation 47.7 fL (36.4-46.3); Red Blood Count 3.69 Miln/mm3 (4.00-5.20); White Blood Count 6.9 Thou/mm3 (3.6-11.0)
[2025-06-15 06:05] LABS: Anion Gap 6 (7-16); BUN/Creatinine Ratio 20 Ratio (12-20); Blood Urea Nitrogen 12 mg/dL (9-23); Calcium 9.2 mg/dL (8.3-10.6); Carbon Dioxide 28.6 mMol/L (20.0-31.0); Chloride 106 mMol/L (98-107); Creatinine (Component) 0.6 mg/dL (0.6-1.3); Estimated Creatinine Clearance 110.3 mL/min (>60); Glucose 85 mg/dL (74-106); Osmolality,Calculated 279 (275-295); Potassium 3.9 mMol/L (3.4-5.1); Sodium 141 mMol/L (136-145); eGFR > 60 See Note
[2025-06-15 07:04] LABS: Beta HCG,Quantitative < 1 mIU/mL (<5.0)
[2025-06-15 07:18] VITALS: BP 124/65; PULSE 94; RESP 19; TEMP 37.1; O2SAT 96
--- NOTE | 2025-06-15 07:39 | XR_ITS ---
Examination: CT abdomen with intravenous contrast CT pelvis with intravenous contrast 2-D coronal reconstructions 2-D sagittal reconstructions Date and time of exam: June 15, 2025, 0833 hours, comparison May 29, 2025 INDICATION: Recent abdominal surgery 2 weeks ago with pain and drainage at the incision site. CTDI: vol (mGy) 8.01 DLP: (mGycm) 452 Technique: Multiple axial sections of the abdomen and pelvis have been obtained. 64 slice high-resolution scanner used. 3 mm axial sections have been obtained, post intravenous injection 60 cc Isovue-370 2-D sagittal, coronal reconstructions obtained. Low dose protocols were performed. One or more of the following dose reduction techniques were used; automated exposure control, adjustment of the mA and/or KV according to patient size, use of iterative reconstruction technique. Findings: Atelectasis versus mild pneumonia at both bases No visualized liver or splenic lesion Pneumoperitoneum consistent with postsurgical status Gallbladder wall appears thickened No pancreatic or adrenal mass No renal or ureteral calculi, no hydronephrosis Small fat-containing umbilical hernia Abundant stool in the right colon No abdominal or pelvic abscess Anteverted uterus Prominent left ovary 4.8 cm Contracted urinary bladder Moderate disc narrowing L5-S1 IMPRESSION: Postop pneumoperitoneum Recommend hepatobiliary sonography follow-up to exclude gallbladder wall thickening No abdominal or pelvic abscess Recommend pelvic sonography to assess prominent left ovary
[2025-06-15] MEDS: MORPHINE SULF INJ 4 MG/ML VIAL IVP (07:52)
[2025-06-15 08:04] LABS: Collection Type, Urine Clean Catch
[2025-06-15 08:20] LABS: Bilirubin,Urine Negative (Negative); Blood,Urine Negative (Negative); Clarity,Urine Clear (Clear/Hazy); Color,Urine Lt-Yellow (Lt Yel-Yel); Culture Indicated,Urine Not Indicated; Glucose, Urine Negative (Negative); Ketones,Urine Negative (Negative); Leukocyte Esterase,Urine Negative (Negative); Nitrite,Urine Negative (Negative); PH,Urine 6.0 (5.0-7.0); Protein,Urine Negative (Neg - Trace); RBC,Urine 3 /hpf (0-3); Specific Gravity,Urine 1.014 (1.001-1.035); Squamous Epithelial Cell,Urine 2 /hpf (0-5); Urobilinogen,Urine Negative mg/dL (0.0-1.0); WBC,Urine 1 /hpf (0-5)
--- NOTE | 2025-06-15 08:49 | EDNOTE_ITS ---
ED Abdominal Pain RME/HPI General Chief Complaint: Abdominal Pain Stated complaint: POST OP ABD PAIN Time seen by provider: 06/15/25 05:01 Arrival date/time: 06/15/25 04:28 RME / HPI RME / HPI narrative: 34 yo female who was recently admitted after having epigastric abdominal pain in 05/2025 and found to have a perforated peptic ulcer and drainage of intraabdominal abscess, was admitted for over 2 weeks and ultimately improved on antibiotic therapy, discharged home 4 days [employer] now presenting with predominantly upper abdominal/epigastric pain in the same location as that experienced prior to surgery. Reports pleuritic chest pain and mild shortness of breath. No reported fever. Also notes no bowel movement for ~1 week. Exam: Appears apprehensive, mildly distended abdomen with cwtn-kc-mllycyvi tenderness at the epigastric region, no peritoneal findings Impression: postoperative abdominal pain, r/o ileus versus obstruction Related Data Previous Rx's ?Medication ?Instructions ?Recorded hydrocodone 5 mg-acetaminophen 325 1 tab PO Q6H PRN pa in 7 days #30 06/11/25 mg tablet tabs pantoprazole 40 mg tablet,delayed 40 mg PO QDAY #30 ta bs 06/11/25 release (Protonix) sennosides 8.6 mg-docusate sodium 1 tab-cap PO QDAY WI N constipation 06/11/25 50 mg tablet (Senna with Docusate #30 tabs Sodium) sucralfate 1 gram tablet (Carafate) 1 g PO TID 30 days #90 tabs 06/11/25 polyethylene glycol 3350 17 17 g PO QDAY PRN constipat ion #238 06/15/25 gram/dose oral powder (Miralax) grams sucralfate 100 mg/mL oral 10 ml PO QID #300 mL 5 suspension Allergies Allergy/AdvReac Type Severity Reaction Status Date / Time No Known Allergies Allergy Verified 06/15/25 04:42 Review of Systems Review of Systems Systems Reviewed: All systems reviewed, normal except as documented Past Medical History Past Medical History NEUROLOGIC: Positive Migraine GASTROINTESTINAL: Positive Gastrointestinal Disorders GENITOURINARY: Positive Genitourinary Disorders and Kidney Stones HEMATOLOGIC: Positive Blood Disorders and Anemia OTHER HISTORY: Positive Blood Transfusions Family History FAMILY HISTORY: Positive Family Cardiac Disorders Surgical History SURGICAL: Positive Abdominal Surgery Social History SMOKING STATUS: Never smoker SECOND HAND EXPOSURE: No ED Exam Narrative Physical exam: GENERAL APPEARANCE: alert and oriented x 4, well-developed, well-nourished, appears apprehensive HEENT: Normocephalic, atraumatic; pupils equal, round, reactive to light; EOMI; mucous membranes pink, moist; oropharynx clear NECK: Supple LUNGS: CTABL; no wheezes, no rales, no rhonchi HEART: Regular rate, regular rhythm; normal S1, S2; no murmurs ABDOMEN: mildly distended; normal BS; soft, ykuy-ge-ekoorbqb tenderness at the epigastric region, no guarding, no rebound; no masses, no organomegaly, no hernia BACK: no CVA tenderness EXTREMITIES: atraumatic; no edema NEUROLOGIC: awake; alert and oriented x4; cranial nerves II-XII grossly intact; no focal sensory or motor deficits PSYCHIATRIC: appropriate mood and affect SKIN: warm, dry, normal color; no rashes Course Quality Measures none Orders Category Date Time Status CT Screening NOW Care 06/15/25 07:[address] abdomen pelvis w con Stat Exams 06/15/25 07:39 Completed XR abdomen series w chest 1V Stat Exams 06/15/25 05:34 Completed BMP [Basic Metabolic Panel] Stat Lab 06/15/25 05:26 Completed Beta HCG,Quantitative Stat Lab 06/15/25 05:26 Completed Blood Culture (Lab) Stat Lab 06/15/25 06:36 Received CBC Stat Lab 06/15/25 05:26 Completed Lactate (Lactic Acid) Stat Lab 06/15/25 05:26 Completed UA, C/S IF [Urinalysis, C/S if Indicated] Stat Lab 06/15/25 07:46 Completed HYDROmorphone INJ [Dilaudid Inj] Med 06/15/25 05:13 Discontinued 0.5 mg IVP X1 ONE HYDROmorphone INJ [Dilaudid Inj] Med 06/15/25 06:08 Discontinued 0.5 mg IVP X1 ONE Ketorolac Inj [Toradol Inj] Med 06/15/25 08:56 Discontinued 15 mg IVP X1 ONE Lidocaine 2% Viscous [Xylocaine 2% Viscous] Med 06/15/25 09:27 Discontinued 15 ml PO X1 ONE Magnesium Citrate Liqd [Citrate of Magnesia Liqd] Med 06/15/25 10:44 Discontinued 300 ml PO X1 ONE Morphine* Inj Med 06/15/25 07:32 Discontinued 4 mg IVP X1 ONE Ondansetron Inj [Zofran Inj] Med 06/15/25 05:13 Discontinued 4 mg IVP X1 ONE Ondansetron Inj [Zofran Inj] Med 06/15/25 07:32 Discontinued 4 mg IVP X1 ONE Sodium Chloride 0.9% 1000 ml [Ns] 1,000 ml Med 06/15/25 05:14 Discontinued IV 999 mls/hr mg Hyd/Al Hyd/Chang Susp [Maalox Susp] Med 06/15/25 09:27 Discontinued 30 ml PO X1 ONE Vital Signs Vital signs: Vital Signs Temperature 97.4 F 06/15/25 04:46 Pulse Rate 91 06/15/25 04:46 Respiratory Rate 18 06/15/25 04:46 Blood Pressure 115/77 06/15/25 04:46 Pulse Oximetry (%) 98 06/15/25 04:46 Oxygen Delivery Method Room Air 06/15/25 04:46 Pulse ox is 98% on room air which is adequate. Abdominal Pain MDM MDM Narrative MDM Narrative:: Belle Munoz am scribing for and in the presence of Dr. Maravilla. 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 External records reviewed:: [facility] previous records (I reviewed admission from 05/29/2025 through 06/11/2025 ) Clinical information provided by:: patient Social determinants that could affect healthcare access:: none Patient has the following chronic illnesses:: perforated peptic ulcer and drainage of intraabdominal abscess, was admitted for over 2 weeks and ultimately improved on antibiotic therapy, discharged home 4 days [employer] How is presenting disease/condition affected by chronic disease/condition?: exacerbated by Evaluation data The following diagnostics were reviewed and interpreted by me:: lab results and radiology exam(s) Lab and/or radiology exams considered but not ordered:: None Interpretation Summary: Ordering Physician: Yosvany Franco DO Date of Service: 06/15/25 Procedure(s): XR abdomen series w chest 1V Accession Number(s): [id number] cc: Yosvany Franco DO; Dewayne Bennett MD; Dinesh Arevalo MD~ EXAMINATION: Abdominal series 3 views including upright PA chest TECHNIQUE: Upright PA chest AP upright AP supine abdomen 3 views Date and time: June 15, 2025, 0842 hours INDICATIONS: Postop May 28, 2025 with severe abdominal pain. FINDINGS: Atelectasis versus pneumonia left base Opacification of the renal calyces Mid abdomen patricia Moderate stool throughout the colon No obstruction No free air IMPRESSION: Nonobstructive bowel gas pattern Dictated By: Dinesh Arevalo MD Signed By: <Electronically signed by Dinesh Arevalo MD in OV> 06/15/25 0905 ========= Ordering Physician: Leonor Maravilla MD Date of Service: 06/15/25 Procedure(s): CT abdomen pelvis w con Accession Number(s): [id number] cc: Dewayne Bennett MD; Dinesh Arevalo MD; Leonor Maravilla MD~ Examination: CT abdomen with intravenous contrast CT pelvis with intravenous contrast 2-D coronal reconstructions 2-D sagittal reconstructions Date and time of exam: June 15, 2025, 0833 hours, comparison May 29, 2025 INDICATION: Recent abdominal surgery 2 weeks ago with pain and drainage at the incision site. CTDI: vol (mGy) 8.01 DLP: (mGycm) 452 Technique: Multiple axial sections of the abdomen and pelvis have been obtained. 64 slice high-resolution scanner used. 3 mm axial sections have been obtained, post intravenous injection 60 cc Isovue-370 2-D sagittal, coronal reconstructions obtained. Low dose protocols were performed. One or more of the following dose reduction techniques were used; automated exposure control, adjustment of the mA and/or KV according to patient size, use of iterative reconstruction technique. Findings: Atelectasis versus mild pneumonia at both bases No visualized liver or splenic lesion Pneumoperitoneum consistent with postsurgical status Gallbladder wall appears thickened No pancreatic or adrenal mass No renal or ureteral calculi, no hydronephrosis Small fat-containing umbilical hernia Abundant stool in the right colon No abdominal or pelvic abscess Anteverted uterus Prominent left ovary 4.8 cm Contracted urinary bladder Moderate disc narrowing L5-S1 IMPRESSION: Postop pneumoperitoneum Recommend hepatobiliary sonography follow-up to exclude gallbladder wall thickening No abdominal or pelvic abscess Recommend pelvic sonography to assess prominent left ovary Dictated By: Dinesh Arevalo MD Signed By: <Electronically signed by Dinesh Arevalo MD in OV> 06/15/25 0912 Medications / Prescriptions Medications or Prescriptions considered but not ordered:: None Medication administrations:: Medication Administration History Discontinued Medications Al Hydrox/Mg Hydrox/Simethicone (Mg Hyd/Al Hyd/Chang (Maalox Reg) Susp 30 Ml Udc) 30 ml PO X1 ONE Stop: 06/15/25 09:28 Last Admin: 06/15/25 09:42 Dose: 30 ml Documented By: VL Hydromorphone HCl (Hydromorphone Inj 2 Mg/Ml Vial) 0.5 mg IVP X1 ONE Stop: 06/15/25 05:14 Last Admin: 06/15/25 05:23 Dose: 0.5 mg Documented By: DT Hydromorphone HCl (Hydromorphone Inj 2 Mg/Ml Vial) 0.5 mg IVP X1 ONE Stop: 06/15/25 06:09 Last Admin: 06/15/25 06:14 Dose: 0.5 mg Documented By: DT Sodium Chloride (Ns) 1,000 mls @ 999 mls/hr IV .Q1H1M ONE Stop: 06/15/25 06:14 Last Infusion: 06/15/25 06:25 Dose: Infused Documented By: Admin: 06/15/25 05:24 Dose: 999 mls/hr Documented By: DT Ketorolac Tromethamine (Ketorolac Inj 30 Mg/Ml Vial) 15 mg IVP X1 ONE Stop: 06/15/25 08:57 Last Admin: 06/15/25 09:23 Dose: 15 mg Documented By: VL Lidocaine HCl (Lidocaine Viscous 2% 15 Ml Udc) 15 ml PO X1 ONE Stop: 06/15/25 09:28 Last Admin: 06/15/25 09:42 Dose: 15 ml Documented By: VL Magnesium Citrate (Magnesium Citrate 300 Ml Btl) 300 ml PO X1 ONE Stop: 06/15/25 10:45 Last Admin: 06/15/25 10:56 Dose: 300 ml Documented By: VL Morphine Sulfate (Morphine Sulf Inj 4 Mg/Ml Vial) 4 mg IVP X1 ONE Stop: 06/15/25 07:33 Last Admin: 06/15/25 07:52 Dose: 4 mg Documented By: VL Ondansetron HCl (Ondansetron Inj 2 Mg/Ml Inj 2 Ml) 4 mg IVP X1 ONE; Protocol Stop: 06/15/25 05:14 Last Admin: 06/15/25 05:23 Dose: 4 mg Documented By: DT Ondansetron HCl (Ondansetron Inj 2 Mg/Ml Inj 2 Ml) 4 mg IVP X1 ONE Stop: 06/15/25 07:33 Last Admin: 06/15/25 07:52 Dose: 4 mg Documented By: DAVID See above Consultations Consultation(s) initiated? (list below): No Diagnosis Differential diagnosis abdominal pain: abdominal pain, constipation and small bowel obstruction Most likely diagnosis given after review of the tests above:: Constipation Abdominal pain Gastritis Admission Indicated Admission indicated?: not indicated Explain why admission is indicated or not indicated:: With no condition needing emergent intervention, there was no indication for admission. Admission Request Was there a request for admission?: No Disposition Plan Disposition Plan: Discharge Discharge Attestation Discharge Attestation: The patient and all family members were given an opportunity to ask questions and understood the discharge instructions. Discharge instructions specifically effects, indications for sooner follow up or return to the emergency department, and the expected course of current diagnosis. Patient condition: Stable Discharge Plan Plan Patient Disposition: HOME (Self Care) Prescriptions/Referrals Prescriptions/Med Rec: New sucralfate 100 mg/mL suspension 10 ml PO QID Qty: 300 0RF Rx Instructions: swish in mouth and swallow; use after food/drink polyethylene glycol 3350 [Miralax] 17 gram/dose powder 17 g PO QDAY PRN (Reason: constipation) Qty: 238 0RF No Action hydrocodone-acetaminophen 5-325 mg tablet 1 tab PO Q6H MDD 4 PRN (Reason: pain) 7 Days Qty: 30 0RF sennosides-docusate sodium [Senna with Docusate Sodium] 8.6-50 mg tablet 1 tab-cap PO QDAY PRN (Reason: constipation) Qty: 30 0RF sucralfate [Carafate] 1 gram tablet 1 g PO TID 30 Days Qty: 90 0RF pantoprazole [Protonix] 40 mg tablet,delayed release (DR/EC) 40 mg PO QDAY Qty: 30 0RF Referrals: Dewayne Bennett MD [Primary Care Provider, Family Practice] - In 1 week Problem List Clinical Impression: Constipation, Abdominal pain, Gastritis Patient/Caregiver Discharge Instructions Education Materials: ED Constipation (Adult), ED Gastritis (Adult) Print Language: Armenian Stand Alone Forms: Talisha Award Info., Patient Portal Info Letter
[2025-06-15 09:02] VITALS: BP 112/72; PULSE 84; RESP 18; TEMP 36.6; O2SAT 98
[2025-06-15] MEDS: KETOROLAC INJ 30 MG/ML VIAL 15 MG IVP (09:23)
[2025-06-15] MEDS: MG HYD/AL HYD/SIME (Maalox Reg) SUSP 30 ML UDC PO (09:42)
[2025-06-15] MEDS: LIDOCAINE VISCOUS 2% 15 ML UDC PO (09:42)
[2025-06-15] MEDS: MAGNESIUM CITRATE 300 ML BTL PO (10:56)
[2025-06-15 10:59] VITALS: BP 108/78; PULSE 68; RESP 19; TEMP 36.6; O2SAT 98
== END 2025-06-15 11:05 | disposition home or self-care (01) ==
PROVIDERS: Emergency Medicine; Emergency Provider Emergency Medicine; PCP Family Medicine
DX: K59.00 Constipation, unspecified (principal); K29.70 Gastritis, unspecified, without bleeding; G89.18 Other acute postprocedural pain
CPT/HCPCS: 36415; 74022; 74177; 80048; 81001; 83605; 84702; 85025; 87040; 96361; 96374; 96375; 96376; 99284; A4649; J1171; J1885; J2270; J2405; J3490; J7030; Q9967; A9270

== ENCOUNTER 2025-06-19 02:42 | Emergency (ER) | payer MEDICAID, SELFPAY ==
[2025-06-19] VITALS (8 sets, daily range): BP systolic 94–132; BP diastolic 51–89; PULSE 63–89; RESP 16–20; TEMP 36.4–36.9; O2SAT 95–99; BMI 26.2
--- NOTE | 2025-06-19 03:27 | XR_ITS ---
Examination: CT abdomen with intravenous contrast CT pelvis with intravenous contrast 2-D coronal reconstructions 2-D sagittal reconstructions Date and time of exam: June 19, 2025, 0431 hours, comparison June 15, 2025 INDICATIONS: History gastric perforation repair 3 weeks ago,. CTDI: vol (mGy) 7.25 DLP: (mGycm) 409 Technique: Multiple axial sections of the abdomen and pelvis have been obtained. 64 slice high-resolution scanner used. 3 mm axial sections have been obtained, post intravenous injection 60 cc Isovue-370 2-D sagittal, coronal reconstructions obtained. Low dose protocols were performed. One or more of the following dose reduction techniques were used; automated exposure control, adjustment of the mA and/or KV according to patient size, use of iterative reconstruction technique. Findings: Atelectasis versus pneumonia at the lung bases No focal liver or splenic lesions Marked thickening of the gastric mucosa Complex fluid around the distal stomach with air density, axial image 74 most consistent with gastric perforation versus early abscess No gallstones No pancreatic or adrenal mass No renal calculi Aorta normal size No bowel obstruction No diverticulitis Bilateral ovarian follicular cysts Urinary bladder intact Moderate disc narrowing L5-S1 IMPRESSION: Gastritis pattern Complex fluid collection with air in the upper abdomen around the distal stomach consistent with gastric perforation versus developing abscess, recommend surgical consultation
--- NOTE | 2025-06-19 03:27 | XR_ITS ---
Examination: Abdomen sonogram, Limited Date and time of exam: June 19, 2025, 0437 hours INDICATIONS: Abdominal surgery May 2024 followed by persistent abdominal pain Technique: Real-time perkins scale transabdominal sonographic images of the upper abdomen obtained. Findings: Normal gallbladder Common bile duct 0.5 cm no definite stones Pancreas obscured by bowel gas Liver 16 cm fatty infiltration no focal liver lesions Normal hepatopetal portal venous flow Patent IVC IMPRESSION: Normal gallbladder Common bile duct 0.5 cm no stones
--- NOTE | 2025-06-19 03:42 | PD.EDABDPN ---
ED Abdominal Pain RME/HPI General Chief Complaint: General Adult/Misc Complain Stated complaint: Sx on 05/29 has a lot of internal pain Time seen by provider: 06/19/25 03:19 Arrival date/time: 06/19/25 02:42 RME / HPI RME / HPI narrative: See [facility] for Dr. Richard's HPI Documentation. Related Data Home Medications ?Medication ?Instructions ?Recorded ?Confirmed hydrocodone 5 mg-acetaminophen 325 1 tab PO Q6H PRN pain 06/19/25 06/19/25 mg tablet omeprazole 20 mg capsule,delayed 20 mg PO QDAY 06/19/25 06/19/25 release Previous Rx's ?Medication ?Instructions ?Recorded pantoprazole 40 mg tablet,delayed 40 mg PO QDAY #30 tabs 06/11/25 release (Protonix) sennosides 8.6 mg-docusate sodium 1 tab-cap PO QDAY PRN constipation 06/11/25 50 mg tablet (Senna with Docusate #30 tabs Sodium) sucralfate 1 gram tablet (Carafate) 1 g PO TID 30 days #90 tabs 06/11/25 polyethylene glycol 3350 17 17 g PO QDAY PRN constipation #238 06/15/25 gram/dose oral powder (Miralax) grams sucralfate 100 mg/mL oral 10 ml PO QID #300 mL 06/15/25 suspension Held on 06/19/25. Instructions: Doctor's Order Allergies Allergy/AdvReac Type Severity Reaction Status Date / Time No Known Allergies Allergy Verified 06/15/25 04:42 Review of Systems Review of Systems Systems Reviewed: All systems reviewed, normal except as documented Past Medical History Past Medical History NEUROLOGIC: Positive Migraine GASTROINTESTINAL: Positive Ulcer GENITOURINARY: Positive Kidney Stones HEMATOLOGIC: Positive Anemia OTHER HISTORY: Positive Blood Transfusions Family History FAMILY HISTORY: Positive Family Cardiac Disorders Surgical History SURGICAL: Positive Abdominal Surgery ED Exam Narrative Physical exam: See [facility] for Dr. Richard's Physical Exam Documentation. Course Quality Measures none Orders Category Date Time Status CT Screening NOW Care 06/19/25 03:28 Active Insert IV NOW Care 06/19/25 03:27 Completed Saline [Insert IV] NOW Care 06/19/25 03:[address] abdomen pelvis w con Stat Exams 06/19/25 03:27 Taken US gall bladder Stat Exams 06/19/25 03:27 Taken Amylase Stat Lab 06/19/25 03:55 Results Bilirubin,Direct Stat Lab 06/19/25 03:55 Results Blood Culture (Lab) Stat Lab 06/19/25 04:45 Received CBC Stat Lab 06/19/25 03:55 Completed CMP [Comprehensive Metabolic Panel] Stat Lab 06/19/25 03:55 Results CRP [C-Reactive Protein] Stat Lab 06/19/25 03:55 Results ESR [Sed Rate (ESR)] Stat Lab 06/19/25 03:55 Completed HCG,Qualitative Serum Stat Lab 06/19/25 03:55 Results Lactate (Lactic Acid) Stat Lab 06/19/25 03:55 Completed Lipase Stat Lab 06/19/25 03:55 Results Mag [Magnesium] Stat Lab 06/19/25 03:55 Results Procalcitonin Stat Lab 06/19/25 03:55 Results Troponin I Stat Lab 06/19/25 03:55 Results UA, C/S IF [Urinalysis, C/S if Indicated] Stat Lab 06/19/25 03:44 Ordered Famotidine Inj [Pepcid Inj] Med 06/19/25 03:42 Discontinued 20 mg IVP X1 ONE HYDROmorphone INJ [Dilaudid Inj] Med 06/19/25 03:42 Discontinued 2 mg IVP X1 ONE HYDROmorphone INJ [Dilaudid Inj] Med 06/19/25 05:16 Discontinued 2 mg IVP X1 ONE Ketorolac Inj [Toradol Inj] Med 06/19/25 03:42 Discontinued 30 mg IVP X1 ONE Ondansetron Inj [Zofran Inj] Med 06/19/25 03:42 Discontinued 4 mg IVP X1 ONE Ondansetron Inj [Zofran Inj] Med 06/19/25 05:16 Discontinued 4 mg IVP X1 ONE Pantoprazole Inj [Protonix Inj] Med 06/19/25 03:27 Discontinued 80 mg IVP X1 ONE Piper/Tazo 3.375 gm Premix [Zosyn] Med 06/19/25 06:08 Active 3.375 gm in 50 ml IV X1 Sodium Chloride 0.9% 1000 ml [Ns] 1,000 ml Med 06/19/25 03:42 Discontinued IV 999 mls/hr Sodium Chloride 0.9% 1000 ml [Ns] 1,000 ml Med 06/19/25 05:16 Active IV 999 mls/hr Vital Signs Vital signs: Vital Signs Temperature 98.4 F 06/19/25 02:54 Pulse Rate 82 06/19/25 02:54 Respiratory Rate 17 06/19/25 02:54 Blood Pressure 132/89 H 06/19/25 02:54 Pulse Oximetry (%) 98 06/19/25 02:54 Oxygen Delivery Method Room Air 06/19/25 02:54 Abdominal Pain MDM MDM Narrative MDM Narrative:: This section includes all my notes and documentations, including HPI, PE, and ED course. Ariel Richard MD HPI: 34 y/o female here with severe abdominal pain and vomiting and anorexia. About 2-3 weeks ago, our surgeon (Dr. Hargrove) repaired her perforated peptic ulcer. She was hospitalized here for 2 weeks. No other complaints. ROS: All negative except as documented in HPI. Physical Exam: General: Alert and oriented. In severe pain. Eyes: Conjunctivae and lids clear. ENT: No nasal congestion. Neck: Supple. Heart: RRR. Lungs: No respiratory distress. Good air movement. No rhonchi, wheezing, rales. Abdomen: Severe diffuse tenderness noted, difficult to localize. Absent bowel sounds. Equivocal distension. Equivocal rebound and guarding. Back: No CVA tenderness. Skin: Warm and dry. Neuro: Alert and oriented X 3. I reviewed all diagnostic test results: My review of the Gall Bladder US report is NAD. My review of the Abdomen/Pelvis CT report is gastric perforation and/or abscess. Blood tests unremarkable. At this point, diagnoses include: Gastric perforation and/or abscess. Treatment here included: IVF Zofran Dilaudid Zosyn Some improvement noted. At 0600 on 06/19/2025, the care of the patient was transferred to Dr. Morel. Ariel Richard MD 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 External records reviewed:: [facility] previous records (Reviewed prior ED records from 06/15/25. Patient was seen for Abdominal pain.) Clinical information provided by:: patient Social determinants that could affect healthcare access:: none Patient has the following chronic illnesses:: Migraine, Ulcer, Kidney Stones, Anemia How is presenting disease/condition affected by chronic disease/condition?: exacerbated by Evaluation data The following diagnostics were reviewed and interpreted by me:: lab results and radiology exam(s) Lab and/or radiology exams considered but not ordered:: None Interpretation Summary: I reviewed all diagnostic test results: My review of the Gall Bladder US report is NAD. My review of the Abdomen/Pelvis CT report is gastric perforation and/or abscess. Blood tests unremarkable. Medications / Prescriptions Medications or Prescriptions considered but not ordered:: None Medication administrations:: Medication Administration History Sodium Chloride (Ns) 1,000 mls @ 999 mls/hr IV .Q1H1M ONE Stop: 06/19/25 06:16 Last Admin: 06/19/25 05:21 Dose: 999 mls/hr Documented By: FIDELINA Piperacillin/Tazobactam/Dextrose (Zosyn) 3.375 gm in 50 mls @ 100 mls/hr IV X1 ONE; Protocol Stop: 06/19/25 06:37 Discontinued Medications Famotidine (Famotidine Inj 10 Mg/Ml Vial 2 Ml) 20 mg IVP X1 ONE Stop: 06/19/25 03:43 Last Admin: 06/19/25 04:05 Dose: 20 mg Documented By: FIDELINA Hydromorphone HCl (Hydromorphone Inj 2 Mg/Ml Vial) 2 mg IVP X1 ONE Stop: 06/19/25 03:43 Last Admin: 06/19/25 04:06 Dose: 2 mg Documented By: FIDELINA Hydromorphone HCl (Hydromorphone Inj 2 Mg/Ml Vial) 2 mg IVP X1 ONE Stop: 06/19/25 05:17 Last Admin: 06/19/25 05:21 Dose: 2 mg Documented By: FIDELINA Sodium Chloride (Ns) 1,000 mls @ 999 mls/hr IV .Q1H1M ONE Stop: 06/19/25 04:42 Last Infusion: 06/19/25 05:17 Dose: Infused Documented By: Admin: 06/19/25 04:05 Dose: 999 mls/hr Documented By: FIDELINA Ketorolac Tromethamine (Ketorolac Inj 30 Mg/Ml Vial) 30 mg IVP X1 ONE Stop: 06/19/25 03:43 Last Admin: 06/19/25 04:06 Dose: 30 mg Documented By: FIDELINA Ondansetron HCl (Ondansetron Inj 2 Mg/Ml Inj 2 Ml) 4 mg IVP X1 ONE; Protocol Stop: 06/19/25 03:43 Last Admin: 06/19/25 04:05 Dose: 4 mg Documented By: FIDELINA Ondansetron HCl (Ondansetron Inj 2 Mg/Ml Inj 2 Ml) 4 mg IVP X1 ONE; Protocol Stop: 06/19/25 05:17 Last Admin: 06/19/25 05:21 Dose: Not Given Documented By: FIDELINA Non-Admin Reason: Patient Refused Pantoprazole Sodium (Pantoprazole Inj 40 Mg Vial) 80 mg IVP X1 ONE Stop: 06/19/25 03:28 Last Admin: 06/19/25 04:05 Dose: 80 mg Documented By: FIDELINA Treatment here included: IVF Zofran Dilaudid Zosyn Consultations Consultation(s) initiated? (list below): No Diagnosis Differential diagnosis abdominal pain: abdominal pain, acute appendicitis, calculus of kidney, constipation, diverticulitis, endometriosis, gastroenteritis, pancreatitis and small bowel obstruction Most likely diagnosis given after review of the tests above:: Gastric perforation and/or abscess Admission Indicated Admission indicated?: not indicated Explain why admission is indicated or not indicated:: Waiting for consult from patient's surgeon. Admission Request Was there a request for admission?: No Disposition Plan Disposition Plan: other (specify) (At 0600 on 06/19/2025, the care of the patient was transferred to Dr. Morel. ) Discharge Plan Prescriptions/Referrals Prescriptions/Med Rec: No Action sennosides-docusate sodium [Senna with Docusate Sodium] 8.6-50 mg tablet 1 tab-cap PO QDAY PRN (Reason: constipation) Qty: 30 0RF sucralfate [Carafate] 1 gram tablet 1 g PO TID 30 Days Qty: 90 0RF pantoprazole [Protonix] 40 mg tablet,delayed release (DR/EC) 40 mg PO QDAY Qty: 30 0RF hydrocodone-acetaminophen 5-325 mg tablet 1 tab PO Q6H PRN (Reason: pain) Patient Comments: TAKE ONE TABLET BY MOUTH EVERY 6 HOURS NEEDED FOR PAIN FOR 7 DAYS (max daily DOSE FOUR TABLET) omeprazole 20 mg capsule,delayed release(DR/EC) 20 mg PO QDAY Patient Comments: TAKE ONE CAPSULE BY MOUTH 30 MINUTES BEFORE BREAKFAST HEARTBURN sucralfate 100 mg/mL suspension 10 ml PO QID Qty: 300 0RF Rx Instructions: swish in mouth and swallow; use after food/drink polyethylene glycol 3350 [Miralax] 17 gram/dose powder 17 g PO QDAY PRN (Reason: constipation) Qty: 238 0RF Referrals: Dewayne Bennett MD [Primary Care Provider, Family Practice] - In 1 week Problem List Clinical Impression: Abdominal pain Patient/Caregiver Discharge Instructions Print Language: [place]
[2025-06-19] MEDS: FAMOTIDINE INJ 10 MG/ML VIAL 2 ML 20 MG IVP (04:05)
[2025-06-19] MEDS: SODIUM CHLORIDE 0.9% 1000 ML 1,000 ML 999 ML IV ×3 (04:05→09:28)
[2025-06-19] MEDS: ONDANSETRON INJ 2 MG/ML INJ 2 ML 4 MG IVP (04:05)
[2025-06-19] MEDS: KETOROLAC INJ 30 MG/ML VIAL IVP (04:06)
[2025-06-19] MEDS: HYDROmorphone INJ 2 MG/ML VIAL IVP ×2 (04:06→05:21)
[2025-06-19 04:11] LABS: Lactate (Lactic Acid) 1.3 mMol/L (0.4-2.0)
[2025-06-19 04:28] LABS: Basophils # (Auto) 0.1 Thou/mm3 (0.0-0.2); Basophils % (Auto) 1 % (0-2.5); Eosinophils # (Auto) 0.1 Thou/mm3 (0.0-0.5); Eosinophils % (Auto) 1 % (0-10); Hematocrit 33.2 % (36.0-46.0); Hemoglobin 10.5 g/dL (12.0-16.0); Immature Granulocytes Auto 0.03 Thou/mm3 (0.00-0.00); Lymphocytes # (Auto) 1.9 Thou/mm3 (1.0-4.8); Lymphocytes % (Auto) 24 % (10-50); Mean Corpuscular HGB Conc 31.6 g/dl (31.0-37.0); Mean Corpuscular Hemoglobin 26.7 pg (25.0-35.0); Mean Corpuscular Volume 85 fL (80-100); Monocytes # (Auto) 0.5 Thou/mm3 (0.0-0.8); Monocytes % (Auto) 6 % (0-12); Neutrophils # (Auto) 5.3 Thou/mm3 (1.8-7.7); Neutrophils % (Auto) 68 % (37-80); Nucleated Red Blood Cell # 0.00 Thou/mm3 (0.00-0.00); Nucleated Red Blood Cell % 0 /100 WBC (0); Platelet Count 376 Thou/mm3 (140-440); RDW Standard Deviation 47.6 fL (36.4-46.3); Red Blood Count 3.93 Miln/mm3 (4.00-5.20); White Blood Count 7.8 Thou/mm3 (3.6-11.0)
[2025-06-19 04:38] LABS: Alanine Aminotransferase 31 U/L (10-49); Albumin, Serum 3.7 gm/dL (3.5-5.0); Albumin/Globulin Ratio 1.2 (1.2-2.2); Alkaline Phosphatase 123 U/L (46-116); Anion Gap 10 (7-16); Aspartate Amino Transferase 41 U/L (0-34); BUN/Creatinine Ratio 16 Ratio (12-20); Bilirubin,Direct 0.1 mg/dL (0.0-0.3); Bilirubin,Total 0.3 mg/dL (0.3-1.2); Blood Urea Nitrogen 8 mg/dL (9-23); Calcium 9.5 mg/dL (8.3-10.6); Calcium (Corrected) 9.7 mg/dL (8.5-10.1); Carbon Dioxide 24.1 mMol/L (20.0-31.0); Chloride 108 mMol/L (98-107); Creatinine (Component) 0.5 mg/dL (0.6-1.3); Estimated Creatinine Clearance 129.2 mL/min (>60); Globulin 3.1 gm/dL (2.3-3.5); Glucose 99 mg/dL (74-106); Lipase 32 U/L (12-53); Magnesium 1.8 mg/dL (1.6-2.6); Osmolality,Calculated 281 (275-295); Potassium 3.8 mMol/L (3.4-5.1); Sodium 142 mMol/L (136-145); Total Protein 6.8 gm/dL (5.7-8.2); Troponin I < 0.002 ng/mL (0.0-0.045); eGFR > 60 See Note
[2025-06-19 04:44] LABS: Procalcitonin 0.10 ng/ml (0.0-0.49)
[2025-06-19 04:49] LABS: Sed Rate (ESR) 25 mm/hr (0-20)
[2025-06-19 04:52] LABS: HCG,Qualitative Serum Negative
--- NOTE | 2025-06-19 05:49 | PRELIM_ITS ---
CT scan of the abdomen and pelvis with intravenous contrast (axial sections with sagittal and coronal reformats) June 19, 2025 0431 hours Clinical History: Monitor perf gastritis s/p repair Comparison: None available at the time of this report. Findings: Mild bilateral lung consolidation, atelectasis versus pneumonia. The liver, gallbladder, pancreas, spleen, kidneys and adrenals are unremarkable. No evidence of bowel obstruction. No evidence of appendicitis. There is no mesenteric or retroperitoneal adenopathy. The urinary bladder is nondistended, limited evaluation. Complex free fluid in the peritoneal cavity. Free air in the peritoneal cavity. Thickening of the gastric wall. Postsurgical changes in the anterior abdominal wall. The osseous structures are unremarkable. Fecal loading. The uterus and ovaries are within normal limits. Impression: 1. Free air and complex free fluid in the a upper abdomen are consistent with gastric perforation versus developing abscess. Surgical consult is recommended. 2. Gastric wall thickening, probably inflammatory in etiology. 3. Fecal loading. 4. Mild bilateral lung consolidation, atelectasis versus pneumonia. Discussion Details: the Results were verbally communicating Neville Ordonez RN at 8:42 AM ET on 19/06/2025.?? A call back number is provided to facilitate direct Physician to Physician communication Report Electronically Signed By: Varinder Jennings 06/19/2025 5:49:07 AM [EST]
--- NOTE | 2025-06-19 06:08 | PRELIM_ITS ---
Ultrasound Abdomen. June 19, 2025 0437 hours Clinical history: Upper abdominal pain. Technique: Grayscale and color flow images of the abdomen are provided. Hepatic and portal veins were also imaged with color flow images. Compared with the prior study dated 05/29/2025 Findings: The liver demonstrates hyperechoic heterogeneous echogenicity. Hepatopetal flow in main portal vein. No intrahepatic biliary ductal dilatation. No gallbladder calculus, wall thickening or pericholecystic fluid is demonstrated. The common bile duct is normal in caliber at 5 mm. No free fluid is demonstrated on the submitted images. The pancreas is not visualized. The inferior vena cava to the extent visualized is within normal limits. Impression: No evidence of cholelithiasis and/or acute cholecystitis. Other findings as described above. Report Electronically Signed By: Jennifer Triana 06/19/2025 6:07:48 AM [EST]
[2025-06-19] MEDS: PIPER/TAZO 3.375 GM PREMIX 3.375 GM/50 ML BAG IV (06:18)
[2025-06-19 06:28] LABS: Amylase 38 U/L (30-118); C-Reactive Protein < 0.5 mg/dL (0.0-0.9)
[2025-06-19 06:32] LABS: Collection Type, Urine Clean Catch
[2025-06-19 06:35] LABS: Bilirubin,Urine Negative (Negative); Blood,Urine Negative (Negative); Clarity,Urine Clear (Clear/Hazy); Color,Urine Colorless (Lt Yel-Yel); Culture Indicated,Urine Not Indicated; Glucose, Urine Negative (Negative); Hyaline Casts,Urine < 1 /hpf (0-1); Ketones,Urine Negative (Negative); Leukocyte Esterase,Urine Negative (Negative); Nitrite,Urine Negative (Negative); PH,Urine 6.5 (5.0-7.0); Protein,Urine Negative (Neg - Trace); RBC,Urine 1 /hpf (0-3); Specific Gravity,Urine 1.022 (1.001-1.035); Squamous Epithelial Cell,Urine 3 /hpf (0-5); Urobilinogen,Urine Negative mg/dL (0.0-1.0); WBC,Urine < 1 /hpf (0-5)
--- NOTE | 2025-06-19 07:10 | XR_ITS ---
EXAMINATION: Small bowel series Abdomen AP supine 3 views Date and time: June 19, 2025, 0834 hours INDICATIONS: Status post gastric perforation repair 3 weeks ago with findings consistent with complex fluid collection and air in the upper abdomen adjacent to the stomach on the current CT study this morning TECHNIQUE AND FINDINGS: 120 cc Gastrografin administered with immediate and 1 hour films as well as 2-hour films There is mucosal fold thickening in the stomach, no ron extravasation of contrast from the stomach Small bowel loops are not dilated Contrast is in the colon on the 1 hour film IMPRESSION: No findings of gastric perforation Negative for small bowel obstruction
[2025-06-19] MEDS: HYDROmorphone INJ 2 MG/ML VIAL 1 MG IVP ×2 (08:07→09:27)
--- NOTE | 2025-06-19 08:23 | PC.CM ---
Addendum entered by Zbigniew Limon RN 06/19/25 09:22: 0920-[facility], Dr. Queen has accepted patient ER to ER transfer, phone number for report [phone]. Notified Dr. Morel and Trey, ER CN. Addendum entered by Zbigniew Limon RN 06/19/25 09:20: 0915-[facility] declined patient, recommend tertiary care center. Addendum entered by Zbigniew Limon RN 06/19/25 08:48: 0847-Call to [facility], provided clinical update to TC JOHN Plata and connected her with Dr. Morel for EMTALA questionnaire. Pending update from them at this time. Original Note: [id number]- Received call from ER Dr. Morel, he is requesting we initiate a transfer for general surgery for complex surgical needs. Patient had surgery with Dr. Pond 2 weeks ago and was discharged home, returned to ER with abdominal pain. Transfer packet sent to [facility], [facility], and [facility]. Images pushed through synapse to [facility] and [facility]. Images placed on CD for transfer packet.
--- NOTE | 2025-06-19 08:33 | PD.EDADDENDU ---
Emergency Room Addendum Addendum Narrative: Care assumed from Dr. Richard. Past medical, surgical, social and family history reviewed. Vitals and home medications reviewed. Results and treatment plan discussed. I will assume the care of the patient at this time and will follow the patient. Please refer to the emergency department record for history and examination from initial visit. 2 weeks ago the patient had a perforated gastric ulcer with severe abdominal pain and was taken to surgery with surgical repair. She was in the hospital over the past 2 weeks and her diet was advanced to the point where she was eating. She was discharged home but now has redeveloped a severe upper abdominal pain. Patient was worked up by Dr. Richard and a CT of abdomen and pelvis with contrast shows free air, complex fluid in the upper abdomen consistent with gastric perforation versus developing abscess. Patient also has atelectasis versus pneumonia. I discussed the case with Dr. Pond and he felt that conservative care with IV antibiotics is not going to work and he felt the patient had had developed probably a worsening area of fluid collection. He feels the case is complex and beyond his current ability to manage surgically and request the patient to be transferred to a higher level of care. Dr. Pond did come to see the patient and discussed her case with the patient. Patient remained stable while under my care.
--- NOTE | 2025-06-19 11:20 | PC.NURSE ---
REPORT CALLED TO [facility]. PT PICKED UP FOR TRANSFER BY [facility].
== END 2025-06-19 11:15 | disposition short-term general hospital (02) ==
PROVIDERS: Emergency Medicine; Physician Assistant; Emergency Provider Family Medicine; PCP Family Medicine
DX: R10.9 Unspecified abdominal pain (principal)
CPT/HCPCS: 36415; 74177; 74250; 76705; 80053; 81001; 82150; 82248; 83605; 83690; 83735; 84145; 84484; 84703; 85025; 85652; 86140; 87040; 96361; 96365; 96375; 96376; 99284; A4649; J1171; J1885; J2405; J2470; J2543; J3490; J7030; Q9963; Q9967

== ENCOUNTER 2025-06-20 16:24 | Inpatient (IN) | payer MEDICAID, SELFPAY ==
[2025-06-20 17:18] VITALS: BP 122/79; PULSE 81; RESP 20; TEMP 37.1; O2SAT 99; BMI 24.0
--- NOTE | 2025-06-20 17:58 | XR_ITS ---
EXAMINATION: AP chest single view TECHNIQUE: AP portable upright chest single view Date and time: #15, 2024, 1829 hours INDICATIONS: Constipation vomiting beginning 2 days ago. FINDINGS: Mild pneumonia left base Normal heart size Right lung clear Prominent osteopenia IMPRESSION: Mild pneumonia left base, consider aspiration pneumonia
--- NOTE | 2025-06-20 18:03 | EVENTNT_ITS ---
Documentation for date of: 06/20/25 Event Note Event Note: ED called about 34F with PMH recurrent UTIs, kidney stones, recently admitted and hospitalized for 2 weeks for perforated gastric ulcer s/p ex lap and drainage of intrabdominal abscess (RICK drain removed 06/10). Presents with rede veloped severe upper abdominal pain. Associated with nausea, generalized body weakness. Per Gigi Gifford's ED note: Patient was sent from [facility] for Dr Hargrove regarding possible PICC line since patient will be on n.p.o. for 2 weeks. Patient was admitted here and exploratory laparotomy was done by Dr. Pond was transferred to [facility] for further evaluation. In [facility] no surgery was done. Nobody in [facility] can place a PICC line. Dr. Pond who accepted the patient to be admitted for PICC line. She was just discharged from [facility] few hours ago. Vitals: Afebrile, VSS. Labs: Hgb 10.2, HCT 33.2, Cl 108, AST 41, alk phos 123. WBC, CRP, lactic acid, lipase, amylase, procal, hCG, troponin unremarkable. Gallbladder US: normal gallbladder, CBD 0.5cm, no stones Small bowel XR: No findings of gastric perforation, negative for SBO CT a/p w/: Gastritis. Complex fluid collection w/ air in upper abdomen around stomach c/w gastric perforation vs abscess. Case was discussed with Dr. Pond for PICC line placement and initiation of TPN. Case was signed out to night team hospitalists for admission and further management. Mara Schwab MD PGY1
--- NOTE | 2025-06-20 18:03 | PD.EDADULT ---
ED General RME/HPI General Chief complaint: General Adult/Misc Complain Stated complaint: SENT BY DELIGHT FOR DR POND FOR PICC LINE Time Seen by Provider: 06/20/25 17:38 Arrival date/time: 06/20/25 16:24 34-year-old female patient was sent from [facility] for Dr Hargrove regarding possible PICC line since patient will be on n.p.o. for 2 weeks. Patient was admitted here and exploratory laparotomy was done by Dr. Pond was transferred to [place] for further evaluation. In [place] no surgery was done. Patient just needs to be on n.p.o. for 2 weeks and should be on PICC line. Nobody in [facility] can place a PICC line and Tylenol this coming Sunday instead the surgeon in [place] contacted Dr. Pond who accepted the patient to be admitted for PICC line. Patient is complaining of abdominal pain, nausea, and generalized body weakness. No other complaints noted. She was just discharged from [place] few hours ago. Related Data Home Medications ?Medication ?Instructions ?Recorded ?Confirmed hydrocodone 5 mg-acetaminophen 325 1 tab PO Q6H PRN pain 06/19/25 06/19/25 mg tablet omeprazole 20 mg capsule,delayed 20 mg PO QDAY 06/19/25 06/19/25 release Previous Rx's ?Medication ?Instructions ?Recorded pantoprazole 40 mg tablet,delayed 40 mg PO QDAY #30 tabs 06/11/25 release (Protonix) sennosides 8.6 mg-docusate sodium 1 tab-cap PO QDAY PRN constipation 06/11/25 50 mg tablet (Senna with Docusate #30 tabs Sodium) sucralfate 1 gram tablet (Carafate) 1 g PO TID 30 days #90 tabs 06/11/25 polyethylene glycol 3350 17 17 g PO QDAY PRN constipation #238 06/15/25 gram/dose oral powder (Miralax) grams sucralfate 100 mg/mL oral 10 ml PO QID #300 mL 06/15/25 suspension Held on 06/19/25. Instructions: Doctor's Order Allergies Allergy/AdvReac Type Severity Reaction Status Date / Time No Known Allergies Allergy Verified 06/15/25 04:42 Review of Systems Review of Systems Narrative Review of Systems: Review of system reviewed and within normal limits except mentioned in HPI ED Exam Narrative Physical exam: VITAL SIGNS: Reviewed. GENERAL APPEARANCE: Alert and interactive, follows commands, no acute distress, HEAD AND FACE: Non-traumatic. ENT: PERRL, pink conjunctivitis, eyelid no trauma, Mucous membrane dry NECK: Supple, nontender, no nuchal rigidity. CHEST: No tenderness, no crepitus, no paradoxical movement, no retractions. LUNGS: Clear, well ventilated, symmetric, no rales, no wheezing, no ronchi, no stridor, good breath sounds bilaterally. HEART: Regular rate, regular rhythm, no murmur, no gallops. ABDOMEN: Soft, positive bowel sounds, nondistended, no guarding, diffuse tenderness, no rebound, no masses, RECTAL: Deferred. GENITAL: Deferred. NEUROLOGICAL: Gross motor function intact sensory function intact, Appropriate for age. MUSCULOSKELETAL: low back nontender, full range of motion. EXTREMITIES: Nontender, full range of motion. SKIN: Color pink, dry, no rash, no lacerations, no abrasions, no contusions. LYMPHATICS: Deferred. Course Quality Measures none Orders Category Date Time Status Admit to Inpatient Status Routine Admission 06/20/25 20:08 Active Patient Condition Routine Admission 06/20/25 20:08 Ordered Activity as Tolerated Routine Care 06/20/25 20:10 Ordered Bedside Blood Glucose Q6HR Care 06/20/25 20:24 Active Bedside COVID-19 Antigen Test NOW Care 06/20/25 20:57 Active COVID-19 Screening Questionnaire NOW Care 06/20/25 19:27 Active COVID-19 Screening Questionnaire NOW Care 06/20/25 19:53 Completed Decision to Admit X1 Care 06/20/25 19:53 Completed Miscellaneous Nursing Order X1 Care 06/20/25 20:20 Active NPO NOW Care 06/20/25 20:10 Active Notify provider NEEDED Care 06/20/25 20:08 Active Strict Intake and Output Routine Care 06/20/25 20:10 Ordered Consult to General Surgery Routine Cons 06/20/25 20:14 Ordered Referral Registered Dietitian Routine Cons 06/20/25 20:22 Active Diet NPO (NOW) Diet 06/20/25 20:10 Active IR PICC line insertion Routine Exams 06/22/25 08:00 Ordered XR chest 1V Stat Exams 06/20/25 17:58 Completed CBC AM DRAW Lab 06/21/25 05:00 Ordered CBC AM DRAW Lab 06/22/25 05:00 Ordered CBC AM DRAW Lab 06/23/25 05:00 Ordered CBC Stat Lab 06/20/25 19:00 Completed Comprehensive Metabolic Panel AM DRAW Lab 06/21/25 05:00 Ordered Comprehensive Metabolic Panel AM DRAW Lab 06/22/25 05:00 Ordered Comprehensive Metabolic Panel AM DRAW Lab 06/23/25 05:00 Ordered Comprehensive Metabolic Panel Stat Lab 06/20/25 19:00 Completed Lipase Stat Lab 06/20/25 19:00 Completed Magnesium AM DRAW Lab 06/21/25 05:00 Ordered Magnesium AM DRAW Lab 06/22/25 05:00 Ordered Magnesium AM DRAW Lab 06/23/25 05:00 Ordered Partial Thromboplastin Time Stat Lab 06/20/25 19:00 Completed Phosphorous AM DRAW Lab 06/21/25 05:00 Ordered Phosphorous AM DRAW Lab 06/22/25 05:00 Ordered Phosphorous AM DRAW Lab 06/23/25 05:00 Ordered Urinalysis, C/S if Indicated Stat Lab 06/20/25 18:00 Completed Acetaminophen Ivpb [Ofirmev Inj] Med 06/20/25 20:07 Active 1,000 mg in 100 ml IV Q6HR Enoxaparin [Lovenox] Med 06/21/25 09:00 Active 40 mg SC QDAY HYDROmorphone INJ [Dilaudid Inj] Med 06/20/25 18:34 Discontinued 1 mg IVP X1 ONE Morphine* Inj Med 06/20/25 20:17 Active 1 mg IVP Q4H PRN Morphine* Inj Med 06/20/25 20:19 Active 2 mg IVP Q6HR PRN Morphine* Inj Med 06/20/25 17:59 Discontinued 4 mg IVP X1 ONE Ondansetron Inj [Zofran Inj] Med 06/20/25 20:40 Active 4 mg IVP Q6HR PRN Ondansetron Inj [Zofran Inj] Med 06/20/25 17:58 Discontinued 4 mg IVP X1 ONE Pantoprazole Inj [Protonix Inj] Med 06/20/25 20:30 Active 40 mg IVP QDAY Ringers Lactated 1000 ml [Lactated Ringers] 1,000 ml Med 06/20/25 20:15 Active IV 100 mls/hr Ringers Lactated 1000 ml [Lactated Ringers] 1,000 ml Med 06/20/25 17:59 Discontinued IV 999 mls/hr Code Status Routine Oth 06/20/25 20:08 Ordered Vital Signs Vital signs: Vital Signs Temperature 98.8 F 06/20/25 17:18 Pulse Rate 81 06/20/25 17:18 Respiratory Rate 20 06/20/25 17:18 Blood Pressure 122/79 06/20/25 17:18 Pulse Oximetry (%) 99 06/20/25 17:18 Oxygen Delivery Method Room Air 06/20/25 17:18 Discharge Plan Plan Patient Disposition: Admit Acute Care w/in Hospital Prescriptions/Referrals Prescriptions/Med Rec: No Action sennosides-docusate sodium [Senna with Docusate Sodium] 8.6-50 mg tablet 1 tab-cap PO QDAY PRN (Reason: constipation) Qty: 30 0RF sucralfate [Carafate] 1 gram tablet 1 g PO TID 30 Days Qty: 90 0RF pantoprazole [Protonix] 40 mg tablet,delayed release (DR/EC) 40 mg PO QDAY Qty: 30 0RF hydrocodone-acetaminophen 5-325 mg tablet 1 tab PO Q6H PRN (Reason: pain) Patient Comments: TAKE ONE TABLET BY MOUTH EVERY 6 HOURS NEEDED FOR PAIN FOR 7 DAYS (max daily DOSE FOUR TABLET) omeprazole 20 mg capsule,delayed release(DR/EC) 20 mg PO QDAY Patient Comments: TAKE ONE CAPSULE BY MOUTH 30 MINUTES BEFORE BREAKFAST HEARTBURN sucralfate 100 mg/mL suspension 10 ml PO QID Qty: 300 0RF Rx Instructions: swish in mouth and swallow; use after food/drink polyethylene glycol 3350 [Miralax] 17 gram/dose powder 17 g PO QDAY PRN (Reason: constipation) Qty: 238 0RF Referrals: No Primary/Family,Physician [Primary Care Provider] - In 1 week Problem List Clinical Impression: Chronic abdominal pain, On total parenteral nutrition (TPN) Patient/Caregiver Discharge Instructions Print Language: Kinyarwanda Stand Alone Forms: Talisha Award Info., Patient Portal Info Letter MDM Narrative MDM hospital course (for use when minimal MDM required): 06/20/25 16:24 34-year-old female patient was sent from [facility] for Dr Hargrove regarding possible PICC line since patient will be on n.p.o. for 2 weeks. Patient was admitted here and exploratory laparotomy was done by Dr. Pond was transferred to [place] for further evaluation. In [place] no surgery was done. Patient just needs to be on n.p.o. for 2 weeks and should be on PICC line. Nobody in [facility] can place a PICC line and Tylenol this coming Sunday instead the surgeon in [place] contacted Dr. Pond who accepted the patient to be admitted for PICC line. Patient is complaining of abdominal pain, nausea, and generalized body weakness. No other complaints noted. She was just discharged from [place] few hours ago. Spoke with Dr. Pond, regarding this patient, and told me the patient is to be admitted for TPN management. Patient needs PICC line also. I spoke with hospitalist who admitted the patient. Patient's workup all came back unremarkable. Patient was given IV fluids, Dilaudid IV and Zofran. Medication Administration(s) Medication Administration History Enoxaparin Sodium (Enoxaparin Sod Inj 40 Mg/0.4 Ml Syringe) 40 mg SC QDAY [facility] Stop: 07/05/25 08:59 Acetaminophen (Ofirmev Inj) 1,000 mg in 100 mls @ 250 mls/hr IV Q6HR [facility] Stop: 06/21/25 12:23 Last Infusion: 06/20/25 20:41 Dose: Infused Documented By: Admin: 06/20/25 20:17 Dose: 250 mls/hr Documented By: ABILIO Lactated Ringer's (Lactated Ringers) 1,000 mls @ 100 mls/hr IV .Q10H [facility] Stop: 06/21/25 16:14 Last Admin: 06/20/25 20:51 Dose: 100 mls/hr Documented By: ABILIO Morphine Sulfate (Morphine Sulf Inj 4 Mg/Ml Vial) 1 mg IVP Q4H PRN PRN Reason: BREAKTHROUGH PAIN (SEVERE) Morphine Sulfate (Morphine Sulf Inj 4 Mg/Ml Vial) 2 mg IVP Q6HR PRN PRN Reason: PAIN SCALE 7-10 (Severe Stop: 06/25/25 20:18 Last Admin: 06/20/25 21:03 Dose: 2 mg Documented By: AU Ondansetron HCl (Ondansetron Inj 2 Mg/Ml Inj 2 Ml) 4 mg IVP Q6HR PRN; Protocol PRN Reason: NAUSEA OR VOMITING Stop: 07/20/25 20:39 Pantoprazole Sodium (Pantoprazole Inj 40 Mg Vial) 40 mg IVP QDAY SALUD Stop: 07/20/25 20:29 Last Admin: 06/20/25 20:38 Dose: 40 mg Documented By: ABILIO Discontinued Medications Hydromorphone HCl (Hydromorphone Inj 2 Mg/Ml Vial) 1 mg IVP X1 ONE Stop: 06/20/25 18:35 Last Admin: 06/20/25 18:51 Dose: 1 mg Documented By: BY Lactated Ringer's (Lactated Ringers) 1,000 mls @ 999 mls/hr IV .Q1H1M ONE Stop: 06/20/25 18:59 Last Infusion: 06/20/25 20:05 Dose: Infused Documented By: Admin: 06/20/25 18:50 Dose: 999 mls/hr Documented By: BY Morphine Sulfate (Morphine Sulf Inj 4 Mg/Ml Vial) 4 mg IVP X1 ONE Stop: 06/20/25 18:00 Last Admin: 06/20/25 18:55 Dose: Not Given Documented By: BY Non-Admin Reason: Cancelled by Provider Ondansetron HCl (Ondansetron Inj 2 Mg/Ml Inj 2 Ml) 4 mg IVP X1 ONE; Protocol Stop: 06/20/25 17:59 Last Admin: 06/20/25 18:47 Dose: 4 mg Documented By: BY Diagnosis Differential Diagnosis ED Complaint MDM: Chronic abdominal pain, inability to tolerate p.o. food and fluids Diagnoses ruled out and/or further discussions: Chronic abdominal pain, n.p.o., inability to tolerate p.o. food and fluids
[2025-06-20 18:22] LABS: Collection Type, Urine Clean Catch
[2025-06-20 18:32] LABS: Amorphous Crystals,Urine Present (Absent); Bacteria,Urine Rare; Bilirubin,Urine Negative (Negative); Blood,Urine Negative (Negative); Clarity,Urine Turbid (Clear/Hazy); Color,Urine Lt-Yellow (Lt Yel-Yel); Culture Indicated,Urine Not Indicated; Glucose, Urine Negative (Negative); Ketones,Urine 2+ (Negative); Leukocyte Esterase,Urine Negative (Negative); Nitrite,Urine Negative (Negative); PH,Urine 7.0 (5.0-7.0); Protein,Urine Negative (Neg - Trace); RBC,Urine 1 /hpf (0-3); Specific Gravity,Urine 1.016 (1.001-1.035); Squamous Epithelial Cell,Urine 11 /hpf (0-5); Urobilinogen,Urine Negative mg/dL (0.0-1.0); WBC,Urine 2 /hpf (0-5)
[2025-06-20] MEDS: ONDANSETRON INJ 2 MG/ML INJ 2 ML 4 MG IVP (18:47)
[2025-06-20] MEDS: RINGERS LACTATED 1000 ML 1,000 ML 999 ML IV (18:50)
[2025-06-20] MEDS: HYDROmorphone INJ 2 MG/ML VIAL 1 MG IVP (18:51)
[2025-06-20 19:24] VITALS: BP 121/71; PULSE 77; RESP 18; TEMP 37.1; O2SAT 97
[2025-06-20 19:35] LABS: Basophils # (Auto) 0.1 Thou/mm3 (0.0-0.2); Basophils % (Auto) 1 % (0-2.5); Eosinophils # (Auto) 0.0 Thou/mm3 (0.0-0.5); Eosinophils % (Auto) 0 % (0-10); Hematocrit 34.3 % (36.0-46.0); Hemoglobin 10.8 g/dL (12.0-16.0); Immature Granulocytes Auto 0.02 Thou/mm3 (0.00-0.00); Lymphocytes # (Auto) 1.6 Thou/mm3 (1.0-4.8); Lymphocytes % (Auto) 22 % (10-50); Mean Corpuscular HGB Conc 31.5 g/dl (31.0-37.0); Mean Corpuscular Hemoglobin 27.2 pg (25.0-35.0); Mean Corpuscular Volume 86 fL (80-100); Monocytes # (Auto) 0.3 Thou/mm3 (0.0-0.8); Monocytes % (Auto) 4 % (0-12); Neutrophils # (Auto) 5.2 Thou/mm3 (1.8-7.7); Neutrophils % (Auto) 72 % (37-80); Nucleated Red Blood Cell # 0.00 Thou/mm3 (0.00-0.00); Nucleated Red Blood Cell % 0 /100 WBC (0); Platelet Count 330 Thou/mm3 (140-440); RDW Standard Deviation 49.8 fL (36.4-46.3); Red Blood Count 3.97 Miln/mm3 (4.00-5.20); White Blood Count 7.2 Thou/mm3 (3.6-11.0)
[2025-06-20 19:53] LABS: Partial Thromboplastin Time 27.6 Seconds (22.0-36.0)
[2025-06-20 20:02] LABS: Alanine Aminotransferase 36 U/L (10-49); Albumin, Serum 3.9 gm/dL (3.5-5.0); Albumin/Globulin Ratio 1.3 (1.2-2.2); Alkaline Phosphatase 115 U/L (46-116); Anion Gap 12 (7-16); Aspartate Amino Transferase 41 U/L (0-34); BUN/Creatinine Ratio 11 Ratio (12-20); Bilirubin,Total 0.3 mg/dL (0.3-1.2); Blood Urea Nitrogen 8 mg/dL (9-23); Calcium 9.5 mg/dL (8.3-10.6); Calcium (Corrected) 9.6 mg/dL (8.5-10.1); Carbon Dioxide 26.1 mMol/L (20.0-31.0); Chloride 104 mMol/L (98-107); Creatinine (Component) 0.7 mg/dL (0.6-1.3); Estimated Creatinine Clearance 97.8 mL/min (>60); Globulin 2.9 gm/dL (2.3-3.5); Glucose 84 mg/dL (74-106); Lipase 39 U/L (12-53); Osmolality,Calculated 280 (275-295); Potassium 4.2 mMol/L (3.4-5.1); Sodium 142 mMol/L (136-145); Total Protein 6.8 gm/dL (5.7-8.2); eGFR > 60 See Note
[2025-06-20] MEDS: ACETAMINOPHEN IVPB 1,000 MG/100 ML VIAL 250 MG IV (20:17)
--- NOTE | 2025-06-20 20:20 | ESHP_ITS ---
Documentation for date of: 06/20/25 [facility] History of Present Illness History of present illness: 34-year-old female with a history of recurrent UTIs, kidney stones, and a recent perforated gastric ulcer, status post exploratory laparotomy and drainage of an intra-abdominal abscess (RICK drain removed on 06/10), presents today with recurrence of severe upper abdominal pain, nausea, and generalized body weakness. She was recently evaluated at [facility] in [place] for the same, where the primary recommendations were gut rest for 2 weeks, placement of a PICC line, and initiation of TPN. However, no surgical intervention was required, and PICC line placement was not possible due to technical limitations. She was discharged from [facility] just hours prior to presenting here. During her prior hospitalization at [place], an exploratory laparotomy was performed by Dr. Pond. Yesterday, the patient was evaluated in the ER, where she received Gastrografin contrast. Since then, she has had 20 watery bowel movements, occurring every 30 minutes, contributing to her current generalized body weakness. She denies fever, chills, chest pain, shortness of breath, dysuria, or new/worsening abdominal distension. There are no significant changes in her appetite, and no blood has been noted in her stool or vomitus. ED course: Initial vitals include T 98.8, BP 122/79, HR 81, RR 20, O2 sat 99% on room air. CBC shows hemoglobin 10.8, MCV 86. CMP shows creatinine 0.7, mild elevation in AST 41, lipase negative. CT abdomen shows gastritis pattern, complex fluid collection with air in the upper abdomen around the distal stomach consistent with gastric perforation. Gallbladder ultrasound negative. Small bowel x-ray shows no gastric perforation, negative for small bowel obstruction. Chest x-ray shows mild pneumonia left base. Past medical history: As stated above. Past surgical history: History of appendectomy and perforated gastric ulcer s/p exploratory laparotomy. Allergies: NKDA. Family history: Noncontributory. Social history: No alcohol use, no smoking, no illicit drug use. Patient admitted for PICC line insertion and start of TPN. Review of Systems Review of Systems Narrative Review of Systems: All systems reviewed negative unless stated otherwise above. Exam Vital Signs Temp Pulse Resp BP Pulse Ox O2 Del Method 98.8 F 77 18 121/71 97 Room Air 06/20/25 19:24 06/20/25 19:24 06/20/25 19:24 06/20/25 19:24 06/20/25 19:24 06/20/25 19:24 Narrative Exam General: AOx3, in moderate distress, able to speak full sentences, Zimbabwean- speaking HEENT: NC/AT, mucous membranes moist, bilateral sclera anicteric Cardiovascular: regular rate and rhythm, S1/S2 present, no murmurs appreciated Pulmonary: clear to auscultation bilaterally, no rales/rhonchi/wheezes Abdominal: Laparotomy scar present and healing well, soft, moderate tenderness over whole abdomen, non-distended, no rebound/guarding, normal bowel sounds present Musculoskeletal: normal ROM, no peripheral edema Skin: warm and dry, intact, no rashes, Neuro: CN II-XII intact, no focal deficits Results: Labs 06/21/25 05:05 06/21/25 05:05 Labs: Short CBC 06/20/25 Range/Units 19:00 WBC 7.2 (3.6-11.0) Thou/mm3 Hgb 10.8 L (12.0-16.0) g/dL Hct 34.3 L (36.0-46.0) % Plt Count 330 D (140-440) Thou/mm3 BMP 06/20/25 19:00 Sodium 142 Potassium 4.2 Chloride 104 Carbon Dioxide 26.1 BUN 8 L Creatinine 0.7 Glucose 84 Calcium 9.5 Liver Function 06/20/25 Range/Units 19:00 Total Bilirubin 0.3 (0.3-1.2) mg/dL AST 41 H (0-34) U/L ALT 36 (10-49) U/L Alkaline Phosphatase 115 (46-116) U/L Albumin 3.9 (3.5-5.0) gm/dL Urine 06/20/25 Range/Units 18:00 Urine Color Lt-Yellow (Lt Yel-Yel) Urine Clarity Turbid A (Clear/Hazy) Urine pH 7.0 (5.0-7.0) Ur Specific Inlet 1.016 (1.001-1.035) Urine Protein Negative (Neg - Trace) Urine Glucose (UA) Negative (Negative) Quality Measures Quality Measures VTE prophylaxis Medications Home Medications and Allergies Home Medications ?Medication ?Instructions ?Recorded ?Confirmed ?Type omeprazole 20 mg capsule,delayed 20 mg PO QDAY 5 06/20/25 History release Allergies Allergy/AdvReac Type Severity Reaction Status Date / Time No Known Allergies Allergy Verified 06/15/25 04:42 Visit Medications Enoxaparin Sodium (Enoxaparin Sod Inj 40 Mg/0.4 Ml Syringe) 40 mg SC QDAY SALUD Stop: 07/05/25 08:59 Acetaminophen (Ofirmev Inj) 1,000 mg in 100 mls @ 250 mls/hr IV Q6HR [facility] Stop: 06/21/25 12:23 Last Admin: 06/20/25 20:17 Dose: 250 mls/hr Lactated Ringer's (Lactated Ringers) 1,000 mls @ 100 mls/hr IV .Q10H [facility]UD Stop: 06/21/25 16:14 Morphine Sulfate (Morphine Sulf Inj 4 Mg/Ml Vial) 1 mg IVP Q4H PRN PRN Reason: BREAKTHROUGH PAIN (SEVERE) Morphine Sulfate (Morphine Sulf Inj 4 Mg/Ml Vial) 2 mg IVP Q6HR PRN PRN Reason: PAIN SCALE 7-10 (Severe Stop: 06/25/25 20:18 Discontinued Medications Hydromorphone HCl (Hydromorphone Inj 2 Mg/Ml Vial) 1 mg IVP X1 ONE Stop: 06/20/25 18:35 Last Admin: 06/20/25 18:51 Dose: 1 mg Lactated Ringer's (Lactated Ringers) 1,000 mls @ 999 mls/hr IV .Q1H1M ONE Stop: 06/20/25 18:59 Last Infusion: 06/20/25 20:05 Dose: Infused Morphine Sulfate (Morphine Sulf Inj 4 Mg/Ml Vial) 4 mg IVP X1 ONE Stop: 06/20/25 18:00 Last Admin: 06/20/25 18:55 Dose: Not Given Ondansetron HCl (Ondansetron Inj 2 Mg/Ml Inj 2 Ml) 4 mg IVP X1 ONE; Protocol Stop: 06/20/25 17:59 Last Admin: 06/20/25 18:47 Dose: 4 mg Assessment & Plan Plan 34-year-old female with a past medical history of recurrent UTIs, kidney stones, and a recent hospitalization for a perforated gastric ulcer, status post exploratory laparotomy and drainage of an intra-abdominal abscess (RICK drain removed on 06/10), presenting with recurrence of severe upper abdominal pain. Patient admitted for PICC line insertion and start of TPN. #Severe upper abdominal pain #Perforated Gastric ulcer, s/p exploratory laparotomy #Intractable abdominal pain #NPO pending PICC line placement for TPN Gastric ulcer development was likely from sustained ibuprofen use for tooth/jaw pain for the past few years Patient was recently admitted and hospitalized for 2 weeks for perforated gastric ulcer s/p ex lap and drainage of intrabdominal abscess (RICK drain removed 06/10). Patient presents with redeveloped severe upper abdominal pain. Associated with nausea, generalized body weakness. CT abdomen 06/19 shows gastritis pattern, complex fluid collection with air in the upper abdomen around the distal stomach consistent with gastric perforation. Gallbladder US 06/19 negative. Small bowel x-ray 06/19 shows no gastric perforation, negative for small bowel obstruction. Plan: ? N.p.o. and bowel rest for 2 weeks ? General Surgery consult placed, Dr. Pond, appreciate recs ? IV Tylenol 1 g every 6 hours scheduled ? Morphine 2 mg IV every 6 hours as needed ? Morphine 1 mg IV every 4 hours as needed for breakthrough severe pain ? LR 100 cc an hour, 2 bags ? Zofran as needed ? PICC line insertion for Sunday ? Dietitian consult placed ? TPN to start after PICC line inserted Health Maintenance: Diet: N.p.o. GI prophylaxis: Protonix daily DVT prophylaxis: Lovenox Antibiotics: None CODE STATUS: [facility] with my attending Dr. Malik, and senior resident, Dr. Bulmaro Love MD PGY-1 Attending Provider Attestation/Addendum After examination of the patient and review of the clinical data I feel that this patient needs admission to the hospital for further treatment/evaluation. Plan of care discussed with patient and is in agreement. I Viri Malik MD, attest that I was physically present for nassar portions of evaluation, and examined patient, labs and imagings and plan of care were discussed with IM residents team, and I agree with the findings and plans documented above.
--- NOTE | 2025-06-20 20:47 | PC.NURSE ---
Dr. Love made aware of BS 75. Will recheck in 30 mins and let MD aware if below 60.
[2025-06-20] MEDS: RINGERS LACTATED 1000 ML 1,000 ML 100 ML IV (20:51)
[2025-06-20] MEDS: MORPHINE SULF INJ 4 MG/ML VIAL 2 MG IVP (21:03)
[2025-06-20 21:39] VITALS: BMI 27.7
[2025-06-20 22:20] VITALS: BP 112/69; PULSE 65; RESP 19; TEMP 36.9; O2SAT 98
[2025-06-20] MEDS: MORPHINE SULF INJ 4 MG/ML VIAL 1 MG IVP (23:32)
[2025-06-21] VITALS: BP 108/70; PULSE 72; RESP 17; TEMP 36.7; O2SAT 96
[2025-06-21] MEDS: ACETAMINOPHEN IVPB 1,000 MG/100 ML VIAL 250 MG IV ×4 (00:28→20:18)
[2025-06-21] MEDS: HYDROmorphone INJ 2 MG/ML VIAL 0.25 MG IVP (02:00)
[2025-06-21] MEDS: MELATONIN 3 MG TABLET 6 MG PO (02:04)
[2025-06-21] MEDS: MORPHINE SULF INJ 4 MG/ML VIAL 2 MG IVP (03:05)
[2025-06-21 04:00] VITALS: BP 95/51; PULSE 69; RESP 16; TEMP 36.4; O2SAT 95
[2025-06-21 05:36] LABS: Basophils # (Auto) 0.1 Thou/mm3 (0.0-0.2); Basophils % (Auto) 1 % (0-2.5); Eosinophils # (Auto) 0.1 Thou/mm3 (0.0-0.5); Eosinophils % (Auto) 1 % (0-10); Hematocrit 30.5 % (36.0-46.0); Hemoglobin 9.4 g/dL (12.0-16.0); Immature Granulocytes Auto 0.03 Thou/mm3 (0.00-0.00); Lymphocytes # (Auto) 2.7 Thou/mm3 (1.0-4.8); Lymphocytes % (Auto) 39 % (10-50); Mean Corpuscular HGB Conc 30.8 g/dl (31.0-37.0); Mean Corpuscular Hemoglobin 26.3 pg (25.0-35.0); Mean Corpuscular Volume 85 fL (80-100); Monocytes # (Auto) 0.5 Thou/mm3 (0.0-0.8); Monocytes % (Auto) 7 % (0-12); Neutrophils # (Auto) 3.6 Thou/mm3 (1.8-7.7); Neutrophils % (Auto) 52 % (37-80); Nucleated Red Blood Cell # 0.00 Thou/mm3 (0.00-0.00); Nucleated Red Blood Cell % 0 /100 WBC (0); Platelet Count 284 Thou/mm3 (140-440); RDW Standard Deviation 49.1 fL (36.4-46.3); Red Blood Count 3.57 Miln/mm3 (4.00-5.20); White Blood Count 7.0 Thou/mm3 (3.6-11.0)
[2025-06-21] MEDS: RINGERS LACTATED 1000 ML 1,000 ML 100 ML IV (05:51)
[2025-06-21 06:05] LABS: Alanine Aminotransferase 27 U/L (10-49); Albumin, Serum 3.1 gm/dL (3.5-5.0); Albumin/Globulin Ratio 1.2 (1.2-2.2); Alkaline Phosphatase 91 U/L (46-116); Anion Gap 8 (7-16); Aspartate Amino Transferase 31 U/L (0-34); BUN/Creatinine Ratio 10 Ratio (12-20); Bilirubin,Total 0.2 mg/dL (0.3-1.2); Blood Urea Nitrogen 6 mg/dL (9-23); Calcium 8.8 mg/dL (8.3-10.6); Calcium (Corrected) 9.5 mg/dL (8.5-10.1); Carbon Dioxide 25.8 mMol/L (20.0-31.0); Chloride 107 mMol/L (98-107); Creatinine (Component) 0.6 mg/dL (0.6-1.3); Estimated Creatinine Clearance 110.7 mL/min (>60); Globulin 2.6 gm/dL (2.3-3.5); Glucose 81 mg/dL (74-106); Magnesium 1.7 mg/dL (1.6-2.6); Osmolality,Calculated 277 (275-295); Phosphorous 4.5 mg/dL (2.4-5.1); Potassium 3.6 mMol/L (3.4-5.1); Sodium 141 mMol/L (136-145); Total Protein 5.7 gm/dL (5.7-8.2); eGFR > 60 See Note
[2025-06-21 07:44] VITALS: BP 101/58; PULSE 67; RESP 16; TEMP 36.1; O2SAT 95
[2025-06-21] MEDS: MORPHINE SULF INJ 4 MG/ML VIAL 1 MG IVP ×2 (07:45→12:19)
--- NOTE | 2025-06-21 08:22 | ESPR_ITS ---
<Statement entered by Katherine Cash MD - 06/21/25 16:01> Pt is seen at bedside, endorses to significant improvement of pain. However pt is unable to eat due tp pain. Pt is admitted for PICC line tomorrow through which she will receive TPN and strict NPO for bowel rest. Patient was seen and examined by me personally. I have directly supervised and reviewed documentation by the team resident and agree with its findings. ------- Plan of care was discussed with the attending, Dr. Abdullahi Cash, PGY-2 Documentation for date of: 06/21/25 Subjective Subjective Interval history: patient seen and examined at bedside she states that she is hungry and in pain she is pending picc line placement for tpn reiterated that she is strict NPO Exam Vital Signs Temp Pulse Resp BP Pulse Ox O2 Del Method 97.0 F 67 16 101/58 L 95 Room Air 06/21/25 07:44 06/21/25 07:44 06/21/25 07:44 06/21/25 07:44 06/21/25 07:44 06/20/25 22:20 Narrative Exam General: AOx3, in moderate distress, able to speak full sentences, Irish- speaking HEENT: NC/AT, mucous membranes moist, bilateral sclera anicteric Cardiovascular: regular rate and rhythm, S1/S2 present, no murmurs appreciated Pulmonary: clear to auscultation bilaterally, no rales/rhonchi/wheezes Abdominal: Laparotomy scar present with patricia clean and intact with middle portion open with packing in place. soft, moderate tenderness over whole abdomen, non-distended, no rebound/guarding, normal bowel sounds present Musculoskeletal: normal ROM, no peripheral edema Skin: warm and dry, intact, no rashes, Neuro: CN II-XII intact, no focal deficits Objective Labs 06/22/25 04:44 06/22/25 04:44 Labs: Laboratory Results - last 24 hr 06/20/25 06/20/25 06/21/25 18:00 19:00 05:05 WBC 7.2 7.0 RBC 3.97 L 3.57 L Hgb 10.8 L 9.4 L Hct 34.3 L 30.5 L MCV 86 85 MCH 27.2 26.3 MCHC 31.5 30.8 L RDW Std Deviation 49.8 H 49.1 H Plt Count 330 D 284 D Neut % (Auto) 72 52 Lymph % (Auto) 22 39 [place] % (Auto) 4 7 Eos % (Auto) 0 1 Baso % (Auto) 1 1 Neut # (Auto) 5.2 3.6 Lymph # (Auto) 1.6 2.7 [place] # (Auto) 0.3 0.5 Eos # (Auto) 0.0 0.1 Baso # (Auto) 0.1 0.1 Immature Gran # (Auto) 0.02 H 0.03 H Absolute Nucleated RBC 0.00 0.00 Immature Gran % 0 0 Nucleated RBC % 0 0 APTT 27.6 Sodium 142 141 Potassium 4.2 3.6 D Chloride 104 107 Carbon Dioxide 26.1 25.8 Anion Gap 12 8 BUN 8 L 6 L Creatinine 0.7 0.6 Estim Creat Clear Calc 97.8 110.7 eGFR > 60 > 60 BUN/Creatinine Ratio 11 L 10 L Glucose 84 81 Calculated Osmolality 280 277 Calcium 9.5 8.8 Corrected Calcium 9.6 9.5 Phosphorus 4.5 Magnesium 1.7 Total Bilirubin 0.3 0.2 L AST 41 H 31 ALT 36 27 Alkaline Phosphatase 115 91 D Total Protein 6.8 5.7 Albumin 3.9 3.1 L D Globulin 2.9 2.6 Albumin/Globulin Ratio 1.3 1.2 Lipase 39 D Ur Collection Type Clean Catch Urine Color Lt-Yellow Urine Clarity Turbid A Urine pH 7.0 Ur Specific [place] 1.016 Urine Protein Negative Urine Glucose (UA) Negative Urine Ketones 2+ A Urine Blood Negative Urine Nitrite Negative Urine Bilirubin Negative Urine Urobilinogen (Auto) Negative Ur Leukocyte Esterase Negative Urine RBC 1 Urine WBC 2 Ur Squamous Epith Cells 11 H Amorphous Crystals Present A Urine Bacteria Rare Ur Culture Indicated? Not Indicated Quality Measures Quality Measures VTE prophylaxis Assessment & Plan Assessment Current Active Medications: Generic Name Dose Route Start Last Admin Trade Name Freq PRN Reason Stop Dose Admin Enoxaparin Sodium 40 mg 06/21/25 09:00 Enoxaparin Sod Inj 40 Mg/0.4 Ml Syringe SC 07/05/25 08:59 QDAY SALUD Acetaminophen 1,000 mg in 100 mls @ 250 mls/hr 06/20/25 20:07 06/21/25 05:50 Ofirmev Inj IV 06/21/25 12:23 250 mls/hr Q6HR SALUD Administration Lactated Ringer's 1,000 mls @ 100 mls/hr 06/20/25 20:15 06/21/25 05:51 Lactated Ringers IV 06/21/25 16:14 100 mls/hr .Q10H SALUD Administration Morphine Sulfate 1 mg 06/20/25 20:17 06/21/25 07:45 Morphine Sulf Inj 4 Mg/Ml Vial IVP 1 mg Q4H PRN Administration BREAKTHROUGH PAIN (SEVERE) Morphine Sulfate 2 mg 06/20/25 20:19 06/21/25 03:05 Morphine Sulf Inj 4 Mg/Ml Vial IVP 06/25/25 20:18 2 mg Q6HR PRN Administration PAIN SCALE 7-10 (Severe Ondansetron HCl 4 mg 06/20/25 20:40 Ondansetron Inj 2 Mg/Ml Inj 2 Ml IVP 07/20/25 20:39 Q6HR PRN NAUSEA OR VOMITING Protocol Pantoprazole Sodium 40 mg 06/20/25 20:30 06/20/25 20:38 Pantoprazole Inj 40 Mg Vial IVP 07/20/25 20:29 40 mg QDAY SALUD Administration Plan 34-year-old female with a past medical history of recurrent UTIs, kidney stones, and a recent hospitalization for a perforated gastric ulcer, status post exploratory laparotomy and drainage of an intra-abdominal abscess (RICK drain removed on 06/10), presenting with recurrence of severe upper abdominal pain. Patient admitted for PICC line insertion and start of TPN, pending ir placement tomorrow, orders in #Severe upper abdominal pain #Perforated Gastric ulcer, s/p exploratory laparotomy Gastric ulcer development was likely from sustained ibuprofen use for tooth/jaw pain for the past few years Patient was recently admitted and hospitalized for 2 weeks for perforated gastric ulcer s/p ex lap and drainage of intrabdominal abscess (RICK drain removed 06/10). Patient presents with redeveloped severe upper abdominal pain. Associated with nausea, generalized body weakness. CT abdomen 06/19 shows gastritis pattern, complex fluid collection with air in the upper abdomen around the distal stomach consistent with gastric perforation. Gallbladder US 06/19 negative. Small bowel x-ray 06/19 shows no gastric perforation, negative for small bowel obstruction. Plan: ? N.p.o. and bowel rest for 10-14days ? General Surgery consult placed, Dr. Pond, appreciate recs ? IV Tylenol 1 g every 6 hours scheduled -- Dilaudid 1mg q4hr prn for breakthrough pain ? D5 LR 100 cc an hour, 3 bags --Bedside glucose check q6hr ? Zofran as needed ? PICC line insertion for Sunday, AM Draw INR and PTT ? Dietitian consult placed ? TPN to start after PICC line inserted Health Maintenance: Diet: N.p.o. GI prophylaxis: Protonix daily DVT prophylaxis: Lovenox, held iso picc line Antibiotics: None CODE STATUS: Full Disposition: Medr Attending Provider Attestation/Addendum I have examined the patient, reviewed labs and imaging findings, discussed the case with the resident(s), and reviewed entered orders. I agree with the plan of care as outlined in this note, with these additional summaries/recommendations: Patient with persistent abdominal pain and complains of lots of hunger. Pending PICC line placement tomorrow for initiation of TPN. Continues to require IV opioids for intractable abdominal pain, regimen adjusted. She will need to remain on bowel rest for 2 weeks per surgery recommendations, discussed with patient. Shelton Fernando MD
[2025-06-21] MEDS: HYDROmorphone INJ 2 MG/ML VIAL 1 MG IVP ×3 (10:13→20:18)
[2025-06-21 12:00] VITALS: BP 99/50; PULSE 79; RESP 18; TEMP 36.3; O2SAT 99
--- NOTE | 2025-06-21 12:41 | PD.SURCONS ---
HPI Consult details Consult date: 06/21/25 Reason for consultation narrative: Patient was seen for follow-up after transfer back from [facility] where she went for a second opinion. History of present illness: Patient is still complaining of significant pain requiring morphine or Dilaudid [id number]. Meds Home Medications and Allergies Home Medications ?Medication ?Instructions ?Recorded ?Confirmed ?Type omeprazole 20 mg capsule,delayed 20 mg PO QDAY 06/19/25 06/20/25 History release Allergies Allergy/AdvReac Type Severity Reaction Status Date / Time No Known Allergies Allergy Verified 06/15/25 04:42 Exam Vital Signs Temp Pulse Resp BP Pulse Ox O2 Del Method 97.0 F 67 16 101/58 L 95 Room Air 06/21/25 07:44 06/21/25 07:44 06/21/25 07:44 06/21/25 07:44 06/21/25 07:44 06/20/25 22:20 Assessment & Plan Additional Assessment Additional comments: Impression: Perforation of the stomach with extravasation has been ruled out with both Gastrografin upper GI done here on Sunday as well as in [facility]. The surgeon in the [facility] field that we should keep the patient n.p.o. for 2 weeks and provide nutrition with central venous total parenteral nutrition. The present time patient is anxious to have some liquids but we will keep her n.p.o. except ice chips Plan Plan: We shall start the TPN tomorrow for the next week or 10 days until the patient starts eating. No surgical intervention is required at this time.
[2025-06-21 16:00] VITALS: BP 109/61; PULSE 71; RESP 16; TEMP 36.5; O2SAT 98
[2025-06-21] MEDS: DEXTROSE 5%-LACTATED RINGERS 1,000 ML 100 ML IV (16:00)
--- NOTE | 2025-06-21 16:14 | PC.SS ---
Rounding note: piccline tomorrow, tpn through piccline for 12 days, pt. refusing SNF.
[2025-06-21 20:00] VITALS: BP 100/55; PULSE 72; RESP 20; TEMP 36.4; O2SAT 93
[2025-06-22] VITALS (9 sets, daily range): BP systolic 96–111; BP diastolic 54–69; PULSE 62–81; RESP 12–19; TEMP 36.1–36.8; O2SAT 96–99; BMI 27.8
[2025-06-22] MEDS: DEXTROSE 5%-LACTATED RINGERS 1,000 ML 100 ML IV ×2 (02:14→11:21)
[2025-06-22] MEDS: HYDROmorphone INJ 2 MG/ML VIAL 1 MG IVP ×6 (04:33→19:33)
[2025-06-22] MEDS: ACETAMINOPHEN IVPB 1,000 MG/100 ML VIAL 250 MG IV (05:09)
[2025-06-22 05:26] LABS: Basophils # (Auto) 0.1 Thou/mm3 (0.0-0.2); Basophils % (Auto) 1 % (0-2.5); Eosinophils # (Auto) 0.1 Thou/mm3 (0.0-0.5); Eosinophils % (Auto) 1 % (0-10); Hematocrit 32.0 % (36.0-46.0); Hemoglobin 9.9 g/dL (12.0-16.0); Immature Granulocytes Auto 0.02 Thou/mm3 (0.00-0.00); Lymphocytes # (Auto) 2.5 Thou/mm3 (1.0-4.8); Lymphocytes % (Auto) 41 % (10-50); Mean Corpuscular HGB Conc 30.9 g/dl (31.0-37.0); Mean Corpuscular Hemoglobin 26.8 pg (25.0-35.0); Mean Corpuscular Volume 87 fL (80-100); Monocytes # (Auto) 0.4 Thou/mm3 (0.0-0.8); Monocytes % (Auto) 6 % (0-12); Neutrophils # (Auto) 3.1 Thou/mm3 (1.8-7.7); Neutrophils % (Auto) 51 % (37-80); Nucleated Red Blood Cell # 0.00 Thou/mm3 (0.00-0.00); Nucleated Red Blood Cell % 0 /100 WBC (0); Platelet Count 264 Thou/mm3 (140-440); RDW Standard Deviation 49.7 fL (36.4-46.3); Red Blood Count 3.69 Miln/mm3 (4.00-5.20); White Blood Count 6.0 Thou/mm3 (3.6-11.0)
[2025-06-22 05:38] LABS: INR 1.1 (0.9-1.3); Prothrombin Time 11.3 Seconds (9.0-12.2)
[2025-06-22 05:49] LABS: Alanine Aminotransferase 20 U/L (10-49); Albumin, Serum 3.3 gm/dL (3.5-5.0); Albumin/Globulin Ratio 1.4 (1.2-2.2); Alkaline Phosphatase 85 U/L (46-116); Anion Gap 9 (7-16); Aspartate Amino Transferase 22 U/L (0-34); BUN/Creatinine Ratio 10 Ratio (12-20); Bilirubin,Total 0.2 mg/dL (0.3-1.2); Blood Urea Nitrogen < 5 mg/dL (9-23); Calcium 8.9 mg/dL (8.3-10.6); Calcium (Corrected) 9.5 mg/dL (8.5-10.1); Carbon Dioxide 26.6 mMol/L (20.0-31.0); Chloride 107 mMol/L (98-107); Creatinine (Component) 0.5 mg/dL (0.6-1.3); Estimated Creatinine Clearance 132.8 mL/min (>60); Globulin 2.3 gm/dL (2.3-3.5); Glucose 118 mg/dL (74-106); Magnesium 1.6 mg/dL (1.6-2.6); Osmolality,Calculated 283 (275-295); Phosphorous 3.6 mg/dL (2.4-5.1); Potassium 3.4 mMol/L (3.4-5.1); Sodium 143 mMol/L (136-145); Total Protein 5.6 gm/dL (5.7-8.2); eGFR > 60 See Note
--- NOTE | 2025-06-22 08:00 | XR_ITS ---
Examination: Ultrasound-guided needle placement right brachial vein. Dual-lumen central line placement (PICC line). Fluoroscopy AP chest, portable, single view Exam date and time: June 22, 2025, 1429 hours INDICATIONS: Need for long-term parenteral nutrition IV, gastric ulcer history A timeout was completed verifying correct patient, procedure, site, positioning Informed consent provided Technique: The patient's site was prepped and draped in sterile fashion. Maximum Sterile Barrier Technique used including cap, mask, sterile gown, sterile gloves, and sterile full body drape. If ultrasound technique used: sterile gel and sterile probe covers. Hand Hygiene performed using proper scrub, soap and water, or alcohol-based hand rub. Ultrasound utilized to confirm patency of the right brachial vein Utilizing ultrasonographic guidance successful 21-gauge needle puncture into the right brachial vein Ultrasound images recorded and stored. 5 cc 1% lidocaine administered for local anesthetic. Successful micropuncture with a 21-gauge needle is performed. 0.18 wire guide is then introduced into the SVC under fluoroscopic guidance. Dual-lumen catheter dilator is then introduced, followed by the catheter in the SVC and proper position under fluoroscopic guidance. Successful aspiration of blood and flushing with heparinized saline is then performed in the 2 venous limbs. The catheter sutured in place. Findings: Under fluoroscopy, the tip of the catheter is in good position in the vena cava. Portable chest x-ray, post line placement is ordered. Estimated blood loss 3 cc The patient tolerated the procedure well and was in stable and satisfactory condition at completion of the procedure Impression: Successful ultrasound-guided needle placement right brachial vein Successful placement of dual lumen central line, percutaneous Fluoroscopy 0.01-minute radiation dose 0.40 mGy 1 spot fluoroscopic chest:. AP chest completion procedure demonstrates satisfactory position central line. May use central line.
--- NOTE | 2025-06-22 08:50 | ESPR_ITS ---
<Statement entered by Katherine Cash MD - 06/22/25 21:01> Patient is seen at bedside. Patient will get a PICC line for TPN today. Social service is working on getting patient approved for home health to manage TPN as patient does not want to go to acute rehab. Patient is continued to be strict n.p.o. Patient was seen and examined by me personally. I have directly supervised and reviewed documentation by the team resident and agree with its findings. ------- Plan of care was discussed with the attending, Dr.Cabrera Dr. Cash, PGY-2 Documentation for date of: 06/22/25 Subjective Subjective Interval history: patient seen and examined at bedside. PICC line to be placed today tpn to be started today continues to endorse abdominal pain and hunger. Exam Vital Signs Temp Pulse Resp BP Pulse Ox O2 Del Method 98.0 F 69 18 109/62 96 Room Air 06/22/25 08:00 06/22/25 08:00 06/22/25 08:00 06/22/25 08:00 06/22/25 08:00 06/22/25 08:00 Narrative Exam General: AOx3, in no acute distress, able to speak full sentences, Tunisian- speaking HEENT: NC/AT, mucous membranes moist, bilateral sclera anicteric Cardiovascular: regular rate and rhythm, S1/S2 present, no murmurs appreciated Pulmonary: clear to auscultation bilaterally, no rales/rhonchi/wheezes Abdominal: Laparotomy scar present with patricia clean and intact with middle portion open with packing in place. soft, moderate tenderness over whole abdomen, non-distended, no rebound/guarding, normal bowel sounds present Musculoskeletal: normal ROM, no peripheral edema Skin: warm and dry, intact, no rashes, Neuro: CN II-XII intact, no focal deficits Objective Labs 06/24/25 04:45 06/24/25 04:45 Labs: Laboratory Results - last 24 hr 06/22/25 04:44 WBC 6.0 RBC 3.69 L Hgb 9.9 L Hct 32.0 L MCV 87 MCH 26.8 MCHC 30.9 L RDW Std Deviation 49.7 H Plt Count 264 Neut % (Auto) 51 Lymph % (Auto) 41 [place] % (Auto) 6 Eos % (Auto) 1 Baso % (Auto) 1 Neut # (Auto) 3.1 Lymph # (Auto) 2.5 [place] # (Auto) 0.4 Eos # (Auto) 0.1 Baso # (Auto) 0.1 Immature Gran # (Auto) 0.02 H Absolute Nucleated RBC 0.00 Immature Gran % 0 Nucleated RBC % 0 PT 11.3 INR 1.1 Sodium 143 Potassium 3.4 Chloride 107 Carbon Dioxide 26.6 Anion Gap 9 BUN < 5 L Creatinine 0.5 L Estim Creat Clear Calc 132.8 eGFR > 60 BUN/Creatinine Ratio 10 L Glucose 118 H Calculated Osmolality 283 Calcium 8.9 Corrected Calcium 9.5 Phosphorus 3.6 Magnesium 1.6 Total Bilirubin 0.2 L AST 22 ALT 20 Alkaline Phosphatase 85 Total Protein 5.6 L Albumin 3.3 L Globulin 2.3 Albumin/Globulin Ratio 1.4 Quality Measures Quality Measures VTE prophylaxis Assessment & Plan Assessment Current Active Medications: Generic Name Dose Route Start Last Admin Trade Name Freq PRN Reason Stop Dose Admin Enoxaparin Sodium 40 mg 06/21/25 09:00 06/21/25 10:00 Enoxaparin Sod Inj 40 Mg/0.4 Ml Syringe SC 07/05/25 08:59 Not Given On Hold: 06/21/25 14:41 QDAY SALUD Hydromorphone HCl 1 mg 06/21/25 09:44 06/22/25 08:03 Hydromorphone Inj 2 Mg/Ml Vial IVP 06/26/25 09:43 1 mg Q4HR PRN Administration severe pain 7-10 Dextrose/Lactated Ringer's 1,000 mls @ 100 mls/hr 06/21/25 15:00 06/22/25 02:14 D5-Lr IV 06/22/25 20:59 100 mls/hr .Q10H SALUD Administration Acetaminophen 1,000 mg in 100 mls @ 250 mls/hr 06/21/25 21:00 06/22/25 05:09 Ofirmev Inj IV 06/22/25 18:23 250 mls/hr Q6HR SALUD Administration Magnesium Sulfate 4 gm in 50 mls @ 12.5 mls/hr 06/22/25 08:47 Magnesium Sulfate Ivpb IV 06/22/25 12:46 X1 ONE Potassium Chloride 10 meq in 100 mls @ 100 mls/hr 06/22/25 08:47 Kcl Ivpb IV 06/22/25 12:46 Q1H SALUD Morphine Sulfate 2 mg 06/20/25 20:19 06/21/25 03:05 Morphine Sulf Inj 4 Mg/Ml Vial IVP 06/25/25 20:18 2 mg On Hold: 06/21/25 09:47 Q6HR PRN Administration Comment: DILAUDID ORDER PAIN SCALE 7-10 (Severe ENTERED FOR PAIN 7-10 Ondansetron HCl 4 mg 06/20/25 20:40 Ondansetron Inj 2 Mg/Ml Inj 2 Ml IVP 07/20/25 20:39 Q6HR PRN NAUSEA OR VOMITING Protocol Pantoprazole Sodium 40 mg 06/20/25 20:30 06/22/25 08:03 Pantoprazole Inj 40 Mg Vial IVP 07/20/25 20:29 40 mg QDAY SALUD Administration Plan 34-year-old female with a past medical history of recurrent UTIs, kidney stones, and a recent hospitalization for a perforated gastric ulcer, status post exploratory laparotomy and drainage of an intra-abdominal abscess (RICK drain removed on 06/10), presenting with recurrence of severe upper abdominal pain. Patient admitted for PICC line insertion and start of TPN, pending ir placement today and initiation of tpn #Severe upper abdominal pain #Perforated Gastric ulcer, s/p exploratory laparotomy Gastric ulcer development was likely from sustained ibuprofen use for tooth/jaw pain for the past few years Patient was recently admitted and hospitalized for 2 weeks for perforated gastric ulcer s/p ex lap and drainage of intrabdominal abscess (RICK drain removed 06/10). Patient presents with redeveloped severe upper abdominal pain. Associated with nausea, generalized body weakness. CT abdomen 06/19 shows gastritis pattern, complex fluid collection with air in the upper abdomen around the distal stomach consistent with gastric perforation. Gallbladder US 06/19 negative. Small bowel x-ray 06/19 shows no gastric perforation, negative for small bowel obstruction. triglycerides weekly Plan: ? N.p.o. and bowel rest for 10-14days , will follow up with Dr. Pond in 1-2 weeks - home with home health pending insurance auth ? TPN to start after PICC line inserted ? General Surgery consult placed, Dr. Pond, appreciate recs ? IV Tylenol 1 g every 6 hours scheduled -- Dilaudid 1mg q4hr prn for breakthrough pain -- patient does not want morphine for pain, does not like how it makes her feel -- ok for ativan if pt anxious in the evening. ? D5 LR 100 cc an hour, 3 bags , d/c after --Bedside glucose check q6hr --ISS step 1 ? Zofran as needed ? PICC line insertion for Sunday, ? Dietitian consult placed, appreciate recs Health Maintenance: Diet: N.p.o. GI prophylaxis: Protonix daily DVT prophylaxis: Lovenox, held iso picc line Antibiotics: None CODE STATUS: Full Disposition: MedSurg Plan discussed with my attending Dr. Fernando and my senior Dr. Shailesh Holloway MD PGY1 Attending Provider Attestation/Addendum Patient seen and examined at bedside with resident. Agree with assessment and plan as documented above. Shelton Fernando MD
--- NOTE | 2025-06-22 09:24 | PC.SS ---
Addendum entered by Elizabeth Rice 06/22/25 15:30: Follow up note: SS met with patient at bedside to discuss d/c plans. Patient has her own home but will be staying with her f[address]Ronald, [address] Patient is getting the picc line placed today. Patient will need TPN for 2 weeks through picc line. Transfer nurse is actively working on this. Patient's p.c.p. is through [facility]. Last appt. was a few months ago. Pharmacy: [facility] Original Note: Patient needs two weeks of TPN through picc line. SS updated transfer nurse to verify if home health can accommodate this. Patient refusing SNF.
[2025-06-22] MEDS: POTASSIUM CHL 10 mEq IVPB 10 MEQ/100 ML BAG 100 MEQ IV ×3 (10:17→13:21)
[2025-06-22] MEDS: Magnesium Sulfate 4 GM Ivpb 4 GM/50 ML BAG IV (10:17)
--- NOTE | 2025-06-22 11:38 | PC.DIETICIAN ---
Nutrition prescription CPN: D20% AA5% at 70 ml/hr x 24 hrs with 500 ml 20% lipid 3 times a week (Mon-Sun-Fri). 1680 ml volume, 84 g AA, 336 g dextrose, 1907 total calories, NPC 1571. GIR=3.6 / LIR=0.7
[2025-06-22 11:43] LABS: Triglycerides 149 mg/dL (30-150)
[2025-06-22] MEDS: LIDOCAINE INJ PF 1% 30 ML VIAL INFL (14:40)
[2025-06-22] MEDS: HEPARIN SOD LOCK SYR 100 UNIT/ML 500 UNIT STFIELD (14:40)
[2025-06-22] MEDS: MIDAZOLAM INJ 1 MG/ML VIAL 2 ML 3 MG IVP (15:00)
--- NOTE | 2025-06-22 15:00 | PC.CC ---
Spoke to Dr. Cash regarding the prescription for the TPN. I informed her that the nutrition prescription is in dietary notes and needs to be in the airline operations agent order. Received order to add prescription to the dietary order from Dr. Cash.
--- NOTE | 2025-06-22 15:32 | PC.NURSE ---
PATIENT BACK FROM [employer] ALERT AND ORIENTED X3 FAMILY AT BEDSIDE.
[2025-06-22] MEDS: HYDROmorphone INJ 2 MG/ML VIAL 0.5 MG IVP ×2 (17:26→22:09)
[2025-06-22] MEDS: FAT EMULSIONS 20% IV 500 ML 32 ML IV (19:34)
--- NOTE | 2025-06-22 21:55 | PC.NURSE ---
Called hospitalist spoke to resident Dr. Tate, made aware pt c/o pain to abdomen 05/15 and feels very anxious, also requesting for anxiety meds. Last dose of Dilaudid given at 1932 next dose not until 2332, per MD will look at chart, no new orders received at this time.
[2025-06-22] MEDS: INSULIN HUM REGULAR 1 UNIT/0.01 ML (PER UNIT) SC (23:08)
[2025-06-23] VITALS: BP 106/60; PULSE 71; RESP 19; TEMP 36.1; O2SAT 100
[2025-06-23] MEDS: HYDROmorphone INJ 2 MG/ML VIAL 1 MG IVP ×5 (01:22→22:00)
[2025-06-23 04:00] VITALS: BP 106/56; PULSE 89; RESP 17; TEMP 36.2; O2SAT 94
[2025-06-23 05:42] LABS: Basophils # (Auto) 0.1 Thou/mm3 (0.0-0.2); Basophils % (Auto) 1 % (0-2.5); Eosinophils # (Auto) 0.1 Thou/mm3 (0.0-0.5); Eosinophils % (Auto) 1 % (0-10); Hematocrit 32.5 % (36.0-46.0); Hemoglobin 10.0 g/dL (12.0-16.0); Immature Granulocytes Auto 0.02 Thou/mm3 (0.00-0.00); Lymphocytes # (Auto) 2.7 Thou/mm3 (1.0-4.8); Lymphocytes % (Auto) 42 % (10-50); Mean Corpuscular HGB Conc 30.8 g/dl (31.0-37.0); Mean Corpuscular Hemoglobin 26.9 pg (25.0-35.0); Mean Corpuscular Volume 87 fL (80-100); Monocytes # (Auto) 0.5 Thou/mm3 (0.0-0.8); Monocytes % (Auto) 7 % (0-12); Neutrophils # (Auto) 3.2 Thou/mm3 (1.8-7.7); Neutrophils % (Auto) 48 % (37-80); Nucleated Red Blood Cell # 0.00 Thou/mm3 (0.00-0.00); Nucleated Red Blood Cell % 0 /100 WBC (0); Platelet Count 252 Thou/mm3 (140-440); RDW Standard Deviation 50.4 fL (36.4-46.3); Red Blood Count 3.72 Miln/mm3 (4.00-5.20); White Blood Count 6.5 Thou/mm3 (3.6-11.0)
[2025-06-23 06:16] LABS: Alanine Aminotransferase 23 U/L (10-49); Albumin, Serum 3.5 gm/dL (3.5-5.0); Albumin/Globulin Ratio 1.5 (1.2-2.2); Alkaline Phosphatase 84 U/L (46-116); Anion Gap 10 (7-16); Aspartate Amino Transferase 23 U/L (0-34); BUN/Creatinine Ratio 10 Ratio (12-20); Bilirubin,Total < 0.2 mg/dL (0.3-1.2); Blood Urea Nitrogen < 5 mg/dL (9-23); Calcium 8.4 mg/dL (8.3-10.6); Calcium (Corrected) 8.8 mg/dL (8.5-10.1); Carbon Dioxide 26.7 mMol/L (20.0-31.0); Chloride 109 mMol/L (98-107); Creatinine (Component) 0.5 mg/dL (0.6-1.3); Estimated Creatinine Clearance 129.4 mL/min (>60); Globulin 2.3 gm/dL (2.3-3.5); Glucose 96 mg/dL (74-106); Magnesium 2.1 mg/dL (1.6-2.6); Osmolality,Calculated 287 (275-295); Phosphorous 3.9 mg/dL (2.4-5.1); Potassium 3.5 mMol/L (3.4-5.1); Sodium 146 mMol/L (136-145); Total Protein 5.8 gm/dL (5.7-8.2); eGFR > 60 See Note
[2025-06-23 07:59] VITALS: BP 124/74; PULSE 76; RESP 18; TEMP 36.4; O2SAT 100
--- NOTE | 2025-06-23 08:02 | ESPR_ITS ---
<Statement entered by Axle Nieto MD - 06/29/25 15:19> I reviewed above note and agree with findings and plans. I have also personally examined the patient with medicine team and went over assessment and plan with medical team including web development intern and resident physician. <Statement entered by Katherine Cash MD - 06/23/25 17:17> Pt is seen at bedside, Pt appears to be lethargic and expresses to want to feel better. authorization is completed, pt will be discharged home with homehealth to manage TTP. Pt will be NPO for bowel rest and continue TTP for total of 2 weeks. Pt is also ambulating comfortably and walking down the hallway. Patient was seen and examined by me personally. I have directly supervised and reviewed documentation by the team resident and agree with its findings. ------- Plan of care was discussed with the attending, Dr. Gerson Cash, PGY-2 Documentation for date of: 06/23/25 Subjective Subjective Interval history: no acute events overnight pending d/c with home health with tpn Exam Vital Signs Temp Pulse Resp BP Pulse Ox O2 Del Method O2 Flow Rate 97.5 F 76 18 124/74 100 Room Air 2 06/23/25 07:59 06/23/25 07:59 06/23/25 07:59 06/23/25 07:59 06/23/25 07:59 06/23/25 07:59 06/22/25 15:05 Narrative Exam limited exam pt out of shower well appearing no acute distress well perfused on visual inspection midline abdominal surgical closure with patricia UE picc line in place Objective Labs 06/23/25 04:57 06/23/25 04:57 Labs: Laboratory Results - last 24 hr 06/22/25 06/23/25 04:44 04:57 WBC 6.5 RBC 3.72 L Hgb 10.0 L Hct 32.5 L MCV 87 MCH 26.9 MCHC 30.8 L RDW Std Deviation 50.4 H Plt Count 252 Neut % (Auto) 48 Lymph % (Auto) 42 Bertie % (Auto) 7 Eos % (Auto) 1 Baso % (Auto) 1 Neut # (Auto) 3.2 Lymph # (Auto) 2.7 Bertie # (Auto) 0.5 Eos # (Auto) 0.1 Baso # (Auto) 0.1 Immature Gran # (Auto) 0.02 H Absolute Nucleated RBC 0.00 Immature Gran % 0 Nucleated RBC % 0 Sodium 146 H Potassium 3.5 Chloride 109 H Carbon Dioxide 26.7 Anion Gap 10 BUN < 5 L Creatinine 0.5 L Estim Creat Clear Calc 129.4 eGFR > 60 BUN/Creatinine Ratio 10 L Glucose 96 Calculated Osmolality 287 Calcium 8.4 Corrected Calcium 8.8 Phosphorus 3.9 Magnesium 2.1 Total Bilirubin < 0.2 L AST 23 ALT 23 Alkaline Phosphatase 84 Total Protein 5.8 Albumin 3.5 Globulin 2.3 Albumin/Globulin Ratio 1.5 Triglycerides 149 Quality Measures Quality Measures VTE prophylaxis Assessment & Plan Assessment Current Active Medications: Generic Name Dose Route Start Last Admin Trade Name Freq PRN Reason Stop Dose Admin Enoxaparin Sodium 40 mg 06/21/25 09:00 06/21/25 10:00 Enoxaparin Sod Inj 40 Mg/0.4 Ml Syringe SC 07/05/25 08:59 Not Given On Hold: 06/21/25 14:41 QDAY SALUD Hydromorphone HCl 1 mg 06/21/25 09:44 06/23/25 07:32 Hydromorphone Inj 2 Mg/Ml Vial IVP 06/26/25 09:43 1 mg Q4HR PRN Administration severe pain 7-10 Fat Emulsion Intravenous 500 mls @ 32 mls/hr 06/22/25 18:00 06/22/25 19:34 Intralipid 20% Iv IV 07/22/25 17:59 32 mls/hr [id number] SALUD Administration Potassium Acetate 60 meq/ 2,049 mls @ 35 mls/hr 06/22/25 18:00 06/23/25 01:37 Potassium Phosphate 15 mmol/ IV 06/25/25 04:32 70 mls/hr Magnesium Sulfate 2 gm/ QDAY@1800 ONE Infusion Multivitamins/Minerals 10 ml/ Protocol Amino Acids Insulin Human Regular 0 unit 06/22/25 13:19 06/22/25 23:08 Insulin Hum Regular 1 Unit/0.01 Ml (Per Unit) SC 07/22/25 13:18 2 unit Q6HR PRN Administration GLYCEMIC MANAGEMENT ON PN Protocol Ondansetron HCl 4 mg 06/20/25 20:40 Ondansetron Inj 2 Mg/Ml Inj 2 Ml IVP 07/20/25 20:39 Q6HR PRN NAUSEA OR VOMITING Protocol Pantoprazole Sodium 40 mg 06/20/25 20:30 06/22/25 08:03 Pantoprazole Inj 40 Mg Vial IVP 07/20/25 20:29 40 mg QDAY SALUD Administration Plan 34-year-old female with a past medical history of recurrent UTIs, kidney stones, and a recent hospitalization for a perforated gastric ulcer, status post exploratory laparotomy and drainage of an intra-abdominal abscess (RICK drain removed on 06/10), presenting with recurrence of severe upper abdominal pain. Patient admitted for PICC line insertion and start of TPN, pending discharge tomorrow. with home health. #Severe upper abdominal pain #Perforated Gastric ulcer, s/p exploratory laparotomy Gastric ulcer development was likely from sustained ibuprofen use for tooth/jaw pain for the past few years Patient was recently admitted and hospitalized for 2 weeks for perforated gastric ulcer s/p ex lap and drainage of intrabdominal abscess (RICK drain removed 06/10). Patient presents with redeveloped severe upper abdominal pain. Associated with nausea, generalized body weakness. CT abdomen 06/19 shows gastritis pattern, complex fluid collection with air in the upper abdomen around the distal stomach consistent with gastric perforation. Gallbladder US 06/19 negative. Small bowel x-ray 06/19 shows no gastric perforation, negative for small bowel obstruction. triglycerides weekly Plan: ? N.p.o. and bowel rest for 10-14days , will follow up with Dr. Pond in 1-2 weeks - home with home health ? TPN initiated 06/22 ? General Surgery consult placed, Dr. Pond, appreciate recs ? IV Tylenol 1 g every 6 hours scheduled -- Dilaudid 1mg q4hr prn for breakthrough pain -- patient does not want morphine for pain, does not like how it makes her feel -- ok for ativan if pt anxious in the evening. ? D5 LR 100 cc an hour, 3 bags , d/c after --Bedside glucose check q6hr --ISS step 1 ? Zofran as needed ? Dietitian consult placed, appreciate recs Normocytic Anemia - stable Health Maintenance: Diet: N.p.o. GI prophylaxis: Protonix daily DVT prophylaxis: Lovenox, held iso picc line Antibiotics: None CODE STATUS: Full Disposition: MedSurg Plan discussed with my attending Dr. Nieto and my senior Dr. Shailesh Holloway MD PGY1
[2025-06-23 12:00] VITALS: BP 114/62; PULSE 78; RESP 17; TEMP 36.3; O2SAT 99
--- NOTE | 2025-06-23 14:11 | PD.SURPROG ---
Documentation for date of: 06/23/25 Subjective Subjective Brief History: Patient is still complaining of significant pain requiring morphine or Dilaudid [id number]. Narrative: The patient was seen today and she is still complaining of significant pain requiring Dilaudid. Her vital signs are normal Exam Vital Signs Temp Pulse Resp BP Pulse Ox O2 Del Method O2 Flow Rate 97.3 F 78 17 114/62 99 Room Air 2 06/23/25 12:00 06/23/25 12:00 06/23/25 12:00 06/23/25 12:00 06/23/25 12:00 06/23/25 12:00 06/22/25 15:05 Routine Abdominal Exam Comments: Abdominal examination showed small area on the lower portion of the incision where the skin is open but it is healthy and healing well Results Results: Laboratory Laboratory Narrative: Lab results are within normal limits Assessment & Plan Assessment Additional comments: Impression: TPN has been started on her and we will not feed her for at least a week as suggested by the consulting surgeon. Meanwhile I have advised her to stop taking morphine Plan Plan: Keep her on just ice chips and sips of water. Continue full-blown TPN. We will take the patricia soon from the abdominal incision
[2025-06-23 15:58] VITALS: BP 119/67; PULSE 74; RESP 17; TEMP 36.6; O2SAT 99
[2025-06-23 20:00] VITALS: BP 114/62; PULSE 72; RESP 17; TEMP 36.3; O2SAT 99
--- NOTE | 2025-06-23 20:20 | PC.NURSE ---
Pt seen walking multiple times in hallways tolerating well.
[2025-06-24] VITALS: BP 114/67; PULSE 72; RESP 17; TEMP 36.1; O2SAT 97
[2025-06-24] MEDS: HYDROmorphone INJ 2 MG/ML VIAL 1 MG IVP ×3 (02:09→10:13)
[2025-06-24 04:00] VITALS: BP 107/69; PULSE 66; RESP 17; TEMP 36.4; O2SAT 99
[2025-06-24 05:05] LABS: Basophils # (Auto) 0.1 Thou/mm3 (0.0-0.2); Basophils % (Auto) 1 % (0-2.5); Eosinophils # (Auto) 0.1 Thou/mm3 (0.0-0.5); Eosinophils % (Auto) 2 % (0-10); Hematocrit 30.6 % (36.0-46.0); Hemoglobin 9.2 g/dL (12.0-16.0); Immature Granulocytes Auto 0.01 Thou/mm3 (0.00-0.00); Lymphocytes # (Auto) 3.1 Thou/mm3 (1.0-4.8); Lymphocytes % (Auto) 48 % (10-50); Mean Corpuscular HGB Conc 30.1 g/dl (31.0-37.0); Mean Corpuscular Hemoglobin 26.4 pg (25.0-35.0); Mean Corpuscular Volume 88 fL (80-100); Monocytes # (Auto) 0.5 Thou/mm3 (0.0-0.8); Monocytes % (Auto) 8 % (0-12); Neutrophils # (Auto) 2.6 Thou/mm3 (1.8-7.7); Neutrophils % (Auto) 41 % (37-80); Nucleated Red Blood Cell # 0.00 Thou/mm3 (0.00-0.00); Nucleated Red Blood Cell % 0 /100 WBC (0); Platelet Count 206 Thou/mm3 (140-440); RDW Standard Deviation 50.8 fL (36.4-46.3); Red Blood Count 3.48 Miln/mm3 (4.00-5.20); White Blood Count 6.4 Thou/mm3 (3.6-11.0)
[2025-06-24 05:37] LABS: Alanine Aminotransferase 17 U/L (10-49); Albumin, Serum 3.4 gm/dL (3.5-5.0); Albumin/Globulin Ratio 1.5 (1.2-2.2); Alkaline Phosphatase 86 U/L (46-116); Anion Gap 10 (7-16); Aspartate Amino Transferase 21 U/L (0-34); BUN/Creatinine Ratio 17 Ratio (12-20); Bilirubin,Total 0.2 mg/dL (0.3-1.2); Blood Urea Nitrogen 10 mg/dL (9-23); Calcium 8.3 mg/dL (8.3-10.6); Calcium (Corrected) 8.8 mg/dL (8.5-10.1); Carbon Dioxide 25.4 mMol/L (20.0-31.0); Chloride 109 mMol/L (98-107); Creatinine (Component) 0.6 mg/dL (0.6-1.3); Estimated Creatinine Clearance 107.8 mL/min (>60); Globulin 2.3 gm/dL (2.3-3.5); Glucose 105 mg/dL (74-106); Magnesium 1.9 mg/dL (1.6-2.6); Osmolality,Calculated 285 (275-295); Phosphorous 4.6 mg/dL (2.4-5.1); Potassium 4.4 mMol/L (3.4-5.1); Sodium 144 mMol/L (136-145); Total Protein 5.7 gm/dL (5.7-8.2); eGFR > 60 See Note
--- NOTE | 2025-06-24 07:24 | PC.CM ---
I spoke to Dr. Holloway to find out if patient is stable for discharge. She states patient is stable and she will be discharged today. I asked that she put the discharge in so patient can get home so [facility] can open them this morning.
--- NOTE | 2025-06-24 07:49 | ESDS_ITS ---
<Statement entered by Axel Nieto MD - 06/29/25 15:20> I reviewed above note and agree with findings and plans. I have also personally examined the patient with medicine team and went over assessment and plan with medical team including promotions intern and resident physician. Planned Discharge Date 06/24/25 DS: Providers Provider Date of admission: 06/20/25 20:08 Primary care physician: Physician No Primary/Family Admitting Provider: Viri Malik MD Attending Provider on Admission: Rambo Love MD Consults: 06/20/25 20:14 Consult to General Surgery Routine Comment: Consulting Provider: Edson Hargrove 06/20/25 20:22 Referral Registered Dietitian Routine Comment: TPN start Instructions: Nutrition prescription: CPN: D20% AA5% at 70 ml/hr x 24 hrs with 500 ml 20% lipid 3 times a week (Mon-Wed-Fri). 1680 ml volume, 84 g AA, 336 g dextrose, 1907 total calories, NPC 1571. GIR=3.6 / LIR=0.7 06/22/25 21:01 Referral Wound Care Routine Comment: midline surgical incision req bid packing changes Attending Provider on DC: Steve Nieto MD Discharging Provider: Steve Nieto MD DS: Diagnosis Problem List Completed Was Problem List Reviewed/Reconciled?: Yes Hospital Course Hospital Course Hospital course: Hospital Course Ms. Kwan is a 34-year-old woman with PMH of recurrent UTIs, kidney stones who had recent hospitalization earlier this month for large gastric ulcer which perforated she underwent ex lap with general surgery for repair of the perforation and drainage of an intrabdominal abscess. She represented to the ED due to abdominal pain Surgery recommended bowel rest for 10-14 days. so she was admitted for PICC line placement and tpn. PICC line was successfully placed, and tpn was initiated. Patient was hemodynamically stable, labs were reviewed, pain was well controlled with oral medications, patient denies any shortness of breath and is saturating >94% on RA, is able to ambulate per his baseline without assistance deemed stable and medically cleared for discharge home with home hattie. Diagnoses Severe upper abdominal pain- improving Perforated Gastric ulcer, s/p exploratory laparotomy Normocytic Anemia Discharge instructions -NO EATING food or drink for 2 weeks (Last day 12/1) OK for ice chips to moisten your mouth -please follow up with your surgeon Dr.?Ramasamy Hargrove in clinic in 2 weeks, [address] [facility] [address], [place], [place] [id number] -for moderate pain, please take tylenol 500mg every 6 hours, and for severe pain take [place] 5/325. NO ibuprofen or Aspirin or Motrin, Aleve no NSAIDS -Please continue to change your incision packing twice a day. WOUND CARE- Small opening to distal abdominal incision- Cleanse wound with NS, pat dry. Apply non sting skin barrier to norberto-wound skin. Apply Hydrofera blue on top of wound bed. Cover wounds with Allevyn dressing, making sure that all edges of dressing are in contact with skin. To be changed every other day and PRN soiled/dislodgement. -Follow up with PCP within 1 week of discharge, if you do not have a primary ca re physician you can come see us at the [facility] by calling [phone] -Continue rest of medications as previously prescribed -Return to the ED or call EMS if symptoms return and/or worsen Plan discussed with my attending Dr. Gerson Holloway MD PGY1 Time Spent with Patient Time attestation: Total time spent providing and/or coordinating discharge services: Time spent: Greater than 30 minutes Home Health Home Health Referral Orders: 06/22/25 14:29 Home Health Referral Routine Reason For Exam: TPN Home-Bound The patient must either because of illness or injury, need the aid of supportive devices such as crutches, canes, wheelchairs, and walkers; the use of special transportation; or the assistance of another person in order to leave their place of residence; OR have a condition such that leaving his or her home is medically contraindicated. In addition, the patient also meets the following criteria: patient is normally unable to leave the home and leaving home requires considerable taxing effort. Addendum to Home Health Certification Practitioner's Certification: I certify that the patient has been under my care in the hospital and the care of attending physician (see below). We had a gijl-km-ayle encounter on (see date below). My clinical findings indicate that the patient is home bound per the above criteria and the Home Health Services noted in these orders are medically necessary. The primary reason for the dhvi-fb-[id number] encounter is related to the fact that the patient requires home health services. Date Certifying Uyfq-jg-Dlct Physician Encounter: 06/20/25 Physician's Name who will Assume Oversight for Services: Dewayne Bennett Physician's Phone No.who will Assume Oversight for Service: FITTER / WELDER - Community Resources: No PT to Evaluate: No PT to evaluate and provide a treatmnet plan to increase patient's mobility and strength. Wound Care: No IV Therapy: Yes IV Medication: TPN IV Dose: see dietary IV Frequency: daily IV Stop Date: 07/06/25 Discontinue PICC Line Once Treatment Complete: Yes RN Safety Evaluation: Yes RN to evaluate and create a plan of care that will produce positive outcomes. Palliative Treatment: No Palliative treatment and evaluate the need for hospice. Home Health Aide - Personal Care: No Home Health Aide to assist with any ADL's. Exam Vital Signs Temp Pulse Resp BP Pulse Ox O2 Del Method O2 Flow Rate 97.5 F 66 17 107/69 99 Room Air 2 06/24/25 04:00 06/24/25 04:00 06/24/25 04:00 06/24/25 04:00 06/24/25 04:00 06/24/25 04:00 06/22/25 15:05 Narrative Exam limited exam pt dressed in regular clothes, well appearing no acute distress well perfused on visual inspection midline abdominal surgical closure with patricia UE picc line in place Discharge Plan Plan Patient Disposition: Home w/HOME HEALTH Patient condition on transfer: Stable Care Plan Goals: -NO EATING food or drink for 2 weeks (Last day 07/06) OK for ice chips to moisten your mouth -please follow up with your surgeon Dr.?Ramasamy Hargrove in clinic in 2 weeks, [address] [address], [place] [address] [phone]. Call for staple removal appointment -for moderate pain, please take tylenol 500mg every 6 hours, and for severe pain take Loveland 5/325. NO ibuprofen or Aspirin or Motrin, Aleve no NSAIDS -Please continue to change your incision packing twice a day. WOUND CARE- Small opening to distal abdominal incision- Cleanse wound with Normal Saline, pat dry. Cut small piece of Hydrofera blue, big enough to cover open wound and place on top of wound bed. Cover wounds with foam dressing, making sure that all edges of dressing are in contact with skin. To be changed every other day and as needed soiled/dislodgment or after showering. If active bleeding occurs, apply tight dressing and return to MD or ER. ? Notify primary doctor or return to Emergency Room if any of the following: ? Fever above 100.6? F. ? Increased pain ? Increase swelling ? Red streaks around your wound ? Drainage becomes foul smelling or changes color ? The wound is larger or deeper ? The wound looks dried out or dark ? Bleeding that does not stop with holding pressure -Follow up with PCP within 1 week of discharge, if you do not have a primary care physician you can come see us at the [facility] by calling [phone] -Continue rest of medications as previously prescribed -Return to the ED or call EMS if symptoms return and/or worsen Prescriptions/Referrals Prescriptions/Med Rec: New hydrocodone-acetaminophen 5-325 mg tablet 1 tab PO Q6H MDD 4 PRN (Reason: pain) Qty: 20 0RF Continued pantoprazole [Protonix] 40 mg tablet,delayed release (DR/EC) 40 mg PO QDAY 30 Days Qty: 30 0RF Discontinued sennosides-docusate sodium [Senna with Docusate Sodium] 8.6-50 mg tablet 1 tab-cap PO QDAY PRN (Reason: constipation) Qty: 30 0RF sucralfate [Carafate] 1 gram tablet 1 g PO TID 30 Days Qty: 90 0RF omeprazole 20 mg capsule,delayed release(DR/EC) 20 mg PO QDAY Patient Comments: TAKE ONE CAPSULE BY MOUTH 30 MINUTES BEFORE BREAKFAST HEARTBURN sucralfate 100 mg/mL suspension 10 ml PO QID Qty: 300 0RF Rx Instructions: swish in mouth and swallow; use after food/drink polyethylene glycol 3350 [Miralax] 17 gram/dose powder 17 g PO QDAY PRN (Reason: constipation) Qty: 238 0RF Referrals: No Primary/Family,Physician [Primary Care Provider] Patient/Caregiver Discharge Instructions Discharge Activity: activity as tolerated Education Materials: Incision Care Dc, Wound Care Dc Print Language: Kyrgyz Stand Alone Forms: Talisha Award Info., Patient Portal Info Letter Discharge Order Discharge Orders: Discharge (Routine); Ordered 06/24/25 Ordered By: Selin Holloway Quality Discharge Quality Measures VTE prophylaxis
[2025-06-24 08:00] VITALS: BP 114/66; PULSE 79; RESP 18; TEMP 36.5; O2SAT 97
--- NOTE | 2025-06-24 09:41 | PC.SS ---
Follow up note: Patient being weaned off tpn. Floor nurse coordinating with transfer nurse. Patient should be discharged before shortly before noon to be home to meet home health nurse. Fiance to transport home.
--- NOTE | 2025-06-24 09:54 | PC.CM ---
Patient will be discharged today at 12:00. Patient will be weaned from TPN prior to discharge and I spoke to [facility] and they will be at patients home at 12:15. [facility] has already delivered TPN. Barb bedside nurse and aware of plans.
--- NOTE | 2025-06-24 11:40 | PC.NURSE ---
discharge instructions given and signed
--- NOTE | 2025-06-24 11:46 | PC.LAC ---
Pt weaned off TPN since 0830 this am, discharge instructions given to pt and education given. Pt will discharge with PICC line in place for home TPN. nurse to meet pt at 12 at home
--- NOTE | 2025-06-25 07:15 | PC.CC ---
Addendum entered by Margaret Dsouza RN 06/25/25 11:38: dc summary sent to [facility]. Original Note: dc summary sent to
== END 2025-06-24 11:46 | disposition home health service (06) | DRG 241 ==
LOC: SERX 21:33 → S3NX 23:32 → SERHOLD 06-23 11:52
PROVIDERS: Nurse Practitioner Family; Admitting Provider Student in an Organized Health Care Education/Training Program; Emergency Provider Emergency Medicine
DX: K25.5 Chronic or unspecified gastric ulcer with perforation (principal); J18.9 Pneumonia, unspecified organism; Z90.49 Acquired absence of other specified parts of digestive tract; Z87.442 Personal history of urinary calculi; Z87.440 Personal history of urinary (tract) infections
CPT/HCPCS: 36415; 71045; 80053; 81001; 83690; 83735; 84100; 84478; 85025; 85610; 85730; 87081; 87635; 96361; 96374; 96375; 96376; 99284; A4649; C1751; C1894; J0131; J0612; J1171; J1642; J1650; J1815; J2250; J2270; J2405; J2470; J3475; J3480; J3490; J7050; J7120; J7121; A9270

== ENCOUNTER 2025-07-24 04:07 | Emergency (ER) | payer MEDICAID, SELFPAY ==
[2025-07-24 04:08] VITALS: BMI 26.5
[2025-07-24 04:19] VITALS: BP 111/77; PULSE 91; RESP 19; TEMP 37.1; O2SAT 98
[2025-07-24 06:28] VITALS: BP 108/72; PULSE 86; RESP 18; TEMP 36.8; O2SAT 98
--- NOTE | 2025-07-24 06:55 | EDRME_ITS ---
Rapid Medical Screening Exam [facility] Arrival date/time: 07/24/25 04:07 This is a 34-year-old female that comes into the emergency room with complaints of generalized abdominal pain and left flank pain. Patient states that abdominal pain has been going on for 2 days and the flank pains been going on for 3 days. Patient also complains of dysuria, urinary frequency and urgency. Patient also complains of fever and chills. Patient had a recent hospitalization last month where she was in the hospital for almost a month total. Per notes patient had a large gastric ulcer which perforated and she underwent an ex lap with general surgery and repair of the perforation and drainage of the intra-abdominal abscess. Patient was on bowel rest and she was not taking anything by mouth. Patient was on TPN upon discharge and had a PICC line placed to her right upper extremity. Patient states that she has now been eating more and more and the PICC line was removed a couple days ago. Patient denies nausea, vomiting, diarrhea. I have greeted and performed a focused initial assessment of this patient. Initial appropriate labs ordered at this time. A comprehensive ED assessment and evaluation of the patient and analysis of all test and completion of medical decision making process will be conducted by additional ED provider. Chief Complaint: Abdominal Pain Time Seen by Provider: 07/24/25 06:25 Vital signs: Vital Signs Temperature 98.8 F 07/24/25 04:19 Pulse Rate 91 07/24/25 04:19 Respiratory Rate 19 07/24/25 04:19 Blood Pressure 111/77 07/24/25 04:19 Pulse Oximetry (%) 98 07/24/25 04:19 Oxygen Delivery Method Room Air 07/24/25 04:19 Exam: Awake and alert, breathing even and unlabored, skin warm and dry Clinical Impression: Abdominal pain
[2025-07-24 07:15] LABS: Lactate (Lactic Acid) 0.9 mMol/L (0.4-2.0)
[2025-07-24 07:19] LABS: Basophils # (Auto) 0.1 Thou/mm3 (0.0-0.2); Basophils % (Auto) 1 % (0-2.5); Eosinophils # (Auto) 0.2 Thou/mm3 (0.0-0.5); Eosinophils % (Auto) 2 % (0-10); Hematocrit 38.2 % (36.0-46.0); Hemoglobin 12.2 g/dL (12.0-16.0); Immature Granulocytes Auto 0.01 Thou/mm3 (0.00-0.00); Lymphocytes # (Auto) 3.4 Thou/mm3 (1.0-4.8); Lymphocytes % (Auto) 48 % (10-50); Mean Corpuscular HGB Conc 31.9 g/dl (31.0-37.0); Mean Corpuscular Hemoglobin 26.9 pg (25.0-35.0); Mean Corpuscular Volume 84 fL (80-100); Monocytes # (Auto) 0.5 Thou/mm3 (0.0-0.8); Monocytes % (Auto) 7 % (0-12); Neutrophils # (Auto) 2.9 Thou/mm3 (1.8-7.7); Neutrophils % (Auto) 42 % (37-80); Nucleated Red Blood Cell # 0.00 Thou/mm3 (0.00-0.00); Nucleated Red Blood Cell % 0 /100 WBC (0); Platelet Count 290 Thou/mm3 (140-440); RDW Standard Deviation 48.0 fL (36.4-46.3); Red Blood Count 4.54 Miln/mm3 (4.00-5.20); White Blood Count 7.0 Thou/mm3 (3.6-11.0)
[2025-07-24 07:54] LABS: Collection Type, Urine Voided
[2025-07-24 08:00] LABS: Alanine Aminotransferase 17 U/L (10-49); Albumin, Serum 4.3 gm/dL (3.5-5.0); Albumin/Globulin Ratio 1.3 (1.2-2.2); Alkaline Phosphatase 134 U/L (46-116); Anion Gap 9 (7-16); Aspartate Amino Transferase 23 U/L (0-34); BUN/Creatinine Ratio 10 Ratio (12-20); Bilirubin,Total < 0.2 mg/dL (0.3-1.2); Blood Urea Nitrogen 7 mg/dL (9-23); Calcium 9.1 mg/dL (8.3-10.6); Calcium (Corrected) 9.1 mg/dL (8.5-10.1); Carbon Dioxide 26.5 mMol/L (20.0-31.0); Chloride 105 mMol/L (98-107); Creatinine (Component) 0.7 mg/dL (0.6-1.3); Estimated Creatinine Clearance 92.9 mL/min (>60); Globulin 3.4 gm/dL (2.3-3.5); Glucose 90 mg/dL (74-106); Lipase 30 U/L (12-53); Osmolality,Calculated 277 (275-295); Potassium 3.9 mMol/L (3.4-5.1); Sodium 140 mMol/L (136-145); Total Protein 7.7 gm/dL (5.7-8.2); eGFR > 60 See Note
[2025-07-24 08:01] LABS: HCG Qualitative,Urine Negative
[2025-07-24 08:08] LABS: Procalcitonin < 0.04 ng/ml (0.0-0.49)
[2025-07-24] MEDS: ONDANSETRON ODT 4 MG TABRAP PO (08:16)
[2025-07-24] MEDS: HYDROcodone/APAP 5/325 TABLET 1 TAB PO (08:16)
[2025-07-24 08:55] LABS: Bacteria,Urine Rare; Bilirubin,Urine Negative (Negative); Blood,Urine Negative (Negative); Clarity,Urine Clear (Clear/Hazy); Color,Urine Lt-Yellow (Lt Yel-Yel); Glucose, Urine Negative (Negative); Ketones,Urine Negative (Negative); Leukocyte Esterase,Urine Negative (Negative); Nitrite,Urine Positive (Negative); PH,Urine 6.0 (5.0-7.0); Protein,Urine Negative (Neg - Trace); RBC,Urine 3 /hpf (0-3); Specific Gravity,Urine 1.026 (1.001-1.035); Squamous Epithelial Cell,Urine 7 /hpf (0-5); Urobilinogen,Urine Negative mg/dL (0.0-1.0); WBC,Urine 9 /hpf (0-5)
--- NOTE | 2025-07-24 09:03 | PC.NURSE ---
PATIENT CAME UP TO NURSES STATION AND STATED SHE WAS GOING TO LEAVE HOME. PATIENT MADE AWARE URINE RESULTS WERE STILL PENDING. PATIENT STATED SHE DID NOT WANT TO WAIT. PATIENT ELOPED @ 0900
[2025-07-24 09:05] LABS: Culture Indicated,Urine Yes
== END 2025-07-24 09:05 | disposition left against medical advice (07) ==
LOC: SERX 08:16
PROVIDERS: Emergency Provider Nurse Practitioner Family
DX: R10.84 Generalized abdominal pain (principal); Z53.29 Procedure and treatment not carried out because of patient's decision for other reasons
CPT/HCPCS: 36415; 80053; 81001; 81025; 83605; 83690; 84145; 85025; 87040; 87077; 87086; 87186; 99282; Q0162; A9270

== ENCOUNTER 2025-07-24 22:22 | Emergency (ER) | payer MEDICAID, SELFPAY ==
[2025-07-24 22:25] VITALS: BMI 26.5
[2025-07-24 22:41] VITALS: BP 127/75; PULSE 71; RESP 18; TEMP 36.7; O2SAT 99
--- NOTE | 2025-07-24 22:54 | EDNOTE_ITS ---
ED Abdominal Pain RME/HPI General Chief Complaint: Abdominal Pain Stated complaint: ABD PAIN Time seen by provider: 07/24/25 22:46 Arrival date/time: 07/24/25 22:22 RME / HPI RME / HPI narrative: DR. RAYMUNDO MAIN ED EVALUATION: 34 y/o female with recent Hx of Perforated Gastric Ulcer and Repair presents to ED c/o severe epigastric abdominal pain x 2 days. Also reports dysuria. Patient underwent repair on 05/29/2025 and was discharged on 06/24/2025. Patient was also here this morning, but eloped as she grew impatient due to the severe pain. Denies vomiting and reports normal bowel movements. Also denies history of DM and HTN. Related Data Previous Rx's ?Medication ?Instructions ?Recorded hydrocodone 5 mg-acetaminophen 325 1 tab PO Q6H PRN pa in #20 tabs 06/24/25 mg tablet pantoprazole 40 mg tablet,delayed 40 mg PO QDAY 30 day s #30 tabs 06/24/25 release (Protonix) dicyclomine 20 mg tablet 20 mg PO QID PRN abdominal p ain 07/25/25 #20 tabs pantoprazole 40 mg tablet,delayed 40 mg PO QDAY #30 ta bs 07/25/25 release (Protonix) Allergies Allergy/AdvReac Type Severity Reaction Status Date / Time No Known Allergies Allergy Verified 07/24/25 22:29 Review of Systems Review of Systems Systems Reviewed: All systems reviewed, normal except as documented Past Medical History Past Medical History NEUROLOGIC: Positive Migraine GASTROINTESTINAL: Positive Ulcer GENITOURINARY: Positive Kidney Stones HEMATOLOGIC: Positive Anemia OTHER HISTORY: Positive Blood Transfusions Family History FAMILY HISTORY: Positive Family Cardiac Disorders Surgical History SURGICAL: Positive Abdominal Surgery ED Exam Narrative Physical exam: Generally patient is alert oriented x 3 in mild to moderate distress secondary to pain, heart regular rate and rhythm, lungs clear to auscultation equal bilaterally, abdomen soft laparotomy scar in place without surrounding erythema with epigastric abdominal tenderness without rebound, extremities show no edema, skin is warm pale and dry, neurologic exam [place] Coma Scale is 15 without focal motor deficit Course Quality Measures none Orders Category Date Time Status CT Screening NOW Care 07/24/25 22:54 Active Insert IV NOW Care 07/24/25 23:[address] abdomen pelvis w con Stat Exams 07/24/25 22:54 Completed CBC Stat Lab 07/24/25 23:04 Completed HYDROmorphone INJ [Dilaudid Inj] Med 07/24/25 23:09 Discontinued 1 mg IVP X1 ONE HYDROmorphone INJ [Dilaudid Inj] Med 07/25/25 00:03 Discontinued 1 mg IVP X1 ONE Morphine* Inj Med 07/24/25 22:54 Discontinued 4 mg IVP X1 ONE Sodium Chloride 0.9% 1000 ml [Ns] 1,000 ml Med 07/24/25 22:54 Discontinued IV 999 mls/hr Vital Signs Vital signs: Vital Signs Temperature 98.1 F 07/24/25 22:41 Pulse Rate 71 07/24/25 22:41 Respiratory Rate 18 07/24/25 22:41 Blood Pressure 127/75 07/24/25 22:41 Pulse Oximetry (%) 99 07/24/25 22:41 Oxygen Delivery Method Room Air 07/24/25 22:41 Abdominal Pain MDM MDM Narrative MDM Narrative:: Scribe Attestation: Sandie Munoz, josefina scribing for and in the presence of Dr. Raymundo. Provider Notation: Although this document has been carefully reviewed, there may still be some phonetic and other typographical errors. These errors are purely grammatical due to imperfections in the software program and should not be construed in any way to compromise the substance of the patient's medical care during this visit. Patient was here this morning but left prior to workup being complete. Lab work was reviewed from this morning. There is no leukocytosis. Repeat CBC was done tonight and again there is no leukocytosis. Urine test was negative. Urinalysis showed no evidence of urine infection. CT scan done of the abdomen and pelvis with IV contrast tonight showed no free air and no free fluid. It did show evidence for thickened gastric wall without bowel obstruction. It does not appear as if the patient has a perforation at this time. Patient received Dilaudid 1 mg IV x 2 as well as a GI cocktail consisting of 30 cc of Maalox and 15 cc of viscous lidocaine with benefit. Patient takes hydrocodone on a regular basis. She was warned about the possibility of constipation but she does have a bowel movement at least once a day. She will be discharged on Bentyl to be taken as prescribed. Protonix as prescribed. Avoid hot spicy greasy fatty foods. Follow-up with her doctor. Return to ER as needed or if condition worsens. 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 External records reviewed:: [facility] previous records (Reviewed prior ED records from 06/20/25. Patient was seen for Chronic abdominal pain.) Clinical information provided by:: patient Social determinants that could affect healthcare access:: none Patient has the following chronic illnesses:: Kidney Stones, Ulcer, Migraine How is presenting disease/condition affected by chronic disease/condition?: exacerbated by Evaluation data The following diagnostics were reviewed and interpreted by me:: lab results and radiology exam(s) Lab and/or radiology exams considered but not ordered:: None Interpretation Summary: RADIOLOGY Abdomen/Pelvis CT: Findings: No focal liver or splenic lesions No gallstones Thickening of the gastric mucosa in the antral region The small fluid collection around the distal stomach remains, clinical correlation advised No pancreatic mass No renal or ureteral calculi, no hydronephrosis No bowel obstruction No pericecal inflammatory change No diverticulitis Anteverted uterus Mild thickening of the urinary bladder wall Advanced narrowing L5-S1 disc space IMPRESSION: Thickening of the gastric mucosa in the gastric antral region, gastritis pattern No change in small fluid collection around the distal stomach, clinical correlation advised, recommend elective Gastrografin upper GI series No pancreatic mass No renal or ureteral calculi Mild cystitis pattern Medications / Prescriptions Medications or Prescriptions considered but not ordered:: None Medication administrations:: Medication Administration History Discontinued Medications Hydromorphone HCl (Hydromorphone Inj 2 Mg/Ml Vial) 1 mg IVP X1 ONE Stop: 07/24/25 23:10 Last Admin: 07/24/25 23:14 Dose: 1 mg Documented By: BD Hydromorphone HCl (Hydromorphone Inj 2 Mg/Ml Vial) 1 mg IVP X1 ONE Stop: 07/25/25 00:04 Sodium Chloride (Ns) 1,000 mls @ 999 mls/hr IV .Q1H1M ONE Stop: 07/24/25 23:54 Last Admin: 07/24/25 23:15 Dose: 999 mls/hr Documented By: BD Morphine Sulfate (Morphine Sulf Inj 4 Mg/Ml Vial) 4 mg IVP X1 ONE Stop: 07/24/25 22:55 Last Admin: 07/24/25 23:10 Dose: Not Given Documented By: BD Non-Admin Reason: Cancelled by Provider See above if any. Consultations Consultation(s) initiated? (list below): No Diagnosis Differential diagnosis abdominal pain: abdominal pain, calculus of kidney, diverticulitis, pancreatitis, small bowel obstruction and other (Gastric Ulcer, GERD, Renal Calculi) Most likely diagnosis given after review of the tests above:: none Admission Indicated Admission indicated?: not indicated Explain why admission is indicated or not indicated:: Patient does not meet admission criteria. Admission Request Was there a request for admission?: No Disposition Plan Disposition Plan: Discharge Discharge Attestation Discharge Attestation: The patient and all family members were given an opportunity to ask questions and understood the discharge instructions. Discharge instructions specifically effects, indications for sooner follow up or return to the emergency department, and the expected course of current diagnosis. Patient condition: Stable Discharge Plan Plan Patient Disposition: HOME (Self Care) Prescriptions/Referrals Prescriptions/Med Rec: New dicyclomine 20 mg tablet 20 mg PO QID PRN (Reason: abdominal pain) Qty: 20 0RF pantoprazole [Protonix] 40 mg tablet,delayed release (DR/EC) 40 mg PO QDAY Qty: 30 0RF No Action hydrocodone-acetaminophen 5-325 mg tablet 1 tab PO Q6H MDD 4 PRN (Reason: pain) Qty: 20 0RF pantoprazole [Protonix] 40 mg tablet,delayed release (DR/EC) 40 mg PO QDAY 30 Days Qty: 30 0RF Referrals: Dewayne Bennett MD [Primary Care Provider, Family Practice] - In 1 week Problem List Clinical Impression: Abdominal pain Patient/Caregiver Discharge Instructions Education Materials: Abdominal Pain Additional Instructions: Continue current medications. Bentyl and Protonix as prescribed. Avoid hot spicy greasy fatty foods. Follow-up with your doctor. Return to ER as needed or if condition worsens. Print Language: Kinyarwanda Stand Alone Forms: Talisha Award Info., Patient Portal Info Letter
--- NOTE | 2025-07-24 22:54 | XR_ITS ---
Examination: CT abdomen with intravenous contrast CT pelvis with intravenous contrast 2-D coronal reconstructions 2-D sagittal reconstructions Date and time of exam: July 24, 2025, 11:30 p.m INDICATIONS: Abdominal pain beginning 2 days ago. COMPARISON: June 19, 2025. CTDI: vol (mGy) 5.89 DLP: (mGycm) 328 Technique: Multiple axial sections of the abdomen and pelvis have been obtained. 64 slice high-resolution scanner used. 3 mm axial sections have been obtained, post intravenous injection 60 cc [id number] 2-D sagittal, coronal reconstructions obtained. Low dose protocols were performed. One or more of the following dose reduction techniques were used; automated exposure control, adjustment of the mA and/or KV according to patient size, use of iterative reconstruction technique. Findings: No focal liver or splenic lesions No gallstones Thickening of the gastric mucosa in the antral region The small fluid collection around the distal stomach remains, clinical correlation advised No pancreatic mass No renal or ureteral calculi, no hydronephrosis No bowel obstruction No pericecal inflammatory change No diverticulitis Anteverted uterus Mild thickening of the urinary bladder wall Advanced narrowing L5-S1 disc space IMPRESSION: Thickening of the gastric mucosa in the gastric antral region, gastritis pattern No change in small fluid collection around the distal stomach, clinical correlation advised, recommend elective Gastrografin upper GI series No pancreatic mass No renal or ureteral calculi Mild cystitis pattern
[2025-07-24 23:09] LABS: Basophils # (Auto) 0.1 Thou/mm3 (0.0-0.2); Basophils % (Auto) 1 % (0-2.5); Eosinophils # (Auto) 0.1 Thou/mm3 (0.0-0.5); Eosinophils % (Auto) 1 % (0-10); Hematocrit 36.8 % (36.0-46.0); Hemoglobin 11.5 g/dL (12.0-16.0); Immature Granulocytes Auto 0.01 Thou/mm3 (0.00-0.00); Lymphocytes # (Auto) 3.1 Thou/mm3 (1.0-4.8); Lymphocytes % (Auto) 48 % (10-50); Mean Corpuscular HGB Conc 31.3 g/dl (31.0-37.0); Mean Corpuscular Hemoglobin 26.9 pg (25.0-35.0); Mean Corpuscular Volume 86 fL (80-100); Monocytes # (Auto) 0.4 Thou/mm3 (0.0-0.8); Monocytes % (Auto) 6 % (0-12); Neutrophils # (Auto) 2.8 Thou/mm3 (1.8-7.7); Neutrophils % (Auto) 44 % (37-80); Nucleated Red Blood Cell # 0.00 Thou/mm3 (0.00-0.00); Nucleated Red Blood Cell % 0 /100 WBC (0); Platelet Count 284 Thou/mm3 (140-440); RDW Standard Deviation 50.0 fL (36.4-46.3); Red Blood Count 4.28 Miln/mm3 (4.00-5.20); White Blood Count 6.5 Thou/mm3 (3.6-11.0)
[2025-07-24] MEDS: HYDROmorphone INJ 2 MG/ML VIAL 1 MG IVP (23:14)
[2025-07-24] MEDS: SODIUM CHLORIDE 0.9% 1000 ML 1,000 ML 999 ML IV (23:15)
[2025-07-25] MEDS: HYDROmorphone INJ 2 MG/ML VIAL 1 MG IVP (00:24)
[2025-07-25] MEDS: MG HYD/AL HYD/SIME (Maalox Reg) SUSP 30 ML UDC PO (00:26)
[2025-07-25] MEDS: LIDOCAINE VISCOUS 2% 15 ML UDC PO (00:26)
[2025-07-25 01:09] VITALS: BP 116/69; PULSE 85; RESP 16; TEMP 36.7; O2SAT 98
== END 2025-07-25 01:12 | disposition home or self-care (01) ==
PROVIDERS: Emergency Provider Emergency Medicine; PCP Family Medicine
DX: R10.13 Epigastric pain (principal)
CPT/HCPCS: 36415; 74177; 85025; 96361; 96374; 96375; 99284; A4649; J1171; J3490; J7030; Q9967; A9270